=== PATIENT | male | born 1950 | race Caucasian/White ===

== ENCOUNTER → 2020-07-01 12:53 | Outpatient (BNVA) | payer MEDICARE, SELFPAY | PROVIDERS: PCP Internal Medicine; Visit Provider Internal Medicine | DX: I48.19 Other persistent atrial fibrillation (principal); I49.3 Ventricular premature depolarization; I45.10 Unspecified right bundle-branch block; R94.39 Abnormal result of other cardiovascular function study; Z79.01 Long term (current) use of anticoagulants; Z79.899 Other long term (current) drug therapy | CPT/HCPCS: 99212 ==

== ENCOUNTER 2020-07-13 08:00 | Outpatient (REF) | payer MEDICARE, SELFPAY ==
[2020-07-13 15:37] LABS: Creatinine Urine 120.22 mg/dL; Microalbum/Creatinine Ratio Ur 612.2 ug/mg cr
== END 2020-07-13 08:01 | disposition home or self-care (01) ==
LOC: HO.LAB 08:00
PROVIDERS: Family Medicine
DX: E11.9 Type 2 diabetes mellitus without complications (principal); Z23 Encounter for immunization
CPT/HCPCS: 82043

== ENCOUNTER → 2020-07-19 09:27 | Outpatient (BNVA) | payer MEDICARE, SELFPAY | PROVIDERS: PCP Internal Medicine; Referring Provider Internal Medicine; Visit Provider Nurse Practitioner | DX: K21.9 Gastro-esophageal reflux disease without esophagitis (principal); K22.10 Ulcer of esophagus without bleeding; R13.10 Dysphagia, unspecified | CPT/HCPCS: Q3014 ==

== ENCOUNTER 2020-10-12 10:55 | Outpatient (REF) | payer MEDICARE, SELFPAY ==
[2020-10-12 11:22] LABS: Creatinine Urine 189.66 mg/dL
== END 2020-10-12 10:56 | disposition home or self-care (01) ==
LOC: HO.LNP 10:55
PROVIDERS: Visit Provider Family Medicine
DX: I10 Essential (primary) hypertension (principal); E11.9 Type 2 diabetes mellitus without complications
CPT/HCPCS: 82043

== ENCOUNTER → 2020-12-30 09:27 | Outpatient (BNVA) | payer MEDICARE, SELFPAY | PROVIDERS: PCP Family Medicine; Visit Provider Internal Medicine | DX: I48.19 Other persistent atrial fibrillation (principal); I25.10 Atherosclerotic heart disease of native coronary artery without angina pectoris; I10 Essential (primary) hypertension; E11.8 Type 2 diabetes mellitus with unspecified complications | CPT/HCPCS: 93005; 99212 ==

== ENCOUNTER 2021-05-06 10:00 | Outpatient (REF) | payer MEDICARE, SELFPAY ==
[2021-05-06 11:16] LABS: MANUAL DIFF FLAG NO
[2021-05-06 11:35] LABS: Basophils Percent Auto 0.3 % (0-2); Eosinophils Absolute Auto 0.1 X10*3/uL (0.0-0.4); Eosinophils Percent Auto 1.4 % (0-4); Hematocrit 42.7 % (42-52); Hemoglobin 14.2 g/dl (14.0-18.0); Imm Gran Abs Auto 0.06 X10*3/uL (0.00-0.03); Imm Gran Pct Auto 0.8 % (0.0-0.4); Lymphocytes Absolute Auto 1.3 X10*3/uL (1.2-4.9); Lymphocytes Percent Auto 17.2 % (20-40); Mean Corpuscular HGB Conc 33.3 g/dl (31.0-36.0); Mean Corpuscular Hemoglobin 28.5 pg (27.0-33.0); Mean Corpuscular Volume 85.7 fL (80-98); Mean Platelet Volume 10.5 fL (9.4-12.4); Monocytes Absolute Auto 0.7 X10*3/uL (0.1-1.2); Monocytes Percent Auto 9.7 % (2-11); Neutrophils Absolute Auto 5.2 X10*3/uL (2.0-8.3); Neutrophils Percent Auto 70.6 % (45-73); Platelet Count 214 X10*3/uL (160-400); Red Blood Count 4.98 X10*6/uL (4.60-5.80); Red Cell Distribution Width 13.5 % (11.0-16.0); White Blood Count 7.3 X10*3/uL (4.8-10.8)
[2021-05-06 12:11] LABS: TSH reflex Free T4 0.37 uIU/mL (0.32-4.0)
[2021-05-06 12:31] LABS: Alanine Aminotransferase 17 U/L (0-40); Albumin Level 4.2 g/dL (3.5-5.0); Alkaline Phosphatase 47 U/L (39-117); Anion Gap 13 (12-20); Aspartate Amino Transferase 21 U/L (5-37); Bilirubin Total 1.5 mg/dL (0.0-1.0); Blood Urea Nitrogen 15 mg/dL (9-16); Calcium 9.3 mg/dL (8.4-10.2); Carbon Dioxide 25 mmol/L (22-29); Chloride 102 mmol/L (96-108); Cholesterol 121 mg/dL; Estimated Glomerular Filt Rate > 60; Glucose Fasting 103 mg/dL (60-99); HDL Cholesterol 40 mg/dL; LDL Cholesterol Calculated 52 mg/dl; Potassium 4.6 mmol/L (3.3-5.1); Sodium 135 mmol/L (135-145); Total Protein 6.5 g/dL (6.5-8.0); Triglycerides 145 mg/dL
[2021-05-06 12:35] LABS: Phosphorus 3.6 mg/dL (2.7-4.5)
[2021-05-06 13:04] LABS: Prostate Specific Antigen Scr 2.47 ng/mL (<0.05-4.0)
[2021-05-12 10:52] LABS: Calcium (PTHI) 9.3 mg/dL (8.6-10.3); PTHI 32 pg/mL (14-64)
== END 2021-05-06 10:01 | disposition home or self-care (01) ==
LOC: HO.WFDLDS 10:00
PROVIDERS: Visit Provider Family Medicine
DX: Z00.00 Encounter for general adult medical examination without abnormal findings (principal); E21.0 Primary hyperparathyroidism; E55.9 Vitamin D deficiency, unspecified; Z12.5 Encounter for screening for malignant neoplasm of prostate
CPT/HCPCS: 36415; 80053; 80061; 82306; 83970; 84100; 84153; 84443; 85025

== ENCOUNTER → 2021-06-14 09:37 | Outpatient (BNVA) | payer MEDICARE, SELFPAY | PROVIDERS: PCP Family Medicine; Referring Provider Family Medicine; Visit Provider Nurse Practitioner | DX: K21.9 Gastro-esophageal reflux disease without esophagitis (principal) | CPT/HCPCS: 99212 ==

== ENCOUNTER → 2021-06-30 12:18 | Outpatient (BNVA) | payer MEDICARE, SELFPAY | PROVIDERS: PCP Family Medicine; Referring Provider Family Medicine; Visit Provider Internal Medicine | DX: I48.19 Other persistent atrial fibrillation (principal); I25.10 Atherosclerotic heart disease of native coronary artery without angina pectoris; I10 Essential (primary) hypertension; E11.8 Type 2 diabetes mellitus with unspecified complications | CPT/HCPCS: 99212 ==

== ENCOUNTER 2021-08-05 11:48 | Outpatient (REF) | payer MEDICARE, SELFPAY ==
[2021-08-05 14:34] LABS: Estimated Average Glucose 151 mg/dL; Hemoglobin A1c % 6.9 %
== END 2021-08-05 11:49 | disposition home or self-care (01) ==
LOC: HO.WFDLDS 11:48
PROVIDERS: Visit Provider Family Medicine
DX: R73.01 Impaired fasting glucose (principal)
CPT/HCPCS: 36415; 83036

== ENCOUNTER → 2021-12-13 09:35 | Outpatient (BNVA) | payer MEDICARE, SELFPAY | PROVIDERS: PCP Family Medicine; Referring Provider Family Medicine; Visit Provider Nurse Practitioner | DX: K21.9 Gastro-esophageal reflux disease without esophagitis (principal); K22.10 Ulcer of esophagus without bleeding | CPT/HCPCS: 99212 ==

== ENCOUNTER → 2021-12-27 12:01 | Outpatient (BNVA) | payer MEDICARE, SELFPAY | PROVIDERS: PCP Family Medicine; Referring Provider Family Medicine; Visit Provider Internal Medicine | DX: I48.19 Other persistent atrial fibrillation (principal); I25.10 Atherosclerotic heart disease of native coronary artery without angina pectoris; I10 Essential (primary) hypertension; E11.8 Type 2 diabetes mellitus with unspecified complications | CPT/HCPCS: 93005; 99212 ==

== ENCOUNTER 2022-02-04 07:02 | Outpatient (REF) | payer MEDICARE, SELFPAY ==
[2022-02-04 07:11] LABS: MANUAL DIFF FLAG NO
[2022-02-04 07:34] LABS: Basophils Percent Auto 0.3 % (0-2); Eosinophils Absolute Auto 0.2 X10*3/uL (0.0-0.4); Eosinophils Percent Auto 1.7 % (0-4); Hematocrit 46.7 % (42.0-52.0); Hemoglobin 15.1 g/dl (14.0-18.0); Imm Gran Abs Auto 0.05 X10*3/uL (0.00-0.03); Imm Gran Pct Auto 0.6 % (0.0-0.4); Lymphocytes Absolute Auto 1.5 X10*3/uL (1.2-4.9); Lymphocytes Percent Auto 17.1 % (20-40); Mean Corpuscular HGB Conc 32.3 g/dl (31.0-36.0); Mean Corpuscular Volume 80.4 fL (80.0-98.0); Mean Platelet Volume 9.4 fL (9.4-12.4); Monocytes Absolute Auto 0.9 X10*3/uL (0.1-1.2); Monocytes Percent Auto 10.6 % (2-11); Neutrophils Absolute Auto 6.1 x10*3/uL (2.0-8.3); Neutrophils Percent Auto 69.7 % (45-73); Platelet Count 249 X10*3/uL (160-400); Red Blood Count 5.81 X10*6/uL (4.60-5.80); Red Cell Distribution Width 16.5 % (11.0-16.0); White Blood Count 8.7 X10*3/uL (4.8-10.8)
[2022-02-04 07:57] LABS: Alanine Aminotransferase 16 U/L (0-40); Albumin Level 4.4 g/dL (3.5-5.0); Alkaline Phosphatase 64 U/L (39-117); Anion Gap 12 (12-20); Aspartate Amino Transferase 16 U/L (5-37); Bilirubin Total 1.1 mg/dL (0.0-1.0); Blood Urea Nitrogen 20 mg/dL (9-16); Calcium 9.7 mg/dL (8.4-10.2); Carbon Dioxide 29 mmol/L (22-29); Chloride 99 mmol/L (96-108); Cholesterol 122 mg/dL; Estimated Glomerular Filt Rate 55; Glucose Fasting 97 mg/dL (60-99); HDL Cholesterol 36 mg/dL; LDL Cholesterol Calculated 52 mg/dl; Potassium 4.7 mmol/L (3.3-5.1); Sodium 135 mmol/L (135-145); Total Protein 7.2 g/dL (6.5-8.0); Triglycerides 170 mg/dL
[2022-02-04 08:19] LABS: Prostate Specific Antigen Scr 2.41 ng/mL (<0.05-4.0); TSH reflex Free T4 0.95 uIU/mL (0.32-4.0)
[2022-02-04 09:03] LABS: Appearance Urine CLEAR; Color Urine YELLOW; Glucose Urine UA NEG (NEG); Leukocyte Esterase Urine NEG (NEG); Nitrite Urine NEG (NEG); Specific Gravity - Urine 1.025 (1.005-1.025); Urine Blood NEG (NEG); Urine Ketones NEG (NEG); Urine Protein 1+ MG/DL (NEG-TRACE)
[2022-02-04 09:20] LABS: RBC Urine 0-2 /HPF (0); Squamous Epithelial Cell Urine TRACE /LPF
[2022-02-04 09:44] LABS: Creatinine Urine 149.71 mg/dL; Microalbum/Creatinine Ratio Ur 222.4 ug/mg cr
== END 2022-02-04 07:03 | disposition home or self-care (01) ==
LOC: HO.LAB 07:02
PROVIDERS: PCP Family Medicine; Visit Provider Family Medicine
DX: Z00.00 Encounter for general adult medical examination without abnormal findings (principal); Z12.5 Encounter for screening for malignant neoplasm of prostate; I10 Essential (primary) hypertension
CPT/HCPCS: 36415; 80053; 80061; 81001; 81003; 82043; 84153; 84443; 85025

== ENCOUNTER → 2022-06-15 09:47 | Outpatient (BNVA) | payer MEDICARE, SELFPAY | PROVIDERS: PCP Family Medicine; Visit Provider Nurse Practitioner | DX: K21.9 Gastro-esophageal reflux disease without esophagitis (principal); K22.10 Ulcer of esophagus without bleeding | CPT/HCPCS: 99212 ==

== ENCOUNTER → 2022-06-29 11:45 | Outpatient (BNVA) | payer MEDICARE, SELFPAY | PROVIDERS: PCP Family Medicine; Referring Provider Family Medicine; Visit Provider Internal Medicine | DX: I48.19 Other persistent atrial fibrillation (principal); I25.10 Atherosclerotic heart disease of native coronary artery without angina pectoris; I10 Essential (primary) hypertension; E11.8 Type 2 diabetes mellitus with unspecified complications | CPT/HCPCS: 99212 ==

== ENCOUNTER → 2022-12-05 10:02 | Outpatient (BNVA) | payer MEDICARE, SELFPAY | PROVIDERS: PCP Family Medicine; Visit Provider Nurse Practitioner | DX: Z12.11 Encounter for screening for malignant neoplasm of colon (principal); K21.9 Gastro-esophageal reflux disease without esophagitis; K22.10 Ulcer of esophagus without bleeding | CPT/HCPCS: 99212 ==

== ENCOUNTER 2022-12-08 11:05 | Outpatient (REF) | payer MEDICARE, SELFPAY ==
--- NOTE | ~2022-12-08 | US_ITS ---
EXAMINATION: US VENOUS ULTRASOUND WITH DOPPLER LOWER EXTREMITY, LEFT CLINICAL INFORMATION: Left lower extremity edema COMPARISON: None available. TECHNIQUE: Ultrasound of the deep veins is performed from the hip to the calf with compression sonography and color and pulse Doppler assessment. Spectral analysis with color-flow imaging is performed. FINDINGS: There is normal venous compression and respiratory variation and augmented flow. The visualized common femoral vein, superficial femoral vein, profunda femoral vein, popliteal vein, and the trifurcation region shows no evidence of deep venous thrombosis. There is no significant popliteal fossa cyst. If the patient's symptoms persist, followup ultrasound in 5 days 7 days might be of value to exclude proximal propagation from a non-visualized calf vein. US/US venous duplex LE LT IMPRESSION: No DVT demonstrated in the left lower extremity.
== END 2022-12-08 11:06 | disposition home or self-care (01) ==
LOC: HO.US 11:05
PROVIDERS: PCP Family Medicine; Visit Provider Family Medicine
DX: M79.89 Other specified soft tissue disorders (principal)
CPT/HCPCS: 93971

== ENCOUNTER → 2022-12-18 10:16 | Outpatient (REF) | payer MEDICARE, SELFPAY ==
--- NOTE | 2022-12-18 10:19 | HM_ITS ---
Conclusion: 1. Patient was monitored for total period of 2 days and 23 hours 2. Baseline was atrial fibrillation with average heart of 60 beats per minute 3. No significant pauses noted 4. Frequent PVCs with total burden of 13.8% 5. Frequent short salvos of wide complex rhythm consistent with nonsustained VT, longest 5 beats and fastest at 138 beats per minute. Aberrant conduction cannot be entirely ruled out 6. No patient reported symptoms MTDD
== END ==
LOC: HO.CARD 10:16
PROVIDERS: PCP Family Medicine; Visit Provider Internal Medicine
DX: I48.19 Other persistent atrial fibrillation (principal)
CPT/HCPCS: 93242

== ENCOUNTER 2023-02-27 14:37 | Outpatient (AMB) | payer MEDICARE, SELFPAY ==
[2023-02-27 14:56] VITALS: BP 120/66; PULSE 56; BMI 33.0
--- NOTE | 2023-02-27 14:56 | A.OFFVIS_ITS ---
Intake Vital Signs 02/27/23 14:56 Height 5 ft 8 in Weight 217 lb 6.012 oz BMI 33.0 BP 120/66 Blood Pressure Location Lt brachial Position Sitting Pulse 56 Intake Visit Reasons: follow up after holter Intake Note: follow up w/ EKG Outbound Sales Professional Required: No Accompanied by: Self / Same As Patient Allergies No Known Allergies Allergy (Verified 02/27/23 14:58) Medication List - Last Reconciled 02/27/23 by Lutehr Mckay MD blood sugar diagnostic As directed blood sugar diagnostic ([employer] Ultra Test strips) Once a day As directed, 90 days calcium carbonate (Calcium 500) 500 mg PO DAILY cephalexin 500 mg PO Q12H CPAP (CPAP Machine/Device) DX: G47.33, q.h.s. As directed, 999 days/lifetime garlic 1,000 mg PO DAILY glipizide ER 5 mg PO DAILY 90 days lancets ([employer] Delica Lancets) DX: E11.9, test blood sugar once a day, 90 days metformin 850 mg PO TIDWMEAL 90 days dpcghchs-fzz-AM-lycopen-lutein 300-600-300 mcg (Centrum Silver Ultra Men's) 1 tab PO DAILY pantoprazole 20 mg PO BID rivaroxaban (Xarelto) 20 mg PO DAILY rosuvastatin 40 mg PO DAILY sildenafil 100 mg PO DAILY PRN 30 days valsartan-hydrochlorothiazide 320-12.5 mg 1 tab PO DAILY HPI HPI Comments History of Present Illness Details Rahul returns for follow-up regarding several issues including atrial fibrillation, bradycardia, coronary disease, hypertension among others. He states that he is doing fine. No specific symptoms like angina or shortness of breath or in fact anything cardiac related. He does not feel any palpitations. Seems to be getting along fine. 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 [facility] Medical History Abnormal myocardial perfusion study Atherosclerotic cardiovascular disease Diabetes type 2, controlled Essential hypertension Essential hypertension Hematuria HTN (hypertension) Hypercalcemia Hyperlipidemia, unspecified CHACHA on CPAP Persistent atrial fibrillation Type 2 diabetes mellitus Type 2 diabetes mellitus with unspecified complications Surgical History History of esophagogastroduodenoscopy (EGD) History of left knee replacement History of parathyroidectomy History of right knee joint replacement Hx of colonoscopy Family History Father No problems noted. Mother Cancer CVD (cardiovascular disease) CHF (congestive heart failure) Brother Bladder cancer Brother Bladder cancer Brother History of heart valve replacement Daughter No problems noted. Son No problems noted. 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 Current occupational exposures/hazards: No Cognitive needs: No Hearing needs: Yes (hearing aides) Vision needs: Yes (glasses) Review of Systems Const Denies weakness ENT Denies dizziness Card Denies chest pain, Denies chest pain with activity, Denies syncope, Denies rapid heart rate, Denies pedal edema, Denies edema, Denies leg edema, Denies lightheadedness, Denies palpitations, Denies dyspnea, Denies dyspnea on exertion and Denies orthopnea Resp Denies cough, Denies dyspnea and Denies dyspnea on exertion GI Denies hematochezia and Denies change in stool character Musc Denies abnormal gait, Denies muscle cramps, Denies muscle weakness, Denies numbness, Denies radiating pain into limb and Denies tingling Neuro Denies abnormal gait, Denies dizziness, Denies syncope, Denies numbness, Denies tingling and Denies weakness Endo Denies palpitations Physical Exam Vital Signs: Last Vital Signs Pulse 56 02/27/23 14:56 BP 120/66 02/27/23 14:56 BMI result Body Mass Index 33.0 Const General: comfortable and no acute distress Orientation/consciousness: patient oriented x3 HEENT Other: Unremarkable Head: Yes normal to inspection Neck Neck: Yes normal visual inspection Chest Chest palpation & inspection: normal inspection of the chest Resp Auscultation: clear to auscultation bilaterally Cardio Palpation: normal PMI Heart sounds: S1 normal heart sound present, S2 normal heart sound present, no gallops, no murmurs and no rubs GI Palpation (GI): Soft to palpation Back/Spine/Pelvis Other: unremarkable Skin General skin exam: no rashes or lesions noted Neuro General: patient oriented x3 Extrem General: Yes normal to inspection Psych Mental Status: mental status grossly normal Assessment & Plan Assessment & Plan (1) Persistent atrial fibrillation: Code(s): I48.19 - Other persistent atrial fibrillation Plan: Due to bradycardia, he is off beta-blockers. Otherwise, clinically no symptoms from the atrial fibrillation. Continue anticoagulation without changes. Last creatinine 1.29. (2) PVC (premature ventricular contraction): Code(s): I49.3 - Ventricular premature depolarization Plan: PVCs versus aberrant conduction noted on Holter. He does not have any symptoms from this and he also has bradycardia. Hence no room for medications. (3) Atherosclerotic cardiovascular disease: Code(s): I25.10 - Atherosclerotic heart disease of [place] coronary artery without angina pectoris Plan: In a prior stress MIBI from 2016, he had mild ischemia in the inferior/inferolateral mathews. In the last echocardiogram LVEF 60-65% and no wall motion abnormalities noted. He has got absolutely no clinical symptoms. Continue statins. Last LDL 52 mg/dL. (4) Essential hypertension: Code(s): I10 - Essential (primary) hypertension Plan: On valsartan/HCTZ. No changes. (5) Type 2 diabetes mellitus with unspecified complications: Code(s): E11.8 - Type 2 diabetes mellitus with unspecified complications Plan: On glipizide, metformin. Last hemoglobin A1c is 6.7%. Medications: Changed From cephalexin 500 mg PO Q12H 10 days 20 caps 0RF To cephalexin 500 mg PO Q12H Coding Level of Care Code Est Pt Level 4 (05794) Diagnoses Persistent atrial fibrillation I48.19 PVC (premature ventricular contraction) I49.3 Atherosclerotic cardiovascular disease I25.10 Essential hypertension I10 Type 2 diabetes mellitus with unspecified complications E11.8
== END 2023-02-27 15:16 | disposition home or self-care (01) ==
PROVIDERS: Visit Provider Internal Medicine
DX: I48.19 Other persistent atrial fibrillation (principal); I49.3 Ventricular premature depolarization; I25.10 Atherosclerotic heart disease of native coronary artery without angina pectoris; I10 Essential (primary) hypertension; E11.8 Type 2 diabetes mellitus with unspecified complications
CPT/HCPCS: 93010; 99214

== ENCOUNTER → 2023-02-27 14:37 | Outpatient (BNVA) | payer MEDICARE, SELFPAY | PROVIDERS: Visit Provider Internal Medicine | DX: I48.19 Other persistent atrial fibrillation (principal); I49.3 Ventricular premature depolarization; I25.10 Atherosclerotic heart disease of native coronary artery without angina pectoris; I10 Essential (primary) hypertension; E11.8 Type 2 diabetes mellitus with unspecified complications | CPT/HCPCS: 93005; 99212 ==

== ENCOUNTER 2023-03-14 08:18 | Outpatient (AMB) | payer MEDICARE, SELFPAY ==
--- NOTE | 2023-03-14 08:23 | MHC.PC.OV ---
Vital Signs 03/14/23 08:24 Height 5 ft 8 in Weight 216 lb BMI 32.8 BP 118/68 Blood Pressure Location Rt brachial Position Sitting Respiration 15 Pulse 78 Pulse Source Pulse Oximeter Temp 98.9 F Temp Source Temporal Artery Scan Pulse Oximetry (%) 98 Oxygen Delivery Method Room Air Intake Visit Reasons: f/u diabetes and HTN Intake Note: Patient presents today for a follow up with diabetic care and hypertension. Patient mentions he takes his blood pressure every morning. Technical Instructor Required: No Accompanied by: Self / Same As Patient Allergies No Known Allergies Allergy (Verified 03/14/23 08:32) Medication List - Last Reconciled 03/14/23 by Austin Valles MD blood sugar diagnostic As directed blood sugar diagnostic ([employer] Ultra Test strips) Once a day As directed, 90 days calcium carbonate (Calcium 500) 500 mg PO DAILY CPAP (CPAP Machine/Device) DX: G47.33, q.h.s. As directed, 999 days/lifetime garlic 1,000 mg PO DAILY glipizide ER 5 mg PO DAILY 90 days lancets ([employer] Delica Lancets) DX: E11.9, test blood sugar once a day, 90 days metformin 850 mg PO TIDWMEAL 90 days pzhkamhb-fxj-PB-lycopen-lutein 300-600-300 mcg (Centrum Silver Ultra Men's) 1 tab PO DAILY pantoprazole 20 mg PO BID rivaroxaban (Xarelto) 20 mg PO DAILY rosuvastatin 40 mg PO DAILY sildenafil 100 mg PO DAILY PRN 30 days valsartan-hydrochlorothiazide 320-12.5 mg 1 tab PO DAILY Tobacco use date assessed: 03/14/23 Fall risk assessment: No Falls in past year Last assessed Fall Risk: 03/14/23 Dental Screening Dental Screen Date: 03/14/23 Did you have a dental visit in the last 12 months?: No Did you have a dental problem in the last 6 months where you did not have access to dental care?: No Was dental information given to patient?: Patient has dentist HPI f/u diabetes and HTN HPI Details 73 y/o male presents to f/u diabetes and hypertension. Last A1c 12/07/22 was 6.7%. He is on glipizide 5mg, metformin 850mg t.i.d. A1c today 03/14/23 is 6.4%. Blood pressure today is 118/68. He is on valsartan-hydrochlorothiazide 320-12.5mg daily. Pt has complaints of dermatitis. Pt also has complaints of wrist pain. Pt has been using his wrist brace at night. [facility] Medical History Abnormal myocardial perfusion study Atherosclerotic cardiovascular disease Diabetes type 2, controlled Essential hypertension Essential hypertension Hematuria HTN (hypertension) Hypercalcemia Hyperlipidemia, unspecified CHACHA on CPAP Persistent atrial fibrillation Type 2 diabetes mellitus Type 2 diabetes mellitus with unspecified complications Surgical History History of esophagogastroduodenoscopy (EGD) History of left knee replacement History of parathyroidectomy History of right knee joint replacement Hx of colonoscopy Family History Father No problems noted. Mother Cancer CVD (cardiovascular disease) CHF (congestive heart failure) Brother Bladder cancer Brother Bladder cancer Brother History of heart valve replacement Daughter No problems noted. Son No problems noted. 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 Shashi Vera, Paulette Washington, Tato Fuchs and colleagues, with an educational aurelio from [employer] ([employer]). Review of Systems Const Denies chills, Denies fatigue, Denies fever(s), Denies headache(s) and Denies weakness ENT Denies dizziness and Denies headache(s) Card Denies chest pain, Denies lightheadedness, Denies dyspnea and Denies other (Palpitations) Resp Denies cough, Denies dyspnea, Denies wheezing and Denies other ( shortness of breath) Musc Denies numbness and Denies tingling Neuro Denies dizziness, Denies headache(s), Denies numbness, Denies tingling, Denies paresthesias and Denies weakness Psych Denies anxiety and Denies depression Endo Denies fatigue Aller/Immun Denies wheezing Physical exam (Primary Care) Vital Signs: Last Vital Signs Temp 98.9 F 03/14/23 08:24 Pulse 78 03/14/23 08:24 Resp 15 03/14/23 08:24 BP 118/68 03/14/23 08:24 Pulse Ox 98 03/14/23 08:24 Oxygen Delivery Method Room Air 03/14/23 08:24 BMI result Body Mass Index 32.8 Tobacco/Smoking Status: Tobacco use Status Tobacco use date assessed 03/14/23 03/14/23 08:35 Patient Tobacco Use Status Never used Tobacco 03/14/23 08:30 e-Cigarette/Vaping Use Never Used 03/14/23 08:30 Thrive Assessment: Date of Thrive Assessment Date Thrive assessed 08/01/22 03/14/23 08:30 Const General: no acute distress and well developed Nutritional Appearance: well nourished Orientation/consciousness: patient oriented x3 HENMT Head: Yes normocephalic and Yes atraumatic Eyes General: appearance normal, both eyes and all related structures Pupils: Equal, round and reactive pupils present EOM: EOMs intact bilaterally Resp Effort & Inspection: normal respiratory effort Auscultation: clear to auscultation bilaterally Cardio Rate: regular rate Rhythm: abnormal rhythm and abnormal rhythm irregularly irregular Heart sounds: S1 normal heart sound present, S2 normal heart sound present, no gallops, no murmurs and no rubs Skin Other: Small subcentimeter wound on his L pitts Some diabetic skin changes and venous stasis dermatitis on the L pitts. Neuro General: patient oriented x3 and gait normal Cranial nerves: Yes Equal, round and reactive pupils present Psych Affect: normal affect Results AMB Hemoglobin A1c AMB Hemoglobin A1c 6.4 % Last Edit by Andree Pavon on 03/14/23 08:37 Results Reviewed Results Reviewed: Laboratory Last Values Hgb A1c (Clinic) 6.4 % (4.0-6.0) H 03/14/23 08:36 Assessment and Plan Assessment & Plan (1) Essential hypertension: Code(s): I10 - Essential (primary) hypertension Plan: Blood pressure is well controlled. Goal is less than 130/80 Continue current medication (2) Diabetes type 2, controlled: Code(s): E11.9 - Type 2 diabetes mellitus without complications Plan: A1c 6.4%. Good control. Goal is less than 7.0% Blood sugars do not go lower than about 89 Continue current medication regimen Continue diabetic diet and exercise Patient says his last eye exam was in May and was fine. (3) Dermatitis: Code(s): L30.9 - Dermatitis, unspecified Plan: Venous stasis dermatitis at left pitts with small sub cm wound No evidence of infectio. Also recent venous duplex ultrasound was negative for DVT. Elevate legs. Can use antibiotic ointment such as Neosporin on the wound. Watch for infection (4) Wrist pain: Code(s): M25.539 - Pain in unspecified wrist Plan: Bilateral wrist pain and numbness in median nerve distribution. Probable worsening carpal tunnel Continue using wrist braces loosely at bedtime Referred to hand specialist (5) Persistent atrial fibrillation: Code(s): I48.19 - Other persistent atrial fibrillation Plan: Stable Continue Xarelto Follow-up with Cardiology as recommended Orders: Referrals Hand Surgery Referral R20.0 - Anesthesia of skin Coding Level of Care Code Est Pt Level 4 (29082) Diagnoses Essential hypertension I10 Diabetes type 2, controlled E11.9 Dermatitis L30.9 Wrist pain M25.539 Persistent atrial fibrillation I48.19
[2023-03-14 08:24] VITALS: BP 118/68; PULSE 78; RESP 15; TEMP 37.2; O2SAT 98; BMI 32.8
== END 2023-03-14 08:58 | disposition home or self-care (01) ==
PROVIDERS: PCP Family Medicine; Visit Provider Family Medicine
DX: I10 Essential (primary) hypertension (principal); E11.620 Type 2 diabetes mellitus with diabetic dermatitis; I48.19 Other persistent atrial fibrillation; L30.9 Dermatitis, unspecified; M25.531 Pain in right wrist; M25.532 Pain in left wrist
CPT/HCPCS: 99214

== ENCOUNTER 2023-05-04 13:49 | Outpatient (REF) | payer MEDICARE, SELFPAY ==
--- NOTE | 2023-05-04 13:58 | EMG_ITS ---
Chief complaint: Numbness on 1st to 3rd digits bilateral Reason for referral: Evaluate for Carpal Tunnel Syndrome Referred by: Dr. Austin Valles Procedure done: Bilateral upper extremities NCS/EMG Precautions and/or limitations: On Xarelto The limb temperature was monitored continuously and remained between 32-36 degrees C during the performance of the NCS. Nerve Conduction Studies Anti Sensory Summary Table ?Stim Site NR Onset (ms) Norm Onset (ms) Peak (ms) Norm Peak (ms) O-P Amp (?V) Norm O-P Amp Site1 Site2 Delta-0 (ms) Dist (cm) Lauro (m/s) Norm Lauro (m/s) Left Median Anti Sensory (2nd Digit) Wrist NR <3.6 >10 Wrist 2nd Digit 14.0 Right Median Anti Sensory (2nd Digit) Wrist NR <3.6 >10 Wrist 2nd Digit 14.0 Right Radial Anti Sensory (Thumb) Forearm ? 1.8 2.3 <3.1 12.2 Forearm Thumb 1.8 0.0 Left Ulnar Anti Sensory (5th Digit) Wrist ? 2.5 3.6 <3.7 18.4 >15.0 Wrist 5th Digit 2.5 14.0 56 Right Ulnar Anti Sensory (5th Digit) Wrist ? 2.3 3.4 <3.7 7.8 >15.0 Wrist 5th Digit 2.3 14.0 61 Motor Summary Table ?Stim Site NR Onset (ms) Norm Onset (ms) O-P Amp (mV) Norm O-P Amp iAmp (mV) Amp (1st) (%) Site1 Site2 Delta-0 (ms) Dist (cm) Lauro (m/s) Norm Lauro (m/s) Left Median Motor (Abd Poll Brev) Wrist ? 7.0 <3.9 4.2 >4.5 4.8 100.0 Elbow Wrist 4.8 21.0 44 >45 Elbow ? 11.8 4.5 4.9 107.1 Right Median Motor (Abd Poll Brev) Wrist ? 7.9 <3.9 4.8 >4.5 5.9 100.0 Elbow Wrist 4.4 20.5 47 >45 Elbow ? 12.3 4.4 5.6 91.7 Left Ulnar Motor (Abd Dig Minimi) Wrist ? 2.9 <3.0 6.4 >5 8.2 100.0 B Elbow Wrist 3.8 18.0 47 >45 B Elbow ? 6.7 5.4 6.8 84.4 A Elbow B Elbow 1.6 10.0 62 >45 A Elbow ? 8.3 5.3 6.9 82.8 Right Ulnar Motor (Abd Dig Minimi) Wrist ? 2.9 <3.0 7.7 >5 9.7 100.0 B Elbow Wrist 3.6 20.5 57 >45 B Elbow ? 6.5 7.7 9.9 100.0 A Elbow B Elbow 1.5 10.0 67 >45 A Elbow ? 8.0 6.9 9.2 89.6 EMG ?Side Muscle Nerve Root Ins Act Fibs Psw Amp Dur Poly Recrt Int Pat Comment Right 1stDorInt Ulnar C8-T1 Nml Nml Nml Nml Nml 0 Nml Complete Right FlexCarRad Median C6-7 Nml Nml Nml Nml Nml 0 Nml Complete Right Biceps Musculocut C5-6 Nml Nml Nml Nml Nml 0 Nml Complete Right Triceps Radial C6-7-8 Nml Nml Nml Nml Nml 0 Nml Complete Right Deltoid Axillary C5-6 Nml Nml Nml Nml Nml 0 Nml Complete Left 1stDorInt Ulnar C8-T1 Nml Nml Nml Nml Nml 0 Nml Complete Left FlexCarRad Median C6-7 Nml Nml Nml Nml Nml 0 Nml Complete Left Biceps Musculocut C5-6 Nml Nml Nml Nml Nml 0 Nml Complete Left Triceps Radial C6-7-8 Nml Nml Nml Nml Nml 0 Nml Complete Left Deltoid Axillary C5-6 Nml Nml Nml Nml Nml 0 Nml Complete FINDINGS: Right median motor nerve showed prolonged distal latency, normal amplitude and normal conduction velocity. Left median motor nerve showed prolonged distal latency, small amplitude and slow conduction velocity. Bilateral median sensory nerves showed absent response. All other nerves tested were within normal. Concentric needle EMG was performed in selected muscles of the bilateral upper extremities. Study did not reveal signs of electric abnormalities as shown in the table below. IMPRESSION: 1. This is an abnormal study. 2. 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 3. There is no electrodiagnostic evidence for ulnar neuropathy, brachial plexopathy, or cervical radiculopathy. Thank you for your kind referral. Yenifer Morley MD, ANTHONY Board Certified, [place] [employer] and [employer] (ABPMR) Board Certified, [place] [employer] Electrodiagnostic [employer] (ABEM) CODIN 71003 x2 MTDD
== END 2023-05-04 13:50 | disposition home or self-care (01) ==
LOC: HO.NEURO 13:49
PROVIDERS: PCP Family Medicine; Visit Provider Family Medicine
DX: R20.0 Anesthesia of skin (principal); M25.531 Pain in right wrist; M25.532 Pain in left wrist
CPT/HCPCS: 95886; 95911

== ENCOUNTER → 2023-05-04 13:58 | Outpatient (BNV) | payer MEDICARE, SELFPAY | PROVIDERS: PCP Family Medicine; Visit Provider Physical Medicine & Rehabilitation | DX: G56.13 Other lesions of median nerve, bilateral upper limbs (principal); G56.03 Carpal tunnel syndrome, bilateral upper limbs | CPT/HCPCS: 95886; 95911 ==

== ENCOUNTER 2023-06-05 09:34 | Outpatient (AMB) | payer MEDICARE, SELFPAY ==
--- NOTE | 2023-06-05 09:45 | A.OFFVIS_ITS ---
Intake Vital Signs 06/05/23 09:49 Height 5 ft 8 in Weight 214 lb 11.684 oz BMI 32.6 BP 146/60 H Blood Pressure Location Rt brachial Position Sitting Pulse 50 Intake Visit Reasons: Positive cologuard /6 month fu Intake Note: Patient presents to 6 months follow up and positive cologuard. CC: Patient reports doing well and denies having any GI symptoms or concerns today. Dr Valles sent a new referral for positive cologuard. Bankruptcy Assistant Required: No Allergies No Known Allergies Allergy (Verified 03/14/23 08:32) HPI Positive cologuard /6 month fu HPI Details Assessment & Plan (1) GERD (gastroesophageal reflux diseas e): Code(s): K21.9 - Gastro-esophageal reflux disease without esophagitis Plan: He continues to do well on his pantoprazole Last scope with Dr. Amezquita all negative, but he does not know how long ago. Since we have been unable to obtain the records and Dr. Amezquita may not be practicing anymore I suggest that we consider a Cologuard screening. He likes this idea and watch the video. I explained that if this is negative then we do not need to persist with colonoscopy and we can repeat this study every 3 years. Return office visit in 6 weeks. (2) Erosive esophagitis: Code(s): K22.10 - Ulcer of esophagus without bleeding (3) Screening for colon cancer: Code(s): Z12.11 - Encounter for screening for malignant neoplasm of colon Medications: Refilled pantoprazole 20 mg PO BID 180 tabs 2RF K21.9 - Gastro-eso phageal reflux dis ease without esoph agitis CORRESPONDENCE On 01/02/23 @ 11:58 Sherri Valdivia Wrote To Floridalma Mario pt states he has already told our office he doesnt want to have a colonoscopy. fwd for an fyi On 01/02/23 @ 09:30 Rosamaria Hussein Wrote To Floridalma Mario (2) JovitaRosamaria removed from item. On 01/01/23 @ 17:45 Douglas Justice Wrote To JovitaNovember (3) Stephanie--pls tell pt cologuard was pos, recommend colonoscopy within next 4 weeks--any provider On 01/01/23 @ 09:28 Jaspal lFower Wrote To Hussein Please see below and advise. On 12/29/22 @ 05:55 Douglas Justice Wrote To Floridalma Carlson he should at least come in and talk to November or talk to his pcp On 12/28/22 @ 09:59 Floridalma Carlson Wrote To Douglas Justice Patient does not want to have a colonoscopy. He stated that he is 73 and does not want to worry about it. On 12/28/22 @ 09:16 Dannielle Walter Wrote To Floridalma Carlson Patient called bacl transfered to Stephanie. On 12/28/22 @ 08:17 Jaspal Flower Wrote To Floridalma Carlson (2) Called Pt and LVM requesting a call back. On 12/27/22 @ 22:25 Douglas Justice Wrote To Floridalma Carlson (2) should be booked for a colonoscopy directly if he agrees On 12/27/22 @ 08:26 Jaspal Flower Wrote To Douglas Justice Patient Cologuard positive. Ok to wait until November comes back next week? Please advise. On 12/21/22 @ 16:33 Floridalma Carlson Wrote To (2) Cologard called regarding an abnormal results. This patient's results were positive and they faxed results to us! TODAY'S VISIT He is now willing to do a colonoscopy, his objection was I can't drink that drink, I gag! Teena is on his formulary, so will with this he is agreeable. His GERD is well controlled on his 20 mg pantoprazole twice a day, no other GI problems. He has afib and is on xarelto, will need clearance to stop this with Dr. Mckay, he has CHACHA. There are no prior problems with anesthesia or sedation. NO ID problems. His last scope was with Dr. Amezquita and was negative no past polyps but he had a positive cologuard. [facility] Medical History (Updated 06/05/23 @ 17:17 by CRYS Parker) Screening for prostate cancer Adult general medical exam Encounter for general adult medical examination without abnormal findings Sleep apnea Esophageal dysphagia Atherosclerotic cardiovascular disease Essential hypertension Diabetes type 2, controlled Type 2 diabetes mellitus HTN (hypertension) CHACHA on CPAP Hypercalcemia Hematuria Hyperlipidemia, unspecified Essential hypertension Type 2 diabetes mellitus with unspecified complications Abnormal myocardial perfusion study Persistent atrial fibrillation Surgical History Hx of colonoscopy History of parathyroidectomy History of esophagogastroduodenoscopy (EGD) History of left knee replacement History of right knee joint replacement Family History Father No problems noted. Mother Cancer CVD (cardiovascular disease) CHF (congestive heart failure) Brother Bladder cancer Brother Bladder cancer Brother History of heart valve replacement Daughter No problems noted. Son No problems noted. 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 Current occupational exposures/hazards: No Cognitive needs: No Hearing needs: Yes (hearing aides) Vision needs: Yes (glasses) Review of Systems Const Denies fatigue, Denies fever(s), Denies night sweats, Denies poor appetite and Denies weight loss Eyes Details: glasses Reports requires corrective lenses ENT Reports Normal hearing present, Denies dysphagia, Denies odynophagia, Denies throat swelling and Denies tongue swelling Card Reports leg edema Resp Reports no additional complaints GI Denies abdominal pain, Denies melena, Denies bloating, Denies hematochezia, Denies constipation, Denies GI cramping, Denies dysphagia, Denies excessive flatus, Denies early satiety, Reports heartburn, Denies diarrhea, Denies nausea, Denies odynophagia, Denies vomiting and Denies hematemesis Skin/Breast Denies pruritus, Denies lesions, Denies rash and Denies jaundice Neuro Reports Normal hearing present and Denies Abnormal speech present Endo Denies fatigue Aller/Immun Denies throat swelling and Denies tongue swelling Physical Exam Vital Signs: Last Vital Signs Pulse 50 06/05/23 09:49 BP 146/60 H 06/05/23 09:49 BMI result Body Mass Index 32.6 Const General: cooperative, no acute distress, well developed and well groomed Nutritional Appearance: well nourished and obese Orientation/consciousness: oriented to person, oriented to place and oriented to time Limitations: No language barrier HEENT Head: Yes normocephalic and Yes atraumatic Eyes General: appearance normal, both eyes and all related structures Pupils: Equal, round and reactive pupils present Neck Neck: Yes normal visual inspection and Yes no lymphadenopathy Thyroid: Thyroid normal Resp Effort & Inspection: normal respiratory effort and able to speak in complete sentences Auscultation: clear to auscultation bilaterally Cardio Rate: regular rate Rhythm: abnormal rhythm irregularly irregular Heart sounds: Normal, physiologic split S2 sound present Peripheral pulses: radial pulses present and posterior tibial pulses present GI Inspection: No distended, No Abdominal panniculus present and Yes obesity Palpation (GI): Soft to palpation, nontender, no guarding, not rigid and No hepatosplenomegaly present Percussion: Yes normal to percussion Auscultation: normal bowel sounds Rectal Exam - Male: Yes deferred Skin General skin exam: no rashes or lesions noted, turgor normal, skin not dry, no jaundice, No spider nevi and no striae Rashes: no rashes Nails: normal Neuro General: oriented to person, oriented to place and oriented to time Cranial nerves: Yes Equal, round and reactive pupils present and Yes Normal hearing present Speech: No Abnormal speech present Extrem Other: Left lower extremity is red warmer and more swollen than the right. He says he dropped something on injured it. He also says he had a negative ultrasound for DVT. General: Yes normal to inspection, No clubbing, No cyanosis, Yes edema (bilater al but red adn warm left and pitting up to 3/4 calf) and Yes venous stasis dermatitis Psych Appearance: grossly normal and well kempt Mental Status: mental status grossly normal Speech and movement: Normal speech and movement present Affect: normal affect Attitude: cooperative Thought process: Normal thought process present and not confabulating Thought content: Normal thought content present Insight: Limited insight present (Psych) Judgement: Limited judgement present (Psych) Assessment & Plan Assessment & Plan (1) Positive colorectal cancer screening using Cologuard test: Code(s): R19.5 - Other fecal abnormalities Plan: He is now willing to do a colonoscopy, his objection was I can't drink that drink, I gag! Suprep is on his formulary, so will with this he is agreeable. His GERD is well controlled on his 20 mg pantoprazole twice a day, no other GI problems. He has afib and is on xarelto, will need clearance to stop this with Dr. Mckay, he has CHACHA. There are no prior problems with anesthesia or sedation. NO ID problems. His last scope was with Dr. Amezquita and was negative no past polyps but he had a positive cologuard. (2) GERD (gastroesophageal reflux disease): Code(s): K21.9 - Gastro-esophageal reflux disease without esophagitis (3) Chronic anticoagulation: Code(s): Z79.01 - snf (current) use of anticoagulants (4) CHACHA on CPAP: Code(s): G47.33 - Obstructive sleep apnea (adult) (pediatric); Z99.89 - Dependence on other enabling machines and devices (5) Swelling of lower extremity: Code(s): M79.89 - Other specified soft tissue disorders Orders: Orders Colonoscopy - GI Use Only Today K21.9 - Gastro-esophageal reflux disease without esophagitis, R19.5 - Other fecal abnormalities Medications: New sod sulf-pot chloride-mag sulf 1.479-0.188- 0.225 gram (Sutab) PO PER PKG DIR 24 tabs 0RF Refilled pantoprazole 20 mg PO BID 180 tabs 2RF K21.9 - Gastro-esophageal reflux disease without esophagitis Coding Level of Care Code New Pt Level 3 (40210) Diagnoses Positive colorectal cancer screening using Cologuard test R19.5 GERD (gastroesophageal reflux disease) K21.9 Chronic anticoagulation Z79.01 CHACHA on CPAP G47.33; Z99.89 Swelling of lower extremity M79.89
[2023-06-05 09:49] VITALS: BP 146/60; PULSE 50; BMI 32.6
== END 2023-06-05 10:14 | disposition home or self-care (01) ==
PROVIDERS: Visit Provider Nurse Practitioner
DX: R19.5 Other fecal abnormalities (principal); K21.9 Gastro-esophageal reflux disease without esophagitis; Z79.01 Long term (current) use of anticoagulants
CPT/HCPCS: 99213

== ENCOUNTER → 2023-06-05 09:34 | Outpatient (BNVA) | payer MEDICARE, SELFPAY | PROVIDERS: Visit Provider Nurse Practitioner | DX: R19.5 Other fecal abnormalities (principal); K21.9 Gastro-esophageal reflux disease without esophagitis; K22.10 Ulcer of esophagus without bleeding; G47.33 Obstructive sleep apnea (adult) (pediatric); M79.89 Other specified soft tissue disorders; Z99.89 Dependence on other enabling machines and devices; Z79.01 Long term (current) use of anticoagulants | CPT/HCPCS: 99212 ==

== ENCOUNTER 2023-06-12 08:04 | Outpatient (AMB) | payer MEDICARE, SELFPAY ==
--- NOTE | 2023-06-12 08:16 | MHC.PC.OV ---
Vital Signs 06/12/23 08:18 Height 5 ft 8 in Weight 215 lb 6 oz BMI 32.7 BP 124/64 Blood Pressure Location Rt brachial Position Sitting Respiration 14 Pulse 83 Pulse Source Pulse Oximeter Temp 98.7 F Temp Source Oral Pulse Oximetry (%) 98 Oxygen Delivery Method Room Air Intake Visit Reasons: f/u diabetes and HTN Intake Note: Patient is here for a follow up of hypertension and diabetes. Patient reports he had an emg completed and the results came back positive for carpal tunnel. Report has been scanned into patients chart. Professor Of Marketing Required: No Accompanied by: Self / Same As Patient Allergies No Known Allergies Allergy (Verified 06/12/23 08:26) Medication List - Last Reconciled 06/12/23 by Austin Valles MD blood sugar diagnostic As directed blood sugar diagnostic ([employer] Ultra Test strips) Once a day As directed, 90 days calcium carbonate (Calcium 500) 500 mg PO DAILY CPAP (CPAP Machine/Device) DX: G47.33, q.h.s. As directed, 999 days/lifetime garlic 1,000 mg PO DAILY garlic 1,000 mg PO DAILY glipizide ER 5 mg PO DAILY 90 days lancets DX: E11.9, test blood sugar once a day, 90 days metformin 850 mg PO TIDWMEAL 90 days ih-bci-xehes-O9-byveqbl-iqpabc 221-30-636-300 mcg (Centrum Silver Ultra Men's) 1 tab PO DAILY omega 3-vqp-cij-fish oil 1,200 (144-216) mg (Fish Oil) caps PO pantoprazole 20 mg PO BID rivaroxaban 20 mg PO DAILY 90 days rivaroxaban (Xarelto) 20 mg PO DAILY rosuvastatin 40 mg PO DAILY sildenafil 100 mg PO DAILY PRN 30 days sod sulf-pot chloride-mag sulf 1.479-0.188- 0.225 gram (Sutab) PO PER PKG DIR valsartan-hydrochlorothiazide 320-12.5 mg 1 tab PO DAILY Tobacco use date assessed: 03/14/23 Fall risk assessment: No Falls in past year Last assessed Fall Risk: 06/12/23 Dental Screening Dental Screen Date: 06/12/23 Did you have a dental visit in the last 12 months?: Yes Did you have a dental problem in the last 6 months where you did not have access to dental care?: No Was dental information given to patient?: Patient has dentist HPI f/u diabetes and HTN HPI Details 73 y/o male presents to f/u hypertension and diabetes. Last A1c 03/14/23 was 6.4%. He is on glipizide 5mg, metformin 850mg t.i.d. A1c today 06/12/23 is 6.6%. Blood pressure today 124/64. He is on valsartan-HCTZ 320-12.5mg daily. HPI Comments History of Present Illness Details Documentation assistance for Austin Valles MD, was provided by Santy Poe, Head Sampler on 06/12/2023 8:48 AM EST. I, Dr. Valles, have read, observed, and verified documentation. [facility] Medical History Screening for prostate cancer Adult general medical exam Encounter for general adult medical examination without abnormal findings Sleep apnea Esophageal dysphagia Atherosclerotic cardiovascular disease Essential hypertension Diabetes type 2, controlled Type 2 diabetes mellitus HTN (hypertension) CHACHA on CPAP Hypercalcemia Hematuria Hyperlipidemia, unspecified Essential hypertension Type 2 diabetes mellitus with unspecified complications Abnormal myocardial perfusion study Persistent atrial fibrillation Surgical History Hx of colonoscopy History of parathyroidectomy History of esophagogastroduodenoscopy (EGD) History of left knee replacement History of right knee joint replacement Family History Father No problems noted. Mother Cancer CVD (cardiovascular disease) CHF (congestive heart failure) Brother Bladder cancer Brother Bladder cancer Brother History of heart valve replacement Daughter No problems noted. Son No problems noted. 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 Shashi Vera, Paulette Washington, Tato Fuchs and colleagues, with an educational aurelio from [employer]. Review of Systems Const Denies chills, Denies fatigue, Denies fever(s), Denies headache(s) and Denies weakness ENT Denies dizziness and Denies headache(s) Card Denies chest pain, Denies lightheadedness, Denies dyspnea and Denies other (Palpitations) Resp Denies cough, Denies dyspnea, Denies wheezing and Denies other ( shortness of breath) Musc Denies numbness and Denies tingling Neuro Denies dizziness, Denies headache(s), Denies numbness, Denies tingling, Denies paresthesias and Denies weakness Psych Denies anxiety and Denies depression Endo Denies fatigue Aller/Immun Denies wheezing Physical exam (Primary Care) Vital Signs: Last Vital Signs Temp 98.7 F 06/12/23 08:18 Pulse 83 06/12/23 08:18 Resp 14 06/12/23 08:18 BP 124/64 06/12/23 08:18 Pulse Ox 98 06/12/23 08:18 Oxygen Delivery Method Room Air 06/12/23 08:18 BMI result Body Mass Index 32.7 Tobacco/Smoking Status: Tobacco use Status Tobacco use date assessed 03/14/23 06/12/23 08:16 Patient Tobacco Use Status Never used Tobacco 06/12/23 08:16 e-Cigarette/Vaping Use Never Used 06/12/23 08:16 Thrive Assessment: Date of Thrive Assessment Date Thrive assessed 08/01/22 06/12/23 08:16 Const General: no acute distress and well developed Nutritional Appearance: well nourished Orientation/consciousness: patient oriented x3 HENMT Head: Yes normocephalic and Yes atraumatic Eyes General: appearance normal, both eyes and all related structures Pupils: Equal, round and reactive pupils present EOM: EOMs intact bilaterally Resp Effort & Inspection: normal respiratory effort Auscultation: clear to auscultation bilaterally Cardio Rate: regular rate Rhythm: abnormal rhythm Heart sounds: S1 normal heart sound present, S2 normal heart sound present, no gallops, no murmurs and no rubs Neuro General: patient oriented x3 and gait normal Cranial nerves: Yes Equal, round and reactive pupils present Psych Affect: normal affect Results AMB Hemoglobin A1c AMB Hemoglobin A1c 6.6 % Last Edit by Andree Pavon CMA on 06/12/23 08:34 Results Reviewed Results Reviewed: Laboratory Last Values Hgb A1c (Clinic) 6.6 % (4.0-6.0) H 06/12/23 08:33 Assessment and Plan Assessment & Plan (1) Diabetes type 2, controlled: Code(s): E11.9 - Type 2 diabetes mellitus without complications Plan: A1c 6.6%.??Good?control.??Goal?is?less?than?7.0% Continue?current?medication?regimen (2) Essential hypertension: Code(s): I10 - Essential (primary) hypertension Plan: Blood?pressure?is?well?controlled.??Goal?is?less?than?130/80?for?patient?with?coronary?artery?disease Continue?current?medication?regimen (3) Persistent atrial fibrillation: Code(s): I48.19 - Other persistent atrial fibrillation Plan: Anticoagulated?with?rivaroxaban Stable (4) Wrist pain: Code(s): M25.539 - Pain in unspecified wrist Plan: Bilateral?wrist?pain?and?EMG?is?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
[2023-06-12 08:18] VITALS: BP 124/64; PULSE 83; RESP 14; TEMP 37.1; O2SAT 98; BMI 32.7
== END 2023-06-12 08:58 | disposition home or self-care (01) ==
PROVIDERS: PCP Family Medicine; Visit Provider Family Medicine
DX: E11.9 Type 2 diabetes mellitus without complications (principal); I10 Essential (primary) hypertension; I48.19 Other persistent atrial fibrillation; M25.539 Pain in unspecified wrist
CPT/HCPCS: 83036; 99214

== ENCOUNTER 2023-06-12 08:31 | Outpatient (REF) | payer MEDICARE, SELFPAY | END 2023-06-12 08:32 | disposition home or self-care (01) | LOC: HO.LAB 08:31 | PROVIDERS: Visit Provider Family Medicine | DX: Z13.89 Encounter for screening for other disorder (principal) ==

== ENCOUNTER 2023-07-10 12:54 | Outpatient (AMB) | payer MEDICARE, SELFPAY ==
[2023-07-10 13:14] VITALS: BMI 32.7
--- NOTE | 2023-07-10 13:14 | MHC.OFFVIS ---
Intake Vital Signs 07/10/23 13:14 Height 5 ft 8 in Weight 215 lb BMI 32.7 Intake Visit Reasons: OV-B/L upper extremity CTS-discuss surgery? Intake Note: Rahul is a 73 year old right hand dominant male who presents today for an EMG review of bilateral hands. Patient reports that he has had pain, numbness and tingling in both of the hands for abour 3-4 years. The numbness is affecting his pointer, middle and thumb of both hands. One hand is not worse than the other. His symptoms are causing him to drop things. He does have braces to wear at night which help, he has had them for many years and would like new brace. No hx of injections or surgery. Seen with Dr. 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 HPI Details Rahul is a 73 year old man who presents for a NCS review of his bilateral hand numbness. He complains of numbness in the thumb, index, and middle fingers bilaterally. He says his numbness is constant, and he cannot feel objects when he picks them up or holds them. He says this has been present, along with some pain, for ~3-4 years now. He complains of weakness and says he often drops objects. He denies any prior treatment except for bilateral wrist braces he wears at night, with some relief. 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 His most recent HgA1c was 6.6%. He has a hx of Afib and CVD. [facility] Medical History Screening for prostate cancer Adult general medical exam Encounter for general adult medical examination without abnormal findings Sleep apnea Esophageal dysphagia Atherosclerotic cardiovascular disease Essential hypertension Diabetes type 2, controlled Type 2 diabetes mellitus HTN (hypertension) CHACHA on CPAP Hypercalcemia Hematuria Hyperlipidemia, unspecified Essential hypertension Type 2 diabetes mellitus with unspecified complications Abnormal myocardial perfusion study Persistent atrial fibrillation Surgical History Hx of colonoscopy History of parathyroidectomy History of esophagogastroduodenoscopy (EGD) History of left knee replacement History of right knee joint replacement Family History Father No problems noted. Mother Cancer CVD (cardiovascular disease) CHF (congestive heart failure) Brother Bladder cancer Brother Bladder cancer Brother History of heart valve replacement Daughter No problems noted. Son No problems noted. 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 Current occupational exposures/hazards: No Cognitive needs: No Hearing needs: Yes (hearing aides) Vision needs: Yes (glasses) Review of Systems Const All systems reviewed & are unremarkable except as noted in HPI and below Physical Exam Vital Signs: BMI result Body Mass Index 32.7 Const General: cooperative, healthy appearing and no acute distress Orientation/consciousness: patient oriented x3 HEENT Head: Yes normocephalic and Yes atraumatic Eyes EOM: EOMs intact bilaterally Resp Effort & Inspection: normal respiratory effort and able to speak in complete sentences Cardio Jugular venous distension: no JVD Skin General skin exam: turgor normal Rashes: no rashes Neuro General: patient oriented x3 Extrem Other: Evaluation of Bilateral Upper Extremity: The patient is alert, oriented, and in no acute distress Neuro: Median, Ulnar, Radial nerves motor and sensory intact except for dense numbness in the median nerve distribution bilaterally. Normal sensation to the small fingers bilaterally. No thenar or intrinsic wasting Vascular: Cap refill brisk ROM: He can make a fist and extend all his digits . No locking or catching Skin: No lacerations or abrasions. General: No Ecchymosis. No Erythema or evidence of infection. Nerve Conduction Study: IMPRESSION: 1. This is an abnormal study. 2. 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 3. There is no electrodiagnostic evidence for ulnar neuropathy, brachial plexopathy, or cervical radiculopathy. Thank you for your kind referral. Yenifer Molrey MD, ANTHONY 05/04/23 Psych Appearance: grossly normal Affect: normal affect Attitude: cooperative Assessment & Plan Assessment & Plan (1) Carpal tunnel syndrome of right wrist: Code(s): G56.01 - Carpal tunnel syndrome, right upper limb (2) Carpal tunnel syndrome of left wrist: Code(s): G56.02 - Carpal tunnel syndrome, left upper limb (3) Diabetes type 2, controlled: Code(s): E11.9 - Type 2 diabetes mellitus without complications (4) Persistent atrial fibrillation: Code(s): I48.19 - Other persistent atrial fibrillation Plan Assessment & Plan: 1. Right carpal tunnel syndrome, moderate-severe With dense numbness 2. Left carpal tunnel syndrome, moderate-severe With dense numbness I educated him about this condition I discussed operative and non-operative treatment options The patient would like to proceed with surgery, beginning with the right side The risks and benefits of operative treatment were discussed with the patient and the patient wishes to proceed with surgery. These risks include, but are not limited to risk of damage to blood vessels, nerves, tendons, infection, recurrence, incomplete relief of preoperative symptoms, persistent pain, possible need for further surgery and the risks associated with regional blocks and anesthesia. The plan is to take the patient to the operating room sometime in the next few weeks for the following procedures: 1. Right carpal tunnel release, under local All of the preoperative paperwork including the consent was filled out today. All the patient's questions were answered. The patient understands that they will be contacted by our activities specialist soon to schedule this procedure He denies asthma, lung, kidney issues He is a Diabetic, his most recent HgA1c was 6.6% on 06/12/23. He is on Xarelto for Afib & cardiovascular disease Scribed for Lurdes Kaiser MD by Tod Deluna, medical office supervisor, on 07/10/23 at 1:35 PM, EST. Coding Level of Care Code New Pt Level 4 (02912) Diagnoses Carpal tunnel syndrome of right wrist G56.01 Carpal tunnel syndrome of left wrist G56.02 Diabetes type 2, controlled E11.9 Persistent atrial fibrillation I48.19
== END 2023-07-10 13:44 | disposition home or self-care (01) ==
PROVIDERS: PCP Family Medicine; Visit Provider Orthopaedic Surgery
DX: G56.03 Carpal tunnel syndrome, bilateral upper limbs (principal); E11.9 Type 2 diabetes mellitus without complications; I48.19 Other persistent atrial fibrillation
CPT/HCPCS: 99204

== ENCOUNTER → 2023-07-10 12:54 | Outpatient (BNVA) | payer MEDICARE, SELFPAY | PROVIDERS: PCP Family Medicine; Visit Provider Orthopaedic Surgery | DX: G56.03 Carpal tunnel syndrome, bilateral upper limbs (principal); I48.19 Other persistent atrial fibrillation; E11.9 Type 2 diabetes mellitus without complications | CPT/HCPCS: 99202 ==

== ENCOUNTER 2023-08-16 07:21 | Day surgery (SDC) | payer MEDICARE, SELFPAY ==
[2023-08-14 14:12] VITALS: BMI 32.7
[2023-08-16 07:34] VITALS: BMI 32.7
[2023-08-16 07:43] VITALS: BP 140/73; PULSE 56; RESP 20; TEMP 36.1; O2SAT 96
--- NOTE | 2023-08-16 07:50 | PC.NURSE ---
[facility] [phone]
[2023-08-16 07:57] LABS: Glucose, Whole Blood 117 mg/dL (60-115)
[2023-08-16] MEDS: Lactated Ringers 1,000 ML 50 ML IVCONT (07:59)
--- NOTE | 2023-08-16 08:19 | P.CONAN_ITS ---
HPI - Anesthesia Eval Consult details Narrative: colonoscopy [facility] Active Problems Active Problems: All Active Problems (Updated 07/10/23 @ 13:37 by Tod Deluna) Carpal tunnel syndrome of left wrist (Acute) Carpal tunnel syndrome of right wrist (Acute) CHACHA on CPAP (Acute) Chronic anticoagulation (Acute) Positive colorectal cancer screening using Cologuard test (Acute) Wrist pain (Acute) Dermatitis (Acute) PVC (premature ventricular contraction) (Acute) Bilateral hand numbness (Acute) Swelling of lower extremity (Acute) Hyperlipidemia, unspecified (Acute) Microalbuminuria (Acute) Low HDL (under 40) (Acute) Bilateral foot pain (Acute) Right shoulder pain (Acute) Hearing loss (Acute) Screening for colon cancer (Acute) Venous insufficiency (Acute) Uses hearing aid (Acute) Obstructive sleep apnea (Acute) Atherosclerotic cardiovascular disease (Acute) Erosive esophagitis (Acute) GERD (gastroesophageal reflux disease) (Acute) Essential hypertension (Acute) Diabetes type 2, controlled (Acute) Abnormal myocardial perfusion study (Acute) Persistent atrial fibrillation (Acute) Past Medical History Medical History Screening for prostate cancer Adult general medical exam Encounter for general adult medical examination without abnormal findings Sleep apnea Esophageal dysphagia Atherosclerotic cardiovascular disease Essential hypertension Diabetes type 2, controlled Type 2 diabetes mellitus HTN (hypertension) CHACHA on CPAP Hypercalcemia Hematuria Hyperlipidemia, unspecified Essential hypertension Type 2 diabetes mellitus with unspecified complications Abnormal myocardial perfusion study Persistent atrial fibrillation Family History Family History Father No problems noted. Mother Cancer CVD (cardiovascular disease) CHF (congestive heart failure) Brother Bladder cancer Brother Bladder cancer Brother History of heart valve replacement Daughter No problems noted. Son No problems noted. Family history of problems with anesthesia: No Surgical History Surgical History Hx of colonoscopy History of parathyroidectomy History of esophagogastroduodenoscopy (EGD) History of left knee replacement History of right knee joint replacement History of Problems with Anesthesia: No Social History Social History Household Members: Spouse and Children Housing: House Alcohol intake: current Alcohol intake frequency: does not drink Patient Tobacco Use Status: Never used Tobacco e-Cigarette/Vaping Use: Never Used Second Hand Smoke Exposure: No Are you DNR?: No Advance Directives: No Advance Directives Information Provided: Yes Nutrition Risks: No Nutritional Risk service: No Current occupational status: employed 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 Current occupational exposures/hazards: No Cognitive needs: No Hearing needs: Yes (hearing aides) Vision needs: Yes (glasses) Meds Allergies Allergy/AdvReac Type Severity Reaction Status Date / Time No Known Allergies Allergy Verified 06/12/23 08:26 Active Medications: Current Medications Lactated Ringer's (Lr) 1,000 mls @ 50 mls/hr IVCONT .Q20H EMILY Last Admin: 08/16/23 07:59 Dose: 50 mls/hr Home Medications Medication Instructions Recorded Confirmed Last Taken Type blood sugar diagnostic #10 ea 10/12/20 06/12/23 Unknown History garlic 1,000 mg capsule 1,000 mg PO DAILY 05/06/21 06/12/23 08/13/23 History rsotkeyn-cf-fbgzm 300 mcg-K 60 1 tab PO DAILY 05/06/21 06/12/23 08/16/23 History mcg-lycop 600 mcg-lutein 300 mcg tablet (Centrum Silver Ultra Men's) calcium carbonate 500 mg calcium 500 mg PO DAILY 06/14/21 06/12/23 08/16/23 History (1,250 mg) chewable tablet (Calcium 500) blood sugar diagnostic (OneTouch 02/27/23 06/12/23 Unknown History Ultra Test strips) garlic 1,000 mg capsule 1,000 mg PO DAILY 06/05/23 06/12/23 08/13/23 History omega 3-cba-fgt-fish oil 1,200 mg cap PO 06/05/23 06/12/23 08/13/23 History (144 mg-216 mg) capsule (Fish Oil) Exam Height,Weight and Vital Signs: Height 5 ft 8 in Weight 97.704 kg Last Vital Signs Temp 97 F 08/16/23 07:43 Pulse 56 08/16/23 07:43 Resp 20 08/16/23 07:43 BP 140/73 H 08/16/23 07:43 Pulse Ox 96 08/16/23 07:43 O2 Del Method Room Air 08/16/23 07:43 Pertinent Lab Results Pertinent Lab Results: Laboratory Tests 08/16/23 07:49 POC Glucose 117 H Airway Mallampati Class: II TM Dist: >3cm Neck ROM: Limited Heart: rrr Lungs: cta Assessment and Plan Assessment Anesthesia Assessment: Anesthesia Plan Discussed Final Anesthetic Review Family History of Problems with Anesthesia: No History of Problems with Anesthesia: No NPO: Yes ASA Class: III Final Preanesthetic Review: No Changes in Pt Med Stat, Meds/Allgs Chart Reviewed, Consent Obtained/Reviewed and Anes Risks/Benef Reviewed Patient Risk: Intermediate Procedure Risk: Low Anesthetic Plan Anesthetic Plan: MAC: and Agree w/ Assess. and Plan Disposition: Standard PACU
--- NOTE | 2023-08-16 09:27 | P.HPSUR_ITS ---
Pre-Procedural Eval Section A Date of Service: 08/16/23 Section B Chief Complaint: Other fecal abnormalities Details of Present Illness: pos cologuard Relevant Family History (Specify if Yes): No Relevant Social History: None Present Medications: see Short Stay Collaborative assessment Medical History: Significant History (Sleep apnea Esophageal dysphagia Atherosclerotic cardiovascular disease Essential hypertension Diabetes type 2, controlled Type 2 diabetes mellitus HTN (hypertension) CHACHA on CPAP Hypercalcemia Hematuria Hyperlipidemia, unspecified Essential hypertension Type 2 diabetes mellitus with unspecified comp) History of Previous Operations: Relevant previous surgery/procedure and date(s) ( Hx of colonoscopy History of parathyroidectomy History of esophagogastroduodenoscopy (EGD) History of left knee replacement History of right knee joint replacement) Allergies: Allergies Allergy/AdvReac Type Severity Reaction Status Date / Time No Known Allergies Allergy Verified 06/12/23 08:26 Review of Systems Sugical H&P ROS: Negative: Constitution, Cardiovascular, Respiratory, Neurological, Psychiatric, Hem-Onc, Allergic/Immunologic, Gastrointestinal, Genitourinary, Musculoskeletal, Integumentary, Endocrine and Eyes/E ars/Nose/Throat Exam Surgical H&P Exam: Normal: HEENT, Normal: Heart, Normal: Lungs, Normal: Extremities, Normal: Abdomen, Normal: Skin and Normal: Neurological Plan Diagnosis/Plan: Unchanged I have reviewed the history and physical and performed a pertinent physical examination on my patient. No changes have occurred unless specified. Time Spent With Patient Time: Total time managing care of this patient today ____ minutes.
[2023-08-16 09:55] VITALS: BP 124/64; PULSE 94; RESP 16; TEMP 36.5; O2SAT 94
[2023-08-16 10:10] VITALS: BP 145/73; PULSE 70; RESP 18; TEMP 36.6; O2SAT 97
--- NOTE | 2023-08-16 10:13 | W.PM.OPN ---
Operative Note Operative Note Date of Service: 08/16/23 Narrative: Operative Information Procedure Description: Colonoscopy Indication: pos cologuard Anesthesia: MAC COLONOSCOPY Instrument: Olympus variable stiffness pediatric scope 190L Colonoscopy Monitoring: Vital signs and clinical assessment, continuous EKG monitoring, Pulse oximetry, Carbon Dioxide monitoring and blood pressure monitoring were done throughout the procedure. Colon withdrawal time was 12 minutes. Procedure: The patient was placed in the left lateral decubitis position and pre-procedure medications were administered. After a digital rectal examination of the ano-rectum, the video colonoscope was inserted into the rectum and advanced through the colon to the cecum/TI. The colonoscope was slowly withdrawn in a retrograde panoramic fashion and the colon mucosa was carefully examined including a retroflexed view of the rectum. Findings and interventions are described below. Procedure Difficulty: easy Findings: Terminal Ileum-normal Cecum:normal right sided retrofelxion--normal Ascending Colon: mild diverticulosis Transverse Colon -normal Descending Colon: moderate severe diverticulosis Sigmoid Colon: moderate severe diverticulosis Rectum: Retroflexion with small to mdoerate sized internal hemorrhoids, grade I Anorectum - normal Colon preparation: [place] Bowel Preparation Scale Right colon; 2 Transverse colon: 3 Left colon; 3 (0 = Unprepared colon segment with mucosa not seen due to solid stool that cannot be cleared. 1 = Portion of mucosa of the colon segment seen, but other areas of the colon segment not well seen due to staining, residual stool and/or opaque liquid. 2 = Minor amount of residual staining, small fragments of stool and/or opaque liquid, but mucosa of colon segment seen well. 3 = Entire mucosa of colon segment seen well with no residual staining, small fragments of stool or opaque liquid) Impression and Post Procedure Diagnosis: internal hemorrhoids diverticular disease Plan: High fiber diet leaflet Avoid straining at stool, epsom salts and sitz bath, anusol supps or cream Repeat Colonoscopy in 10 years if ehalth allows or earlier if clinically indicated can restart rivaroxiban today Above findings were reviewed with the patient and relevant handouts were provided if indicated.
== END 2023-08-16 11:01 | disposition home or self-care (01) ==
PROVIDERS: PCP Family Medicine; Visit Provider Internal Medicine Gastroenterology
PROC: 0DJD8ZZ Inspection of Lower Intestinal Tract, Via Natural or Artificial Opening Endoscopic (ICD-10-PCS; CPT 45378; principal; 2023-08-16 10:10)
DX: Z12.11 Encounter for screening for malignant neoplasm of colon (principal); K57.30 Diverticulosis of large intestine without perforation or abscess without bleeding; K64.0 First degree hemorrhoids; R19.5 Other fecal abnormalities; E11.9 Type 2 diabetes mellitus without complications; I10 Essential (primary) hypertension; E78.5 Hyperlipidemia, unspecified; I48.19 Other persistent atrial fibrillation; K21.9 Gastro-esophageal reflux disease without esophagitis; K22.10 Ulcer of esophagus without bleeding; I49.3 Ventricular premature depolarization; G47.33 Obstructive sleep apnea (adult) (pediatric); Z99.89 Dependence on other enabling machines and devices; Z79.01 Long term (current) use of anticoagulants
CPT/HCPCS: G0105; 82947; J2704

== ENCOUNTER → 2023-08-16 07:21 | Outpatient (BNV) | payer MEDICARE, SELFPAY | PROVIDERS: PCP Family Medicine; Visit Provider Internal Medicine Gastroenterology | DX: Z12.11 Encounter for screening for malignant neoplasm of colon (principal); K57.90 Diverticulosis of intestine, part unspecified, without perforation or abscess without bleeding; K64.8 Other hemorrhoids; R19.5 Other fecal abnormalities | CPT/HCPCS: G0105 ==

== ENCOUNTER 2023-08-29 08:55 | Outpatient (AMB) | payer MEDICARE, SELFPAY ==
--- NOTE | 2023-08-29 09:40 | MHC.OFFVIS ---
Intake Vital Signs 08/29/23 09:47 Height 5 ft 8 in Weight 216 lb 0.848 oz BMI 32.8 BP 147/73 H Blood Pressure Location Rt brachial Position Sitting Pulse 55 Intake Visit Reasons: s/P [place]; Dr. cervantes Intake Note: Rahul presents in the office today in follow up of colonoscopy. CC: He underwent colonoscopy with Dr. Cervantes on 08/16/23. Patient reports doing well and denies having any GI symptoms or concerns today. Allergies No Known Allergies Allergy (Verified 08/29/23 09:57) HPI s/P [place]; Dr. cervantes HPI Details Assessment & Plan (1) Positive colorectal cancer screening using Cologuard test: Code(s): R19.5 - Other fecal abnormalities Plan: He is now willing to do a colonoscopy, his objection was I can't drink that drink, I gag! Suprcuco is on his formulary, so will with this he is agreeable. His GERD is well controlled on his 20 mg pantoprazole twice a day, no other GI problems. He has afib and is on xarelto, will need clearance to stop this with Dr. Mckay, he has CHACHA. There are no prior problems with anesthesia or sedation. NO ID problems. His last scope was with Dr. Amezquita and was negative no past polyps but he had a positive cologuard. 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 (4) CHACHA on CPAP: Code(s): G47.33 - Obstructive sleep apnea (adult) (pediatric); Z99.89 - Dependence on other enabling machines and devices (5) Swelling of lower extremity: Code(s): M79.89 - Other specified soft tissue disorders Orders: Orders Colonoscopy - GI U se Only Today K21.9 - Gastro-eso phageal reflux dis ease without esoph agitis, R19.5 - Ot her fecal abnormal ities Medications: New sod sulf-pot chlor silvano-mag sulf 1.479 -0.188- 0.225 gram (Sutab) PO PER PKG DIR 24 tabs 0RF Refilled pantoprazole 20 mg PO BID 180 tabs 2RF K21.9 - Gastro-eso phageal reflux dis ease without esoph agitis COLONOSCOPY 08/16/23 Findings: Terminal Ileum-normal Cecum:normal right sided retrofelxion--normal Ascending Colon: mild diverticulosis Transverse Colon -normal Descending Colon: moderate severe diverticulosis Sigmoid Colon: moderate severe diverticulosis Rectum: Retroflexion with small to mdoerate sized internal hemorrhoids, grade I Anorectum - normal Impression and Post Procedure Diagnosis: internal hemorrhoids diverticular disease Plan: High fiber diet leaflet Avoid straining at stool, epsom salts and sitz bath, anusol supps or cream Repeat Colonoscopy in 10 years if ehalth allows or earlier if clinically indicated can restart rivaroxiban today TODAY'S VISIT WIll have a recall in 5 years given the positive Cologuard and we will consider repeat depending on his general health. He just had afib dxed unknown to him but was discovered on a pre-op B kg. He is agreeable. 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 I will see him in 6 months [facility] Medical History Screening for prostate cancer Adult general medical exam Encounter for general adult medical examination without abnormal findings Sleep apnea Esophageal dysphagia Atherosclerotic cardiovascular disease Essential hypertension Diabetes type 2, controlled Type 2 diabetes mellitus HTN (hypertension) CHACHA on CPAP Hypercalcemia Hematuria Hyperlipidemia, unspecified Essential hypertension Type 2 diabetes mellitus with unspecified complications Abnormal myocardial perfusion study Persistent atrial fibrillation Surgical History Hx of colonoscopy History of parathyroidectomy History of esophagogastroduodenoscopy (EGD) History of left knee replacement History of right knee joint replacement Family History Father No problems noted. Mother Cancer CVD (cardiovascular disease) CHF (congestive heart failure) Brother Bladder cancer Brother Bladder cancer Brother History of heart valve replacement Daughter No problems noted. Son No problems noted. Social History Household Members: Spouse and Children Housing: House Alcohol intake: current Alcohol intake frequency: does not drink Patient Tobacco Use Status: Never used Tobacco e-Cigarette/Vaping Use: Never Used Second Hand Smoke Exposure: No service: No Current occupational status: employed Current occupation: [employer] Current occupational exposures/hazards: No Cognitive needs: No Hearing needs: Yes (hearing aides) Vision needs: Yes (glasses) Review of Systems Const Denies fatigue, Denies fever(s), Denies night sweats, Denies poor appetite and Denies weight loss Eyes Details: glasses Reports requires corrective lenses ENT Reports Normal hearing present, Denies dysphagia, Denies odynophagia, Denies throat swelling and Denies tongue swelling Card Reports no additional complaints Resp Reports no additional complaints GI Denies abdominal pain, Denies melena, Denies bloating, Denies hematochezia, Denies constipation, Denies GI cramping, Denies dysphagia, Denies excessive flatus, Denies early satiety, Reports heartburn, Denies diarrhea, Denies nausea, Denies odynophagia, Denies vomiting and Denies hematemesis Skin/Breast Denies pruritus, Denies lesions, Denies rash and Denies jaundice Neuro Reports Normal hearing present and Denies Abnormal speech present Endo Denies fatigue Aller/Immun Denies throat swelling and Denies tongue swelling Physical Exam Vital Signs: Last Vital Signs Pulse 55 08/29/23 09:47 BP 147/73 H 08/29/23 09:47 BMI result Body Mass Index 32.8 Const General: cooperative, no acute distress, well developed and well groomed Nutritional Appearance: well nourished and obese Orientation/consciousness: oriented to person, oriented to place and oriented to time Limitations: No language barrier HEENT Head: Yes normocephalic and Yes atraumatic Eyes General: appearance normal, both eyes and all related structures Pupils: Equal, round and reactive pupils present Neck Neck: Yes normal visual inspection and Yes no lymphadenopathy Thyroid: Thyroid normal Resp Effort & Inspection: normal respiratory effort and able to speak in complete sentences Auscultation: clear to auscultation bilaterally Cardio Rate: regular rate Rhythm: regular rhythm Heart sounds: Normal, physiologic split S2 sound present Peripheral pulses: radial pulses present and posterior tibial pulses present GI Inspection: No distended, No Abdominal panniculus present and Yes obesity Palpation (GI): Soft to palpation, nontender, no guarding, not rigid and No hepatosplenomegaly present Percussion: Yes normal to percussion Auscultation: normal bowel sounds Rectal Exam - Male: Yes deferred Skin General skin exam: no rashes or lesions noted, turgor normal, skin not dry, no jaundice, No spider nevi and no striae Rashes: no rashes Nails: normal Neuro General: oriented to person, oriented to place and oriented to time Cranial nerves: Yes Equal, round and reactive pupils present and Yes Normal hearing present Speech: No Abnormal speech present Extrem General: Yes normal to inspection, No clubbing, No cyanosis and No edema Psych Appearance: grossly normal and well kempt Mental Status: mental status grossly normal Speech and movement: Normal speech and movement present Affect: normal affect Attitude: cooperative Thought process: Normal thought process present and not confabulating Thought content: Normal thought content present Insight: Limited insight present (Psych) Judgement: Limited judgement present (Psych) Results Reviewed Results Reviewed: COLONOSCOPY 08/16/23 Findings: Terminal Ileum-normal Cecum:normal right sided retrofelxion--normal Ascending Colon: mild diverticulosis Transverse Colon -normal Descending Colon: moderate severe diverticulosis Sigmoid Colon: moderate severe diverticulosis Rectum: Retroflexion with small to mdoerate sized internal hemorrhoids, grade I Anorectum - normal Impression and Post Procedure Diagnosis: internal hemorrhoids diverticular disease Plan: High fiber diet leaflet Avoid straining at stool, epsom salts and sitz bath, anusol supps or cream Repeat Colonoscopy in 10 years if ehalth allows or earlier if clinically indicated can restart rivaroxiban today Assessment & Plan Assessment & Plan (1) Positive colorectal cancer screening using Cologuard test: Code(s): R19.5 - Other fecal abnormalities (2) GERD (gastroesophageal reflux disease): Code(s): K21.9 - Gastro-esophageal reflux disease without esophagitis Plan Will have a recall in 5 years given the positive Cologuard and we will consider repeat depending on his general health. He just had afib dxed unknown to him but was discovered on a pre-op B kg. He is agreeable. 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 I will see him in 6 months Medications: Refilled pantoprazole 20 mg PO BID 180 tabs 2RF K21.9 - Gastro-esophageal reflux disease without esophagitis Discontinued sod sulf-pot chloride-mag sulf 1.479-0.188- 0.225 gram (Sutab) Discontinued Reason: No Longer Medically Relevant PO PER PKG DIR 24 tabs 0RF Coding Level of Care Code Est Pt Level 3 (96709) Diagnoses Positive colorectal cancer screening using Cologuard test R19.5 GERD (gastroesophageal reflux disease) K21.9
[2023-08-29 09:47] VITALS: BP 147/73; PULSE 55; BMI 32.8
== END 2023-08-29 10:34 | disposition home or self-care (01) ==
PROVIDERS: PCP Family Medicine; Visit Provider Nurse Practitioner
DX: R19.5 Other fecal abnormalities (principal); K21.9 Gastro-esophageal reflux disease without esophagitis
CPT/HCPCS: 99213

== ENCOUNTER → 2023-08-29 08:55 | Outpatient (BNVA) | payer MEDICARE, SELFPAY | PROVIDERS: PCP Family Medicine; Visit Provider Nurse Practitioner | DX: R19.5 Other fecal abnormalities (principal); K21.9 Gastro-esophageal reflux disease without esophagitis | CPT/HCPCS: 99212 ==

== ENCOUNTER 2023-08-30 09:55 | Outpatient (AMB) | payer MEDICARE, SELFPAY ==
--- NOTE | 2023-08-30 10:22 | MHC.OFFVIS ---
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 As directed, 999 days/lifetime garlic 1,000 mg PO DAILY glipizide ER 5 mg PO DAILY 90 days lancets DX: E11.9, test blood sugar once a day, 90 days metformin 850 mg PO TIDWMEAL 90 days [id number]-mewxnuc-oxalkm [id number] mcg (Centrum Silver Ultra Men's) 1 tab PO DAILY omega 1-gqv-txz-fish oil 1,200 (144-216) mg (Fish Oil) caps PO pantoprazole 20 mg PO BID rivaroxaban (Xarelto) 20 mg PO DAILY rosuvastatin 40 mg PO DAILY sildenafil 100 mg PO DAILY PRN 30 days valsartan-hydrochlorothiazide 320-12.5 mg 1 tab PO DAILY HPI HPI Comments History of Present Illness Details Rahul returns for follow-up regarding several issues including atrial fibrillation, bradycardia, coronary disease, hypertension among others. Overall, he is doing good. No complaints like angina or shortness of breath or in fact anything cardiac sounding. He seems to be getting along fine. [facility] Medical History Screening for prostate cancer Adult general medical exam Encounter for general adult medical examination without abnormal findings Sleep apnea Esophageal dysphagia Atherosclerotic cardiovascular disease Essential hypertension Diabetes type 2, controlled Type 2 diabetes mellitus HTN (hypertension) CHACHA on CPAP Hypercalcemia Hematuria Hyperlipidemia, unspecified Essential hypertension Type 2 diabetes mellitus with unspecified complications Abnormal myocardial perfusion study Persistent atrial fibrillation Surgical History Hx of colonoscopy History of parathyroidectomy History of esophagogastroduodenoscopy (EGD) History of left knee replacement History of right knee joint replacement Family History Father No problems noted. Mother Cancer CVD (cardiovascular disease) CHF (congestive heart failure) Brother Bladder cancer Brother Bladder cancer Brother History of heart valve replacement Daughter No problems noted. Son No problems noted. Social History Household Members: Spouse and Children Housing: House Alcohol intake: current Alcohol intake frequency: does not drink Patient Tobacco Use Status: Never used Tobacco e-Cigarette/Vaping Use: Never Used Second Hand Smoke Exposure: No service: No Current occupational status: employed Current occupation: [employer] Current occupational exposures/hazards: No Cognitive needs: No Hearing needs: Yes (hearing aides) Vision needs: Yes (glasses) Review of Systems Const All systems reviewed & are unremarkable except as noted in HPI and below Reports as per HPI and Reports no additional complaints Eyes Reports as per HPI and Denies no additional complaints ENT Denies no additional complaints and Reports as per HPI Card Reports as per HPI, Reports no additional complaints, Denies acrocyanosis, Denies chest pain, Denies leg edema, Denies lightheadedness, Denies palpitations and Denies dyspnea Resp Reports as per HPI, Denies no additional complaints and Denies dyspnea GI Reports as per HPI and Denies no additional complaints Reports no additional complaints and Reports as per HPI Musc Reports no additional complaints and Reports as per HPI Skin/Breast Reports system reviewed and no additional complaints, except as documented Neuro Reports no additional complaints and Reports as per HPI Psych Reports no additional complaints and Reports as per HPI Endo Reports no additional complaints, Reports as per HPI and Denies palpitations Royer/Lymph Reports no additional complaints and Reports as per HPI Aller/Immun Reports no additional complaints and Reports as per HPI Physical Exam Vital Signs: Last Vital Signs Pulse 60 08/30/23 10:23 BP 120/66 08/30/23 10:23 BMI result Body Mass Index 32.7 Const General: comfortable and no acute distress Orientation/consciousness: patient oriented x3 HEENT Other: Unremarkable Head: Yes normal to inspection Neck Neck: Yes normal visual inspection Chest Chest palpation & inspection: normal inspection of the chest Resp Auscultation: clear to auscultation bilaterally Cardio Palpation: normal PMI Heart sounds: S1 normal heart sound present, S2 normal heart sound present, no gallops, no murmurs and no rubs GI Palpation (GI): Soft to palpation Back/Spine/Pelvis Other: unremarkable Skin General skin exam: no rashes or lesions noted Neuro General: patient oriented x3 Extrem General: Yes normal to inspection Psych Mental Status: mental status grossly normal Assessment & Plan Assessment & Plan (1) Persistent atrial fibrillation: Code(s): I48.19 - Other persistent atrial fibrillation Plan: Due to bradycardia, he is off beta-blockers. Otherwise, clinically no symptoms from the atrial fibrillation. Continue anticoagulation without changes. Will need to see if he has had any recent labs. (2) PVC (premature ventricular contraction): Code(s): I49.3 - Ventricular premature depolarization Plan: PVCs versus aberrant conduction noted on Holter. He does not have any symptoms from this and he also has bradycardia. Hence no room for medications. (3) Atherosclerotic cardiovascular disease: Code(s): I25.10 - Atherosclerotic heart disease of ruby coronary artery without angina pectoris Plan: In a prior stress MIBI from 2016, he had mild ischemia in the inferior/inferolateral mathews. In the last echocardiogram LVEF 60-65% and no wall motion abnormalities noted. Clinically, absolutely no angina or in fact any concerning symptoms at all. Continue statins. Last LDL 52 mg/dL. (4) Essential hypertension: Code(s): I10 - Essential (primary) hypertension Plan: On valsartan/HCTZ. No changes. (5) Type 2 diabetes mellitus with unspecified complications: Code(s): E11.8 - Type 2 diabetes mellitus with unspecified complications Plan: On glipizide, metformin. Last hemoglobin A1c is 6.6%. Coding Level of Care Code Est Pt Level 4 (99752) Diagnoses Persistent atrial fibrillation I48.19 PVC (premature ventricular contraction) I49.3 Atherosclerotic cardiovascular disease I25.10 Essential hypertension I10 Type 2 diabetes mellitus with unspecified complications E11.8
[2023-08-30 10:23] VITALS: BP 120/66; PULSE 60; BMI 32.7
== END 2023-08-30 10:34 | disposition home or self-care (01) ==
PROVIDERS: PCP Family Medicine; Visit Provider Internal Medicine
DX: I48.19 Other persistent atrial fibrillation (principal); I49.3 Ventricular premature depolarization; I25.10 Atherosclerotic heart disease of native coronary artery without angina pectoris; I10 Essential (primary) hypertension; E11.8 Type 2 diabetes mellitus with unspecified complications
CPT/HCPCS: 99214

== ENCOUNTER → 2023-08-30 09:55 | Outpatient (BNVA) | payer MEDICARE, SELFPAY | PROVIDERS: PCP Family Medicine; Visit Provider Internal Medicine | DX: I48.19 Other persistent atrial fibrillation (principal); I49.3 Ventricular premature depolarization; I25.10 Atherosclerotic heart disease of native coronary artery without angina pectoris; I10 Essential (primary) hypertension; E11.8 Type 2 diabetes mellitus with unspecified complications | CPT/HCPCS: 99212 ==

== ENCOUNTER 2023-09-07 10:00 | Outpatient (REF) | payer MEDICARE, SELFPAY ==
[2023-09-07 11:19] LABS: MANUAL DIFF FLAG NO
[2023-09-07 11:58] LABS: Appearance Urine Clear; Color Urine Yellow; Glucose Urine UA Negative (Negative); Leukocyte Esterase Urine Negative (Negative); Nitrite Urine Negative (Negative); PH 5.5 (5.0-9.0); UMIC TRIGGER UA YES; Urine Blood Negative (Negative); Urine Ketones Negative (Negative); Urine Protein 30 (1+) mg/dL (Neg-Trace)
[2023-09-07 12:01] LABS: Bacteria Urine None Seen (None Seen); Hyaline Casts Urine 0-2 /LPF (0-2); RBC Urine 0-2 /HPF (0-2); Squamous Epithelial Cell Urine 0-2 /HPF (0-2); WBC Urine 0-5 /HPF (0-5)
[2023-09-07 12:02] LABS: Basophils Percent Auto 0.5 % (0-2); Eosinophils Absolute Auto 0.1 X10*3/uL (0.0-0.4); Eosinophils Percent Auto 1.1 % (0-4); Hematocrit 44.2 % (42.0-52.0); Hemoglobin 14.2 g/dl (14.0-18.0); Imm Gran Abs Auto 0.02 X10*3/uL (0.00-0.03); Imm Gran Pct Auto 0.3 % (0.0-0.4); Lymphocytes Absolute Auto 1.5 X10*3/uL (1.2-4.9); Lymphocytes Percent Auto 19.8 % (20-40); Mean Corpuscular HGB Conc 32.1 g/dl (31.0-36.0); Mean Corpuscular Hemoglobin 24.3 pg (27.0-33.0); Mean Corpuscular Volume 75.6 fL (80.0-98.0); Mean Platelet Volume 9.8 fL (9.4-12.4); Monocytes Absolute Auto 0.7 X10*3/uL (0.1-1.2); Monocytes Percent Auto 9.4 % (2-11); Neutrophils Absolute Auto 5.1 x10*3/uL (2.0-8.3); Neutrophils Percent Auto 68.9 % (45-73); Platelet Count 258 X10*3/uL (160-400); Red Blood Count 5.85 X10*6/uL (4.60-5.80); Red Cell Distribution Width 17.8 % (11.0-16.0); White Blood Count 7.4 X10*3/uL (4.8-10.8)
[2023-09-07 12:39] LABS: Creatinine Urine 136.28 mg/dL; Microalbum/Creatinine Ratio Ur 207.6 ug/mg cr (<30)
[2023-09-07 13:03] LABS: Alanine Aminotransferase 16 U/L (0-40); Albumin Level 4.2 g/dL (3.5-5.0); Alkaline Phosphatase 52 U/L (39-117); Anion Gap 13 (12-20); Aspartate Amino Transferase 21 U/L (5-37); Bilirubin Total 1.2 mg/dL (0.0-1.0); Blood Urea Nitrogen 13 mg/dL (9-16); Calcium 9.5 mg/dL (8.4-10.2); Carbon Dioxide 26 mmol/L (22-29); Chloride 101 mmol/L (96-108); Cholesterol 120 mg/dL (<200); Estimated Glomerular Filt Rate > 60; Glucose Fasting 84 mg/dL (60-99); HDL Cholesterol 40 mg/dL (>40); LDL Cholesterol Calculated 56 mg/dL (<100); Potassium 4.1 mmol/L (3.3-5.1); Sodium 136 mmol/L (135-145); TSH reflex Free T4 0.41 uIU/mL (0.32-4.0); Total Protein 7.2 g/dL (6.5-8.0); Triglycerides 120 mg/dL (<150)
[2023-09-07 14:19] LABS: Prostate Specific Antigen Scr 2.54 ng/mL (<0.05-4.0)
== END 2023-09-07 10:01 | disposition home or self-care (01) ==
LOC: HO.WFDLDS 10:00
PROVIDERS: Visit Provider Family Medicine
DX: Z00.00 Encounter for general adult medical examination without abnormal findings (principal); Z12.5 Encounter for screening for malignant neoplasm of prostate; I10 Essential (primary) hypertension
CPT/HCPCS: 36415; 80053; 80061; 81001; 82043; 82570; 84153; 84443; 85025

== ENCOUNTER 2023-09-11 11:28 | Outpatient (AMB) | payer MEDICARE, SELFPAY ==
[2023-09-11 12:06] VITALS: BP 124/74; PULSE 65; O2SAT 98; BMI 32.6
--- NOTE | 2023-09-11 12:06 | MHC.PC.OV ---
Vital Signs 09/11/23 12:06 Height 5 ft 8 in Weight 214 lb 4 oz BMI 32.6 BP 124/74 Blood Pressure Location Lt brachial Position Sitting Pulse 65 Pulse Source Pulse Oximeter Pulse Oximetry (%) 98 Oxygen Delivery Method Room Air Intake Visit Reasons: Extended exam with f/u labs and health maint. Intake Note: Patient is here with extended exam and follow up on labs and health maintenance. Allergies No Known Allergies Allergy (Verified 09/11/23 12:09) Tobacco use date assessed: 09/11/23 Fall risk assessment: No Falls in past year Last assessed Fall Risk: 09/11/23 HPI Extended exam with f/u labs and health maint. HPI Details 73 y/o male presents for an extended exam with f/u labs and health maintenance. Blood pressure today 124/74. He is on valsartan-HCTZ 320-12.5mg daily. Labs were drawn 09/07/23. Reviewed labs with pt. Triglycerides 120. TC 120. LDL 56. HDL 40. Hx of parathyroidectomy x2. A1c today 09/11/23 6.4%. He is on metformin 850mg t.i.d. and glipizide 5mg daily. Health maintenance is up to date. [facility] Medical History (Updated 09/11/23 @ 12:41 by Santy Poe) Screening for prostate cancer Adult general medical exam Encounter for general adult medical examination without abnormal findings Sleep apnea Esophageal dysphagia Atherosclerotic cardiovascular disease Essential hypertension Diabetes type 2, controlled Type 2 diabetes mellitus HTN (hypertension) CHACHA on CPAP Hypercalcemia Hematuria Hyperlipidemia, unspecified Essential hypertension Type 2 diabetes mellitus with unspecified complications Abnormal myocardial perfusion study Persistent atrial fibrillation Surgical History (Updated 09/11/23 @ 12:36 by Santy Poe) Hx of colonoscopy History of parathyroidectomy History of esophagogastroduodenoscopy (EGD) History of left knee replacement History of right knee joint replacement Family History Father No problems noted. Mother Cancer CVD (cardiovascular disease) CHF (congestive heart failure) Brother Bladder cancer Brother Bladder cancer Brother History of heart valve replacement Daughter No problems noted. Son No problems noted. Social History Household Members: Spouse and Children Housing: House Alcohol intake: current Alcohol intake frequency: does not drink Patient Tobacco Use Status: Never used Tobacco e-Cigarette/Vaping Use: Never Used Second Hand Smoke Exposure: No service: No Current occupational status: employed Current occupation: [employer] Current occupational exposures/hazards: No Cognitive needs: No Hearing needs: Yes (hearing aides) Vision needs: Yes (glasses) Questionnaire PHQ-9 Over the last 2 weeks, how often have you been bothered by any of the following problems? 1. Little interest or pleasure in doing things: not at all 2. Feeling down, depressed, or hopeless: not at all 3. Trouble falling or staying asleep, or sleeping too much: not at all 4. Feeling tired or having little energy: not at all 5. Poor appetite or overeating: not at all 6. Feeling bad about yourself - or that you are a failure or have let yourself or your family down: not at all 7. Trouble concentrating on things, such as reading the newspaper or watching television: not at all 8. Moving or speaking so slowly that other people could have noticed. Or the opposite - being so fidgety or restless that you have been moving around a lot more than usual: not at all 9. Thoughts that you would be better off or of hurting yourself in some way: not at all Total score: 0 Source: Developed by Drs. Shashi Vera, Paulette Washington, Tato Fuchs and colleagues, with an educational aurelio from [employer]. Thrive Questionnaire Date Thrive assessed: 09/11/23 I am a: Patient What is your living situation today?: I have a steady place to live Within the past 12 months, did the food you bought not last and you didn't have the money to get more?: Never true Within the past 12 months, did you worry whether your food would run out before you got money to buy more?: Never true Do you have trouble paying for medicines?: No Do you have trouble getting transportation to medical appointments?: No Do you have trouble paying your heating and electricity bill?: No Do you have trouble taking care of your child, family member or friend?: No Do you have trouble with day-to-day activities such as bathing, preparing meals, shopping, managing finances, etc.?: No Are you currently unemployed and looking for a job?: No Are you interested in more education?: No THRIVE Score: 0 AUDIT C Alcohol Use Questionnaire (AUDIT-C) 1. How often do you have a drink containing alcohol?: Never 3. How often do you have six or more drinks on one occasion?: Never Total Score: 0 ABHINAV-7 AMB Questionnaire ABHINAV-7 Date ABHINAV - 7 assessed: 09/11/23 Feeling nervous, anxious, or on edge: 0 = Not at all Not being able to stop or control worryin = Not at all Worrying too much about different things: 0 = Not at all Trouble relaxin = Not at all Being so restless that it is hard to sit still: 0 = Not at all Becoming easily annoyed or irritable: 0 = Not at all Feeling afraid as if something awful might happen: 0 = Not at all Total ABHINAV-7 score (0-4 normal; 5-9 mild; 10-14 moderate; 15-21 severe): 0 Source: Developed by Drs. hSashi Vera, Paulette Washington, Tato Fuchs and colleagues, with an educational aurelio from [employer]. Review of Systems Const Denies chills, Denies fatigue, Denies fever(s), Denies headache(s) and Denies weakness Eyes Denies change in vision ENT Denies dizziness, Denies headache(s), Denies hearing loss, Denies nasal congestion, Denies sinus pain, Denies sinus pressure and Denies sore throat Card Denies chest pain, Denies lightheadedness, Denies dyspnea and Denies other (palpitations) Resp Denies cough, Denies dyspnea and Denies wheezing GI Denies abdominal pain, Denies melena, Denies hematochezia, Denies change in bowel habits, Denies dyspepsia and Denies nausea Denies hematuria and Denies dysuria Musc Denies abnormal gait, Denies myalgias, Denies arthralgias, Denies numbness and Denies tingling Skin/Breast Denies rash, Denies unusual bruising and Denies wounds Neuro Denies abnormal gait, Denies dizziness, Denies headache(s), Denies memory loss, Denies numbness, Denies Sensory deficit (Neuro), Denies tingling and Denies weakness Psych Denies anxiety, Denies depression and Denies memory loss Endo Denies cold intolerance, Denies fatigue, Denies heat intolerance, Denies polydipsia and Denies polyuria Royer/Lymph Denies easy bleeding and Denies easy bruising Aller/Immun Denies wheezing Physical exam (Primary Care) Vital Signs: Last Vital Signs Pulse 65 09/11/23 12:06 BP 124/74 09/11/23 12:06 Pulse Ox 98 09/11/23 12:06 Oxygen Delivery Method Room Air 09/11/23 12:06 BMI result Body Mass Index 32.6 Tobacco/Smoking Status: Tobacco use Status Tobacco use date assessed 09/11/23 09/11/23 12:10 Patient Tobacco Use Status Never used Tobacco 09/11/23 12:10 e-Cigarette/Vaping Use Never Used 09/11/23 12:10 PHQ-9: PHQ-9 Score PHQ-9: Total score 0 09/11/23 12:24 Thrive Assessment: Date of Thrive Assessment Date Thrive assessed 09/11/23 09/11/23 12:15 Const General: no acute distress, well developed, alert and awake Nutritional Appearance: well nourished Orientation/consciousness: patient oriented x3 HENMT Head: Yes normocephalic and Yes atraumatic Ears: hearing grossly normal bilaterally and TM's normal bilaterally General nose exam: Normal external nose present and Normal nares present Mouth: Normal oral and palatal mucosa present and moist mucous membranes Teeth and gingiva: dentition normal Throat: Yes posterior oropharynx normal Eyes General: appearance normal, both eyes and all related structures Pupils: Equal, round and reactive pupils present and Pupil accommodation reflex normal EOM: EOMs intact bilaterally Neck Neck: Yes normal visual inspection, Yes no lymphadenopathy and Yes trachea midline Thyroid: Thyroid normal Carotids: no bruits Lymphatic: no lymphadenopathy noted Chest Chest palpation & inspection: normal inspection of the chest Resp Effort & Inspection: normal respiratory effort Auscultation: clear to auscultation bilaterally Cardio Rate: regular rate Heart sounds: S1 normal heart sound present, S2 normal heart sound present, no gallops, no murmurs and no rubs Bruits: no abdominal aortic bruits and no carotid bruits GI Palpation (GI): No Abdominal aortic bruit present, Soft to palpation, nontender, No hepatosplenomegaly present and No Rebound tenderness present Auscultation: normal bowel sounds General: Yes no CVA tenderness Back/Spine/Pelvis Back: no CVA tenderness Cervical Spine: cervical ROM normal and No Cervical spine tenderness Thoracic/Lumbar Spine: thoraco-lumbar ROM normal, No pain with thoraco-lumbar ROM, No thoracic spinal tenderness and No lumbar spinal tenderness Skin Lesions: no lesions Rashes: no rashes Trauma: no lacerations or abrasions Wounds: no wounds Nails: normal Neuro General: patient oriented x3 Cranial nerves: Yes Equal, round and reactive pupils present Cognition (Neuro): normal cognition Gait exam (Neuro): Normal gait present Motor exam (neuro): 5/5 motor strength present throughout Sensory Exam: No Sensory deficit (Neuro) Deep tendon reflexes (DTR's): Right patellar reflex intensity grade: 2+ and Left patellar reflex intensity grade: 2+ Extrem General: Yes normal to inspection and No edema Psych Appearance: grossly normal Affect: normal affect Attitude: cooperative Thought process: Normal thought process present Results AMB Hemoglobin A1c AMB Hemoglobin A1c 6.4 % Last Edit by Татьяна Lau CMA on 09/11/23 12:48 Assessment and Plan Assessment & Plan (1) Diabetes type 2, controlled: Code(s): E11.9 - Type 2 diabetes mellitus without complications Plan: A1c?shows?good?control. Goal?is?less?than?7.0% Continue?current?medication?regimen Continue?diabetic?diet (2) Essential hypertension: Code(s): I10 - Essential (primary) hypertension Plan: Blood?pressure?is?well?controlled. Goal?is?less?than?130/80 Continue?current?medications (3) Persistent atrial fibrillation: Code(s): I48.19 - Other persistent atrial fibrillation Plan: Stable Follow-up?with?Cardiology?as?recommended (4) Hyperlipidemia, unspecified: Code(s): E78.5 - Hyperlipidemia, unspecified Plan: LDL?cholesterol?shows?good?control?on?rosuvastatin Continue?statin?medication?and?diet?low?in?saturated?fats?and?cholesterol (5) Microalbuminuria: Code(s): R80.9 - Proteinuria, unspecified Plan: Ongoing?microalbuminuria Blood?pressure,?blood?sugar?and?cholesterol?are?well?controlled.??He?is?on?an?ARB Hydrate?well Will?recheck?this (6) Microcytosis: Code(s): R71.8 - Other abnormality of red blood cells Plan: Mild?microcytosis No?bleeding Will?recheck?CBC?and?iron?study (7) History of parathyroidectomy: Code(s): Z90.09 - Acquired absence of other part of head and neck Plan: History?of?parathyroidectomy. Had?been?followed?by?endocrinology?at?[facility]so?she?has?but?that?provider?has?left. He?would?like?a?referral?to?endocrinology?at?[facility] [place]-referred (8) Screening for prostate cancer: Code(s): Z12.5 - Encounter for screening for malignant neoplasm of prostate Plan: PSA?is?within?normal?limits?and?steady Continue?annual?screen (9) Screening for colon cancer: Code(s): Z12.11 - Encounter for screening for malignant neoplasm of colon Plan: Recent?colonoscopy?and?follow-up?was?recommended?in?10?years Up-to-date (10) Adult general medical exam: Code(s): Z00.00 - Encounter for general adult medical examination without abnormal findings Plan: 73-year-old?male?presents?for?an?extended?exam Encouraged?healthy?diet?and?exercise Orders: Orders AMB Hemoglobin A1c Today Z13.9 - Encounter for screening, unspecified IRON PROFILE Today R71.8 - Other abnormality of red blood cells Complete Blood Count Auto Diff Today R71.8 - Other abnormality of red blood cells, Z00.00 - Encounter for general adult medical examination without abnormal findings Basic Metabolic Panel Today R71.8 - Other abnormality of red blood cells, Z00.00 - Encounter for general adult medical examination without abnormal findings Microalbumin, Random (w Creat) Today I10 - Essential (primary) hypertension, R80.9 - Proteinuria, unspecified Referrals Endocrinology Referral Z90.09 - Acquired absence of other part of head and neck Coding Level of Care Code Est Pt Level 4 (17714) Diagnoses Diabetes type 2, controlled E11.9 Essential hypertension I10 Persistent atrial fibrillation I48.19 Hyperlipidemia, unspecified E78.5 Microalbuminuria R80.9 Microcytosis R71.8 History of parathyroidectomy Z90.09 Screening for prostate cancer Z12.5 Screening for colon cancer Z12.11 Adult general medical exam Z00.00
== END 2023-09-11 12:42 | disposition home or self-care (01) ==
PROVIDERS: PCP Family Medicine; Visit Provider Family Medicine
DX: E11.9 Type 2 diabetes mellitus without complications (principal); I48.19 Other persistent atrial fibrillation; I10 Essential (primary) hypertension; E78.5 Hyperlipidemia, unspecified; R80.9 Proteinuria, unspecified; R71.8 Other abnormality of red blood cells; Z90.09 Acquired absence of other part of head and neck; Z12.5 Encounter for screening for malignant neoplasm of prostate; Z12.11 Encounter for screening for malignant neoplasm of colon
CPT/HCPCS: 83036; 99214

== ENCOUNTER 2023-10-01 10:01 | Day surgery (SDC) | payer MEDICARE, SELFPAY ==
[2023-10-01 11:36] VITALS: BMI 32.8
[2023-10-01 11:44] VITALS: BP 146/76; PULSE 62; RESP 18; TEMP 36.7; O2SAT 98
--- NOTE | 2023-10-01 12:50 | MHC.SHP ---
Pre-Procedural Eval Section A - 24 Hr Update-Section A only Date of Service: 10/01/23 The patient is an INPATIENT: No Changes since office visit: No Cold of Flu in the past 2 weeks, No New Medical Problems, No Changes in Medication and No Patient answered all questions The patient has been examined within 24 hours of the surgical procedure. The History & Physical has been completed within 30 days and I have reviewed it.: Yes Section B - Complete if H&P > 30 days Chief Complaint: Carpal tunnel syndrome, right upper limb Allergies: Allergies Allergy/AdvReac Type Severity Reaction Status Date / Time No Known Allergies Allergy Verified 10/01/23 11:46 Plan I have reviewed the history and physical and performed a pertinent physical examination on my patient. No changes have occurred unless specified. Time Spent With Patient Time: Total time managing care of this patient today ____ minutes.
--- NOTE | 2023-10-01 12:50 | W.PM.OPN ---
Operative Note Operative Note Date of Service: 10/01/23 Narrative: Preop diagnosis: 1. Right Carpal tunnel syndrome Postop diagnosis: same Procedure: 1. Right Carpal tunnel release Surgeon: Lurdes Kaiser MD Anesthesia: local block using 1% lidocaine with epinephrine Findings: Thickened transverse carpal ligament. EBL: Less than 5 mL Specimens: None Complications: None Disposition: Brought to recovery room in stable condition Plan: Follow-up for 10-14 days for wound check and suture removal Indications: The patient is 73 years old, with right carpal tunnel syndrome that has been unresponsive to nonoperative management. The risks and benefits of operative treatment including but not limited to risk of damage to blood vessels, nerves, tendons, infection, persistent pain, persistent symptoms, or possible need for additional surgery were discussed with the patient and the patient wishes to proceed with surgery. Procedure: Once consent was obtained a local block was performed using a combination of 1% lidocaine with epinephrine. The patient was then brought back to the operating suite and placed on the operative table in supine position. The right upper extremity was prepped and draped in a standard surgical fashion. Once assured that we had a good block, a 2.0 cm longitudinal incision was made centered over the carpal tunnel. The incision was made through the skin to the subcutaneous tissues using a #15 blade. Dissection was made down to the level of the transverse carpal ligament with care being taken to protect the palmar cutaneous nerve. Once the transverse carpal ligament was clearly visualized, a longitudinal incision was made in the transverse carpal ligament 1st using a #15 blade, then using tenotomy scissors under direct visualization. Care was taken to look for and protect the motor branch of the median nerve when seen in this area. Once satisfied with our carpal tunnel release the wound was copiously irrigated with normal saline and hemostasis was obtained with a brief period of local pressure. The skin edges were reapproximated with some 5.0 nylon suture material and a sterile dressing was applied. The patient appears to have tolerated the procedure well and with no complications. All digits were well vascularized at the conclusion of the case.
[2023-10-01 13:54] VITALS: BP 141/63; PULSE 70; RESP 18; TEMP 36.4; O2SAT 97
== END 2023-10-01 13:55 | disposition home or self-care (01) ==
PROVIDERS: PCP Family Medicine; Visit Provider Orthopaedic Surgery
PROC: (CPT 64721; principal; 2023-10-01 12:20)
DX: G56.01 Carpal tunnel syndrome, right upper limb (principal); R20.0 Anesthesia of skin; R20.2 Paresthesia of skin; E11.9 Type 2 diabetes mellitus without complications; I10 Essential (primary) hypertension; I25.10 Atherosclerotic heart disease of native coronary artery without angina pectoris; I48.19 Other persistent atrial fibrillation; G47.33 Obstructive sleep apnea (adult) (pediatric); Z99.89 Dependence on other enabling machines and devices; Z79.84 Long term (current) use of oral hypoglycemic drugs; Z79.01 Long term (current) use of anticoagulants
CPT/HCPCS: 64721; J0171

== ENCOUNTER → 2023-10-01 10:01 | Outpatient (BNV) | payer MEDICARE, SELFPAY | PROVIDERS: PCP Family Medicine; Visit Provider Orthopaedic Surgery | DX: G56.01 Carpal tunnel syndrome, right upper limb (principal) | CPT/HCPCS: 64721 ==

== ENCOUNTER 2023-10-05 08:22 | Outpatient (REF) | payer MEDICARE, SELFPAY ==
[2023-10-05 11:13] LABS: MANUAL DIFF FLAG NO
[2023-10-05 11:21] LABS: Appearance Urine Clear; Color Urine Yellow; Glucose Urine UA Negative (Negative); Leukocyte Esterase Urine Negative (Negative); Nitrite Urine Negative (Negative); PH 6.5 (5.0-9.0); UMIC TRIGGER UA YES; Urine Blood Negative (Negative); Urine Ketones Negative (Negative); Urine Protein 100 (2+) mg/dL (Neg-Trace)
[2023-10-05 11:28] LABS: Bacteria Urine None Seen (None Seen); Hyaline Casts Urine 0-2 /LPF (0-2); RBC Urine 0-2 /HPF (0-2); Squamous Epithelial Cell Urine 0-2 /HPF (0-2); WBC Urine 0-5 /HPF (0-5)
[2023-10-05 12:16] LABS: Anion Gap 16 (12-20); Blood Urea Nitrogen 19 mg/dL (9-16); Calcium 9.3 mg/dL (8.4-10.2); Carbon Dioxide 25 mmol/L (22-29); Chloride 98 mmol/L (96-108); Estimated Glomerular Filt Rate > 60; Glucose Random 77 mg/dL (60-115); Iron 37 mcg/dL (45-160); Percent Iron Saturation 10 % (15-50); Potassium 4.1 mmol/L (3.3-5.1); Sodium 135 mmol/L (135-145); Total Iron Binding Capacity 369 mcg/dL (228-428); Unsaturated Iron Binding 332 ug/dL
[2023-10-05 12:17] LABS: Basophils Percent Auto 0.4 % (0-2); Eosinophils Absolute Auto 0.1 X10*3/uL (0.0-0.4); Eosinophils Percent Auto 2.4 % (0-4); Hematocrit 46.3 % (42.0-52.0); Hemoglobin 14.7 g/dl (14.0-18.0); Imm Gran Abs Auto 0.04 X10*3/uL (0.00-0.03); Imm Gran Pct Auto 0.7 % (0.0-0.4); Lymphocytes Absolute Auto 1.3 X10*3/uL (1.2-4.9); Mean Corpuscular HGB Conc 31.7 g/dl (31.0-36.0); Mean Corpuscular Hemoglobin 24.2 pg (27.0-33.0); Mean Corpuscular Volume 76.3 fL (80.0-98.0); Mean Platelet Volume 10.2 fL (9.4-12.4); Monocytes Absolute Auto 0.6 X10*3/uL (0.1-1.2); Monocytes Percent Auto 11.9 % (2-11); Neutrophils Absolute Auto 3.3 x10*3/uL (2.0-8.3); Neutrophils Percent Auto 60.6 % (45-73); Platelet Count 254 X10*3/uL (160-400); Red Blood Count 6.07 X10*6/uL (4.60-5.80); Red Cell Distribution Width 18.3 % (11.0-16.0); White Blood Count 5.4 X10*3/uL (4.8-10.8)
[2023-10-05 12:23] LABS: Creatinine Urine 118.99 mg/dL; Microalbum/Creatinine Ratio Ur 242.8 ug/mg cr (<30)
== END 2023-10-05 08:23 | disposition home or self-care (01) ==
LOC: HO.WFDLDS 08:22
PROVIDERS: Visit Provider Family Medicine
DX: Z00.00 Encounter for general adult medical examination without abnormal findings (principal); I10 Essential (primary) hypertension; R80.9 Proteinuria, unspecified; R71.8 Other abnormality of red blood cells
CPT/HCPCS: 36415; 80048; 81001; 82043; 82570; 83540; 85025

== ENCOUNTER 2023-10-09 09:29 | Outpatient (AMB) | payer MEDICARE, SELFPAY ==
--- NOTE | 2023-10-09 09:36 | A.OFFPC_ITS ---
Vital Signs 10/09/23 09:37 10/09/23 10:54 Height 5 ft 7.5 in Weight 212 lb 8 oz BMI 32.8 BP 128/74 Blood Pressure Location Lt brachial Position Sitting Pulse 47 L 60 Pulse Source Pulse Oximeter Auscultation Pulse Oximetry (%) 98 Oxygen Delivery Method Room Air Intake Visit Reasons: f/u hypertension and labs Intake Note: Patient is here to follow up on hypertension and labs. Allergies No Known Allergies Allergy (Verified 10/09/23 09:41) Tobacco use date assessed: 10/09/23 Fall risk assessment: No Falls in past year Last assessed Fall Risk: 10/09/23 Dental Screening Dental Screen Date: 10/09/23 Did you have a dental visit in the last 12 months?: No Did you have a dental problem in the last 6 months where you did not have access to dental care?: No Was dental information given to patient?: Patient has dentist HPI f/u hypertension and labs HPI Details 73 y/o male presents to f/u hypertension and labs. Blood pressure today 128/74, 47p. He is on valsartan-HCTZ 320-12.5mg. Pt notes his heart rate feels slower in the morning. He denies any dizziness/weakness today. [facility] Medical History Screening for prostate cancer Adult general medical exam Encounter for general adult medical examination without abnormal findings Sleep apnea Esophageal dysphagia Atherosclerotic cardiovascular disease Essential hypertension Diabetes type 2, controlled Type 2 diabetes mellitus HTN (hypertension) CHACHA on CPAP Hypercalcemia Hematuria Hyperlipidemia, unspecified Essential hypertension Type 2 diabetes mellitus with unspecified complications Abnormal myocardial perfusion study Persistent atrial fibrillation Surgical History Hx of colonoscopy History of parathyroidectomy History of esophagogastroduodenoscopy (EGD) History of left knee replacement History of right knee joint replacement Family History Father No problems noted. Mother Cancer CVD (cardiovascular disease) CHF (congestive heart failure) Brother Bladder cancer Brother Bladder cancer Brother History of heart valve replacement Daughter No problems noted. Son No problems noted. Social History Household Members: Spouse and Children Housing: House Alcohol intake: current Alcohol intake frequency: does not drink Patient Tobacco Use Status: Never used Tobacco e-Cigarette/Vaping Use: Never Used Second Hand Smoke Exposure: No service: No Current occupational status: employed Current occupation: [employer] Current occupational exposures/hazards: No Cognitive needs: No Hearing needs: Yes (hearing aides) Vision needs: Yes (glasses) Questionnaire Thrive Questionnaire Date Thrive assessed: 09/11/23 ABHINAV-7 AMB Questionnaire ABHINAV-7 Date ABHINAV - 7 assessed: 09/11/23 Source: Developed by Drs. Shashi Vera, Paulette Washington, Tato uFchs and colleagues, with an educational aurelio from [employer]. Review of Systems Const Denies chills, Denies fatigue, Denies fever(s), Denies headache(s) and Denies weakness ENT Denies dizziness and Denies headache(s) Card Denies chest pain, Denies lightheadedness, Denies dyspnea and Denies other (Palp itations) Resp Denies cough, Denies dyspnea, Denies wheezing and Denies other ( shortness of breath) Musc Denies numbness and Denies tingling Neuro Denies dizziness, Denies headache(s), Denies numbness, Denies tingling, Denies paresthesias and Denies weakness Psych Denies anxiety and Denies depression Endo Denies fatigue Aller/Immun Denies wheezing Physical exam (Primary Care) Vital Signs: Last Vital Signs Pulse 47 L 10/09/23 09:37 BP 128/74 10/09/23 09:37 Pulse Ox 98 10/09/23 09:37 Oxygen Delivery Method Room Air 10/09/23 09:37 BMI result Body Mass Index 32.8 Tobacco/Smoking Status: Tobacco use Status Tobacco use date assessed 10/09/23 10/09/23 09:42 Patient Tobacco Use Status Never used Tobacco 10/09/23 09:42 e-Cigarette/Vaping Use Never Used 10/09/23 09:42 Thrive Assessment: Date of Thrive Assessment Date Thrive assessed 09/11/23 10/09/23 09:42 Const General: no acute distress and well developed Nutritional Appearance: well nourished Orientation/consciousness: patient oriented x3 HENMT Head: Yes normocephalic and Yes atraumatic Eyes General: appearance normal, both eyes and all related structures Pupils: Equal, round and reactive pupils present EOM: EOMs intact bilaterally Resp Effort & Inspection: normal respiratory effort Auscultation: clear to auscultation bilaterally Cardio Rate: bradycardic Rhythm: regular rhythm Heart sounds: S1 normal heart sound present, S2 normal heart sound present, no gallops, no murmurs and no rubs Neuro General: patient oriented x3 and gait normal Cranial nerves: Yes Equal, round and reactive pupils present Psych Affect: normal affect Assessment and Plan Assessment & Plan (1) Essential hypertension: Code(s): I10 - Essential (primary) hypertension Plan: Blood?pressure?is?controlled.??Goal?is?less?than?140/90 Continue?current?medication (2) Microcytosis: Code(s): R71.8 - Other abnormality of red blood cells Plan: Iron?levels?are?low Will?send?a?script?for?iron?and?we?can?repeat?his?CBC?and?iron?levels?prior? to?next?visit (3) Bradycardia: Code(s): R00.1 - Bradycardia, unspecified Plan: Bradycardia ?with?no?symptoms?and?increases?with?moving?around?and?then?sitting?again. Repeat?heart?rate?was?62?auscultation (4) Iron deficiency: Code(s): E61.1 - Iron deficiency Plan: Mild?iron?deficiency?with?microcytosis As?above,?start?iron (5) Microalbuminuria: Code(s): R80.9 - Proteinuria, unspecified Plan: Albumin/creatinine?ratio?is?still?high He?appears?somewhat?dehydrated?and?only?drinks?about?20?oz?of?water?per?day Advised?he?double?this?and?work?towards?64?oz?per?day. Will?follow Coding Level of Care Code Est Pt Level 4 (19091) Diagnoses Essential hypertension I10 Microcytosis R71.8 Bradycardia R00.1 Iron deficiency E61.1 Microalbuminuria R80.9
[2023-10-09 09:37] VITALS: BP 128/74; PULSE 47; O2SAT 98; BMI 32.8
[2023-10-09 10:54] VITALS: PULSE 60
== END 2023-10-09 10:55 | disposition home or self-care (01) ==
PROVIDERS: PCP Family Medicine; Visit Provider Family Medicine
DX: I10 Essential (primary) hypertension (principal); R71.8 Other abnormality of red blood cells; R00.1 Bradycardia, unspecified; E61.1 Iron deficiency; R80.9 Proteinuria, unspecified
CPT/HCPCS: 99214

== ENCOUNTER 2023-10-16 12:10 | Outpatient (AMB) | payer MEDICARE, SELFPAY ==
[2023-10-16 12:12] VITALS: BMI 32.7
--- NOTE | 2023-10-16 12:12 | MHC.OFFVIS ---
Intake Vital Signs 10/16/23 12:12 Height 5 ft 7.5 in Weight 212 lb BMI 32.7 Intake Visit Reasons: PO Right CTR 10/01/23 AR Intake Note: Rahul 73 yr old male presents today for his P/O visit for his Right CTR 10/01/23 AR. State numbness has improved? Sutures removed and steri strips applied.States he is ready to have his left hand done. Allergies No Known Allergies Allergy (Verified 10/09/23 09:41) HPI PO Right CTR 10/01/23 AR HPI Details Rahul is a 73 year old right hand dominant Diabetic man who presents S/P right carpal tunnel release, DOS: 10/01/23. He says his sensation has improved and he is happy with the results of his surgery. He still has numbness but says his painful tingling has resolved and no longer wakes him up at night. He continues to have dense numbness in the left median nerve distribution as well as painful nighttime tingling.. 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 His most recent HgA1c was 6.4% on 09/11/23 He has a hx of Afib and CVD. [facility] Medical History Screening for prostate cancer Adult general medical exam Encounter for general adult medical examination without abnormal findings Sleep apnea Esophageal dysphagia Atherosclerotic cardiovascular disease Essential hypertension Diabetes type 2, controlled Type 2 diabetes mellitus HTN (hypertension) CHACHA on CPAP Hypercalcemia Hematuria Hyperlipidemia, unspecified Essential hypertension Type 2 diabetes mellitus with unspecified complications Abnormal myocardial perfusion study Persistent atrial fibrillation Surgical History Hx of colonoscopy History of parathyroidectomy History of esophagogastroduodenoscopy (EGD) History of left knee replacement History of right knee joint replacement Family History Father No problems noted. Mother Cancer CVD (cardiovascular disease) CHF (congestive heart failure) Brother Bladder cancer Brother Bladder cancer Brother History of heart valve replacement Daughter No problems noted. Son No problems noted. Social History Household Members: Spouse and Children Housing: House Alcohol intake: current Alcohol intake frequency: does not drink Patient Tobacco Use Status: Never used Tobacco e-Cigarette/Vaping Use: Never Used Second Hand Smoke Exposure: No service: No Current occupational status: employed Current occupation: [employer] Current occupational exposures/hazards: No Cognitive needs: No Hearing needs: Yes (hearing aides) Vision needs: Yes (glasses) Review of Systems Const All systems reviewed & are unremarkable except as noted in HPI and below Physical Exam Vital Signs: BMI result Body Mass Index 32.7 Const General: no acute distress and alert Orientation/consciousness: patient oriented x3 Neuro General: patient oriented x3 Extrem Other: The patient was alert oriented and in no acute distress The incision is healing well with no erythema drainage or evidence of infection. Sutures removed and Steri-Strips applied He can make a fist and extend all his digits No locking or catching Sensation is improving but not yet normal in the right hand. Dense numbness in the median nerve distribution of the left hand Cap refill is brisk Nerve Conduction Study: IMPRESSION: 1. This is an abnormal study. 2. 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 3. There is no electrodiagnostic evidence for ulnar neuropathy, brachial plexopathy, or cervical radiculopathy. Thank you for your kind referral. Yenifer Morley MD, ANTHONY 05/04/23 Psych Appearance: grossly normal Affect: normal affect Attitude: cooperative Assessment & Plan Assessment & Plan (1) Carpal tunnel syndrome of right wrist: Code(s): G56.01 - Carpal tunnel syndrome, right upper limb (2) Carpal tunnel syndrome of left wrist: Code(s): G56.02 - Carpal tunnel syndrome, left upper limb (3) Diabetes type 2, controlled: Code(s): E11.9 - Type 2 diabetes mellitus without complications (4) Persistent atrial fibrillation: Code(s): I48.19 - Other persistent atrial fibrillation Plan Assessment & Plan: 1. Right carpal tunnel syndrome, moderate-severe Pre-operatively with dense numbness Now with dense numbness, improving and with good resolution of his nighttime symptoms The patient appears to be doing well post-operatively I educated him about the post-operative course I discussed activity modifications, he is to lift nothing heavier than a cellphone for the next two weeks He will perform gentle ROM exercises at home He should gently massage about the incision site to reduce the risk of hypersensitivity He was given a note to return to work on 10/29/23 2. Left carpal tunnel syndrome, moderate-severe With dense numbness I educated him about this condition I discussed operative and non-operative treatment options The patient would like to proceed with surgery The risks and benefits of operative treatment were discussed with the patient and the patient wishes to proceed with surgery. These risks include, but are not limited to risk of damage to blood vessels, nerves, tendons, infection, recurrence, incomplete relief of preoperative symptoms, persistent pain, possible need for further surgery and the risks associated with regional blocks and anesthesia. The plan is to take the patient to the operating room sometime in the next few weeks for the following procedures: 1. Left carpal tunnel release, under local All of the preoperative paperwork including the consent was filled out today. All the patient's questions were answered. The patient understands that they will be contacted by our welding instructor soon to schedule this procedure He denies asthma, lung, kidney issues He is a Diabetic, his most recent HgA1c was 6.4% on 09/11/23. He is on Xarelto for Afib & cardiovascular disease Scribed for Lurdes Kaiser MD by Tod Deluna, product manager medical device, on 10/16/23 at 12:40 PM PM, EST. Coding Level of Care Code Est Pt Level 4 (73092) Diagnoses Carpal tunnel syndrome of right wrist G56.01 Carpal tunnel syndrome of left wrist G56.02 Diabetes type 2, controlled E11.9 Persistent atrial fibrillation I48.19
== END 2023-10-16 12:55 | disposition home or self-care (01) ==
PROVIDERS: PCP Family Medicine; Visit Provider Orthopaedic Surgery
DX: G56.03 Carpal tunnel syndrome, bilateral upper limbs (principal); E11.9 Type 2 diabetes mellitus without complications; I48.19 Other persistent atrial fibrillation
CPT/HCPCS: 99214

== ENCOUNTER → 2023-10-16 12:10 | Outpatient (BNVA) | payer MEDICARE, SELFPAY | PROVIDERS: PCP Family Medicine; Visit Provider Orthopaedic Surgery | DX: Z47.89 Encounter for other orthopedic aftercare (principal); G56.02 Carpal tunnel syndrome, left upper limb; E11.9 Type 2 diabetes mellitus without complications; I48.19 Other persistent atrial fibrillation; Z86.69 Personal history of other diseases of the nervous system and sense organs | CPT/HCPCS: 99212 ==

== ENCOUNTER 2023-12-12 09:46 | Outpatient (AMB) | payer MEDICARE, SELFPAY ==
--- NOTE | 2023-12-12 10:42 | MHC.OFFVIS ---
Vital Signs 12/12/23 10:44 Height 5 ft 7.5 in Weight 212 lb BMI 32.7 Intake Visit Reasons: Preop LT CTR 12/20/23 AR Intake Note: Rahul 73 yr old male presents today for his prr op visit for his Left hand CTR schedule for 12/20/[address] Kaiser. Consent signed and all questions answered. Last A1C was a 6.4 done in August. Allergies No Known Allergies Allergy (Verified 12/12/23 10:51) HPI HPI Preop LT CTR 12/20/23 AR: Details: Rahul is a 73 year old right hand dominant Diabetic man who returns to discuss his left carpal tunnel syndrome. He continues to have dense numbness in the left median nerve distribution as well as painful nighttime tingling.. He is S/P right carpal tunnel release, DOS: 10/01/23. He says his sensation has improved and is now almost normal with good resolution of his nighttime symptoms. He is happy with the results of his surgery. 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 His most recent HgA1c was 6.4% on 09/11/23 He has a hx of Afib and CVD. [facility], [facility] Medical History Screening for prostate cancer Adult general medical exam Encounter for general adult medical examination without abnormal findings Sleep apnea Esophageal dysphagia Atherosclerotic cardiovascular disease Essential hypertension Diabetes type 2, controlled Type 2 diabetes mellitus HTN (hypertension) CHACHA on CPAP Hypercalcemia Hematuria Hyperlipidemia, unspecified Essential hypertension Type 2 diabetes mellitus with unspecified complications Abnormal myocardial perfusion study Persistent atrial fibrillation Surgical History Hx of colonoscopy History of parathyroidectomy History of esophagogastroduodenoscopy (EGD) History of left knee replacement History of right knee joint replacement Family History Father No problems noted. Mother Cancer CVD (cardiovascular disease) CHF (congestive heart failure) Brother Bladder cancer Brother Bladder cancer Brother History of heart valve replacement Daughter No problems noted. Son No problems noted. 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 Normal sensation in the ulnar nerve distribution Sensation is improving but not yet normal in the right median nerve distribution Vascular: Cap refill brisk ROM: He can make a fist and extend all his digits Nerve Conduction Study: IMPRESSION: 1. This is an abnormal study. 2. 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 3. There is no electrodiagnostic evidence for ulnar neuropathy, brachial plexopathy, or cervical radiculopathy. Thank you for your kind referral. Yenifer Morley MD, ANTHONY 05/04/23 Psych Appearance: grossly normal Affect: normal affect Attitude: cooperative Assessment & Plan Assessment & Plan (1) Carpal tunnel syndrome of right wrist: Code(s): G56.01 - Carpal tunnel syndrome, right upper limb Category: Medical (2) Carpal tunnel syndrome of left wrist: Code(s): G56.02 - Carpal tunnel syndrome, left upper limb Category: Medical (3) Diabetes type 2, controlled: Code(s): E11.9 - Type 2 diabetes mellitus without complications Category: Medical (4) Persistent atrial fibrillation: Code(s): I48.19 - Other persistent atrial fibrillation Category: Medical Plan Assessment & Plan: 1. Left carpal tunnel syndrome, moderate-severe With dense numbness I educated him about this condition I discussed operative and non-operative treatment options The patient would like to proceed with surgery The risks and benefits of operative treatment were discussed with the patient and the patient wishes to proceed with surgery. These risks include, but are not limited to risk of damage to blood vessels, nerves, tendons, infection, recurrence, incomplete relief of preoperative symptoms, persistent pain, possible need for further surgery and the risks associated with regional blocks and anesthesia. The plan is to take the patient to the operating room sometime on 12/20/23 for the following procedures: 1. Left carpal tunnel release, under local All of the preoperative paperwork including the consent was filled out today. All the patient's questions were answered. He denies asthma, lung, kidney issues He is a Diabetic, his most recent HgA1c was 6.4% on 09/11/23. He is on Xarelto for Afib & cardiovascular disease 2. Right carpal tunnel syndrome, S/P release DOS: 10/01/23 Pre-operatively with dense numbness Still with improving but not yet normal sensation, and good resolution of his nighttime symptoms He is very happy with the results of his surgery Scribed for Lurdes Kaiser MD by Tod Deluna, medical secretary teacher, on 12/12/23 at 10:55 AM, EST. Coding Level of Care Code Est Pt Level 4 (10676) Diagnoses Carpal tunnel syndrome of right wrist G56.01 Carpal tunnel syndrome of left wrist G56.02 Diabetes type 2, controlled E11.9 Persistent atrial fibrillation I48.19
[2023-12-12 10:44] VITALS: BMI 32.7
== END 2023-12-12 10:59 | disposition home or self-care (01) ==
PROVIDERS: PCP Family Medicine; Visit Provider Orthopaedic Surgery
DX: G56.03 Carpal tunnel syndrome, bilateral upper limbs (principal); E11.9 Type 2 diabetes mellitus without complications; I48.19 Other persistent atrial fibrillation
CPT/HCPCS: 99214

== ENCOUNTER → 2023-12-12 09:46 | Outpatient (BNVA) | payer MEDICARE, SELFPAY | PROVIDERS: PCP Family Medicine; Visit Provider Orthopaedic Surgery | DX: Z01.818 Encounter for other preprocedural examination (principal); G56.02 Carpal tunnel syndrome, left upper limb; E11.9 Type 2 diabetes mellitus without complications; I48.19 Other persistent atrial fibrillation; Z79.01 Long term (current) use of anticoagulants | CPT/HCPCS: 99212 ==

== ENCOUNTER 2023-12-20 06:37 | Day surgery (SDC) | payer MEDICARE, SELFPAY ==
[2023-12-20 07:05] VITALS: BMI 32.1
[2023-12-20 07:13] VITALS: BP 150/79; PULSE 55; RESP 18; TEMP 36.4; O2SAT 98
--- NOTE | 2023-12-20 08:00 | MHC.SHP ---
Pre-Procedural Eval Section A - 24 Hr Update-Section A only Date of Service: 12/20/23 The patient is an INPATIENT: No Changes since office visit: No Cold of Flu in the past 2 weeks, No New Medical Problems, No Changes in Medication and No Patient answered all questions The patient has been examined within 24 hours of the surgical procedure. The History & Physical has been completed within 30 days and I have reviewed it.: Yes Section B - Complete if H&P > 30 days Chief Complaint: Carpal tunnel syndrome, left upper limb Allergies: Allergies Allergy/AdvReac Type Severity Reaction Status Date / Time No Known Allergies Allergy Verified 12/12/23 10:51 Exam Exam Comment: Left Carpal tunnel syndrome Plan Diagnosis/Plan: Unchanged I have reviewed the history and physical and performed a pertinent physical examination on my patient. No changes have occurred unless specified. Time Spent With Patient Time: Total time managing care of this patient today ____ minutes.
--- NOTE | 2023-12-20 08:00 | W.PM.OPN ---
Operative Note Operative Note Date of Service: 12/20/23 Narrative: Preop diagnosis: 1. Left Carpal tunnel syndrome Postop diagnosis: same Procedure: 1. Left Carpal tunnel release Surgeon: Lurdes Kaiser MD Anesthesia: local block using 1% lidocaine with epinephrine Findings: Thickened transverse carpal ligament. EBL: Less than 5 mL Specimens: None Complications: None Disposition: Brought to recovery room in stable condition Plan: Follow-up for 10-14 days for wound check and suture removal Indications: The patient is a 73 years old, with left carpal tunnel syndrome that has been unresponsive to nonoperative management. The risks and benefits of operative treatment including but not limited to risk of damage to blood vessels, nerves, tendons, infection, persistent pain, persistent symptoms, or possible need for additional surgery were discussed with the patient and the patient wishes to proceed with surgery. Procedure: Once consent was obtained a local block was performed using a combination of 1% lidocaine with epinephrine. The patient was then brought back to the operating suite and placed on the operative table in supine position. The left upper extremity was prepped and draped in a standard surgical fashion. Once assured that we had a good block, a 2.0 cm longitudinal incision was made centered over the carpal tunnel. The incision was made through the skin to the subcutaneous tissues using a #15 blade. Dissection was made down to the level of the transverse carpal ligament with care being taken to protect the palmar cutaneous nerve. Once the transverse carpal ligament was clearly visualized, a longitudinal incision was made in the transverse carpal ligament 1st using a #15 blade, then using tenotomy scissors under direct visualization. Care was taken to look for and protect the motor branch of the median nerve when seen in this area. Once satisfied with our carpal tunnel release the wound was copiously irrigated with normal saline and hemostasis was obtained with a brief period of local pressure. The skin edges were reapproximated with some 5.0 nylon suture material and a sterile dressing was applied. The patient appears to have tolerated the procedure well and with no complications. All digits were well vascularized at the conclusion of the case.
[2023-12-20 09:15] VITALS: BP 128/70; PULSE 61; RESP 18; O2SAT 97
== END 2023-12-20 09:23 | disposition home or self-care (01) ==
PROVIDERS: PCP Family Medicine; Visit Provider Orthopaedic Surgery
PROC: (CPT 64721; principal; 2023-12-20 08:10)
DX: G56.02 Carpal tunnel syndrome, left upper limb (principal); R20.0 Anesthesia of skin; R20.2 Paresthesia of skin; E11.9 Type 2 diabetes mellitus without complications; I25.10 Atherosclerotic heart disease of native coronary artery without angina pectoris; I10 Essential (primary) hypertension; G47.33 Obstructive sleep apnea (adult) (pediatric); I48.19 Other persistent atrial fibrillation; Z79.01 Long term (current) use of anticoagulants; Z99.89 Dependence on other enabling machines and devices; Z98.890 Other specified postprocedural states
CPT/HCPCS: 64721; J0171

== ENCOUNTER → 2023-12-20 06:37 | Outpatient (BNV) | payer MEDICARE, SELFPAY | PROVIDERS: PCP Family Medicine; Visit Provider Orthopaedic Surgery | DX: G56.02 Carpal tunnel syndrome, left upper limb (principal) | CPT/HCPCS: 64721 ==

== ENCOUNTER 2023-12-28 08:15 | Outpatient (REF) | payer MEDICARE, SELFPAY ==
[2023-12-28 11:40] LABS: MANUAL DIFF FLAG NO
[2023-12-28 11:47] LABS: Appearance Urine Clear; Color Urine Yellow; Glucose Urine UA Negative (Negative); Leukocyte Esterase Urine Negative (Negative); Nitrite Urine Negative (Negative); PH 5.5 (5.0-9.0); Specific Gravity - Urine 1.025 (1.005-1.025); UMIC TRIGGER UA YES; Urine Blood Trace (Negative); Urine Ketones Negative (Negative); Urine Protein 100 (2+) mg/dL (Neg-Trace)
[2023-12-28 11:47] LABS: Basophils Absolute Auto 0.1 X10*3/uL (0.0-0.2); Basophils Percent Auto 0.8 % (0-2); Eosinophils Absolute Auto 0.2 X10*3/uL (0.0-0.4); Eosinophils Percent Auto 2.5 % (0-4); Hematocrit 48.2 % (42.0-52.0); Hemoglobin 15.2 g/dl (14.0-18.0); Imm Gran Abs Auto 0.03 X10*3/uL (0.00-0.03); Imm Gran Pct Auto 0.5 % (0.0-0.4); Lymphocytes Absolute Auto 1.3 X10*3/uL (1.2-4.9); Lymphocytes Percent Auto 21.9 % (20-40); Mean Corpuscular HGB Conc 31.5 g/dl (31.0-36.0); Mean Corpuscular Hemoglobin 26.2 pg (27.0-33.0); Mean Platelet Volume 10.4 fL (9.4-12.4); Monocytes Absolute Auto 0.7 X10*3/uL (0.1-1.2); Monocytes Percent Auto 12.2 % (2-11); Neutrophils Absolute Auto 3.7 x10*3/uL (2.0-8.3); Neutrophils Percent Auto 62.1 % (45-73); Platelet Count 252 X10*3/uL (160-400); Red Blood Count 5.81 X10*6/uL (4.60-5.80); Red Cell Distribution Width 20.4 % (11.0-16.0); White Blood Count 5.9 X10*3/uL (4.8-10.8)
[2023-12-28 11:50] LABS: Bacteria Urine None Seen (None Seen); Hyaline Casts Urine 0-2 /LPF (0-2); RBC Urine 0-2 /HPF (0-2); Squamous Epithelial Cell Urine 0-2 /HPF (0-2); WBC Urine 0-5 /HPF (0-5)
[2023-12-28 12:43] LABS: Creatinine Urine 168.87 mg/dL; Microalbum/Creatinine Ratio Ur 357.6 ug/mg cr (<30)
[2023-12-28 13:09] LABS: Anion Gap 12 (12-20); Blood Urea Nitrogen 13 mg/dL (9-16); Calcium 9.3 mg/dL (8.4-10.2); Carbon Dioxide 28 mmol/L (22-29); Chloride 102 mmol/L (96-108); Estimated Glomerular Filt Rate > 60; Glucose Random 105 mg/dL (60-115); Iron 140 mcg/dL (45-160); Percent Iron Saturation 39 % (15-50); Sodium 138 mmol/L (135-145); Total Iron Binding Capacity 362 mcg/dL (228-428); Unsaturated Iron Binding 222 ug/dL
== END 2023-12-28 08:16 | disposition home or self-care (01) ==
LOC: HO.WFDLDS 08:15
PROVIDERS: Visit Provider Family Medicine
DX: Z00.00 Encounter for general adult medical examination without abnormal findings (principal); E61.1 Iron deficiency; I10 Essential (primary) hypertension; R80.9 Proteinuria, unspecified; R71.8 Other abnormality of red blood cells
CPT/HCPCS: 36415; 80048; 81001; 82043; 82570; 83540; 85025

== ENCOUNTER 2024-01-01 08:55 | Outpatient (AMB) | payer MEDICARE, SELFPAY ==
[2024-01-01 09:14] VITALS: BP 142/78; PULSE 60; O2SAT 98; BMI 32.1
--- NOTE | 2024-01-01 09:14 | A.OFFPC_ITS ---
Vital Signs 01/01/24 09:14 Height 5 ft 8.5 in Weight 214 lb BMI 32.1 BP 142/78 H Blood Pressure Location Lt brachial Pulse 60 Pulse Source Auscultation Pulse Oximetry (%) 98 Oxygen Delivery Method Room Air Intake Visit Reasons: f/u hypertension anemia Intake Note: Patient is here for follow up and anemia. Allergies No Known Allergies Allergy (Verified 01/01/24 09:15) Medication List - Last Reconciled 01/01/24 by Austin Valles MD blood sugar diagnostic As directed blood sugar diagnostic ([employer] Ultra Test strips) Once a day As directed, 90 days calcium carbonate (Calcium 500) 500 mg PO DAILY CPAP (CPAP Machine/Device) DX: G47.33, q.h.s. As directed, 999 days/lifetime ferrous sulfate 325 mg PO DAILY 30 days garlic 1,000 mg PO DAILY glipizide ER 5 mg PO DAILY 90 days lancets DX: E11.9, test blood sugar once a day, 90 days metformin 850 mg PO TIDWMEAL 90 days [id number]-ashkte 203-40-865-300 mcg (Centrum Silver Ultra Men's) 1 tab PO DAILY omega 9-vya-grw-fish oil 1,200 (144-216) mg (Fish Oil) caps PO oxycodone-acetaminophen 5-325 mg 1 tab PO Q6H PRN pantoprazole 20 mg PO BID rivaroxaban (Xarelto) 20 mg PO DAILY rosuvastatin 40 mg PO DAILY sildenafil 100 mg PO DAILY PRN 30 days valsartan-hydrochlorothiazide 320-12.5 mg 1 tab PO DAILY Tobacco use date assessed: 01/01/24 Fall risk assessment: No Falls in past year Last assessed Fall Risk: 01/01/24 Dental Screening Dental Screen Date: 01/01/24 Did you have a dental visit in the last 12 months?: Yes Did you have a dental problem in the last 6 months where you did not have access to dental care?: No Was dental information given to patient?: Patient has dentist HPI f/u hypertension anemia HPI Details 73 y/o male presents to f/u hypertension , diabetes, anemia. A1c today 01/01/24 6.7%. He is on metformin 850mg, glipizide 5mg daily. Blood pressure today 142/78, 48p. He is on valsartan-hydrochlorothiazide 320-12.5mg daily. Pt notes he does eat a lot of salt in his diet. Anemia, low iron levels has resolved. He has finished his iron supplements about 2 weeks ago. He denies any bleeding/blood in his stools. He notes he still has to make an appt. for a diabetic eye exam. HPI Comments History of Present Illness Details Documentation assistance for Austin Valles MD, was provided by Santy Poe, Engineering And Development Director on 01/01/2024 9:45 AM EST. I, Dr. Valles, have read, observed, and verified documentation. [facility] Medical History Screening for prostate cancer Adult general medical exam Encounter for general adult medical examination without abnormal findings Atherosclerotic cardiovascular disease Sleep apnea Esophageal dysphagia Essential hypertension Diabetes type 2, controlled Type 2 diabetes mellitus HTN (hypertension) CHACHA on CPAP Hypercalcemia Hematuria Hyperlipidemia, unspecified Essential hypertension Type 2 diabetes mellitus with unspecified complications Abnormal myocardial perfusion study Persistent atrial fibrillation Surgical History Hx of carpal tunnel repair Hx of colonoscopy History of parathyroidectomy History of esophagogastroduodenoscopy (EGD) History of left knee replacement History of right knee joint replacement Family History Father No problems noted. Mother Cancer CVD (cardiovascular disease) CHF (congestive heart failure) Brother Bladder cancer Brother Bladder cancer Brother History of heart valve replacement Daughter No problems noted. Son No problems noted. 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 1. Little interest or pleasure in doing things: not at all 2. Feeling down, depressed, or hopeless: not at all 3. Trouble falling or staying asleep, or sleeping too much: not at all 4. Feeling tired or having little energy: not at all 5. Poor appetite or overeating: not at all 6. Feeling bad about yourself - or that you are a failure or have let yourself or your family down: not at all 7. Trouble concentrating on things, such as reading the newspaper or watching television: not at all 8. Moving or speaking so slowly that other people could have noticed. Or the opposite - being so fidgety or restless that you have been moving around a lot more than usual: not at all 9. Thoughts that you would be better off or of hurting yourself in some way: not at all Total score: 0 Depression Screening Interpretation: Negative Depression Screening Done: Yes Source: Developed by Drs. Shashi Vera, Paulette Washington, Tato Fuchs and colleagues, with an educational aurelio from [employer]. Thrive Questionnaire Date Thrive assessed: 01/01/24 I am a: Patient What is your living situation today?: I have a steady place to live Within the past 12 months, did the food you bought not last and you didn't have the money to get more?: Never true Within the past 12 months, did you worry whether your food would run out before you got money to buy more?: Never true Do you have trouble paying for medicines?: No Do you have trouble getting transportation to medical appointments?: No Do you have trouble paying your heating and electricity bill?: No Do you have trouble taking care of your child, family member or friend?: No Do you have trouble with day-to-day activities such as bathing, preparing meals, shopping, managing finances, etc.?: No Are you currently unemployed and looking for a job?: No Are you interested in more education?: No THRIVE Score: 0 AUDIT C Alcohol Use Questionnaire (AUDIT-C) 1. How often do you have a drink containing alcohol?: Never 3. How often do you have six or more drinks on one occasion?: Never Total Score: 0 ABHINAV-7 AMB Questionnaire ABHINAV-7 Date ABHINAV - 7 assessed: 01/01/24 Feeling nervous, anxious, or on edge: 0 = Not at all Not being able to stop or control worryin = Not at all Worrying too much about different things: 0 = Not at all Trouble relaxin = Not at all Being so restless that it is hard to sit still: 0 = Not at all Becoming easily annoyed or irritable: 0 = Not at all Feeling afraid as if something awful might happen: 0 = Not at all Total ABHINAV-7 score (0-4 normal; 5-9 mild; 10-14 moderate; 15-21 severe): 0 Source: Developed by Drs. Shashi Vera, Paulette Washington, Tato Fuchs and colleagues, with an educational aurelio from [employer]. Review of Systems Const Denies chills, Denies fatigue, Denies fever(s), Denies headache(s) and Denies weakness ENT Denies dizziness and Denies headache(s) Card Denies dyspnea Resp Denies cough, Denies dyspnea, Denies wheezing and Denies other (shortness of breath) Musc Denies numbness and Denies tingling Neuro Denies dizziness, Denies headache(s), Denies numbness, Denies tingling and Denies weakness Psych Denies anxiety and Denies depression Endo Denies fatigue Aller/Immun Denies wheezing Physical exam (Primary Care) Vital Signs: Last Vital Signs Pulse 48 L 01/01/24 09:14 BP 142/78 H 01/01/24 09:14 Pulse Ox 98 01/01/24 09:14 Oxygen Delivery Method Room Air 01/01/24 09:14 BMI result Body Mass Index 32.1 Tobacco/Smoking Status: Tobacco use Status Tobacco use date assessed 01/01/24 01/01/24 09:19 Patient Tobacco Use Status Never used Tobacco 01/01/24 09:19 e-Cigarette/Vaping Use Never Used 01/01/24 09:19 PHQ-9: PHQ-9 Score PHQ-9: Total score 0 01/01/24 09:23 Depression Screening Interpretation: Negative Thrive Assessment: Date of Thrive Assessment Date Thrive assessed 01/01/24 01/01/24 09:23 Const General: well developed; No acute distress Nutritional Appearance: well nourished Orientation/consciousness: patient oriented x3 HENMT Head: Yes normocephalic and Yes atraumatic Eyes General: appearance normal, both eyes and all related structures Pupils: Equal, round and reactive pupils present EOM: EOMs intact bilaterally Resp Effort & Inspection: normal respiratory effort Auscultation: clear to auscultation bilaterally Cardio Rate: regular rate Rhythm: regular rhythm Heart sounds: S1 normal heart sound present, S2 normal heart sound present, no gallops, no murmurs and no rubs Neuro General: patient oriented x3 and gait normal Cranial nerves: Yes Equal, round and reactive pupils present Psych Affect: normal affect Results AMB Hemoglobin A1c AMB Hemoglobin A1c 6.7 % Last Edit by Татьяна Lau CMA on 01/01/24 09:37 Results Reviewed Results Reviewed: Laboratory Last Values Hgb A1c (Clinic) 6.7 % (4.0-6.0) H 01/01/24 09:35 Assessment and Plan Assessment & Plan (1) Essential hypertension: Code(s): I10 - Essential (primary) hypertension Plan: Blood?pressure?fluctuates?and?patient?notes?that?he?does?not?restrict?salt?well. Goal?is?less?than?140/90 No?medication?changes?today.??Encouraged?decreased?salt/sodium?in?diet Will?continue?to?follow (2) Diabetes type 2, controlled: Code(s): E11.9 - Type 2 diabetes mellitus without complications Plan: A1c?today?was?6.7%. ?Good?control.??Goal?is?less?than?7.0% Continue?current?medication?regimen He?is?planning?to?get?an?eye?exam?scheduled (3) Microcytosis: Code(s): R71.8 - Other abnormality of red blood cells Plan: Resolved. Low?iron?level?also?has?resolved.??Will?recheck?this?prior?to?his?next?visit (4) Persistent atrial fibrillation: Code(s): I48.19 - Other persistent atrial fibrillation Plan: Stable Continue?Xarelto Follow-up?with?Cardiology?as?recommended Orders: Orders IRON PROFILE Today E61.1 - Iron deficiency Complete Blood Count Auto Diff Today E61.1 - Iron deficiency, Z00.00 - Encounter for general adult medical examination without abnormal findings AMB Hemoglobin A1c Today Z13.9 - Encounter for screening, unspecified Microalbumin, Random (w Creat) Today I10 - Essential (primary) hypertension Comprehensive [place]. Panel Fast Today I10 - Essential (primary) hypertension, Z00.00 - Encounter for general adult medical examination without abnormal findings Coding Level of Care Code Est Pt Level 4 (75126) Diagnoses Essential hypertension I10 Diabetes type 2, controlled E11.9 Microcytosis R71.8 Persistent atrial fibrillation I48.19
== END 2024-01-01 10:08 | disposition home or self-care (01) ==
PROVIDERS: PCP Family Medicine; Visit Provider Family Medicine
DX: I10 Essential (primary) hypertension (principal); E11.9 Type 2 diabetes mellitus without complications; R71.8 Other abnormality of red blood cells; I48.19 Other persistent atrial fibrillation
CPT/HCPCS: 83036; 99214

== ENCOUNTER 2024-01-02 12:32 | Outpatient (AMB) | payer MEDICARE, SELFPAY ==
[2024-01-02 12:45] VITALS: BMI 32.1
--- NOTE | 2024-01-02 12:45 | MHC.OFFVIS ---
Vital Signs 01/02/24 12:45 Height 5 ft 8.5 in Weight 214 lb BMI 32.1 Intake Visit Reasons: PO LT CTR 12/20/23 AR Intake Note: Rahul 73 yr old male presents today for his P/O visit for his left hand CTR from 12/20/23. States symptoms have improved and is doing well. Sutures removed and steri strips applied. Allergies No Known Allergies Allergy (Verified 01/02/24 13:02) HPI HPI PO LT CTR 12/20/23 AR: Details: Rahul Maciel is a 73 year old male who returns 13 days status post left carpal tunnel release. He reports overall he is doing well. He states his sensation is improving, but not normal yet. 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 [facility] Medical History Screening for prostate cancer Adult general medical exam Encounter for general adult medical examination without abnormal findings Atherosclerotic cardiovascular disease Sleep apnea Esophageal dysphagia Essential hypertension Diabetes type 2, controlled Type 2 diabetes mellitus HTN (hypertension) CHACHA on CPAP Hypercalcemia Hematuria Hyperlipidemia, unspecified Essential hypertension Type 2 diabetes mellitus with unspecified complications Abnormal myocardial perfusion study Persistent atrial fibrillation Surgical History Hx of carpal tunnel repair Hx of colonoscopy History of parathyroidectomy History of esophagogastroduodenoscopy (EGD) History of left knee replacement History of right knee joint replacement Family History Father No problems noted. Mother Cancer CVD (cardiovascular disease) CHF (congestive heart failure) Brother Bladder cancer Brother Bladder cancer Brother History of heart valve replacement Daughter No problems noted. Son No problems noted. 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 Current occupational exposures/hazards: No Cognitive needs: No Hearing needs: Yes (hearing aides) Vision needs: Yes (glasses) Review of Systems Const All systems reviewed & are unremarkable except as noted in HPI and below Physical Exam Vital Signs: BMI result Body Mass Index 32.1 Const General: cooperative, healthy appearing and no acute distress Orientation/consciousness: patient oriented x3 HEENT Head: Yes normocephalic and Yes atraumatic Eyes EOM: EOMs intact bilaterally Resp Effort & Inspection: normal respiratory effort and able to speak in complete sentences Cardio Jugular venous distension: no JVD Skin General skin exam: turgor normal Rashes: no rashes Neuro General: patient oriented x3 Extrem Other: Evaluation of Left Upper Extremity: Patient was alert oriented and in no acute distress Incision site has no erythema, drainage, or evidence of infection. Wound is well healed. Can make a full fist and extend all digits. Neuro: Sensation is improved but not yet normal. Vascular: Cap refill brisk. Assessment & Plan Assessment & Plan (1) Carpal tunnel syndrome of right wrist: Code(s): G56.01 - Carpal tunnel syndrome, right upper limb Category: Medical (2) Carpal tunnel syndrome of left wrist: Code(s): G56.02 - Carpal tunnel syndrome, left upper limb Category: Medical Plan 1. Left carpal tunnel syndrome, moderate-severe Preoperatively With dense numbness Today with improved but not yet normal sensation He appears to be doing well postoperatively. He is happy with the improvement in his sensation and nighttime symptoms. 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 We have given him a note to this affect. Follow-up p.r.n. 2. Right carpal tunnel syndrome, S/P release DOS: 10/01/23 Pre-operatively with dense numbness Still with improving but not yet normal sensation, and good resolution of his nighttime symptoms He is very happy with the results of his surgery Patient Instructions: Scribed by Kecia Lucia medical educator, for Dr. Lurdes Kaiser on 01/02/2024 at 1:00 pm, EST. Coding Level of Care Code Global (57019) Diagnoses Carpal tunnel syndrome of right wrist G56.01 Carpal tunnel syndrome of left wrist G56.02
== END 2024-01-02 13:10 | disposition home or self-care (01) ==
PROVIDERS: PCP Family Medicine; Visit Provider Orthopaedic Surgery
DX: G56.03 Carpal tunnel syndrome, bilateral upper limbs (principal)
CPT/HCPCS: 99024

== ENCOUNTER → 2024-01-02 12:32 | Outpatient (BNVA) | payer MEDICARE, SELFPAY | PROVIDERS: PCP Family Medicine; Visit Provider Orthopaedic Surgery | DX: Z47.89 Encounter for other orthopedic aftercare (principal); Z86.69 Personal history of other diseases of the nervous system and sense organs | CPT/HCPCS: 99212 ==

== ENCOUNTER 2024-03-05 09:19 | Outpatient (AMB) | payer MEDICARE, SELFPAY ==
--- NOTE | 2024-03-05 09:28 | MHC.OFFVIS ---
Vital Signs 03/05/24 09:29 Height 5 ft 8.5 in Weight 207 lb 3.752 oz BMI 31.0 BP 142/67 H Blood Pressure Location Lt brachial Position Sitting Pulse 51 Intake Visit Reasons: 6 months follow up Intake Note: Rahul presents in the office as a 6 month follow up. CC: No concerns that he is having today! Physical Therapist Technician Required: No Allergies No Known Allergies Allergy (Verified 03/05/24 09:28) HPI HPI 6 months follow up: Details: Assessment & Plan (1) Positive colorectal cancer screening using Cologuard test: Code(s): R19.5 - Other fecal abnormalities (2) GERD (gastroesophageal reflux disease): Code(s): K21.9 - Gastro-esophageal reflux disease without esophagitis Plan Will have a recall in 5 years given the positive Cologuard and we will consider repeat depending on his general health. He just had afib dxed unknown to him but was discovered on a pre-op B kg. He is agreeable. 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 I will see him in 6 months Medications: Refilled pantoprazole 20 mg PO BID 180 tabs 2RF K21.9 - Gastro-esophageal reflux disease without esophagitis Discontinued sod sulf-pot chloride-mag sulf 1.479-0.188- 0.225 gram (Sutab) Discontinued Reason: No Longer Medically Relevant PO PER PKG DIR 24 tabs 0RF CORRESPONDENCE On 01/02/23 @ 11:58 Sherri Valdivia Wrote To Floridalma Mario pt states he has already told our office he doesnt want to have a colonoscopy. fwd for an fyi On 01/02/23 @ 09:30 Rosamaria Hussein Wrote To Floridalma Mario (2) Rosamaria Hussein removed from item. On 01/01/23 @ 17:45 Douglas Justice Wrote To JovitaNovember (3) Stephanie--pls tell pt cologuard was pos, recommend colonoscopy within next 4 weeks--any provider On 01/01/23 @ 09:28 Jaspal Flower Wrote To Hussein Please see below and advise. On 12/29/22 @ 05:55 Douglas Justice Wrote To Floridalma Carlson he should at least come in and talk to Rosamaria or talk to his pcp On 12/28/22 @ 09:59 Floridalma Carlson Wrote To Douglas Justice Patient does not want to have a colonoscopy. He stated that he is 73 and does not want to worry about it. On 12/28/22 @ 09:16 Dannielle Walter Wrote To Floridalma Carlson Patient called bacl transfered to Stephanie. On 12/28/22 @ 08:17 Jaspal Flower Wrote To Floridalma Carlson (2) Called Pt and LVM requesting a call back. On 12/27/22 @ 22:25 Douglas Justice Wrote To Floridalma Carlson (2) should be booked for a colonoscopy directly if he agrees On 12/27/22 @ 08:26 Jaspal Flower Wrote To Douglas Justice Patient Cologuard positive. Ok to wait until November comes back next week? Please advise. On 12/21/22 @ 16:33 Floridalma Carlson Wrote To Hussein (2) Cologard called regarding an abnormal results. This patient's results were positive and they faxed results to us! TODAY'S VISIT He had a scope in 2022 and we will repeat it in 5 years r/t his positive Cologuard. He continues to do well him pantoprazole He is doing very well after having bilateral CTR and now can feel his hands an hold things better! 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 Medical History Screening for prostate cancer Adult general medical exam Encounter for general adult medical examination without abnormal findings Atherosclerotic cardiovascular disease Sleep apnea Esophageal dysphagia Essential hypertension Diabetes type 2, controlled Type 2 diabetes mellitus HTN (hypertension) CHACHA on CPAP Hypercalcemia Hematuria Hyperlipidemia, unspecified Essential hypertension Type 2 diabetes mellitus with unspecified complications Abnormal myocardial perfusion study Persistent atrial fibrillation Surgical History Hx of carpal tunnel repair Hx of colonoscopy History of parathyroidectomy History of esophagogastroduodenoscopy (EGD) History of left knee replacement History of right knee joint replacement Family History Father No problems noted. Mother Cancer CVD (cardiovascular disease) CHF (congestive heart failure) Brother Bladder cancer Brother Bladder cancer Brother History of heart valve replacement Daughter No problems noted. Son No problems noted. Social History Household Members: Spouse and Children Housing: House Alcohol intake: current Alcohol intake frequency: does not drink Patient Tobacco Use Status: Never used Tobacco e-Cigarette/Vaping Use: Never Used Second Hand Smoke Exposure: No service: No Current occupational status: employed Current occupation: [employer] Current occupational exposures/hazards: No Cognitive needs: No Hearing needs: Yes (hearing aides) Vision needs: Yes (glasses) Review of Systems Const Denies fatigue, Denies fever(s), Denies night sweats, Denies poor appetite and Denies weight loss Eyes Details: glasses Reports requires corrective lenses ENT Reports Normal hearing present, Denies dental pain, Denies dysphagia, Denies hearing loss, Denies mouth pain, Denies odynophagia, Denies throat swelling, Denies tongue swelling and Reports other (Dentition adequate) Card Reports no additional complaints Resp Reports no additional complaints GI Details: Denies abdominal pain, Denies melena, Denies bloating, Denies hematochezia, Denies constipation, Denies GI cramping, Denies dysphagia, Denies excessive flatus, Denies early satiety, Reports heartburn, Denies diarrhea, Denies nausea, Denies odynophagia, Denies vomiting and Denies hematemesis Skin/Breast Denies pruritus, Denies lesions, Denies rash and Denies jaundice Neuro Reports Normal hearing present and Denies Abnormal speech present Endo Denies fatigue Aller/Immun Denies throat swelling and Denies tongue swelling Physical Exam Vital Signs: Last Vital Signs Pulse 51 03/05/24 09:29 BP 142/67 H 03/05/24 09:29 BMI result Body Mass Index 31.0 Const General: cooperative, no acute distress, well developed and well groomed Nutritional Appearance: well nourished and obese Orientation/consciousness: oriented to person, oriented to place and oriented to time Limitations: No language barrier HEENT Head: Yes normocephalic and Yes atraumatic Eyes General: appearance normal, both eyes and all related structures Pupils: Equal, round and reactive pupils present Neck Neck: Yes normal visual inspection and Yes no lymphadenopathy Thyroid: Thyroid normal Resp Effort & Inspection: normal respiratory effort and able to speak in complete sentences Auscultation: clear to auscultation bilaterally Cardio Rate: regular rate Rhythm: regular rhythm Heart sounds: Normal, physiologic split S2 sound present Peripheral pulses: radial pulses present and posterior tibial pulses present GI Inspection: No distended, No Abdominal panniculus present and Yes obesity Palpation (GI): Soft to palpation, nontender, no guarding, not rigid and No hepatosplenomegaly present Percussion: Yes normal to percussion Auscultation: normal bowel sounds Rectal Exam - Male: Yes deferred Skin General skin exam: no rashes or lesions noted, turgor normal, skin not dry, no jaundice, No spider nevi and no striae Rashes: no rashes Nails: normal Neuro General: oriented to person, oriented to place and oriented to time Cranial nerves: Yes Equal, round and reactive pupils present and Yes Normal hearing present Speech: No Abnormal speech present Extrem General: Yes normal to inspection, No clubbing, No cyanosis and No edema Psych Appearance: grossly normal and well kempt Mental Status: mental status grossly normal Speech and movement: Normal speech and movement present Affect: normal affect Attitude: cooperative Thought process: Normal thought process present and not confabulating Thought content: Normal thought content present Insight: Good insight present (Psych) Judgement: Good judgement present (Psych) Assessment & Plan Assessment & Plan (1) Erosive esophagitis: Code(s): K22.10 - Ulcer of esophagus without bleeding Category: Medical (2) GERD (gastroesophageal reflux disease): Code(s): K21.9 - Gastro-esophageal reflux disease without esophagitis Category: Medical Plan He had a scope in 2022 and we will repeat it in 5 years r/t his positive Cologuard. He continues to do well him pantoprazole He is doing very well after having bilateral CTR and now can feel his hands an hold things better! 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 Medications: Refilled pantoprazole 20 mg PO BID 180 tabs 2RF K21.9 - Gastro-esophageal reflux disease without esophagitis Coding Level of Care Code Est Pt Level 3 (63489) Diagnoses Erosive esophagitis K22.10 GERD (gastroesophageal reflux disease) K21.9
[2024-03-05 09:29] VITALS: BP 142/67; PULSE 51; BMI 31.0
== END 2024-03-05 10:19 | disposition home or self-care (01) ==
PROVIDERS: PCP Family Medicine; Visit Provider Nurse Practitioner
DX: K22.10 Ulcer of esophagus without bleeding (principal); K21.9 Gastro-esophageal reflux disease without esophagitis
CPT/HCPCS: 99213

== ENCOUNTER → 2024-03-05 09:19 | Outpatient (BNVA) | payer MEDICARE, SELFPAY | PROVIDERS: PCP Family Medicine; Visit Provider Nurse Practitioner | DX: K21.9 Gastro-esophageal reflux disease without esophagitis (principal); K22.10 Ulcer of esophagus without bleeding; R19.5 Other fecal abnormalities | CPT/HCPCS: 99212 ==

== ENCOUNTER 2024-03-25 08:56 | Outpatient (REF) | payer MEDICARE, SELFPAY ==
[2024-03-25 11:14] LABS: MANUAL DIFF FLAG NO
[2024-03-25 11:26] LABS: Basophils Percent Auto 0.4 % (0-2); Eosinophils Absolute Auto 0.1 X10*3/uL (0.0-0.4); Eosinophils Percent Auto 1.3 % (0-4); Hematocrit 47.6 % (42.0-52.0); Hemoglobin 15.9 g/dl (14.0-18.0); Imm Gran Abs Auto 0.03 X10*3/uL (0.00-0.03); Imm Gran Pct Auto 0.4 % (0.0-0.4); Lymphocytes Absolute Auto 1.3 X10*3/uL (1.2-4.9); Lymphocytes Percent Auto 17.2 % (20-40); Mean Corpuscular HGB Conc 33.4 g/dl (31.0-36.0); Mean Corpuscular Hemoglobin 27.6 pg (27.0-33.0); Mean Corpuscular Volume 82.5 fL (80.0-98.0); Mean Platelet Volume 9.9 fL (9.4-12.4); Monocytes Absolute Auto 0.8 X10*3/uL (0.1-1.2); Monocytes Percent Auto 10.9 % (2-11); Neutrophils Absolute Auto 5.3 x10*3/uL (2.0-8.3); Neutrophils Percent Auto 69.8 % (45-73); Platelet Count 239 X10*3/uL (160-400); Red Blood Count 5.77 X10*6/uL (4.60-5.80); Red Cell Distribution Width 15.9 % (11.0-16.0); White Blood Count 7.6 X10*3/uL (4.8-10.8)
[2024-03-25 11:45] LABS: Alanine Aminotransferase 17 U/L (0-40); Albumin Level 4.3 g/dL (3.5-5.0); Alkaline Phosphatase 56 U/L (39-117); Anion Gap 15 (12-20); Aspartate Amino Transferase 23 U/L (5-37); Bilirubin Total 1.2 mg/dL (0.0-1.0); Blood Urea Nitrogen 16 mg/dL (9-16); Calcium 9.6 mg/dL (8.4-10.2); Carbon Dioxide 26 mmol/L (22-29); Chloride 98 mmol/L (96-108); Estimated Glomerular Filt Rate 57; Glucose Fasting 100 mg/dL (60-99); Iron 78 mcg/dL (45-160); Percent Iron Saturation 23 % (15-50); Potassium 4.4 mmol/L (3.3-5.1); Sodium 135 mmol/L (135-145); Total Iron Binding Capacity 338 mcg/dL (228-428); Total Protein 7.2 g/dL (6.5-8.0); Unsaturated Iron Binding 260 ug/dL
[2024-03-25 14:12] LABS: Appearance Urine Clear; Color Urine Yellow; Glucose Urine UA Negative (Negative); Leukocyte Esterase Urine Negative (Negative); Nitrite Urine Negative (Negative); PH 6.5 (5.0-9.0); Specific Gravity - Urine 1.015 (1.005-1.025); UMIC TRIGGER UA YES; Urine Blood Negative (Negative); Urine Ketones Negative (Negative); Urine Protein 30 (1+) mg/dL (Neg-Trace)
[2024-03-25 14:19] LABS: Bacteria Urine None Seen (None Seen); Hyaline Casts Urine 0-2 /LPF (0-2); RBC Urine 0-2 /HPF (0-2); Squamous Epithelial Cell Urine 0-2 /HPF (0-2); WBC Urine 0-5 /HPF (0-5)
[2024-03-25 14:35] LABS: Creatinine Urine 115.16 mg/dL; Microalbum/Creatinine Ratio Ur 165.8 ug/mg cr (<30)
== END 2024-03-25 08:57 | disposition home or self-care (01) ==
LOC: HO.WFDLDS 08:56
PROVIDERS: Visit Provider Family Medicine
DX: Z00.00 Encounter for general adult medical examination without abnormal findings (principal); E61.1 Iron deficiency; I10 Essential (primary) hypertension
CPT/HCPCS: 36415; 80053; 81001; 82043; 82570; 83540; 85025

== ENCOUNTER 2024-03-31 10:21 | Outpatient (AMB) | payer MEDICARE, SELFPAY ==
--- NOTE | 2024-03-31 10:57 | A.OFFPC_ITS ---
Vital Signs 03/31/24 11:04 Height 5 ft 8 in Weight 208 lb BMI 31.6 BP 100/58 L Blood Pressure Location Rt brachial Position Sitting Respiration 12 Pulse 72 Pulse Source Pulse Oximeter Temp 97.9 F Temp Source Tympanic Pulse Oximetry (%) 96 Oxygen Delivery Method Room Air Intake Visit Reasons: f/u hypertension, diabetes, iron levels Intake Note: follow up on diabetes and iron levels Allergies No Known Allergies Allergy (Verified 03/31/24 10:58) Tobacco use date assessed: 01/01/24 Dental Screening Dental Screen Date: 01/01/24 HPI f/u hypertension, diabetes, iron levels HPI Details 74 y/o male presents to f/u hypertension , diabetes, iron levels. Blood pressure today 100/58. He is on valsartan-hydrochlorothiazide 320-12.5mg daily. A1c today 03/31/24 6.4%. He is on metformin. Recent diabetic eye exam which was fine. Labs drawn 03/25/24. Reviewed labs with pt. No anemia. Iron levels are fine at 78 mcg/dL. He notes he is no longer taking iron supplements. [facility] Medical History Screening for prostate cancer Adult general medical exam Encounter for general adult medical examination without abnormal findings Atherosclerotic cardiovascular disease Sleep apnea Esophageal dysphagia Essential hypertension Diabetes type 2, controlled Type 2 diabetes mellitus HTN (hypertension) CHACHA on CPAP Hypercalcemia Hematuria Hyperlipidemia, unspecified Essential hypertension Type 2 diabetes mellitus with unspecified complications Abnormal myocardial perfusion study Persistent atrial fibrillation Surgical History Hx of carpal tunnel repair Hx of colonoscopy History of parathyroidectomy History of esophagogastroduodenoscopy (EGD) History of left knee replacement History of right knee joint replacement Family History Father No problems noted. Mother Cancer CVD (cardiovascular disease) CHF (congestive heart failure) Brother Bladder cancer Brother Bladder cancer Brother History of heart valve replacement Daughter No problems noted. Son No problems noted. Social History Household Members: Spouse and Children Housing: House Alcohol intake: current Alcohol intake frequency: does not drink Patient Tobacco Use Status: Never used Tobacco e-Cigarette/Vaping Use: Never Used Second Hand Smoke Exposure: No service: No Current occupational status: employed Current occupation: [employer] Current occupational exposures/hazards: No Cognitive needs: No Hearing needs: Yes (hearing aides) Vision needs: Yes (glasses) Questionnaire Thrive Questionnaire Date Thrive assessed: 01/01/24 ABHINAV-7 AMB Questionnaire ABHINAV-7 Date ABHINAV - 7 assessed: 01/01/24 Source: Developed by Drs. Shashi Vera, Paulette Washington, Tato Fuchs and colleagues, with an educational aurelio from [employer]. Review of Systems Const Denies chills, Denies fatigue, Denies fever(s), Denies headache(s) and Denies weakness ENT Denies dizziness and Denies headache(s) Card Denies dyspnea Resp Denies cough, Denies dyspnea, Denies wheezing and Denies other (shortness of breath) Musc Denies numbness and Denies tingling Neuro Denies dizziness, Denies headache(s), Denies numbness, Denies tingling and Denies weakness Psych Denies anxiety and Denies depression Endo Denies fatigue Aller/Immun Denies wheezing Physical exam (Primary Care) Vital Signs: Last Vital Signs Temp 97.9 F 03/31/24 11:04 Pulse 72 03/31/24 11:04 Resp 12 03/31/24 11:04 BP 100/58 L 03/31/24 11:04 Pulse Ox 96 03/31/24 11:04 Oxygen Delivery Method Room Air 03/31/24 11:04 BMI result Body Mass Index 31.6 Tobacco/Smoking Status: Tobacco use Status Tobacco use date assessed 01/01/24 03/31/24 11:08 Patient Tobacco Use Status Never used Tobacco 03/31/24 11:08 e-Cigarette/Vaping Use Never Used 03/31/24 11:08 Thrive Assessment: Date of Thrive Assessment Date Thrive assessed 01/01/24 03/31/24 11:08 Const General: well developed; No acute distress Nutritional Appearance: well nourished Orientation/consciousness: patient oriented x3 HENMT Head: Yes normocephalic and Yes atraumatic Eyes General: appearance normal, both eyes and all related structures Pupils: Equal, round and reactive pupils present EOM: EOMs intact bilaterally Resp Effort & Inspection: normal respiratory effort Auscultation: clear to auscultation bilaterally Cardio Rate: regular rate Rhythm: regular rhythm Heart sounds: S1 normal heart sound present, S2 normal heart sound present, no gallops, no murmurs and no rubs Neuro General: patient oriented x3 and gait normal Cranial nerves: Yes Equal, round and reactive pupils present Psych Affect: normal affect Assessment and Plan Assessment & Plan (1) Essential hypertension: Code(s): I10 - Essential (primary) hypertension Plan: Blood?pressure?is?controlled.??Goal?is?less?than?130/80 Continue?current?medications (2) Diabetes type 2, controlled: Code(s): E11.9 - Type 2 diabetes mellitus without complications Plan: A1c?6.4%?is?good?control.??Goal?is?less?than?7.0% Continue?current?medication?regimen (3) Iron deficiency: Code(s): E61.1 - Iron deficiency Plan: No?anemia?or?microcytosis. Iron?levels?remain?within?normal?limits. No?longer?needs?iron?supplementation?which?he?has?already?stopped. Coding Level of Care Code Est Pt Level 3 (90693) Diagnoses Essential hypertension I10 Diabetes type 2, controlled E11.9 Iron deficiency E61.1
[2024-03-31 11:04] VITALS: BP 100/58; PULSE 72; RESP 12; TEMP 36.6; O2SAT 96; BMI 31.6
== END 2024-03-31 11:34 | disposition home or self-care (01) ==
PROVIDERS: PCP Family Medicine; Visit Provider Family Medicine
DX: I10 Essential (primary) hypertension (principal); E11.9 Type 2 diabetes mellitus without complications; E61.1 Iron deficiency
CPT/HCPCS: 99213

== ENCOUNTER 2024-07-04 08:03 | Outpatient (AMB) | payer MEDICARE, SELFPAY ==
--- NOTE | 2024-07-04 08:35 | A.OFFPC_ITS ---
Vital Signs 07/04/24 08:38 Weight 199 lb 6 oz BP 120/60 Blood Pressure Location Rt brachial Position Sitting Respiration 14 Pulse 68 Pulse Source Pulse Oximeter Temp 97.6 F Temp Source Oral Pulse Oximetry (%) 97 Oxygen Delivery Method Room Air Intake Visit Reasons: f/u diabetes, hypertension Intake Note: DM F/U & HTN Allergies No Known Allergies Allergy (Verified 07/04/24 08:36) Tobacco use date assessed: 01/01/24 Dental Screening Dental Screen Date: 01/01/24 HPI f/u diabetes, hypertension HPI Details Patient?presents?to?follow-up?diabetes?and?hypertension Blood?pressure?120/60?on?valsartan-hydrochlorothiazide A1c?today: He?is?taking?metformin?and?glipizide?as?prescribed [facility] Medical History Screening for prostate cancer Adult general medical exam Encounter for general adult medical examination without abnormal findings Atherosclerotic cardiovascular disease Sleep apnea Esophageal dysphagia Essential hypertension Diabetes type 2, controlled Type 2 diabetes mellitus HTN (hypertension) CHACHA on CPAP Hypercalcemia Hematuria Hyperlipidemia, unspecified Essential hypertension Type 2 diabetes mellitus with unspecified complications Abnormal myocardial perfusion study Persistent atrial fibrillation Surgical History Hx of carpal tunnel repair Hx of colonoscopy History of parathyroidectomy History of esophagogastroduodenoscopy (EGD) History of left knee replacement History of right knee joint replacement Family History Father No problems noted. Mother Cancer CVD (cardiovascular disease) CHF (congestive heart failure) Brother Bladder cancer Brother Bladder cancer Brother History of heart valve replacement Daughter No problems noted. Son No problems noted. 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 1. Little interest or pleasure in doing things: not at all 2. Feeling down, depressed, or hopeless: not at all 3. Trouble falling or staying asleep, or sleeping too much: not at all 4. Feeling tired or having little energy: several days 6. Feeling bad about yourself - or that you are a failure or have let yourself or your family down: not at all 7. Trouble concentrating on things, such as reading the newspaper or watching television: not at all 8. Moving or speaking so slowly that other people could have noticed. Or the opposite - being so fidgety or restless that you have been moving around a lot more than usual: not at all 9. Thoughts that you would be better off or of hurting yourself in some way: not at all Source: Developed by Drs. Shashi Vera, Paulette Washington, Tato Fuchs and colleagues, with an educational aurelio from [employer]. Thrive Questionnaire Date Thrive assessed: 07/01/24 I am a: Patient What is your living situation today?: I have a steady place to live Within the past 12 months, did the food you bought not last and you didn't have the money to get more?: Never true Within the past 12 months, did you worry whether your food would run out before you got money to buy more?: Never true Do you have trouble paying for medicines?: No Do you have trouble getting transportation to medical appointments?: No Do you have trouble paying your heating and electricity bill?: No Do you have trouble taking care of your child, family member or friend?: No Do you have trouble with day-to-day activities such as bathing, preparing meals, shopping, managing finances, etc.?: No Are you currently unemployed and looking for a job?: No Are you interested in more education?: No Please select the resources that you would like help with: None Currently or been in a relationship where the following occur: I choose not to answer THRIVE Score: 0 AUDIT C Alcohol Use Questionnaire (AUDIT-C) 1. How often do you have a drink containing alcohol?: Never 2. How many drinks containing alcohol do you have on a typical day when you are drinking?: 1 or 2 3. How often do you have six or more drinks on one occasion?: Never Total Score: 0 ABHINAV-7 AMB Questionnaire ABHINAV-7 Date ABHINAV - 7 assessed: 01/01/24 Feeling nervous, anxious, or on edge: 0 = Not at all Not being able to stop or control worryin = Not at all Worrying too much about different things: 0 = Not at all Trouble relaxin = Several days Being so restless that it is hard to sit still: 0 = Not at all Becoming easily annoyed or irritable: 0 = Not at all Feeling afraid as if something awful might happen: 1 = Several days Total ABHINAV-7 score (0-4 normal; 5-9 mild; 10-14 moderate; 15-21 severe): 2 Source: Developed by Drs. Shashi Vera, Paulette Washington, Tato Fuchs and colleagues, with an educational aurelio from [employer]. Review of Systems Const Denies chills, Denies fatigue, Denies fever(s), Denies headache(s) and Denies weakness ENT Denies dizziness and Denies headache(s) Card Denies dyspnea Resp Denies cough, Denies dyspnea, Denies wheezing and Denies other ( shortness of breath) Musc Denies numbness and Denies tingling Neuro Denies dizziness, Denies headache(s), Denies numbness, Denies tingling, Denies paresthesias and Denies weakness Psych Denies anxiety and Denies depression Endo Denies fatigue Aller/Immun Denies wheezing Physical exam (Primary Care) Vital Signs: Last Vital Signs Temp 97.6 F 07/04/24 08:38 Pulse 68 07/04/24 08:38 Resp 14 07/04/24 08:38 BP 120/60 07/04/24 08:38 Pulse Ox 97 07/04/24 08:38 Oxygen Delivery Method Room Air 07/04/24 08:38 Tobacco/Smoking Status: Tobacco use Status Tobacco use date assessed 01/01/24 07/04/24 08:38 Patient Tobacco Use Status Never used Tobacco 07/04/24 08:38 e-Cigarette/Vaping Use Never Used 07/04/24 08:38 Thrive Assessment: Date of Thrive Assessment Date Thrive assessed 07/01/24 07/04/24 08:38 Currently or been in a relationship where the following occur: I choose not to answer Const General: no acute distress and well developed Nutritional Appearance: well nourished Orientation/consciousness: patient oriented x3 HENMT Head: Yes normocephalic and Yes atraumatic Eyes General: appearance normal, both eyes and all related structures Pupils: Equal, round and reactive pupils present EOM: EOMs intact bilaterally Resp Effort & Inspection: normal respiratory effort Auscultation: clear to auscultation bilaterally Cardio Rate: regular rate Rhythm: regular rhythm Heart sounds: S1 normal heart sound present, S2 normal heart sound present, no gallops, no murmurs and no rubs Neuro General: patient oriented x3 and gait normal Cranial nerves: Yes Equal, round and reactive pupils present Psych Affect: normal affect Coding Level of Care Code Est Pt Level 3 (53494) Diagnoses Essential hypertension I10 Diabetes type 2, controlled E11.9 Assessment & Plan Assessment & Plan (1) Essential hypertension: Code(s): I10 - Essential (primary) hypertension Category: Medical Plan: Blood?pressure?appears?controlled?on valsartan-hydrochlorothiazide.??Goal?is?less?than?130/80 Continue?current?medication?regimen Watch?salt/sodium?in?diet (2) Diabetes type 2, controlled: Code(s): E11.9 - Type 2 diabetes mellitus without complications Category: Medical Plan: A1c?is?6.2%?today. Controlled.??Goal?is?less?than?7% Continue?metformin?and?glipizide Microalbumin?elevated?at?prior?lab?checks?but?improving.??Could?consider?small?a mount?SGLT2?medication?if?this?does?not?continue?to?improve or if egfr worsens Recent?eye?exam.??I?do?not?have?report?and?have?asked?the?office?to?request?this Orders: Orders Microalbumin, Random (w Creat) Today I10 - Essential (primary) hypertension UA and rflx microscopic Today E11.9 - Type 2 diabetes mellitus without complications, Z00.00 - Encounter for general adult medical examination without abnormal findings Comprehensive Met. Panel Today I10 - Essential (primary) hypertension
[2024-07-04 08:38] VITALS: BP 120/60; PULSE 68; RESP 14; TEMP 36.4; O2SAT 97
== END 2024-07-04 09:00 | disposition home or self-care (01) ==
PROVIDERS: PCP Family Medicine; Visit Provider Family Medicine
DX: I10 Essential (primary) hypertension (principal); E11.9 Type 2 diabetes mellitus without complications

== ENCOUNTER → 2024-07-04 08:03 | Outpatient (BNVA) | payer MEDICARE, SELFPAY | PROVIDERS: PCP Family Medicine; Visit Provider Family Medicine | DX: E11.9 Type 2 diabetes mellitus without complications (principal); I10 Essential (primary) hypertension | CPT/HCPCS: 36415; 80053; 81001; 82043; 82570; 83036; 99212 ==

== ENCOUNTER 2024-07-04 09:07 | Outpatient (REF) | payer MEDICARE, SELFPAY ==
[2024-07-04 11:35] LABS: Alanine Aminotransferase 20 U/L (0-40); Albumin Level 4.4 g/dL (3.5-5.0); Alkaline Phosphatase 60 U/L (39-117); Anion Gap 14 (12-20); Aspartate Amino Transferase 31 U/L (5-37); Bilirubin Total 1.3 mg/dL (0.0-1.0); Blood Urea Nitrogen 18 mg/dL (9-16); Calcium 10.3 mg/dL (8.4-10.2); Carbon Dioxide 27 mmol/L (22-29); Chloride 96 mmol/L (96-108); Estimated Glomerular Filt Rate > 60; Glucose Fasting 91 mg/dL (60-99); Glucose Random 91 mg/dL (60-115); Potassium 4.4 mmol/L (3.3-5.1); Sodium 133 mmol/L (135-145); Total Protein 7.5 g/dL (6.5-8.0)
[2024-07-04 11:59] LABS: Estimated Average Glucose 131 mg/dL; Hemoglobin A1c % 6.2 % (<6.0)
[2024-07-04 17:55] LABS: Appearance Urine Cloudy; Color Urine Dark Yellow; Glucose Urine UA Negative (Negative); Leukocyte Esterase Urine Negative (Negative); Nitrite Urine Negative (Negative); PH 5.5 (5.0-9.0); UMIC TRIGGER UA YES; Urine Blood Negative (Negative); Urine Ketones Negative (Negative); Urine Protein 100 (2+) mg/dL (Neg-Trace)
[2024-07-04 18:01] LABS: Bacteria Urine None Seen (None Seen); Hyaline Casts Urine 0-2 /LPF (0-2); RBC Urine 0-2 /HPF (0-2); Squamous Epithelial Cell Urine 0-2 /HPF (0-2); WBC Urine 0-5 /HPF (0-5)
[2024-07-04 18:21] LABS: Creatinine Urine 131.97 mg/dL; Microalbum/Creatinine Ratio Ur 280.3 ug/mg cr (<30)
== END 2024-07-04 09:08 | disposition home or self-care (01) ==
LOC: HO.WFDLDS 09:07
PROVIDERS: Visit Provider Family Medicine
DX: Z13.89 Encounter for screening for other disorder (principal)
CPT/HCPCS: 36415; 80053; 81001; 82043; 82570; 83036

== ENCOUNTER 2024-08-26 09:31 | Outpatient (AMB) | payer MEDICARE, SELFPAY ==
--- NOTE | 2024-08-26 09:34 | MHC.OFFVIS ---
Vital Signs 08/26/24 09:37 Height 5 ft 8 in Weight 206 lb 5.643 oz BMI 31.4 BP 148/75 H Blood Pressure Location Lt brachial Position Sitting Pulse 70 Intake Visit Reasons: 6 month follow up Intake Note: Rahul presents in the office as a 6 month follow up. CC: Patient stated that he is doing fine. Safety Manager Required: No Accompanied by: Self / Same As Patient Allergies No Known Allergies Allergy (Verified 08/26/24 09:40) HPI HPI 6 month follow up: Details: Assessment & Plan (1) Erosive esophagitis: Code(s): K22.10 - Ulcer of esophagus without bleeding Category: Medical (2) GERD (gastroesophageal reflux disease): Code(s): K21.9 - Gastro-esophageal reflux disease without esophagitis Category: Medical Plan He had a scope in 2022 and we will repeat it in 5 years r/t his positive Cologuard. He continues to do well him pantoprazole He is doing very well after having bilateral CTR and now can feel his hands an hold things better! 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 He continues to do well on his pantoprazole 20 mg twice a day. He has had no heartburn and no further episodes of dysphagia. Return office visit in 6 months [facility] Medical History (Updated 08/26/24 @ 10:22 by CRYS Parker) Carpal tunnel syndrome of right wrist Carpal tunnel syndrome of left wrist Abnormal myocardial perfusion study Bilateral hand numbness Wrist pain Obstructive sleep apnea Adult general medical exam Screening for prostate cancer Screening for colon cancer Encounter for general adult medical examination without abnormal findings Atherosclerotic cardiovascular disease Sleep apnea Esophageal dysphagia Essential hypertension Diabetes type 2, controlled Type 2 diabetes mellitus HTN (hypertension) CHACHA on CPAP Hypercalcemia Hematuria Hyperlipidemia, unspecified Essential hypertension Type 2 diabetes mellitus with unspecified complications Persistent atrial fibrillation Surgical History (Updated 08/26/24 @ 09:36 by CRYS Parker) History of parathyroidectomy Hx of carpal tunnel repair Hx of colonoscopy History of esophagogastroduodenoscopy (EGD) History of left knee replacement History of right knee joint replacement Family History Father No problems noted. Mother Cancer CVD (cardiovascular disease) CHF (congestive heart failure) Brother Bladder cancer Brother Bladder cancer Brother History of heart valve replacement Daughter No problems noted. Son No problems noted. 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 Current occupational exposures/hazards: No Cognitive needs: No Hearing needs: Yes (hearing aides) Vision needs: Yes (glasses) Review of Systems Const Denies fatigue, Denies fever(s), Denies night sweats, Denies poor appetite and Denies weight loss Eyes Details: glasses Reports requires corrective lenses ENT Reports Normal hearing present, Denies dental pain, Denies dysphagia, Denies hearing loss, Denies mouth pain, Denies odynophagia, Denies throat swelling, Denies tongue swelling and Reports other (Dentition adequate) Card Reports no additional complaints Resp Reports no additional complaints GI Details: Denies abdominal pain, Denies melena, Denies bloating, Denies hematochezia, Denies constipation, Denies GI cramping, Denies dysphagia, Denies excessive flatus, Denies early satiety, Reports heartburn, Denies diarrhea, Denies nausea, Denies odynophagia, Denies vomiting and Denies hematemesis Skin/Breast Denies pruritus, Denies lesions, Denies rash and Denies jaundice Neuro Reports Normal hearing present and Denies Abnormal speech present Endo Denies fatigue Aller/Immun Denies throat swelling and Denies tongue swelling Physical Exam Vital Signs: Last Vital Signs Pulse 70 08/26/24 09:37 BP 148/75 H 08/26/24 09:37 BMI result Body Mass Index 31.4 Const General: cooperative, no acute distress, well developed and well groomed Nutritional Appearance: well nourished and obese Orientation/consciousness: oriented to person, oriented to place and oriented to time Limitations: No language barrier HEENT Head: Yes normocephalic and Yes atraumatic Eyes General: appearance normal, both eyes and all related structures Pupils: Equal, round and reactive pupils present Neck Neck: Yes normal visual inspection and Yes no lymphadenopathy Thyroid: Thyroid normal Resp Effort & Inspection: normal respiratory effort and able to speak in complete sentences Auscultation: clear to auscultation bilaterally Cardio Rate: regular rate Rhythm: regular rhythm Heart sounds: Normal, physiologic split S2 sound present Peripheral pulses: radial pulses present and posterior tibial pulses present GI Inspection: No distended, No Abdominal panniculus present and Yes obesity Palpation (GI): Soft to palpation, nontender, no guarding, not rigid and No hepatosplenomegaly present Percussion: Yes normal to percussion Auscultation: normal bowel sounds Rectal Exam - Male: Yes deferred Skin General skin exam: no rashes or lesions noted, turgor normal, skin not dry, no jaundice, No spider nevi and no striae Rashes: no rashes Nails: normal Neuro General: oriented to person, oriented to place and oriented to time Cranial nerves: Yes Equal, round and reactive pupils present and Yes Normal hearing present Speech: No Abnormal speech present Extrem General: Yes normal to inspection, No clubbing, No cyanosis and No edema Psych Appearance: grossly normal and well kempt Mental Status: mental status grossly normal Speech and movement: Normal speech and movement present Affect: normal affect Attitude: cooperative Thought process: Normal thought process present and not confabulating Thought content: Normal thought content present Insight: Good insight present (Psych) Judgement: Good judgement present (Psych) Assessment & Plan Assessment & Plan (1) Erosive esophagitis: Code(s): K22.10 - Ulcer of esophagus without bleeding Category: Medical (2) GERD (gastroesophageal reflux disease): Code(s): K21.9 - Gastro-esophageal reflux disease without esophagitis Category: Medical (3) CHACHA on CPAP: Code(s): G47.33 - Obstructive sleep apnea (adult) (pediatric); Z99.89 - Dependence on other enabling machines and devices Category: Medical Plan 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 He continues to do well on his pantoprazole 20 mg twice a day. He has had no heartburn and no further episodes of dysphagia. Return office visit in 6 months Medications: New pantoprazole 20 mg PO BID 180 tabs 1RF K21.9 - Gastro-esophageal reflux disease without esophagitis Coding Level of Care Code Est Pt Level 3 (61110) Diagnoses Erosive esophagitis K22.10 GERD (gastroesophageal reflux disease) K21.9 CHACHA on CPAP G47.33; Z99.89
[2024-08-26 09:37] VITALS: BP 148/75; PULSE 70; BMI 31.4
--- OUTSIDE RECORDS SUMMARY | 2024-08-26 09:43 | XMS_ITS ---
Author Organization [facility] Address [address] [place] [address] Care Team Providers Care Intramural Director Name Role Phone Austin Valles MD Primary Care Provider Raffi Jolly [facility] [phone] REASON FOR VISIT diabetic shoes rx Medications Medication SIG (Take, Route, Frequency, Duration) Notes Start Date End Date Status Extra Depth Diabetic Shoes with 3 Pair Custom heat-molded multi-density innersoles for 1 year Dx: 03/27/2023 Active Encounters Encounter Location Date Provider Diagnosis [facility] [address] [place] [address] 08/31/2023 Raffi Benz Type 2 diabetes mellitus with diabetic polyneuropathy E11.42 Assessments Encounter Date Diagnosis (ICD Code) Assessment Notes Treatment Notes Treatment Clinical Notes Section Notes 08/31/2023 Type 2 diabetes mellitus with diabetic polyneuropathy (ICD-10 - E11.42) Plan Of Treatment Medication Medication Name Sig Start Date Stop Date Notes Extra Depth Diabetic Shoes w ith 3 Pair Custom heat-molded multi-density innersoles for 1 year Dx: 03/27/2023 Next Appt Details Provider Name:Suzan armando, 03/27/2025 08:30:00 AM, [address] , [address], [place], [address], Progress Notes * Shola NUNEZ:[birth year] (73 yo M)Acc No.[id number]:08/31/2023 Patient:?Rahul Nunez :1950???Age:73 Y???Sex:Male Address:[address] [place] [id number] * Refills? Refill Extra Depth Diabetic Shoes with 3 Pair Custom heat-molded multi-density innersoles, 1 pair shoes/3 sets inserts, for 1 year, Dx:, Refills=0 * true * Date:? Generated for Johanna gabriel/Wood/eTransmitting on:?08/26/2024 09:43 AM EST
--- OUTSIDE RECORDS SUMMARY | 2024-08-26 09:44 | XMS_ITS ---
[facility] Organization [facility] Address [address] [place] [address] Care Team Providers Care Measurement Superintendent Name Role Phone Austin Valles MD Primary Care Provider Raffi Jolly Unavailable [phone] Allergies No Known Allergies REASON FOR VISIT PCP 02/2023 Medications Medication SIG (Take, Route, Frequency, Duration) Notes Start Date End Date Status Night Splint AFO - L1930 as directed 02/24/2022 Active Rosuvastatin Calcium 40 MG 1 tablet Oral ly Once a day for 30 day(s) Active Valsartan-hydroCHLOROthiazi de 320-12.5 MG 1 tablet Orally Once a day for 30 day(s) Active Extra Depth Diabetic Shoes with 3 Pair Custom heat-molded multi-density innersoles for 1 year Dx: 03/27/2023 Active metFORMIN HCl 850 MG 1 tablet with a angelina l Orally Once a day for 30 day(s) Active Pantoprazole Sodium 20 MG 1 tablet Orall y Once a day for 30 day(s) Active Calcium Citrate + D3 Active Garlic Active Metoprolol Succinate ER 25 MG 1 tablet Orally Once a day for 30 day(s) Active Xarelto 20 MG 1 tablet with food O rally Once a day for 30 day(s) Active Indianola 3 Active Centrum Silver Activ e Multivitamin Adults 50+ Active Fish Oil Active glipiZIDE 5 MG 1 tablet 30 minutes before breakfast Orally Once a day for 30 day(s) Active Social History Tobacco Use: Social History Observation Description Date Details (start date - stop date) Never Smoker NA - NA Tobacco Use/Smoking Question Answer Notes Are you a: nonsmoker Alcohol Screen Question Answer Notes Did you have a drink containing alcohol in the p ast year? No Points 0 Interpretation Negative Tobacco use other than smoking: Question Answer Notes Are you an other tobacco user? No Vital Signs Height 5ft 8in in 03/27/2023 Weight 216 lbs 03/27/2023 BMI 32.84 kg/m2 03/27/2023 Procedures Procedure Date Ordered Date Performed Result Body Sit e 26392-MUTKYBB NAIL, 1-5 03/27/2023 N/A 73167-JGVT SKIN LESIONS, 2 TO 4 03/27/2023 N/A X9130-OVYDGYXU DYSTROPHIC NAILS ANY # 03/27/2023 N/A Encounters Encounter Location Date Provider Diagnosis [facility] [address] [address] 03/27/2023 Raffi Benz Plantar fascial 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 ; Type 2 diabetes mellitus with diabetic polyneuropathy E11.42 ; Pain in right toe(s) M79.674 ; Tinea unguium B35.1 ; Pain in left toe(s) M79.675 ; Other hammer toe(s) (acquired), right foot M20.41 ; Other hammer toe(s) (acquired), left foot M20.42 and Subungual hematoma of toenail of left foot, initial encounter S90.594A Assessments Encounter Date Diagnosis (ICD Code) Assessment Notes Treatment Notes Treatment Clinical Notes Section Notes 03/27/2023 Plantar fascial fibromatosis (ICD-10 - M72.2) 03/27/2023 Type 2 diabetes mellitus with diabetic polyneuropathy (ICD-10 - E11.42) Patient Educated with: DIABETIC FOOT CARE INSTRUCTIONS. pdf (DIABETIC FOOT CARE INSTRUCTIONS. pdf) 03/27/2023 Pain in right toe(s) (ICD-10 - M79.674) 03/27/2023 Tinea unguium (ICD-10 - B35.1) 03/27/2023 Pain in left toe(s) (ICD-10 - M79.675) 03/27/2023 Other hammer toe(s) (acquired), right foot (ICD-10 - M20.41) 03/27/2023 Other hammer toe(s) (acquired), left foot (ICD-10 - M20.42) 03/27/2023 Subungual hematoma of toenail of left foot, initial encounter (ICD-10 - S90.222A) Plan Of Treatment Medication Medication Name Sig Start Date Stop Date Notes Extra Depth Diabetic Shoes w ith 3 Pair Custom heat-molded multi-density innersoles for 1 year Dx: 03/27/2023 Treatment Notes Assessment Notes Type 2 diabetes mellitus wit h diabetic polyneuropathy Patient Educated with: DIABETIC FOOT CARE INSTRUCTIONS.pdf (DIABETIC FOOT CARE INSTRUCTIONS.pdf) Pending Test Test Name Order Date 45994-LWQGJYI NAIL, 1-5 03/27/2023 76952-AYZR SKIN LESIONS, 2 TO 4 03/27/20 23 R6874-[id number] DYSTROPHIC NAILS ANY # Next Appt Details Follow Up: 1 Year, Reason: Provider Name:Suzan armando, 03/27/2025 08:30:00 AM, [address] [facility], [address], [place], [address], Procedure Notes * Category Sub-Category Detail Notes Keratoma Treatment Parring or Cutting o f Benign Hyperkeratotic Lesion(s) 06530 ( 2-4 Lesions ) - The Benign hyperkeratotic lesions, as described above were pared, and/or cut utilizing a sterile 15 blade, tissue nippers, and/or dremel Debride Nails 1-5 Procedure: Nail debrideme nt performed extensively to reduce/remove overall nail length and girth, subungual debris, and necrotic tissue, by manual and electrical means by use of a nail nipper and/or dremel, to more viable healthy nail plate or bed tissue 1-5. Silver nitrate used for any petechial bleeding as necessary. Patient chooses, no pharmaceutical tx (97952) Nail Reduction Nail Reduction Trimming of dyst rophic nails performed to reduce/remove overall nail length and girth, by manual and electrical means with use of a nail nipper and/or dremel, to more viable healthy nail plate or bed tissue 6-10 (G0127) Progress Notes * Rahul NUNEZDOB:[birth year] (73 yo M)Acc No.[id number]:03/27/2023 Progress Note Patient:?Rahul Nunez Provider:?Raffi Benz DPM :1950???Age:73 Y???Sex:Male Vincent e:03/27/2023 Address:[address] [place], [place] [id number] Pcp:Austin Valles MD Subjective: * Chief Complaints: * ???PCP 02/2023 * HPI: ???Heel pain:?Nature:?aching, stiffness--leather like feeling.?Location:?plantar, Arch, B/Land ball of foot.?Duration:?several months .?Onset/Cause:?unknown.?Course:?improved.?Aggrevated:?standing, walking.?Treatments:?rest, innersoles/orthotics--ssot.?Severity/Quality:?considered 2 out of 10.?At Risk footcare:?Pt States Last PCP Visit:?Date?02/26/2023 * ROS:?General/Constitutional:?Nausea?denies, denies.?Vomiting?denies, denies.?Hunger Thirst?denies, denies.?Loss appetite?denies, denies.?Chills?denies, denies.?Fatigue?denies, denies.?Fever?denies, denies.?Night Sweats denies, denies.?Unexplained weight loss?denies, denies.?Unexplained weight gain?denies.?Ophthalmologic:?Blurred vision?denies.?Red eye?denies.?HEENTM:?Dentures?denies, denies.?Dizziness?denies, denies.?Glasses/contacts?admits, denies.?Retinopathy?denies, denies.?Blurred/double vision?denies, denies.?TMJ?denies, denies.?Discharge/drainage?admits, denies.?Implants?denies, denies.?Sore throat?denies.?Dental implants?denies.?Hard of hearing ?admits, denies.?Difficulty chewing/swallowing/speaking?denies, denies.?Nose bleeds?denies, denies.?Sore mouth?denies, denies.?Swollen glands?denies.?Respiratory:?On Oxygen?denies, denies.?Pneumonia/pleurisy?denies, denies.?Bronchitis?admits, denies.?Emphysema?denies, denies.?Coughing?denies, denies.?Cough blood?denies, denies.?Shortness of breath?denies, denies.?Wheezing?denies, denies.?Cardiovascular:?Pacemaker?denies, denies.?MVP?denies, denies.?WPW?denies, denies.?CHF?denies, denies.?Heart attack?denies, denies.?Septal defect?denies, denies.?Rapid beat?denies, denies.?Chest pain ?denies, denies.?Atrial Fib.?denies, denies.?Murmur/Palpitations?denies, denies.?Gastrointestinal:?Hemorrhoids?denies, denies.?Stomach/Abdominal pain?denies, denies.?Dark blood stool?denies, denies.?Irritable bowel ?denies, denies.?Constipation?denies, denies.?Diarrhea?denies, denies.?Vomiting?denies.?Hematology:?Swelling?denies, denies.?Clots?denies.?Varicose Veins?denies.?Bruising?denies, denies.?Bleeding problem?denies, denies.?Genitourinary:?Blood urine?denies, denies.?Frequent/Painfu/urination/bladder control?denies, denies.?Kidney stones?denies, denies.?Infection (UTI)?denies, denies.?Nephropathy?denies, denies.?sex trans dis (STD)?denies.?Prostate?denies.?Musculoskeletal:?Hammertoes?denies, denies.?Bunions?denies, denies.?Scoliosis/kyphosis?denies.?Back Pain?denies.?Muscle Cramps/ Resting?denies.?Muscle cramps / walking?denies, denies.?Generalized aches and pains?denies, denies.?Weakness?denies, denies.?Integ.:?Valenzuela?denies, denies.?Scars?denies, denies.?Corns/calluses?denies, denies.?Ingrown nails?denies, denies.?Painful nails?denies, denies.?Open Sores?denies.?Rashes?denies, denies.?Neurologic:?Difficulty sleeping?denies, denies.?Bipolar?denies.?Brain disorder?denies, denies.?Numbness?admits.?Balance trouble?denies, denies.?Confusion?denies, denies.?Fainting/blackouts?denies, denies.?Headache?denies.?Tingling?denies.?Tremors?denies, denies.? * Medical History:? * Surgical History:?hernia, gr oin 1968, 1970, 2017eye and lip repair 1988nose and throat 1990hydroseal 1999umbilical cord hernia 1999total R knee replacement 08/31/11arathyroid gland removed 06/13/17knee gel shot x3 2018L endovenous laser treatment 03/28/18L ambulatory phlebectomy 04/02/18R endovenous laser treatment 05/07/18R ambulatory phlebectomy 05/16/18bladder renal ultrasound 04/10/18ocho dx: ess htn 04/15/18Barium swallow 02/07/19upper endoscopy 11/09/18total L knee replacement 10/10/19 * Hospitalization/Major Diagno stic Procedure:?No Hospitalization History. * Family History:?Mother: dece ased.?Father: .?Siblings: diagnosed with Unspecified heart disease, Other malignant neoplasm of unspecified site.? * Social History:?Tobacco Use:?Tobacco Use/Smoking?Are you a:?nonsmoker ?Tobacco use other than smoking?Are you an other tobacco user??No ???Drugs/Alcohol:?Drugs?Have you used drugs other than those for medical reasons in the past 12 months??No ?Alcohol Screen?Did you have a drink containing alcohol in the past year??No ?Points?0 ?Interpretation?Negative ???Miscellaneous:?Caffeine: yes, more than 4 cups per day. ?Exercise: yes, fishing, exercise. ?Marital status: . ?Occupation: Retired. * Medications:?TakingglipiZIDE 5 MG Tablet 1 tablet 30 minutes before breakfast Orally Once a dayMultivitamin Adults 50+ Centrum Silver [place] 3 Fish Oil Garlic Calcium Citrate + D3 Pantoprazole Sodium 20 MG Tablet Delayed Release 1 tablet Orally Once a dayXarelto 20 MG Tablet 1 tablet with food Orally Once a dayMetoprolol Succinate ER 25 MG Tablet Extended Release 24 Hour 1 tablet Orally Once a daymetFORMIN HCl 850 MG Tablet 1 tablet with a meal Orally Once a dayValsartan-hydroCHLOROthiazide 320- 12.5 MG Tablet 1 tablet Orally Once a dayRosuvastatin Calcium 40 MG Tablet 1 tablet Orally Once a dayNight Splint AFO - L1930 as directed Medication List reviewed and reconciled with the patientTaking glipiZIDE 5 MG Tablet 1 tablet 30 minutes before breakfast Orally Once a dayTaking Multivitamin Adults 50+ Taking Centrum Silver Taking Indianola 3 Taking Fish Oil Taking Garlic Taking Calcium Citrate + D3 Taking Pantoprazole Sodium 20 MG Tablet Delayed Release 1 tablet Orally Once a dayTaking Xarelto 20 MG Tablet 1 tablet with food Orally Once a dayTaking Metoprolol Succinate ER 25 MG Tablet Extended Release 24 Hour 1 tablet Orally Once a dayTaking metFORMIN HCl 850 MG Tablet 1 tablet with a meal Orally Once a dayTaking Valsartan-hydroCHLOROthiazide 320-12.5 MG Tablet 1 tablet Orally Once a dayTaking Rosuvastatin Calcium 40 MG Tablet 1 tablet Orally Once a dayTaking Night Splint AFO - L1930 as directed Medication List reviewed and reconciled with the patient * Allergies:?N.K.D.A.yes[Aller gies Verified] Objective: * Vitals:?Ht: 5ft 8in, Wt:216, BMI:32.84, Shoe size: 10, BS: 101, Ht-cm: 172.72 cm, Wt-k.98 kg. * ???Past Orders: ???Lab:HEMOGLOBIN A1C (GLYCO HEMOGLOBIN) (Order Date - 03/27/2023) (Collection Date - 03/27/2023) ? Value Reference Range ?HEMOGLOBIN A1C % (HH) 6.4 * Examination: ???General Examination: ?GENERAL APPEARANCE:?pleasant, alert, well nourished, well developed, well hydrated, with good attention to hygene/body habitus, and in no acute distress.?ORIENTED:?person,place, and time.?FOOT EXAM:?Neurological: ?SENSORY:? Neurological exam demonstrates, reduced vibration sensation, 5.07 monofilament test performed at plantar aspects of 5 varied sites per foot shows sensation, reduced , at Forefoot, at Midfoot, B/L.?TINEL'S COMPRESSION:?Negative tarsal tunnel, hemalatha pedis, and medial calcaneal nerves, B/L.?BABINSKI REFLEX:?Absent, B/L.?Vascular: ?DP PULSES:? 1/4, B/L.?PT PULSES:? 1/4, B/L.?CAPILLARY FILL TIME:?3 secs. per digit, B/L.?SKIN TEMPERTURE GRADIENT OF THE LOWER EXTERMITIES:? decreased, cool to cold, proximal to distal, B/L.?HAIR GROWTH/TEXTURE/ELASTICITY/TURGOR:?normal, B/L.?EDEMA:? 2/4, Left, 1/4, Right, Feet, Ankle(s), Leg(s).?VARICOSITIES:? present, moderate, nonpainful, B/L.?Dermatologic: ?SKIN FINDINGS:? Skin exam reveals Keratotic lesion(s) located at, Plantar, Heel(s), B/L.?Heel Pain: ?INSPECTION REVEALS:? Pain on Palpation to Plantar Fascia med. and central bands, intrinsic musc., infracalcaneal bursa, and med calc tubercle , B/L--midsection of PF marianne.?Orthopedic: ?MUSCLE STRENGTH:?5/5 all groups in a symmetrical fashion B/L.?GAIT ABNORMALITY:?pronated, abducted, B/L.?DIGITAL DEFORMITIES:? Digital contracture, PIPJ, 2-5 B/L, reducable with WB, or to push-up test, no over, nor underlapping.?Nails: ?NAILS are:? Elongated, overgrown, dystrophic, lytic, greater than 3mm thick, discolored and friable with crumbly malodorous subungual debris, with dull to no pain on palpation due to neuropathy, T1, T6, T9, remaining nails are elongated, overgrown, dystrophic, There is evidence of pain on palpation, and an area of subungual hemorrhagic fluid with a pre-operative size measuring approximately ( 6) mm square, TA.? Assessment: * Assessment: 1.?Plantar fascial fibromato sis - M72.2?2.?Type 2 diabetes mellitus with diabetic polyneuropathy - E11.42?3.?Pain in right toe(s) - M79.674?4.?Pain in left toe(s) - M79.675?5.?Tinea unguium - B35.1 (Primary)?6.?Other hammer toe(s) (acquired), right foot - M20.41?7.?Other hammer toe(s) (acquired), left foot - M20.42?8.?Subungual hematoma of toenail of left foot, initial encounter - S90.222A? Plan: * Treatment: 2.?Type 2 diabetes mellitus with diabetic polyneuropathy? Start Extra Depth Diabetic Shoes with 3 Pair Custom heat-molded multi-density innersoles, for 1 year, Dx:, 1 pair shoes/3 sets inserts, Refills 0.?Procedure: 14245-AMOO SKIN LESIONS, 2 TO 4 ?Procedure: U0725-YIQPSRXG DYSTROPHIC NAILS ANY # Notes: Patient Educated with: DIABETIC FOOT CARE INSTRUCTIONS.pdf (DIABETIC FOOT CARE INSTRUCTIONS.pdf).?? * Procedures:?Debride Nails 1-5:?Procedure:?Nail debridement performed extensively to reduce/remove overall nail length and girth, subungual debris, and necrotic tissue, by manual and electrical means by use of a nail nipper and/or dremel, to more viable healthy nail plate or bed tissue 1-5. Silver nitrate used for any petechial bleeding as necessary. Patient chooses, no pharmaceutical tx (62585).?Keratoma Treatment:?Parring or Cutting of Benign Hyperkeratotic Lesion(s)?20118 ( 2-4 Lesions ) - The Benign hyperkeratotic lesions, as described above were pared, and/or cut utilizing a sterile 15 blade, tissue nippers, and/or dremel.?Nail Reduction:?Nail Reduction?Trimming of dystrophic nails performed to reduce/remove overall nail length and girth, by manual and electrical means with use of a nail nipper and/or dremel, to more viable healthy nail plate or bed tissue 6-10 (G0127).? * Procedure Codes:?18796 TRIM SKIN LESIONS, 2 TO 4, Modifiers: XS G0127 TRIMMING DYSTROPHIC NAILS ANY #, Modifiers: XS 45827 DEBRIDE NAIL, 1-5, Modifiers: XS * Preventive Medicine:? ??Counseling:?Discussion:?-14: Office or other outpatient visit for the evaluation and management of an established patient, which required a medically appropriate history and/or examination and MODERATE level of DECISION MAKING for: 1 OR MORE CHRONIC PROBLEM(S) THATS WORSENING, 2 STABLE CHRONIC PROBLEMS, A NEWLY DIAGNOSED PROBLEM WITH UNCERTAIN PROGNOSIS, AN ACUTE COMPLICATED INJURY WITH MULTIPLE TREATMENT OPTIONS, OR AN ACUTE PROBLEM WITH ACCOMPANYING SYSTEMIC SYMPTOMS, THAT POSE(S) A MODERATE RISK OF MORBIDITY. THIS CONDITION MAY ALSO INCLUDE RX DRUG MANAGEMENT, OR A DECISON FOR MINOR SURGERY. The visit on the day of the encounter encompassed interpreting the data and educating the patient as to the nature of their condition, treatment options available according to their individual PMH, meds, allergies, and overall health/living conditions, as well as any potential risks or complications that may occur from a failure to adhere to, and participate in, the recommended course of therapy. The discussion included a complete verbal, and/or written explanation of the examination results, any x-rays taken, the proposed diagnosis, and outline of the treatment plan. A schedule for future care needs was also explained. The patient verbalized an understanding of the instructions at this time and agreed to be an active participant in their treatment. If the patient should think of any questions or concerns after the visit, I have encouraged the patient to call the office.?Diabetic Footcare:?The patient was advised against future self nail/callus care due to inherent risks for infection, loss of limb/life given diabetes, neuropathy.? * Follow Up:?1 Year * Images: * Sign off status: Completed true * Provider:?Raffi Benz DPM Date:? 023 Generated for Johanna gabriel/Wood/Mark on:?08/26/2024 09:43 AM EST History and Physical Notes * HPI (History of Present Illness) Category Sub-Category Detail Notes Category Not es Heel pain Duration: several months Nature: aching, stiffness--l eather like feeling Severity/Quality: considered 2 out of 10 Location: plantar, Arch, B/L and ball of foot Onset/Cause: unknown Aggravated: standing, walking Course: improved Treatments: rest, innersoles/ort hotics--ssot At Risk footcare Pt States Last PCP Visit: Date: 3 Examination Category Sub-Category Detail Notes Category Not es Heel Pain INSPECTION REVEALS: Pain on Palp ation to Plantar Fascia med. and central bands, intrinsic musc., infracalcaneal bursa, and med calc tubercle , B/L--midsection of PF marianne Neurological SENSORY: Neurological exa m demonstrates, reduced vibration sensation, 5.07 monofilament test performed at plantar aspects of 5 varied sites per foot shows sensation, reduced , at Forefoot, at Midfoot, B/L BABINSKI REFLEX: Absent, B/L TINEL'S COMPRESSION: Negative tarsal bryn kinza, hemalatha pedis, and medial calcaneal nerves, B/L Dermatologic SKIN FINDINGS: Skin exam reveal s Keratotic lesion(s) located at, Plantar, Heel(s), B/L Orthopedic GAIT ABNORMALITY: pronated, abducted, B/L DIGITAL DEFORMITIES: Digital contracture , PIPJ, 2-5 B/L, reducable with WB, or to push-up test, no over, nor underlapping MUSCLE STRENGTH: 5/5 all groups in a symmetrical fashion B/L General Examination GENERAL APPEARANCE: pleasant , alert, well nourished, well developed, well hydrated, with good attention to hygene/body habitus, and in no acute distress FOOT EXAM: Lower Extremity Neurological Exa m performed:: Yes Visual exam of foot performed:: Yes Date: 03/27/2023 Sensory testing performed:: sensations d iminished Pedal pulse taking performed:: 2+ ORIENTED: person,place, and ti me Vascular DP PULSES (B): 1/4, B/L PT PULSES (B): 1/4, B/L CAPILLARY FILL TIME: 3 secs. per digit, B/L TEMPERTURE GRADIENT (C): decreased, cool to cold, proximal to distal, B/L TROPHIC CONDITION-TEXTURE/ELASTICITY/TURGOR/HAIR GROWTH (B): normal, B/L EDEMA (C): 2/4, Left, 1/4, Righ t, Feet, Ankle(s), Leg(s) VARICOSITIES: present, moderate, n onpainful, B/L Nails NAILS are: Elongated, overg rown, dystrophic, lytic, greater than 3mm thick, discolored and friable with crumbly malodorous subungual debris, with dull to no pain on palpation due to neuropathy, T1, T6, T9, remaining nails are elongated, overgrown, dystrophic, There is evidence of pain on palpation, and an area of subungual hemorrhagic fluid with a pre-operative size measuring approximately ( 6) mm square, TA
--- OUTSIDE RECORDS SUMMARY | 2024-08-26 09:44 | XMS_ITS | Patient Health Record ---
Author Organization [facility] Address [address] [place] [address] Care Team Providers Care Spot Sprayer Name Role Phone Austin Valles MD Primary Care Provider Raffi Jolly Unavailable [phone] Allergies No Known Allergies Results Component Value Reference Range Notes HEMOGLOBIN A1C (GLYCOHEMOGLO BIN) Reviewed date:03/25/2024 08:05:34 AM Interpretation: Performing Lab: Notes/Report: HEMOGLOBIN A1C % (HH) 6.2 Reason For Referral No Information Medications Medication SIG (Take, Route, Frequency, Duration) Notes Start Date End Date Status Garlic Active Calcium Citrate + D3 Active [place] 3 Active Fish Oil Active Multivitamin Adults 50+ Active Rosuvastatin Calcium 40 MG 1 tablet Oral ly Once a day for 30 day(s) Active Centrum Silver Activ e Night Splint AFO - L1930 as directed 02/24/2022 Active metFORMIN HCl 850 MG 1 tablet with a angelina l Orally Once a day for 30 day(s) Active glipiZIDE 5 MG 1 tablet 30 minutes before breakfast Orally Once a day for 30 day(s) Active Valsartan-hydroCHLOROthiazi de 320-12.5 MG 1 tablet Orally Once a day for 30 day(s) Active Xarelto 20 MG 1 tablet with food O rally Once a day for 30 day(s) Active Extra Depth Diabetic Shoes with 3 Pair Custom heat-molded multi-density innersoles for 1 year Dx: Active Metoprolol Succinate ER 25 MG 1 tablet Orally Once a day for 30 day(s) Active Pantoprazole Sodium 20 MG 1 tablet Orall y Once a day for 30 day(s) Active Social History Tobacco Use: Social History Observation Description Date Details (start date - stop date) Never Smoker NA - NA Tobacco Use/Smoking Question Answer Notes Are you a: nonsmoker Additional Findings: Tobacco Non-User Current no n-smoker Alcohol Screen Question Answer Notes Did you have a drink containing alcohol in the p ast year? No Points 0 Interpretation Negative Tobacco use other than smoking: Question Answer Notes Are you an other tobacco user? No Problems Problem Type SNOMED Code ICD Code Onset Dates Problem Status W/U Status Risk Notes Problem Acquired hammer toe of right foot (4164691252956731 ) Other hammer toe(s) (acquired), right foot (M20.41) Active confirmed Problem Acquired hammer toe of left foot (6095986657579374 ) Other hammer toe(s) (acquired), left foot (M20.42) Active confirmed Problem Polyneuropathy due to type 2 diabetes mellitus (650002429) Type 2 diabetes mellitus with diabetic polyneuropathy (E11.42) Active confirmed Problem Polyneuropathy due to diabetes mellitus type I (787492703) Type 1 diabetes mellitus with diabetic polyneuropathy (E10.42) Active confirmed Vital Signs Height 5ft 8 in in 03/25/2024 Weight 210 lbs 03/25/2024 BMI 31.93 kg/m2 03/25/2024 Encounters Encounter Location Date Provider Diagnosis [facility] [address] [address] 03/25/2024 Raffi Benz Plantar fascial 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 ; Type 2 diabetes mellitus with diabetic polyneuropathy E11.42 ; Pain in right toe(s) M79.674 ; Pain in left toe(s) M79.675 ; Tinea unguium B35.1 ; Other hammer toe(s) (acquired), right foot M20.41 and Other hammer toe(s) (acquired), left foot M20.42 [facility] [address] [place] [address] 08/31/2023 Raffi Benz Type 2 diabetes mellitus with diabetic polyneuropathy E11.42 Assessments Encounter Date Diagnosis (ICD Code) Assessment Notes Treatment Notes Treatment Clinical Notes Section Notes 08/31/2023 Type 2 diabetes mellitus with diabetic polyneuropathy (ICD-10 - E11.42) 03/25/2024 Plantar fascial fibromatosis (ICD-10 - M72.2) 03/25/2024 Type 2 diabetes mellitus with diabetic polyneuropathy (ICD-10 - E11.42) Patient Educated with: DIABETIC FOOT CARE INSTRUCTIONS. pdf (DIABETIC FOOT CARE INSTRUCTIONS. pdf) 03/25/2024 Pain in right toe(s) (ICD-10 - M79.674) 03/25/2024 Tinea unguium (ICD-10 - B35.1) 03/25/2024 Pain in left toe(s) (ICD-10 - M79.675) 03/25/2024 Other hammer toe(s) (acquired), right foot (ICD-10 - M20.41) 03/25/2024 Other hammer toe(s) (acquired), left foot (ICD-10 - M20.42) Plan Of Treatment Pending Test Test Name Order Date X ray : Foot, left 3V 02/24/2022 X ray : Foot, right 3V 02/24/2022 [id number] NAIL, 1-5 03/27/2023 [id number] SKIN LESIONS, 2 TO 4 03/27/20 23 [id number] DYSTROPHIC NAILS ANY # [id number] DYSTROPHIC NAILS ANY # Next Appt Details Provider Name:Suzan armando, 03/27/2025 08:30:00 AM, [address], [address], [place], [address], Insurance Providers Payer Name Payer Address Payer Phone Subscriber Number Group Number Insured Name Patient Relationship to Insured Coverage Start Date Coverage End Date [employer] Medicare Open [address] [place] [address] [phone] [id number] Rahul Lucas Self - patient is the insured Medical (General) History Medical History History ICD Code Back,Hip,and Knee pain Hiatal hernia High blood pressure Reflux ( GERD) Measles Mumps Chicken pox Joint implants/screws Diabetic A fib Surgical History Surgery Date(Month/Year) hernia, groin 1968, 1970, 2017 eye and lip repair 1987 nose and throat 1989 hydroseal 1998 umbilical cord hernia 1998 total R knee replacement 08/31/11 parathyroid gland removed 06/13/17 knee gel shot x3 2018 L endovenous laser treatment 03/28/18 L ambulatory phlebectomy 04/02/18 R endovenous laser treatment 05/07/18 R ambulatory phlebectomy 05/16/18 bladder renal ultrasound 04/10/18 brittny dx: ess htn 04/15/18 Barium swallow 02/07/19 upper endoscopy 11/09/18 total L knee replacement 10/10/19
== END 2024-08-26 10:04 | disposition home or self-care (01) ==
PROVIDERS: PCP Family Medicine; Visit Provider Nurse Practitioner
DX: K22.10 Ulcer of esophagus without bleeding (principal); K21.9 Gastro-esophageal reflux disease without esophagitis; G47.33 Obstructive sleep apnea (adult) (pediatric); Z99.89 Dependence on other enabling machines and devices
CPT/HCPCS: 99213

== ENCOUNTER → 2024-08-26 09:31 | Outpatient (BNVA) | payer MEDICARE, SELFPAY | PROVIDERS: PCP Family Medicine; Visit Provider Nurse Practitioner | DX: K22.10 Ulcer of esophagus without bleeding (principal); K21.9 Gastro-esophageal reflux disease without esophagitis; G47.33 Obstructive sleep apnea (adult) (pediatric); Z99.89 Dependence on other enabling machines and devices | CPT/HCPCS: 99212 ==

== ENCOUNTER 2024-09-02 09:31 | Outpatient (AMB) | payer MEDICARE, SELFPAY ==
--- NOTE | 2024-09-02 10:05 | MHC.OFFVIS ---
Vital Signs 09/02/24 10:06 Height 5 ft 8 in Weight 202 lb 6.15 oz BMI 30.8 BP 140/70 H Blood Pressure Location Lt brachial Position Sitting Pulse 45 L Pulse Source Monitor Intake Visit Reasons: 1 year follow-up with ekg Service Advocate Contact Required: No Accompanied by: Self / Same As Patient Allergies No Known Allergies Allergy (Verified 08/26/24 09:40) Medication List - Last Reconciled 09/02/24 by Luther Mckay MD blood sugar diagnostic As directed blood sugar diagnostic (Dog DigitalTouch Ultra Test strips) Once a day As directed, 90 days calcium carbonate (Calcium 500) 500 mg PO DAILY CPAP (CPAP Machine/Device) DX: G47.33, q.h.s. As directed, 999 days/lifetime ferrous sulfate 325 mg PO DAILY 30 days garlic 1,000 mg PO DAILY glipizide ER 5 mg PO DAILY lancets One Touch Delica Plus 30g lancets; DX: E11.9, test blood sugar once a day, 90 days metformin 850 mg PO TIDWMEAL 90 days hj-xnj-ciovz-R4-[id number]-jrltvp 516-70-548-300 mcg (Centrum Silver Ultra Men's) 1 tab PO DAILY omega 2-sip-bse-fish oil 1,200 (144-216) mg (Fish Oil) caps PO pantoprazole 20 mg PO BID rivaroxaban (Xarelto) 20 mg PO DAILY rosuvastatin 40 mg PO DAILY valsartan-hydrochlorothiazide 320-12.5 mg 1 tab PO DAILY HPI Comments Details: Rahul returns for follow-up regarding several issues including atrial fibrillation, bradycardia, coronary disease, hypertension among others. Since last seen, he states he feels good. No complaints whatsoever. Denies any dizziness or presyncope or angina or in fact any cardiac symptoms. [facility] Medical History (Updated 08/26/24 @ 10:22 by CRYS Parker) Carpal tunnel syndrome of right wrist Carpal tunnel syndrome of left wrist Abnormal myocardial perfusion study Bilateral hand numbness Wrist pain Obstructive sleep apnea Adult general medical exam Screening for prostate cancer Screening for colon cancer Encounter for general adult medical examination without abnormal findings Atherosclerotic cardiovascular disease Sleep apnea Esophageal dysphagia Essential hypertension Diabetes type 2, controlled Type 2 diabetes mellitus HTN (hypertension) CHACHA on CPAP Hypercalcemia Hematuria Hyperlipidemia, unspecified Essential hypertension Type 2 diabetes mellitus with unspecified complications Persistent atrial fibrillation Surgical History History of parathyroidectomy Hx of carpal tunnel repair Hx of colonoscopy History of esophagogastroduodenoscopy (EGD) History of left knee replacement History of right knee joint replacement Family History Father No problems noted. Mother Cancer CVD (cardiovascular disease) CHF (congestive heart failure) Brother Bladder cancer Brother Bladder cancer Brother History of heart valve replacement Daughter No problems noted. Son No problems noted. Social History Household Members: Spouse and Children Housing: House Alcohol intake: current Alcohol intake frequency: does not drink Patient Tobacco Use Status: Never used Tobacco e-Cigarette/Vaping Use: Never Used Second Hand Smoke Exposure: No service: No Current occupational status: employed Current occupation: [employer] Current occupational exposures/hazards: No Cognitive needs: No Hearing needs: Yes (hearing aides) Vision needs: Yes (glasses) Review of Systems Const Denies chills, Denies fatigue, Denies fever(s), Denies weight gain and Denies weight loss ENT Denies dizziness Card Denies chest pain, Denies leg edema, Denies lightheadedness, Denies palpitations, Denies dyspnea on exertion, Denies orthopnea and Denies other Resp Denies cough and Denies dyspnea on exertion GI Denies hematochezia and Denies change in stool character Musc Denies abnormal gait, Denies muscle weakness, Denies numbness, Denies radiating pain into limb and Denies tingling Neuro Denies abnormal gait, Denies dizziness, Denies numbness and Denies tingling Endo Denies fatigue and Denies palpitations Physical Exam Vital Signs: Last Vital Signs Pulse 45 L 09/02/24 10:06 BP 140/70 H 09/02/24 10:06 BMI result Body Mass Index 30.8 Const General: comfortable and no acute distress Orientation/consciousness: patient oriented x3 HEENT Other: Unremarkable Head: Yes normal to inspection Neck Neck: Yes normal visual inspection Chest Chest palpation & inspection: normal inspection of the chest Resp Auscultation: clear to auscultation bilaterally Cardio Palpation: normal PMI Heart sounds: S1 normal heart sound present, S2 normal heart sound present, no gallops, no murmurs and no rubs GI Palpation (GI): Soft to palpation Back/Spine/Pelvis Other: unremarkable Skin General skin exam: no rashes or lesions noted Neuro General: patient oriented x3 Extrem General: Yes normal to inspection Psych Mental Status: mental status grossly normal Office Procedures EKG Details: EKG with atrial fibrillation at a rate of 45/Min; right bundle-branch block. [id number], Complete Assessment & Plan Assessment & Plan (1) Persistent atrial fibrillation: Code(s): I48.19 - Other persistent atrial fibrillation Category: Medical Plan: In the past, has taken beta-blockers but not anymore. Due to bradycardia, we will repeat his Holter monitor. Check echocardiogram. If any profound pauses, we will need to decide if he needs a pacer at this time but clinically he has got no symptoms. (2) PVC (premature ventricular contraction): Code(s): I49.3 - Ventricular premature depolarization Category: Medical Plan: PVCs versus aberrant conduction noted on previous Holter. He does not have any symptoms from this and he also has bradycardia. Hence no room for medications. (3) Atherosclerotic cardiovascular disease: Code(s): I25.10 - Atherosclerotic heart disease of [place] coronary artery without angina pectoris Category: Medical Plan: In a prior stress MIBI from 2016, he had mild ischemia in the inferior/inferolateral mathwes. Clinically, absolutely no angina or in fact any concerning symptoms at all. Continue statins. Last LDL 56 mg/dL. (4) Essential hypertension: Code(s): I10 - Essential (primary) hypertension Category: Medical Plan: On valsartan/HCTZ. No changes. (5) Type 2 diabetes mellitus with unspecified complications: Code(s): E11.8 - Type 2 diabetes mellitus with unspecified complications Category: Medical Plan: On glipizide, metformin. Last hemoglobin A1c is 6.2%. Orders: Orders ECG 3 day holter monitor Today I48.19 - Other persistent atrial fibrillation CA echo transthoracic complete Today I48.19 - Other persistent atrial fibrillation Coding Level of Care Code Est Pt Level 4 (06247) Diagnoses Persistent atrial fibrillation I48.19 PVC (premature ventricular contraction) I49.3 Atherosclerotic cardiovascular disease I25.10 Essential hypertension I10 Type 2 diabetes mellitus with unspecified complications E11.8 CPT Codes EKG - CPT: 12983-[id number], Complete ([id number])
[2024-09-02 10:06] VITALS: BP 140/70; PULSE 45; BMI 30.8
== END 2024-09-02 10:35 | disposition home or self-care (01) ==
PROVIDERS: PCP Family Medicine; Visit Provider Internal Medicine
DX: I48.19 Other persistent atrial fibrillation (principal); I49.3 Ventricular premature depolarization; I25.10 Atherosclerotic heart disease of native coronary artery without angina pectoris; I10 Essential (primary) hypertension; E11.8 Type 2 diabetes mellitus with unspecified complications
CPT/HCPCS: 93010; 99214

== ENCOUNTER → 2024-09-02 09:31 | Outpatient (BNVA) | payer MEDICARE, SELFPAY | PROVIDERS: PCP Family Medicine; Visit Provider Internal Medicine | DX: I10 Essential (primary) hypertension (principal); I48.19 Other persistent atrial fibrillation; I49.3 Ventricular premature depolarization; I25.10 Atherosclerotic heart disease of native coronary artery without angina pectoris; E11.8 Type 2 diabetes mellitus with unspecified complications | CPT/HCPCS: 93005; 99212 ==

== ENCOUNTER → 2024-09-09 07:41 | Outpatient (REF) | payer MEDICARE, SELFPAY ==
--- NOTE | 2024-09-09 07:50 | CA_ITS ---
Transthoracic Echocardiogram Patient (Last, First, Middle): Rahul Maciel P Gender: Male Date of : 1950 Age: 74 Procedure Date: 09/09/2024 Procedure Type: Transthoracic Echocardiogram Location: OP Height: 172.72 cm Weight: 91.63 kg BSA: 2.05 m2 Heart Rate: 66 bpm BP: 150 / 70 mmHg Folder Machine Operator: SB Referring MD: Luther Mckay MD Loan Services Professional: Mayco Sylvester MD Symptoms: I48.19 - Other persistent atrial fibrillation Study Quality: Fair ECG Rhythm: Atrial Fibrillation w PVC Conclusions: - 1. Normal LV ejection fraction of 60 65% with mild LVH 2. Mild biatrial enlargement 3. Moderate calcific aortic stenosis 4. Normal RV systolic pressure 5. No gross pericardial effusion Findings Procedure Information The quality of the study was technically difficult. The study quality is limited by patients body habitus and lung artifact. Left Ventricle Normal left ventricular size and systolic function. There is mildly increased left ventricular wall thickness. The visually estimated ejection fraction is between 60-65%. Diastolic function is indeterminate on the basis of available data. Right Ventricle Moderately increased right ventricular cavity size. There is normal right ventricular systolic function. Atria The left atrium is mildly dilated. There is no evidence of interatrial shunt. The right atrium is likely dilated. Aortic Valve There is moderate calcification of the aortic valve. There is moderate thickening of the aortic valve. There is moderate aortic valve stenosis. The peak aortic gradient is 32 mmHg.The mean gradient is 16 mmHg. The aortic valve area is 1.31 cm2. There is no aortic valve regurgitation. Mitral Valve There is mild anterior and moderate posterior mitral leaflet thickening. There is moderate posterior mitral annular calcification. There is moderate mitral annular calcification. There is mild mitral valve regurgitation. There is no mitral valve stenosis. Pulmonic Valve The pulmonic valve was not well visualized. Tricuspid Valve Likely normal tricuspid valve structure and function. There is mild tricuspid valve regurgitation. The right ventricular systolic pressure is normal. The right ventricular systolic pressure is 25 mmHg. Normal right atrial pressure. There is no evidence of pulmonary hypertension. Great Vessels All visible segments of the aorta are normal in size. The pulmonary artery was not well visualized. There is no dilatation of the ascending aorta measuring 3.30 cm. Small plaque is seen in the sino tubular ridge. Venous The inferior vena cava is normal in size and collapses greater than 50% with inspiration. Pericardium/Pleural There is no evidence of pericardial effusion. Prior Study Comparison Changes noted compared to prior study dated: 01/13/2020. moderate aortic stenosis is noted Measurements 2D Linear Measurements IVSd: 1.31 0.6-0.9/0.6-1.0 cm LVIDd: 4.62 3.9-5.3/4.2-5.9 cm LVIDd Index: 2.25 2.4-3.2/2.2-3.1 cm/m2 LVIDs: 2.65 2.0-3.6 cm LVPWd: 1.09 0.7-1.1 cm LA Diam: 4.50 2.7-3.8/3.0-4.0 cm LAIDs Index: 2.20 1.5-2.3 cm/m2 LV Mass: 257.23 67-162/88-224 g LV Mass Index: 125.48 43-95/49-115 g/m2 LVOT Diam: 2.20 3.0+(-)1.3 cm 2D Systolic Function EF 4C: 63.00 >55% EF 2C: 58.90 >55% EF BiP: 60.80 >55% Mitral Valve MV Pk E: 1.32 Aortic Valve AoV Pk Lauro: 2.84 AoV Mn Lauro: 1.82 AoV VTI: 0.58 AoV Pk Grad: 32.00 Aov Mn Grad: 16.00 JOSE C Cont.VTI: 1.31 LVOT LVOT Pk Lauro: 0.80 LVOT Mn Lauro: 0.59 LVOT VTI: 0.20 LVOT Pk Grad: 3.00 LVOT Mn Grad: 2.00 LVOT Diam: 2.20 LVOT Area: 3.80 Diastolic Function MV Pk E: 1.32 Right Ventricle TAPSE (mm): 19.90 TVS' Lauro: 13.10 Tricuspid Valve TR Pk Lauro: 2.35 TR Pk Grad: 22.00 RA Press: 3.00 RVSP: 25.00 Great Vessels Aorta Sinus of Valsalva: 3.90 2.0-3.5 cm Ao Asc: 3.30 2.1-3.4 cm Pulmonary Valve PV Pk Lauor: 1.34 Peak PV Grad: 7.00 Updated in Other Vendor System with Status of Final Mayco Sylvester MD electronically signed on 09/10/2024 1:10:45 PM with status of Final
== END ==
LOC: HO.CARD 07:41
PROVIDERS: PCP Family Medicine; Visit Provider Internal Medicine
DX: I48.19 Other persistent atrial fibrillation (principal)
CPT/HCPCS: 93242; 93306

== ENCOUNTER → 2024-09-09 07:50 | Outpatient (BNV) | payer MEDICARE, SELFPAY | PROVIDERS: PCP Family Medicine; Visit Provider Internal Medicine Cardiovascular Disease | DX: I51.7 Cardiomegaly (principal); I35.0 Nonrheumatic aortic (valve) stenosis; I35.8 Other nonrheumatic aortic valve disorders; I34.81 Nonrheumatic mitral (valve) annulus calcification | CPT/HCPCS: 93306 ==

== ENCOUNTER 2024-10-06 08:16 | Outpatient (REF) | payer MEDICARE, SELFPAY ==
--- OUTSIDE RECORDS SUMMARY | 2024-10-06 08:26 | XMS_ITS | Clinical Summary ---
Author Organization [facility] it Address [address] [place] [address] Care Team Providers Care Team Foreman Name Role Phone Austin Valles MD Primary Care Provider Allergies No known active allergies Medications CALCIUM CITRATE-VITAMIN D2 ORAL Take 400 mg by mouth 1 (one) time each day. Active ferrous sulfate 325 mg (65 mg elemental iron) tablet Take 1 tablet (325 mg total) by mouth 1 (one) time each day. Active garlic 1,000 mg capsule Take 1 capsule by mouth 1 (one) time each day. Active glipiZIDE (GLUCOTROL) 5 mg tablet Take 1 tablet (5 mg total) by mouth 2 (two) times a day before meals. Active MAGNESIUM ORAL Take by mouth. Active metFORMIN (GLUCOPHAGE) 850 mg tablet Take 1 tablet (850 mg total) by mouth 2 (two) times a day with meals. Active multivit-min/fo lic acid/lutein (CENTRUM SILVER ORAL) Take by mouth. Active OMEGA-3 FATTY ACIDS ORAL Take 1,200 mg by mouth 1 (one) time each day. Active pantoprazole (PROTONIX) 20 mg EC tablet Take 1 tablet (20 mg total) by mouth 1 (one) time each day. Active rivaroxaban (XARELTO) 20 mg tablet Take by mouth. Active rosuvastatin (CRESTOR) 40 mg tablet Take 1 tablet (40 mg total) by mouth 1 (one) time each day. Active valsartan-hydro CHLOROthiazide (DIOVAN-HCT) 320-12.5 mg per tablet Take 1 tablet by mouth 1 (one) time each day. Active Active Problems Problem Noted Date Diagnosed Date Atrial fibrillation 11/02/2023 CAD (coronary artery disease) 11/02/2023 Diabetes 11/02/2023 HTN (hypertension) 11/02/2023 Hyperparathyroidism 11/02/2023 Mixed hyperlipidemia 11/02/2023 Sleep apnea 11/02/2023 Thyroid nodule 11/02/2023 Vitamin D deficiency 11/02/2023 Surgical History Surgery Date Site/Laterality Comments OTHER SURGICAL HISTORY PROCEDURE: HISTORICAL PARATHYROID SURGERY; COMMENT: 2016, dr. abdi, right and left superior TOTAL KNEE ARTHROPLASTY PROCEDURE: HISTORICAL TOTAL KNEE REPLACE; COMMENT: 2011 left, and right BACK SURGERY PROCEDURE: HISTORICAL BACK SURGERY; COMMENT: 3 hernia surgery HAND SURGERY PROCEDURE: HISTORICAL HAND SURGERY; COMMENT: CTS, aug 2023 OTHER SURGICAL HISTORY PROCEDURE: UT EXCISION HYDROCELE UNILATERAL HERNIA REPAIR PROCEDURE: HISTORICAL HERNIA REPAIR/UMB; COMMENT: X3 Medical History Medical History Date Comments Diabetes (CMS/HCC) DX:Diabetes ( HCC) Vitamin D deficiency DX:Vitamin D deficiency Sleep apnea DX:Sleep apnea CAD (coronary artery disease) DX :CAD (coronary artery disease) HTN (hypertension) DX:HTN (hyper tension) Mixed hyperlipidemia DX:Mixed hy perlipidemia Atrial fibrillation (CMS/HCC) DX :Atrial fibrillation (HCC) Family History Medical History Relation Name Comments Other: kidney cancer Brother 1 Throat cancer Brother 1 Bladder Cancer Brother 2 Coronary artery disease Brother 3 Lung cancer Father Heart failure Mother Relation Name Status Comments Brother 1 Alive Brother 2 Alive Brother 3 Alive Daughter Alive Father Mother Son Alive Social History Tobacco Use Types Packs/Day Years Used Date Smoking Tobacco: Never Smokeless Tobacco: Never Sex and Gender Information Value Date Recorded Sex Assigned at Not on file Legal Sex Male 2:53 AM EST Gender Identity Not on file Sexual Orientation Not on file Obstetrics History Last Filed Vital Signs Vital Sign Reading Time Taken Comments Blood Pressure 139/81 11/02/2023 7:59 AM EDT Aut o Cuff Pulse 67 11/02/2023 7:59 AM EDT Temperature - - Respiratory Rate - - Oxygen Saturation - - Inhaled Oxygen Concentration - - Weight 96.4 kg (212 lb 9.6 oz) 11/02/2023 7:59 A M EDT Height 171.5 cm (5' 7.5 ) 11/02/2023 7:59 AM EDT Body Mass Index 32.81 11/02/2023 7:59 AM EDT Plan of Treatment Upcoming Encounters Date Type Department Care Team (Late st Contact Info) Description 11/04/2024 8:30 AM EDT Office Visit Endocrinology - [facility] [address] [place] [address] Dorota Gross PA [address] [place] [address] Health Maintenance Due Date Last Done Comments Diabetes: Annual Foot Exam 1959 Diabetes: Annual Retina Eye Exam 1959 DTaP,Tdap,and Td Vaccines (1 - Tdap) 1968 Pneumococcal Vaccine: 50+ Ye ars (1 of 2 - PCV) 1968 Zoster Vaccines (1 of 2) 1999 Cholesterol Screening (Lipid Panel) 09/19/2023 Colorectal Cancer Screening: Colonoscopy 09/19/2023 Depression Screening 09/19/2023 Falls Risk Assessment 09/19/2023 Hepatitis C Screening 09/19/2023 Social Influencers of Health Screening 09/19/2023 RSV Immunization Patients 60 + Years Old (1 - 1-dose 75+ series) 2024 Diabetes: Annual Urine Albumin-Creatinine Ratio (uACR) 03/14/2024 Diabetes: Blood Sugar Contro l Test (HGBA1C) 03/14/2024 COVID-19 Vaccine ( - 2023-2 5 season) 2024 Influenza Vaccine (#1) 2024 Diabetes: Annual GFR (Glomer ular Filtration Rate) 11/01/2024 11/02/2023 Hypertension/CHF/CAD Annual BMP Blood Test 11/01/2024 11/02/2023 HIB Vaccines Aged Out No longer eligi ble based on patient's age to complete this topic HPV Vaccines Aged Out No longer eligi ble based on patient's age to complete this topic Hepatitis A Vaccines Aged Out No long er eligible based on patient's age to complete this topic Hepatitis B Vaccines Aged Out No long er eligible based on patient's age to complete this topic IPV Vaccines Aged Out No longer eligi ble based on patient's age to complete this topic MMR Vaccines Aged Out No longer eligi ble based on patient's age to complete this topic Meningococcal ACWY Vaccine Aged Out N o longer eligible based on patient's age to complete this topic Meningococcal B Vacine Aged Out No lo nger eligible based on patient's age to complete this topic RSV Immunization Patients Un becki 20 months Aged Out No longer eligible b ased on patient's age to complete this topic Varicella Vaccines Aged Out No longer eligible based on patient's age to complete this topic Procedures Procedure Name Priority Date/Time Associated Diagnosis Comments ANNUAL BMP BLOOD TEST Routine 11/02/2023 from Last 3 Months or Most Recently Relevant to Health Maintenance Results * Annual BMP Blood Test (11/02/2023) Annual BMP Blood Test abstracted Historical Provider HEALTH MAINTENANCE Final Result from Last 3 Months or Most Recently Relevant to Health Maintenance Care Teams Team Foreman Relationship Specialty Start Date End Date Austin Valles MD [address] [place] [address] Dr Aletha [place] PCP - General 11/07/22
--- OUTSIDE RECORDS SUMMARY | 2024-10-06 08:26 | XMS_ITS ---
[facility] Address [address] [place] [address] Care Team Providers Care Dog Day Care Attendant Name Role Phone Austin Valles MD Primary Care Provider Raffi Jolly Unavailable [phone] Allergies No Known Allergies REASON FOR VISIT PCP 09/2023 Medications Medication SIG (Take, Route, Frequency, Duration) Notes Start Date End Date Status Extra Depth Diabetic Shoes with 3 Pair Custom heat-molded multi-density innersoles for 1 year Dx: Active Rosuvastatin Calcium 40 MG 1 tablet Oral ly Once a day for 30 day(s) Active Night Splint AFO - L1930 as directed 02/24/2022 Active metFORMIN HCl 850 MG 1 tablet with a angelina l Orally Once a day for 30 day(s) Active Valsartan-hydroCHLOROthiazi de 320-12.5 MG 1 tablet Orally Once a day for 30 day(s) Active Xarelto 20 MG 1 tablet with food O rally Once a day for 30 day(s) Active Metoprolol Succinate ER 25 MG 1 tablet Orally Once a day for 30 day(s) Active Pantoprazole Sodium 20 MG 1 tablet Orall y Once a day for 30 day(s) Active Garlic Active Calcium Citrate + D3 Active [place] 3 Active Fish Oil Active Multivitamin Adults 50+ Active Centrum Silver Activ e glipiZIDE 5 MG 1 tablet 30 minutes [...] tobacco user? No Vital Signs Height 5ft 8 in in 03/25/2024 Weight 210 lbs 03/25/2024 BMI 31.93 kg/m2 03/25/2024 Encounters Encounter Location Date Provider Diagnosis [facility] R[facility]ine [address] [facility] [address] [place] [address] 03/25/2024 Raffi Benz Plantar fascial 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 ; Type 2 diabetes mellitus with diabetic polyneuropathy E11.42 ; Pain in right toe(s) M79.674 ; Pain in left toe(s) M79.675 ; Tinea unguium B35.1 ; Other hammer toe(s) (acquired), right foot M20.41 and Other hammer toe(s) (acquired), left foot M20.42 Assessments Encounter Date Diagnosis (ICD Code) Assessment Notes Treatment Notes Treatment Clinical Notes Section Notes 03/25/2024 Plantar fascial fibromatosis (ICD-10 - M72.2) 03/25/2024 Type 2 diabetes mellitus with diabetic polyneuropathy (ICD-10 - E11.42) Patient Educated with: DIABETIC FOOT CARE INSTRUCTIONS. pdf (DIABETIC FOOT CARE INSTRUCTIONS. pdf) 03/25/2024 Pain in right toe(s) (ICD-10 - M79.674) 03/25/2024 Pain in left toe(s) (ICD-10 - M79.675) 03/25/2024 Tinea unguium (ICD-10 - B35.1) 03/25/2024 Other hammer toe(s) (acquired), right foot (ICD-10 - M20.41) 03/25/2024 Other hammer toe(s) (acquired), left foot (ICD-10 - M20.42) Plan Of Treatment Medication Medication Name Sig Start Date Stop Date Notes Extra Depth Diabetic Shoes w ith 3 Pair Custom heat-molded multi-density innersoles for 1 year Dx: Treatment Notes Assessment Notes Type 2 diabetes mellitus wit h diabetic polyneuropathy Patient Educated with: DIABETIC FOOT CARE INSTRUCTIONS.pdf (DIABETIC FOOT CARE INSTRUCTIONS.pdf) Next Appt Details Follow Up: 1 Year, Reason: Provider Name:Suzan Payne prabha, 03/27/2025 08:30:00 AM, [address] [facility], [address], [place], [address], Procedure Notes * Category Sub-Category Detail Notes Keratoma Treatment Parring or Cutting o f Benign Hyperkeratotic Lesion(s) 50542 ( 2-4 Lesions ) - The Benign [...] as necessary. Patient chooses, no pharmaceutical tx (93393) Nail Reduction Nail Reduction Trimming of dyst rophic nails performed to reduce/remove overall nail length and girth, by manual and electrical means with use of a nail nipper and/or dremel, to more viable healthy nail plate or bed tissue 6-10 (G0127) Progress Notes * Rahul NUNEZDOB:[birth year] (74 yo M)Acc No.[id number]:03/25/2024 Progress Note Patient:?Rahul Nunez Provider:?Raffi Benz DPM :1950???Age:74 Y???Sex:Male Vincent e:03/25/2024 Address:[address] [place], [place] [address] Pcp:Austin Valles MD Subjective: * Chief Complaints: * ???PCP 09/2023 * HPI: ???At Risk footcare:?Pt States Last PCP Visit:?Date?09/25/2023 ???Heel pain:?Nature:?aching, stiffness--leather like feeling.?Location:?plantar, Arch, B/Land ball of foot.?Duration:?several months .?Onset/Cause:?unknown.?Course:?unchanged.?Aggravated:?standing, walking.?Treatments:?rest, innersoles/orthotics--ssot.? * ROS:?General/Constitutional:?Nausea?denies.?Vomiting?denies.?Hunger Thirst?denies.?Loss appetite?denies.?Chills?denies.?Fatigue?denies.?Fever?denies.?Night Sweats?denies.?Unexplained weight loss?denies.?Unexplained weight gain?denies.?HEENTM:?Dentures?denies.?Dizziness?denies.?Glasses/contacts?admits.?Retinopathy?de nies.?Blurred/double vision?denies.?TMJ?denies.?Discharge/drainage?denies.?Implants?denies.?Sore throat?denies.?Dental implants?denies.?Hard of hearing ?admits.?Difficulty chewing/swallowing/speaking?denies.?Nose bleeds?denies.?Sore mouth?denies.?Respiratory:?On Oxygen?denies.?Pneumonia/pleurisy?denies.?Bronchitis?denies.?Emphysema?denies.?C oughing?denies.?Cough blood?denies.?Shortness of breath?denies.?Wheezing?denies.?Cardiovascular:?Pacemaker?denies.?MVP?denies.?WPW?denies.?CHF?denies.?Heart attack?denies.?Septal defect?denies.?Rapid beat?denies.?Chest pain ?denies.?Atrial Fib.?denies.?Murmur/Palpitations?denies.?Gastrointestinal:?Hemorrhoids?denies.?Stomach/Abdominal pain?denies.?Dark blood stool?denies.?Irritable bowel ?denies.?Constipation?denies.?Diarrhea?denies.?Hematology:?Swelling?admits.?Clots?denies.?Varicose Veins?denies.?Bruising?denies.?Bleeding problem?denies.?Genitourinary:?Blood urine?denies.?Frequent/Painfu/urination/bladder control?denies.?Kidney stones?denies.?Infection (UTI)?denies.?Nephropathy?denies.?sex trans dis (STD)?denies.?Prostate?denies.?Musculoskeletal:?Hammertoes?denies.?Bunions?denies.?Back Pain?denies.?Muscle Cramps/ Resting?denies.?Muscle cramps / walking?denies.?Generalized aches and pains?denies.?Weakness?denies.?Integ.:?Valenzuela?denies.?Scars?denies.?Corns/calluses?denies.?Ingrown nails?denies.?Painful nails?denies.?Open Sores?denies.?Rashes?denies.?Neurologic:?Difficulty sleeping?denies.?Brain disorder?denies.?Numbness?denies.?Balance trouble?denies.?Confusion?denies.?Fainting/blackouts?denies.?Tingling?denies.?Tr emors?denies.? * Medical History:? * Surgical History:?hernia, gr [...] Hospitalization History. * Family History:?Mother: dece ased.?Father: .?Spouse: alive.?Siblings: diagnosed with Unspecified heart disease, Other malignant neoplasm of unspecified site.? * Social History:?Tobacco Use:?Tobacco Use/Smoking?Are you a:?nonsmoker ?Additional Findings: Tobacco Non-User?Current non-smoker ?Tobacco use other than smoking?Are you an [...] Once a dayMultivitamin Adults 50+ Centrum Silver [place] 3 Fish Oil Garlic Calcium Citrate + [...] dayNight Splint AFO - L1930 as directed Extra Depth Diabetic Shoes with 3 Pair Custom heat-molded multi-density innersoles for 1 year Dx:Medication List reviewed and reconciled with the patientTaking glipiZIDE 5 MG Tablet 1 tablet 30 minutes before breakfast Orally Once a dayTaking Multivitamin Adults 50+ Taking Centrum Silver Taking [place] 3 Taking Fish Oil Taking Garlic Taking [...] Night Splint AFO - L1930 as directed Taking Extra Depth Diabetic Shoes with 3 Pair Custom heat- molded multi-density innersoles for 1 year Dx:Medication List reviewed and reconciled with the patient * Allergies:?N.K.D.A.yes[Aller gies Verified] Objective: * Vitals:?Ht:5ft 8 in, Wt:210, BMI:31.93, Shoe size:10, BS:98, Ht-cm: 172.72 cm, Wt-k.25 kg. * ???Past Orders: ???Lab:HEMOGLOBIN A1C (GLYCO HEMOGLOBIN) (Order Date - 12/24/2023) (Collection Date - 12/24/2023) ? Value Reference Range ?HEMOGLOBIN A1C % (HH) 6.2 * Examination: ???General Examination: ?GENERAL APPEARANCE:?pleasant, alert, [...] calcaneal nerves, B/L.?BABINSKI REFLEX:?Absent, B/L.?Vascular: ?DP PULSES:? 08/23, B/L.?PT PULSES:? 08/23, B/L.?CAPILLARY FILL TIME:?3 secs. per digit, B/L.?SKIN TEMPERTURE GRADIENT OF THE LOWER EXTERMITIES:? decreased, cool to cold, proximal to distal, B/L.?HAIR GROWTH/TEXTURE/ELASTICITY/TURGOR:?normal, B/L.?EDEMA:? 09/23, Left, 08/23, Right, Feet, Ankle(s), Leg(s).?VARICOSITIES:? present, moderate, nonpainful, [...] T6, T9, remaining nails are elongated, overgrown, dystrophic.?Ophthalmology Referral: ?DIABETES EYE EXAM? Assessment: * Assessment: 1.?Plantar fascial fibromato sis - M72.2?2.?Type 2 diabetes mellitus with diabetic polyneuropathy - E11.42?3.?Pain in right toe(s) - M79.674?4.?Pain in left toe(s) - M79.675?5.?Tinea unguium - B35.1 (Primary)?6.?Other hammer toe(s) (acquired), right foot - M20.41?7.?Other hammer toe(s) (acquired), left foot - M20.42? Plan: * Treatment: * Procedures:?Debride Nails 1-5:?Procedure:?Nail debridement performed extensively to reduce/remove overall nail length and girth, subungual debris, and necrotic tissue, by manual and electrical means by use of a nail nipper and/or dremel, to more viable healthy nail plate or bed tissue 1-5. Silver nitrate used for any petechial bleeding as necessary. Patient chooses, no pharmaceutical tx (22768).?Keratoma Treatment:?Parring or Cutting of Benign Hyperkeratotic Lesion(s)?79423 ( 2-4 Lesions ) - The Benign [...] or bed tissue 6-10 (G0127).? * Procedure Codes:?81124 TRIM SKIN LESIONS, 2 TO 4, Modifiers: XS G0127 TRIMMING DYSTROPHIC NAILS ANY #, Modifiers: XS 10833 DEBRIDE NAIL, 1-5, Modifiers: XS * Preventive [...] have encouraged the patient to call the office.?Shoe Gear Counseling:?The patient and I reviewed the types of shoes they should be wearing. My recommendation included obtaining a well-fitted shoe with a good supportive, non-foldable nor twistable sole, plenty of toe/room for the forefoot, and proper arch support. Based on todays examination, I recommended the patient look for new shoes, by having their feet professionally measured. We discussed that generally the best time of the day for a shoe fitting is the afternoon. Different shoes types and brands to best match the patients occupation and vocation were discussed. Specific brand selection will be up to the patient, their individual foot condition/deformities, and fit. The patient and I reviewed the standard new shoe break in period by wearing them for a few hours a day while checking for redness or sores as wear time is increased. The patient verbally confirmed to understanding the information discussed, Rx: Extra Depth Orthopedic Shoes with 3 pair of custom heat-molded inserts.? * Follow Up:?1 Year * Images: * Sign off status: Completed true * Provider:?Raffi Benz DPM Date:? 024 Generated for Johanna gabriel/Wood/Mark on:?10/06/2024 08:26 AM EST History and Physical Notes * HPI (History of Present Illness) Category Sub-Category Detail Notes Category Not es Heel pain Duration: several months Nature: aching, stiffness--l eather like feeling Location: plantar, Arch, B/L and ball of foot Onset/Cause: unknown Aggravated: standing, walking Course: unchanged Treatments: rest, innersoles/ort hotics--ssot At Risk footcare Pt States Last PCP Visit: Date: 4 Examination Category Sub-Category Detail Notes Category Not [...] taking performed:: 2+ ORIENTED: person,place, and ti mt Ophthalmology Referral DIABETES EYE EXAM Diabeti c Retinopathy Screening:: Yes 03/21/24 Vascular DP PULSES (B): 08/23, B/L PT PULSES (B): 08/23, B/L CAPILLARY FILL TIME: 3 secs. per [...] T6, T9, remaining nails are elongated, overgrown, dystrophic
--- OUTSIDE RECORDS SUMMARY | 2024-10-06 08:27 | XMS_ITS | Clinical Summary ---
Author Organization [facility] Address [address] [place] [address] Care Team Providers Care Pick Pulling Machine Operator Name Role Phone Unavailable Primary Care Provider Unavailabl e Social History Tobacco Use Types Packs/Day Years Used Date Smoking Tobacco: Never Assessed Sex and Gender Information Value Date Recorded Sex Assigned at Not on file Gender Identity Not on file Sexual Orientation Not on file Plan of Treatment Health Maintenance Due Date Last Done Comments Hepatitis C Screening 1950 COVID-19 Vaccine (#1) 1949 Depression Screening 1961 Preventative Health Evaluation 1967 DTap / Tdap / Td (1 - Tdap) 1968 Colon Cancer Screening (Colonoscopy) 1994 Shingrix-Zoster Vaccine (1 of 2) 1999 Fall Risk Assessment 2014 Pneumococcal Vaccine (1 of 1 - PCV) 2014 RSV Adult > 60+ Yrs or Pregn ant (1 - 1-dose 75+ series) 2024 Influenza Vaccine (#1) 2024 Hepatitis B Vaccines Aged Out No long er eligible based on patient's age to complete this topic RSV Ped < 20 months Aged Out No longe r eligible based on patient's age to complete this topic
--- OUTSIDE RECORDS SUMMARY | 2024-10-06 08:27 | XMS_ITS ---
Author Organization [facility] Address [address] [place] [address] Care Team Providers Care Fun House Attendant Name Role Phone Austin Valles MD Primary Care Provider Raffi Jolly [facility] [phone] REASON FOR VISIT diabetic shoes rx Medications Medication SIG (Take, Route, Frequency, Duration) Notes Start Date End Date Status Extra Depth Diabetic Shoes with 3 Pair Custom heat-molded multi-density innersoles for 1 year Dx: 03/27/2023 Active Encounters Encounter Location Date Provider Diagnosis [facility] [address] [place] [address] 08/31/2023 Raffi Benz Type 2 diabetes mellitus [...] 08:30:00 AM, [address] , [address], [place], [address], Progress Notes * Shola NUNEZ:[birth year] (73 yo M)Acc No.[id number]:08/31/2023 Patient:?Rahul uNnez :1950???Age:73 Y???Sex:Male Address:[address] [place] [address] * Refills? Refill Extra Depth Diabetic Shoes with 3 Pair Custom heat-molded multi-density innersoles, 1 pair shoes/3 sets inserts, for 1 year, Dx:, Refills=0 * true * Date:? Generated for Johanna gabriel/Wood/eTransmitting on:?10/06/2024 08:27 AM EST
--- OUTSIDE RECORDS SUMMARY | 2024-10-06 08:27 | XMS_ITS | Patient Health Record ---
Author [facility] Address [address] [place] [address] Care Team Providers Care Smt Machine Operator Name Role Phone Austin Valles MD Primary Care Provider Raffi Jolly Unavailable [phone] Allergies No Known Allergies Results Component Value Reference Range Notes HEMOGLOBIN A1C (GLYCOHEMOGLO BIN) Reviewed date:03/25/2024 08:05:34 AM Interpretation: Performing Lab: Notes/Report: HEMOGLOBIN A1C % (HH) 6.2 Reason For Referral No Information Medications Medication SIG (Take, Route, Frequency, Duration) Notes Start Date End Date Status Garlic Active Calcium Citrate + D3 Active [place] 3 Active Fish Oil Active Multivitamin Adults [...] Problem Acquired hammer toe of right foot (8674094205222945 ) Other hammer toe(s) (acquired), right foot (M20.41) Active confirmed Problem Acquired hammer toe of left foot (6708288286300583 ) Other hammer toe(s) (acquired), left foot (M20.42) Active confirmed Problem Polyneuropathy due to type 2 diabetes mellitus (473229853) Type 2 diabetes mellitus with diabetic polyneuropathy (E11.42) Active confirmed Problem Polyneuropathy due to diabetes mellitus type I (252703021) Type 1 diabetes mellitus with diabetic polyneuropathy (E10.42) Active confirmed Vital Signs Height 5ft 8 in in 03/25/2024 Weight 210 lbs 03/25/2024 BMI 31.93 kg/m2 03/25/2024 Encounters Encounter Location Date Provider Diagnosis [facility] [address] [address] 03/25/2024 Raffi Benz Plantar fascial 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 [...] X ray : Foot, right 3V 02/24/2022 80856-HHCYWWI NAIL, 1-5 03/27/2023 88360-DEWF SKIN LESIONS, 2 TO 4 03/27/20 23 I8932-IYTNFHZQ DYSTROPHIC NAILS ANY # U0284-NJCYTBKE DYSTROPHIC NAILS ANY # Next Appt Details Provider Name:Suzan Payne prabha, 03/27/2025 08:30:00 AM, [address] [facility], [facility] [address], [place], [address], Insurance Providers Payer Name Payer Address Payer Phone Subscriber Number Group Number Insured Name Patient Relationship to Insured Coverage Start Date Coverage End Date A[employer] Medicare Open [address] [place] [address] [id number] Rahul Lucas Self - patient is the insured Medical (General) History Medical History History ICD Code Back,Hip,and Knee pain Hiatal hernia High blood pressure Reflux ( GERD) Measles Mumps Chicken pox Joint implants/screws Diabetic A fib Surgical History Surgery Date(Month/Year) hernia, groin 1968, 1970, 2017 eye and lip repair 1988 nose and throat 1990 hydroseal 1999 umbilical cord hernia 1998 total R knee replacement 08/31/11 parathyroid gland removed 06/13/17 knee gel shot x3 2017 L endovenous laser treatment 03/28/18 L ambulatory phlebectomy 04/02/18 R endovenous laser treatment 05/07/18 R ambulatory phlebectomy 05/16/18 bladder renal ultrasound 04/10/18 ocho dx: ess htn 04/15/18 Barium swallow 02/07/19 upper endoscopy 11/09/18 total L knee replacement 10/10/19
[2024-10-06 11:09] LABS: Appearance Urine Clear; Color Urine Yellow; Glucose Urine UA Negative (Negative); Leukocyte Esterase Urine Negative (Negative); Nitrite Urine Negative (Negative); PH 6.5 (5.0-9.0); UMIC TRIGGER UA YES; Urine Blood Negative (Negative); Urine Ketones Trace mg/dL (Negative); Urine Protein 100 (2+) mg/dL (Neg-Trace)
[2024-10-06 11:11] LABS: Bacteria Urine None Seen (None Seen); Hyaline Casts Urine 0-2 /LPF (0-2); RBC Urine 0-2 /HPF (0-2); Squamous Epithelial Cell Urine 0-2 /HPF (0-2); WBC Urine 0-5 /HPF (0-5)
[2024-10-06 11:32] LABS: Creatinine Urine 141.06 mg/dL
[2024-10-06 11:44] LABS: Microalbum/Creatinine Ratio Ur 382.8 ug/mg cr (<30)
== END 2024-10-06 08:17 | disposition home or self-care (01) ==
LOC: HO.WFDLDS 08:16
PROVIDERS: Visit Provider Family Medicine
DX: Z13.89 Encounter for screening for other disorder (principal)
CPT/HCPCS: 81001; 81003; 82043; 82570

== ENCOUNTER 2024-10-06 08:21 | Outpatient (REF) | payer MEDICARE, SELFPAY ==
[2024-10-06 10:54] LABS: MANUAL DIFF FLAG NO
[2024-10-06 10:57] LABS: Basophils Percent Auto 0.4 % (0-2); Eosinophils Absolute Auto 0.2 X10*3/uL (0.0-0.4); Eosinophils Percent Auto 2.7 % (0-4); Hematocrit 46.4 % (42.0-52.0); Hemoglobin 15.1 g/dl (14.0-18.0); Imm Gran Abs Auto 0.05 X10*3/uL (0.00-0.03); Imm Gran Pct Auto 0.6 % (0.0-0.4); Lymphocytes Absolute Auto 1.4 X10*3/uL (1.2-4.9); Lymphocytes Percent Auto 16.8 % (20-40); Mean Corpuscular HGB Conc 32.5 g/dl (31.0-36.0); Mean Corpuscular Hemoglobin 27.2 pg (27.0-33.0); Mean Corpuscular Volume 83.5 fL (80.0-98.0); Mean Platelet Volume 10.4 fL (9.4-12.4); Monocytes Percent Auto 11.6 % (2-11); Neutrophils Absolute Auto 5.6 x10*3/uL (2.0-8.3); Neutrophils Percent Auto 67.9 % (45-73); Platelet Count 228 X10*3/uL (160-400); Red Blood Count 5.56 X10*6/uL (4.60-5.80); Red Cell Distribution Width 15.5 % (11.0-16.0); White Blood Count 8.2 X10*3/uL (4.8-10.8)
[2024-10-06 11:15] LABS: Alanine Aminotransferase 15 U/L (0-40); Albumin Level 4.1 g/dL (3.5-5.0); Alkaline Phosphatase 55 U/L (39-117); Anion Gap 12 (12-20); Aspartate Amino Transferase 30 U/L (5-37); Bilirubin Total 1.5 mg/dL (0.0-1.0); Blood Urea Nitrogen 16 mg/dL (9-16); Calcium 9.1 mg/dL (8.4-10.2); Carbon Dioxide 28 mmol/L (22-29); Chloride 102 mmol/L (96-108); Estimated Glomerular Filt Rate > 60; Glucose Random 95 mg/dL (60-115); Iron 90 mcg/dL (45-160); Percent Iron Saturation 26 % (15-50); Potassium 4.5 mmol/L (3.3-5.1); Sodium 137 mmol/L (135-145); Total Iron Binding Capacity 350 mcg/dL (228-428); Total Protein 7.3 g/dL (6.5-8.0); Unsaturated Iron Binding 260 ug/dL
== END 2024-10-06 08:22 | disposition home or self-care (01) ==
LOC: HO.WFDLDS 08:21
PROVIDERS: Visit Provider Family Medicine
DX: Z00.00 Encounter for general adult medical examination without abnormal findings (principal); I10 Essential (primary) hypertension; E61.1 Iron deficiency
CPT/HCPCS: 36415; 80053; 81001; 82043; 82570; 83540; 85025

== ENCOUNTER 2024-10-09 08:01 | Outpatient (AMB) | payer MEDICARE, SELFPAY ==
--- OUTSIDE RECORDS SUMMARY | 2024-10-09 08:04 | XMS_ITS ---
[facility] Address [address] [place] [address] Care Team Providers Care Client Relations Associate Name Role Phone Austin Valles MD Primary Care Provider Raffi Jolly Unavailable [phone] Allergies No Known Allergies REASON FOR VISIT [...] Garlic Active Calcium Citrate + D3 Active [place] 3 Active Fish Oil Active Multivitamin Adults [...] 03/25/2024 Encounters Encounter Location Date Provider Diagnosis [facility] [place] [address] [facility] [address] [place] [address] 03/25/2024 Raffi Benz Plantar fascial 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 [...] Name:Suzan Payne prabha, 03/27/2025 08:30:00 AM, [address] [facility], [address], [place], [address], Procedure Notes * Category Sub-Category Detail Notes Keratoma Treatment Parring or Cutting o f Benign Hyperkeratotic Lesion(s) 22169 ( 2-4 Lesions ) - The Benign [...] as necessary. Patient chooses, no pharmaceutical tx (76998) Nail Reduction Nail Reduction Trimming of dyst rophic nails performed to reduce/remove overall nail length and girth, by manual and electrical means with use of a nail nipper and/or dremel, to more viable healthy nail plate or bed tissue 6-10 (G0127) Progress Notes * Rahul NUNEZDOB:[birth year] (74 yo M)Acc No.[id number]:03/25/2024 Progress Note Patient:?Rahul Nunez Provider:?Raffi Benz DPM :1950???Age:74 Y???Sex:Male Vincent e:03/25/2024 Address:[address] [place], [place] [address] Pcp:Austin Valles MD Subjective: * Chief Complaints: [...] Once a dayMultivitamin Adults 50+ Centrum Silver [place] 3 Fish Oil Garlic Calcium Citrate + [...] Multivitamin Adults 50+ Taking Centrum Silver Taking [place] 3 Taking Fish Oil Taking Garlic Taking [...] as necessary. Patient chooses, no pharmaceutical tx (12545).?Keratoma Treatment:?Parring or Cutting of Benign Hyperkeratotic Lesion(s)?71471 ( 2-4 Lesions ) - The Benign [...] or bed tissue 6-10 (G0127).? * Procedure Codes:?06611 TRIM SKIN LESIONS, 2 TO 4, Modifiers: XS G0127 TRIMMING DYSTROPHIC NAILS ANY #, Modifiers: XS 68668 DEBRIDE NAIL, 1-5, Modifiers: XS * Preventive [...] DPM Date:? 024 Generated for Johanna gabriel/Wood/Mark on:?10/09/2024 08:04 AM EST History and Physical Notes * [...] taking performed:: 2+ ORIENTED: person,place, and ti ca Ophthalmology Referral DIABETES EYE EXAM Diabeti c [...]
--- OUTSIDE RECORDS SUMMARY | 2024-10-09 08:04 | XMS_ITS | Clinical Summary ---
Author Organization [facility] it Address [address] [place] [address] Care Team Providers Care Poem Writer Name Role Phone Austin Valles MD Primary [...] CTS, aug 2023 OTHER SURGICAL HISTORY PROCEDURE: MN EXCISION HYDROCELE UNILATERAL HERNIA REPAIR PROCEDURE: HISTORICAL [...] 8:30 AM EDT Office Visit Endocrinology - [place] [address] [place] [address] Dorota Gross PA [address] [place] [address] Health Maintenance Due Date Last Done Comments [...] Recently Relevant to Health Maintenance Care Teams Poem Writer Relationship Specialty Start Date End Date Austin Valles MD [address] [place] [address] Dr Aletha [place] PCP - General 11/07/22
--- OUTSIDE RECORDS SUMMARY | 2024-10-09 08:05 | XMS_ITS | Clinical Summary ---
Author Organization [facility] Address [address] [place] [address] Care Team Providers Care Therapist Name Role Phone Unavailable Primary Care Provider [...]
--- OUTSIDE RECORDS SUMMARY | 2024-10-09 08:05 | XMS_ITS | Patient Health Record ---
Author Organization [facility] Address [address] [place] [address] Care Team Providers Care Medical Lead Name Role Phone Austin Valles MD Primary Care Provider Raffi Jolly Unavailable [phone] Allergies No Known Allergies Results Component Value Reference Range Notes HEMOGLOBIN A1C (GLYCOHEMOGLO BIN) Reviewed date:03/25/2024 08:05:34 AM Interpretation: Performing Lab: Notes/Report: HEMOGLOBIN A1C % (HH) 6.2 Reason For Referral No Information Medications Medication SIG (Take, Route, Frequency, Duration) Notes Start Date End Date Status Garlic Active Calcium Citrate + D3 Active [place] 3 Active Fish Oil Active Multivitamin Adults [...] Problem Acquired hammer toe of right foot (8974054016000636 ) Other hammer toe(s) (acquired), right foot (M20.41) Active confirmed Problem Acquired hammer toe of left foot (6660087863343214 ) Other hammer toe(s) (acquired), left foot (M20.42) Active confirmed Problem Polyneuropathy due to type 2 diabetes mellitus (130155313) Type 2 diabetes mellitus with diabetic polyneuropathy (E11.42) Active confirmed Problem Polyneuropathy due to diabetes mellitus type I (788379952) Type 1 diabetes mellitus with diabetic polyneuropathy (E10.42) Active confirmed Vital Signs Height 5ft 8 in in 03/25/2024 Weight 210 lbs 03/25/2024 BMI 31.93 kg/m2 03/25/2024 Encounters Encounter Location Date Provider Diagnosis [facility] [address] [address] 03/25/2024 Raffi Benz Plantar fascial 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 [...] X ray : Foot, right 3V 02/24/2022 73582-JMNNFZA NAIL, 1-5 03/27/2023 22290-ELWF SKIN LESIONS, 2 TO 4 03/27/20 23 E9110-DTGBEJJX DYSTROPHIC NAILS ANY # Q1622-OEJLDHGC DYSTROPHIC NAILS ANY # Next Appt Details Provider Name:Suzan Payne prabha, 03/27/2025 08:30:00 AM, [address] [facility], [facility] [address], [place], [address], Insurance Providers Payer Name Payer Address Payer Phone Subscriber Number Group Number Insured Name Patient Relationship to Insured Coverage Start Date Coverage End Date A[employer] Medicare Open [address] [place] [address] [id number] Rahul Lucas Self - patient is the [...]
--- OUTSIDE RECORDS SUMMARY | 2024-10-09 08:05 | XMS_ITS ---
Author Organization [facility] Address [address] [place] [address] Care Team Providers Care Fastener Sewing Machine Operator Name Role Phone Austin Valles MD Primary Care Provider Raffi Jolly [facility] [phone] REASON FOR VISIT diabetic shoes rx Medications Medication SIG (Take, Route, Frequency, Duration) Notes Start Date End Date Status Extra Depth Diabetic Shoes with 3 Pair Custom heat-molded multi-density innersoles for 1 year Dx: 03/27/2023 Active Encounters Encounter Location Date Provider Diagnosis [facility] [address] [place] [address] 08/31/2023 Raffi Benz Type 2 diabetes mellitus [...] 08:30:00 AM, [address] , [address], [place], [address], Progress Notes * Shola NUNEZ:[birth year] (73 yo M)Acc No.[id number]:08/31/2023 Patient:?Rahul Nunez :1950???Age:73 Y???Sex:Male Address:[address] [place] [address] * Refills? Refill Extra Depth Diabetic Shoes with 3 Pair Custom heat-molded multi-density innersoles, 1 pair shoes/3 sets inserts, for 1 year, Dx:, Refills=0 * true * Date:? Generated for Johanna gabriel/Wood/eTransmitting on:?10/09/2024 08:05 AM EST
--- NOTE | 2024-10-09 08:33 | MHC.PC.OV ---
Vital Signs 10/09/24 08:44 Height 5 ft 8 in Weight 207 lb 4 oz BMI 31.5 BP 124/60 Blood Pressure Location Lt brachial Position Sitting Respiration 14 Pulse 51 Pulse Source Pulse Oximeter Temp 98.1 F Temp Source Oral Pulse Oximetry (%) 97 Oxygen Delivery Method Room Air Intake Visit Reasons: f/u diabetes, hypertension Intake Note: f/u dm and htn Allergies No Known Allergies Allergy (Verified 10/09/24 08:42) Medication List - Last Reconciled 10/09/24 by Austin Valles MD blood sugar diagnostic As directed blood sugar diagnostic (ContinuentTouch Ultra Test strips) Once a day As directed, 90 days calcium carbonate (Calcium 500) 500 mg PO DAILY CPAP (CPAP Machine/Device) DX: G47.33, q.h.s. As directed, 999 days/lifetime ferrous sulfate 325 mg PO DAILY 30 days garlic 1,000 mg PO DAILY glipizide ER 5 mg PO DAILY lancets One Touch Delica Plus 30g lancets; DX: E11.9, test blood sugar once a day, 90 days metformin 850 mg PO TIDWMEAL 90 days wp-sll-mngyw-I1-exmfras-xmeyro 146-47-381-300 mcg (Centrum Silver Ultra Men's) 1 tab PO DAILY omega 8-lry-enr-fish oil 1,200 (144-216) mg (Fish Oil) caps PO pantoprazole 20 mg PO BID rivaroxaban (Xarelto) 20 mg PO DAILY rosuvastatin 40 mg PO DAILY valsartan-hydrochlorothiazide 320-12.5 mg 1 tab PO DAILY Tobacco use date assessed: 01/01/24 Dental Screening Dental Screen Date: 01/01/24 HPI f/u diabetes, hypertension HPI Details 74 y/o male presents to f/u diabetes, hypertension. A1c today 6.5%. He is on glipizide 5mg, metformin 850mg t.i.d. Blood pressure today 124/60, 51p. He is on valsartan-HCTZ 320-12.5mg daily. Labs drawn 10/06/24. Reviewed labs with pt. Ongoing microalbuminuria. Creatinine levels are fine at 1.17 mg/dL. HPI Comments History of Present Illness Details Documentation assistance for Austin Valles MD, was provided by Santy Poe, Refrigerator [employer]over on 10/09/2024 at 9:07 AM EST. Paz, Dr. Valles, have read, observed, and verified documentation. ?? [facility] Medical History (Updated 08/26/24 @ 10:22 by CRYS Parker) Carpal tunnel syndrome of right wrist Carpal tunnel syndrome of left wrist Abnormal myocardial perfusion study Bilateral hand numbness Wrist pain Obstructive sleep apnea Adult general medical exam Screening for prostate cancer Screening for colon cancer Encounter for general adult medical examination without abnormal findings Atherosclerotic cardiovascular disease Sleep apnea Esophageal dysphagia Essential hypertension Diabetes type 2, controlled Type 2 diabetes mellitus HTN (hypertension) CHACHA on CPAP Hypercalcemia Hematuria Hyperlipidemia, unspecified Essential hypertension Type 2 diabetes mellitus with unspecified complications Persistent atrial fibrillation Surgical History History of parathyroidectomy Hx of carpal tunnel repair Hx of colonoscopy History of esophagogastroduodenoscopy (EGD) History of left knee replacement History of right knee joint replacement Family History Father No problems noted. Mother Cancer CVD (cardiovascular disease) CHF (congestive heart failure) Brother Bladder cancer Brother Bladder cancer Brother History of heart valve replacement Daughter No problems noted. Son No problems noted. Social History Household Members: Spouse and Children Housing: House Alcohol intake: current Alcohol intake frequency: does not drink Patient Tobacco Use Status: Never used Tobacco e-Cigarette/Vaping Use: Never Used Second Hand Smoke Exposure: No service: No Current occupational status: employed Current occupation: [employer] Current occupational exposures/hazards: No Cognitive needs: No Hearing needs: Yes (hearing aides) Vision needs: Yes (glasses) Questionnaire PHQ-9 Over the last 2 weeks, how often have you been bothered by any of the following problems? 1. Little interest or pleasure in doing things: not at all 2. Feeling down, depressed, or hopeless: not at all 3. Trouble falling or staying asleep, or sleeping too much: not at all 4. Feeling tired or having little energy: not at all 5. Poor appetite or overeating: not at all 6. Feeling bad about yourself - or that you are a failure or have let yourself or your family down: not at all 7. Trouble concentrating on things, such as reading the newspaper or watching television: not at all 8. Moving or speaking so slowly that other people could have noticed. Or the opposite - being so fidgety or restless that you have been moving around a lot more than usual: not at all 9. Thoughts that you would be better off or of hurting yourself in some way: not at all Total score: 0 Source: Developed by Drs. Shashi Vera, Paulette Washington, Tato Fuchs and colleagues, with an educational aurelio from [employer]. Thrive Questionnaire Date Thrive assessed: 07/01/24 I am a: Patient What is your living situation today?: I have a steady place to live Within the past 12 months, did the food you bought not last and you didn't have the money to get more?: Often true Within the past 12 months, did you worry whether your food would run out before you got money to buy more?: Never true Do you have trouble paying for medicines?: No Do you have trouble getting transportation to medical appointments?: No Do you have trouble paying your heating and electricity bill?: No Do you have trouble taking care of your child, family member or friend?: No Do you have trouble with day-to-day activities such as bathing, preparing meals, shopping, managing finances, etc.?: No Are you currently unemployed and looking for a job?: No Are you interested in more education?: No Please select the resources that you would like help with: None Currently or been in a relationship where the following occur: No concerns reported THRIVE Score: 1 AUDIT C Alcohol Use Questionnaire (AUDIT-C) 1. How often do you have a drink containing alcohol?: Never 3. How often do you have six or more drinks on one occasion?: Never Total Score: 0 ABHINAV-7 AMB Questionnaire ABHINAV-7 Date ABHINAV - 7 assessed: 01/01/24 Feeling nervous, anxious, or on edge: 0 = Not at all Not being able to stop or control worryin = Not at all Worrying too much about different things: 0 = Not at all Trouble relaxin = Not at all Being so restless that it is hard to sit still: 0 = Not at all Becoming easily annoyed or irritable: 0 = Not at all Feeling afraid as if something awful might happen: 0 = Not at all Total ABHINAV-7 score (0-4 normal; 5-9 mild; 10-14 moderate; 15-21 severe): 0 Source: Developed by Drs. Shashi Vera, Paulette Washington, Tato Fuchs and colleagues, with an educational aurelio from [employer]. Review of Systems Const Denies chills, Denies fatigue, Denies fever(s), Denies headache(s) and Denies weakness ENT Denies dizziness and Denies headache(s) Card Denies dyspnea Resp Denies cough, Denies dyspnea, Denies wheezing and Denies other (shortness of breath) Musc Denies numbness and Denies tingling Neuro Denies dizziness, Denies headache(s), Denies numbness, Denies tingling and Denies weakness Psych Denies anxiety and Denies depression Endo Denies fatigue Aller/Immun Denies wheezing Physical exam (Primary Care) Vital Signs: Last Vital Signs Temp 98.1 F 10/09/24 08:44 Pulse 51 10/09/24 08:44 Resp 14 10/09/24 08:44 BP 124/60 10/09/24 08:44 Pulse Ox 97 10/09/24 08:44 Oxygen Delivery Method Room Air 10/09/24 08:44 BMI result Body Mass Index 31.5 Tobacco/Smoking Status: Tobacco use Status Tobacco use date assessed 01/01/24 10/09/24 08:34 Patient Tobacco Use Status Never used Tobacco 10/09/24 08:34 e-Cigarette/Vaping Use Never Used 10/09/24 08:34 PHQ-9: PHQ-9 Score PHQ-9: Total score 0 10/09/24 09:04 Thrive Assessment: Date of Thrive Assessment Date Thrive assessed 07/01/24 10/09/24 08:34 Currently or been in a relationship where the following occur: No concerns reported Const General: well developed; No acute distress Nutritional Appearance: well nourished Orientation/consciousness: patient oriented x3 HENMT Head: Yes normocephalic and Yes atraumatic Eyes General: appearance normal, both eyes and all related structures Pupils: Equal, round and reactive pupils present EOM: EOMs intact bilaterally Resp Effort & Inspection: normal respiratory effort Neuro General: patient oriented x3 and gait normal Cranial nerves: Yes Equal, round and reactive pupils present Psych Affect: normal affect Coding Level of Care Code Est Pt Level 4 (17686) Diagnoses Essential hypertension I10 Diabetes type 2, controlled E11.9 Microalbuminuria R80.9 Assessment & Plan Assessment & Plan (1) Essential hypertension: Code(s): I10 - Essential (primary) hypertension Category: Medical Plan: Blood?pressure?is?controlled.??Goal?is?less?than?130/80 Continue?current?medication (2) Diabetes type 2, controlled: Code(s): E11.9 - Type 2 diabetes mellitus without complications Category: Medical Plan: A1c?today?is?6.5%.??Good?control.??Goal?is?less?than?7.0% However,?microalbumin?in?urine?continues?to?rise He?will?continue?metformin?for?now. Will?add?Farxiga?and?he?can?hold?glipizide Check?blood?sugars?and?let?me?know?if?you?are?having?any?higher?low?blood?sugars. (3) Microalbuminuria: Code(s): R80.9 - Proteinuria, unspecified Category: Medical Plan: As?above,?adding?Farxiga Medications: New dapagliflozin propanediol (Farxiga) 5 mg PO QAM 90 tabs 3RF 90 days Discontinued glipizide ER Discontinued Reason: Doctor's Order 5 mg PO DAILY 90 tabs 0RF
[2024-10-09 08:44] VITALS: BP 124/60; PULSE 51; RESP 14; TEMP 36.7; O2SAT 97; BMI 31.5
== END 2024-10-09 09:12 | disposition home or self-care (01) ==
PROVIDERS: PCP Family Medicine; Visit Provider Family Medicine
DX: I10 Essential (primary) hypertension (principal); E11.9 Type 2 diabetes mellitus without complications; R80.9 Proteinuria, unspecified

== ENCOUNTER → 2024-10-09 08:01 | Outpatient (BNVA) | payer MEDICARE, SELFPAY | PROVIDERS: PCP Family Medicine; Visit Provider Family Medicine | DX: E11.9 Type 2 diabetes mellitus without complications (principal); I10 Essential (primary) hypertension; R80.9 Proteinuria, unspecified | CPT/HCPCS: 83036; 99212 ==

== ENCOUNTER 2024-12-02 09:54 | Outpatient (AMB) | payer MEDICARE, SELFPAY ==
--- NOTE | 2024-12-02 09:58 | MHC.OFFVIS ---
Vital Signs 12/02/24 10:03 Height 5 ft 8 in Weight 189 lb 9.561 oz BMI 28.8 BP 120/74 Blood Pressure Location Lt brachial Position Sitting Pulse 61 Intake Visit Reasons: 3 month f/up Intake Note: 3 month follow-up feeling good Director Process Required: No Allergies No Known Allergies Allergy (Verified 10/09/24 08:42) Medication List - Last Reconciled 12/02/24 by Luther Mckay MD blood sugar diagnostic As directed blood sugar diagnostic (Realeyes 3DTouch Ultra Test strips) Once a day As directed, 90 days calcium carbonate (Calcium 500) 500 mg PO DAILY CPAP (CPAP Machine/Device) DX: G47.33, q.h.s. As directed, 999 days/lifetime dapagliflozin propanediol (Farxiga) 5 mg PO QAM 90 days ferrous sulfate 325 mg PO DAILY 30 days garlic 1,000 mg PO DAILY lancets One Touch Delica Plus 30g lancets; DX: E11.9, test blood sugar once a day, 90 days metformin 850 mg PO TIDWMEAL 90 days jq-rln-sfmdw-K5-lhzwrto-ixzejj 852-52-854-300 mcg (Centrum Silver Ultra Men's) 1 tab PO DAILY omega 8-djj-uby-fish oil 1,200 (144-216) mg (Fish Oil) caps PO pantoprazole 20 mg PO BID rivaroxaban (Xarelto) 20 mg PO DAILY rosuvastatin 40 mg PO DAILY valsartan-hydrochlorothiazide 320-12.5 mg 1 tab PO DAILY HPI Comments Details: Rahul returns for follow-up regarding several issues including atrial fibrillation, bradycardia, coronary disease, hypertension among others. Since last seen, he states he feels good. No cardiac complaints. No concerns with anticoagulation. [facility] Medical History (Updated 08/26/24 @ 10:22 by CRYS Parker) Carpal tunnel syndrome of right wrist Carpal tunnel syndrome of left wrist Abnormal myocardial perfusion study Bilateral hand numbness Wrist pain Obstructive sleep apnea Adult general medical exam Screening for prostate cancer Screening for colon cancer Encounter for general adult medical examination without abnormal findings Atherosclerotic cardiovascular disease Sleep apnea Esophageal dysphagia Essential hypertension Diabetes type 2, controlled Type 2 diabetes mellitus HTN (hypertension) CHACHA on CPAP Hypercalcemia Hematuria Hyperlipidemia, unspecified Essential hypertension Type 2 diabetes mellitus with unspecified complications Persistent atrial fibrillation Surgical History History of parathyroidectomy Hx of carpal tunnel repair Hx of colonoscopy History of esophagogastroduodenoscopy (EGD) History of left knee replacement History of right knee joint replacement Family History Father No problems noted. Mother Cancer CVD (cardiovascular disease) CHF (congestive heart failure) Brother Bladder cancer Brother Bladder cancer Brother History of heart valve replacement Daughter No problems noted. Son No problems noted. Social History Household Members: Spouse and Children Housing: House Alcohol intake: current Alcohol intake frequency: does not drink Patient Tobacco Use Status: Never used Tobacco e-Cigarette/Vaping Use: Never Used Second Hand Smoke Exposure: No service: No Current occupational status: employed Current occupation: [employer] Current occupational exposures/hazards: No Cognitive needs: No Hearing needs: Yes (hearing aides) Vision needs: Yes (glasses) Review of Systems Const Denies chills, Denies fatigue, Denies fever(s), Denies frequent falls, Denies weakness, Denies weight gain and Denies weight loss ENT Denies dizziness Card Denies chest pain, Denies leg edema, Denies lightheadedness, Denies palpitations, Denies dyspnea, Denies dyspnea on exertion, Denies orthopnea and Denies other (loss of consciousness) Resp Denies cough, Denies dyspnea and Denies dyspnea on exertion GI Denies hematochezia and Denies change in stool character Musc Denies abnormal gait, Denies muscle weakness, Denies numbness, Denies radiating pain into limb and Denies tingling Neuro Denies abnormal gait, Denies dizziness, Denies frequent falls, Denies numbness, Denies tingling and Denies weakness Endo Denies fatigue and Denies palpitations Physical Exam Vital Signs: Last Vital Signs Pulse 61 12/02/24 10:03 BP 120/74 12/02/24 10:03 BMI result Body Mass Index 28.8 Const General: comfortable and no acute distress Orientation/consciousness: patient oriented x3 HEENT Other: Unremarkable Head: Yes normal to inspection Neck Neck: Yes normal visual inspection Chest Chest palpation & inspection: normal inspection of the chest Resp Auscultation: clear to auscultation bilaterally Cardio Palpation: normal PMI Heart sounds: S1 normal heart sound present, S2 normal heart sound present, no gallops, no murmurs and no rubs GI Palpation (GI): Soft to palpation Back/Spine/Pelvis Other: unremarkable Skin General skin exam: no rashes or lesions noted Neuro General: patient oriented x3 Extrem General: Yes normal to inspection Psych Mental Status: mental status grossly normal Assessment & Plan Assessment & Plan (1) Persistent atrial fibrillation: Code(s): I48.19 - Other persistent atrial fibrillation Category: Medical Plan: In the past, has taken beta-blockers but not anymore. Holter was apparently performed but due to some technical issue could not be process. Re-attempt. Continue anticoagulation. (2) PVC (premature ventricular contraction): Code(s): I49.3 - Ventricular premature depolarization Category: Medical Plan: PVCs versus aberrant conduction noted on previous Holter. He does not have any symptoms from this and he also has bradycardia. Hence no room for medications. (3) Atherosclerotic cardiovascular disease: Code(s): I25.10 - Atherosclerotic heart disease of [place] coronary artery without angina pectoris Category: Medical Plan: In a prior stress MIBI from 2016, he had mild ischemia in the inferior/inferolateral mathews. Clinically, absolutely no angina or in fact any concerning symptoms at all. Continue statins. Last LDL 56 mg/dL. (4) Essential hypertension: Code(s): I10 - Essential (primary) hypertension Category: Medical Plan: On valsartan/HCTZ. No changes. (5) Type 2 diabetes mellitus with unspecified complications: Code(s): E11.8 - Type 2 diabetes mellitus with unspecified complications Category: Medical Plan: On glipizide, metformin. Last hemoglobin A1c is 6.5%. Patient Instructions: - Continue using CPAP as advised for sleep quality. - Maintain your current medication regimen. - Monitor for any unexpected symptoms and notify healthcare provider as needed. - Follow up as planned in six months unless symptoms arise. Coding Level of Care Code Est Pt Level 4 (74295) Complex EM visit Add On G2211 Diagnoses Persistent atrial fibrillation I48.19 PVC (premature ventricular contraction) I49.3 Atherosclerotic cardiovascular disease I25.10 Essential hypertension I10 Type 2 diabetes mellitus with unspecified complications E11.8
[2024-12-02 10:03] VITALS: BP 120/74; PULSE 61; BMI 28.8
--- OUTSIDE RECORDS SUMMARY | 2024-12-02 11:23 | XMS_ITS ---
Author Organization [facility] Address [address] [place] [address] Care Team Providers Care Stock Parts Inspector Name Role Phone Austin Valles MD Primary Care Provider Raffi J[facility] [phone] REASON FOR VISIT diabetic shoes rx Medications Medication SIG (Take, Route, Frequency, Duration) Notes Start Date End Date Status Extra Depth Diabetic Shoes with 3 Pair Custom heat-molded multi-density innersoles for 1 year Dx: 03/27/2023 Active Encounters Encounter Location Date Provider Diagnosis [facility] [address] [place] [address] 08/31/2023 Raffi Benz Type 2 diabetes mellitus [...] 08:30:00 AM, [address], [place], [address], Progress Notes * Shola NUNEZ:[birth year] (73 yo M)Acc No.[id number]:08/31/2023 Patient:?Rahul Nunez :1950???Age:73 Y???Sex:Male Address:[address] [place] [address] * Refills? Refill Extra Depth Diabetic Shoes with 3 Pair Custom heat-molded multi-density innersoles, 1 pair shoes/3 sets inserts, for 1 year, Dx:, Refills=0 * true * Date:? Generated for Johanna gabriel/Wood/eTransmitting on:?12/02/2024 11:23 AM EDT
--- OUTSIDE RECORDS SUMMARY | 2024-12-02 11:23 | XMS_ITS | Clinical Summary ---
Author Organization [facility] Address [address] [place] [address] Care Team Providers Care Clinical Medical Assistant Name Role Phone Unavailable Primary Care Provider [...]
--- OUTSIDE RECORDS SUMMARY | 2024-12-02 11:23 | XMS_ITS ---
Author Organization [facility] Address [address] [place] [address] Care Team Providers Care Labor Relations Worker Name Role Phone Austin Valles MD Primary Care Provider Raffi Jolly Unavailable [phone] Allergies No Known Allergies REASON FOR VISIT [...] Garlic Active Calcium Citrate + D3 Active Marion 3 Active Fish Oil Active Multivitamin Adults [...] 03/25/2024 Encounters Encounter Location Date Provider Diagnosis [facility] [address] [facility] [address] [place] [address] 03/25/2024 Raffi Benz Plantar fascial 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 [...] prabha, 03/27/2025 08:30:00 AM, [address] [facility], [address], [place], [address], Procedure Notes * Category Sub-Category Detail Notes Keratoma Treatment Parring or Cutting o f Benign Hyperkeratotic Lesion(s) 50436 ( 2-4 Lesions ) - The Benign [...] as necessary. Patient chooses, no pharmaceutical tx (22991) Nail Reduction Nail Reduction Trimming of dyst rophic nails performed to reduce/remove overall nail length and girth, by manual and electrical means with use of a nail nipper and/or dremel, to more viable healthy nail plate or bed tissue 6-10 (G0127) Progress Notes * Rahul NUNEZDOB:[birth year] (74 yo M)Acc No.[id number]:03/25/2024 Progress Note Patient:?Rahul Nunez Provider:?Raffi Benz DPM :1950???Age:74 Y???Sex:Male Vincent e:03/25/2024 Address:[address] [place], [place] [id number] Pcp:Austin Valles MD Subjective: * Chief Complaints: [...] Once a dayMultivitamin Adults 50+ Centrum Silver Marion 3 Fish Oil Garlic Calcium Citrate + [...] Multivitamin Adults 50+ Taking Centrum Silver Taking Marion 3 Taking Fish Oil Taking Garlic Taking [...] and in no acute distress.?ORIENTED:?person,place, and time.?FOOT EXAM:?Lower Extremity Neurological Exam performed:?Yes ?Visual exam of foot performed:?Yes ?Date?03/27/2023 ?Sensory testing performed:?sensations diminished ?Pedal pulse taking performed:?2+?Neurological: ?SENSORY:? Neurological exam demonstrates, reduced vibration sensation, [...] are elongated, overgrown, dystrophic.?Ophthalmology Referral: ?DIABETES EYE EXAM?Diabetic Retinopathy Screening:?Yes 03/21/24??? Assessment: * Assessment: 1.?Plantar fascial fibromato sis [...] as necessary. Patient chooses, no pharmaceutical tx (11753).?Keratoma Treatment:?Parring or Cutting of Benign Hyperkeratotic Lesion(s)?76696 ( 2-4 Lesions ) - The Benign [...] or bed tissue 6-10 (G0127).? * Procedure Codes:?46181 TRIM SKIN LESIONS, 2 TO 4, Modifiers: XS G0127 TRIMMING DYSTROPHIC NAILS ANY #, Modifiers: XS 62308 DEBRIDE NAIL, 1-5, Modifiers: XS * Preventive [...] DPM Date:? 024 Generated for Johanna gabriel/Wood/Mark on:?12/02/2024 11:23 AM EDT History and Physical Notes * HPI (History [...] performed:: 2+ ORIENTED: person,place, and ti me Ophthalmology Referral DIABETES EYE EXAM Diabeti c [...]
--- OUTSIDE RECORDS SUMMARY | 2024-12-02 11:23 | XMS_ITS | Clinical Summary ---
Author Organization [facility] [address] [place] [place] [address] [place] [phone] Phone Care Team Providers Care Assistance Representative Name Role Phone Austin Valles MD Primary Care Provider [phone] Allergies No known active allergies Medications CALCIUM [...] mouth 1 (one) time each day. Active Farxiga 5 mg tablet Take 1 tablet (5 mg total) by mouth 1 (one) time each day. 10/09/2024 Active Active Problems Problem Noted Date Diagnosed Date Atrial fibrillation ([facility] V24, [facility] V28) 0 11/02/2023 CAD (coronary artery disease) 11/02/2023 Diabetes ([facility] V24, [facility] V28) 11/02/2023 HTN (hypertension) 11/02/2023 Hyperparathyroidism ([facility] V24) 11/02/2023 Mixed hyperlipidemia 11/02/2023 Sleep apnea 11/02/2023 Thyroid nodule 11/02/2023 Vitamin D deficiency 11/02/2023 Encounters Date Type Department Care Team Description 11/04/2024 8:30 AM EDT Office Visit Endocrinology [address] [address] Dorota Gross PA Hyperparathyroidism ([facility] V24) (Primary Dx); Vitamin D deficiency; Thyroid nodule from Last 3 Months Surgical History Surgery Date Site/Laterality Comments OTHER SURGICAL HISTORY PROCEDURE: HISTORICAL PARATHYROID SURGERY; COMMENT: 2016, dr. abdi, right and left superior TOTAL KNEE ARTHROPLASTY PROCEDURE: HISTORICAL TOTAL KNEE REPLACE; COMMENT: 2011 left, and right BACK SURGERY PROCEDURE: HISTORICAL BACK SURGERY; COMMENT: 3 hernia surgery HAND SURGERY PROCEDURE: HISTORICAL HAND SURGERY; COMMENT: CTS, aug 2023 OTHER SURGICAL HISTORY PROCEDURE: [place] EXCISION HYDROCELE UNILATERAL HERNIA REPAIR PROCEDURE: HISTORICAL HERNIA REPAIR/UMB; COMMENT: X3 Medical History Medical History Date Comments Diabetes ([facility] V24, [facility] V28) DX:Diabetes (HCC) Vitamin D deficiency DX:Vitamin D deficiency Sleep apnea DX:Sleep apnea CAD (coronary artery disease) DX :CAD (coronary artery disease) HTN (hypertension) DX:HTN (hyper tension) Mixed hyperlipidemia DX:Mixed hy perlipidemia Atrial fibrillation ([facility] V24, [facility] V28) DX:Atrial fibrillation (HCC) Family History Medical History Relation [...] Date Smoking Tobacco: Never Smokeless Tobacco: Never Tobacco Cessation:Counseling Given: Not Answered Sex and Gender Information Value Date Recorded Sex Assigned at Not on file Legal Sex Male 2:53 AM EST Gender Identity Not on file Sexual Orientation Not on file Obstetrics History Last Filed Vital Signs Vital Sign Reading Time Taken Comments Blood Pressure 90/60 11/04/2024 8:18 AM EDT Pulse 49 11/04/2024 8:18 AM EDT Temperature 36 ??C (96.8 ??F) 11/04/2024 8:18 AM EDT Respiratory Rate 15 11/04/2024 8:18 AM EDT Oxygen Saturation 97% 11/04/2024 8:18 AM EDT Inhaled Oxygen Concentration - - Weight 90.4 kg (199 lb 3.2 oz) 11/04/2024 8:18 A M EDT Height 172.7 cm (5' 8 ) 11/04/2024 8:18 AM EDT Body Mass Index 30.29 11/04/2024 8:18 AM EDT Plan of Treatment Upcoming Encounters Date Type Department Care Team (Late st Contact Info) Description 11/04/2025 8:30 AM EDT Office Visit Endocrinology - [place] [address] [place] [address] Dorota Gross PA [address] [place] [address] Health Maintenance Due Date Last Done Comments Diabetes: Annual Foot Exam 1959 Diabetes: Annual Retina Eye Exam 1960 Cholesterol Screening (Lipid Panel) 09/19/2023 Colorectal Cancer Screening: Colonoscopy 09/19/2023 Depression Screening 09/19/2023 Falls Risk Assessment 09/19/2023 Hepatitis C Screening 09/19/2023 Medicare Annual Wellness Visit 09/19/2023 Social Influencers of Health Screening 09/19/2023 Diabetes: Annual Urine Albumin-Creatinine Ratio (uACR) 03/14/2024 Diabetes: Blood Sugar Control Test (HGBA1C) 03/14/2024 COVID-19 Vaccine ( season) 2024 05/09/2024, 05/19/2023, 05/16/2022, Additional history exists Diabetes: Annual GFR (Glomerular Filtration Rate) 11/04/2025 11/04/2024, 11/02/2023 Hypertension/CHF/CAD Annual BMP Blood Test 11/04/2025 11/04/2024, 11/02/2023 DTaP,Tdap,and Td Vaccines (2 - Td or Tdap) 04/05/2034 04/05/2024 Zoster Vaccines Completed 09/13/2019, 07/14/2019 Pneumococcal Vaccine: 50+ Years Completed 02/07/2023, 09/14/2016 RSV Immunization Adult Patients Completed 05/19/2023 Influenza Vaccine Completed 04/05/2024, , 05/22/2021, Additional history exists HIB Vaccines Aged Out No longer eligi [...] age to complete this topic Meningococcal B Vaccine Aged Out No l onger eligible based on patient's age to complete this topic RSV Immunization Patients Under 20 months Aged Out No longer eligible based on patient's age to complete this topic Varicella Vaccines Aged Out No longer eligible based on patient's age to complete this topic Procedures Procedure Name Priority Date/Time Associated Diagnosis Comments PARATHYROID HORMONE INTACT Routine 11/04/2024 8:55 AM EDT Vitamin D deficiency Hyperparathyroidism ([facility] V[facility]) BASIC METABOLIC PANEL Routine 11/04/2024 8:55 AM EDT Vitamin D deficiency Hyperparathyroidism ([facility] V24) THYROID STIMULATING HORMONE WITH REFLEX TO FREE T4 AND FREE T3 Routine 11/04/2024 8:55 AM EDT Thyroid nodule VITAMIN D 25 HYDROXY Routine 11/04/2024 8:55 AM EDT Vitamin D deficiency Hyperparathyroidism ([facility] V24) from Last 3 Months Results * Thyroid stimulating hormone with reflex to free t4 and free t3 (11/04/2024 8:55 AM EDT) TSH 0.60 0.40 - 4.00 mcIU/mL LAB CHEMISTRY METHOD 11/04/2024 1:38 PM EDT [facility] Blood Venous blood specimen / Unknown Venipuncture / Unknown 11/04/2024 8:55 AM EDT 11/04/2024 8:55 AM EDT Dorota NAIK LAB BLOOD ORDERABLES Final Result [facility] [address] [place] [address], [place] [phone] * Vitamin D 25 hydroxy (11/04/2024 8:55 AM EDT) Vit D, 25-Hydroxy 37.7 30.0 - 80.0 ng/mL LAB CHEMISTRY METHOD 11/04/2024 1:37 PM EDT [facility] Blood Venous blood specimen / Unknown Venipuncture / Unknown 11/04/2024 8:55 AM EDT 11/04/2024 8:55 AM EDT us Dorota NAIK LAB BLOOD ORDERABLES Final Result [facility] [address] [place] [address], [place] [phone] * (ABNORMAL) Parathyroid hormone intact (11/04/2024 8:55 AM EDT) PTH 94.0(H) 18.5 - 88.0 pcg/mL LAB CHEMISTRY METHOD 11/04/2024 1:38 PM EDT [facility] Blood Venous blood specimen / Unknown Venipuncture / Unknown 11/04/2024 8:55 AM EDT 11/04/2024 8:55 AM EDT us Dorota NAIK LAB BLOOD ORDERABLES Final Result [facility] [address] [place] [address], [place] [phone] * (ABNORMAL) Basic metabolic panel (11/04/2024 8:55 AM EDT) Sodium 134 133 - 145 mmol/L LAB CHEMISTRY METHOD 11/04/2024 1:26 PM [facility] Potassium 3.8 3.5 - 5.5 mmol/L LAB CHEMISTRY METHOD 11/04/2024 1:26 PM [facility] Chloride 100 96 - 110 mmol/L LAB CHEMISTRY METHOD 11/04/2024 1:26 PM [facility] CO2 28 21 - 32 mmol/L LAB CHEMISTRY METHOD 11/04/2024 1:26 PM [facility] Anion Gap 6 3 - 11 LAB CHEMISTRY METHOD 11/04/2024 1:26 PM [facility] Glucose 102(H) 70 - 100 mg/dL LAB CHEMISTRY METHOD 11/04/2024 1:26 PM [facility] BUN 17 5 - 25 mg/dL LAB CHEMISTRY METHOD 11/04/2024 1:26 PM [facility] Creatinine 1.44(H) 0.70 - 1.30 mg/dL LAB CHEMISTRY METHOD 11/04/2024 1:26 PM [facility] eGFR 51(L) >=60 mL/min/1. 73m2 LAB CHEMISTRY METHOD 11/04/2024 1:26 PM [facility] Comment:Calculation based on the??Chronic Kidney Disease Epidemiology Collaboration (CKD-EPI) equation refit??without adjustment for race. BUN/Creatinine Ratio 11.8 LAB CHEMISTRY METHOD 11/04/2024 1:26 PM EDT [facility] Calcium 9.3 8.5 - 10.5 mg/dL LAB CHEMISTRY METHOD 11/04/2024 1:26 PM EDT [facility] Blood Venous blood specimen / Unknown Venipuncture / Unknown 11/04/2024 8:55 AM EDT 11/04/2024 8:55 AM EDT us Dorota NAIK LAB BLOOD ORDERABLES Final Result [facility] [address] [place] [address], [place] [phone] from Last 3 Months Insurance [employer] MEDICARE [employer]VANTAGE Care Teams Assistance Representative Relationship Specialty Start Date End Date Austin Valles MD [address] [place] [address] Dr Aletha [place] PCP - General 11/07/22
--- OUTSIDE RECORDS SUMMARY | 2024-12-02 11:23 | XMS_ITS | Patient Health Record ---
[facility] Address [address] [place] [address] Care Team Providers Care Ocean Freight Forwarder Name Role Phone Austin Valles MD Primary Care Provider Raffi Jolly Unavailable [phone] Allergies No Known Allergies Results Component Value Reference Range Notes HEMOGLOBIN A1C (GLYCOHEMOGLO BIN) Reviewed date:03/25/2024 08:05:34 AM Interpretation: Performing Lab: Notes/Report: HEMOGLOBIN A1C % (HH) 6.2 Reason For Referral No Information Medications Medication SIG (Take, Route, Frequency, Duration) Notes Start Date End Date Status Garlic Active Calcium Citrate + D3 Active [place] 3 Active Fish Oil Active Multivitamin Adults [...] Problem Acquired hammer toe of right foot (9748832278217758 ) Other hammer toe(s) (acquired), right foot (M20.41) Active confirmed Problem Acquired hammer toe of left foot (3338964487824354 ) Other hammer toe(s) (acquired), left foot (M20.42) Active confirmed Problem Polyneuropathy due to type 2 diabetes mellitus (138481677) Type 2 diabetes mellitus with diabetic polyneuropathy (E11.42) Active confirmed Problem Polyneuropathy due to diabetes mellitus type I (494887051) Type 1 diabetes mellitus with diabetic polyneuropathy (E10.42) Active confirmed Vital Signs Height 5ft 8 in in 03/25/2024 Weight 210 lbs 03/25/2024 BMI 31.93 kg/m2 03/25/2024 Encounters Encounter Location Date Provider Diagnosis [facility] [address] [address] 03/25/2024 Raffi Benz Plantar fascial 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 [...] X ray : Foot, right 3V 02/24/2022 [id number] NAIL, 1-5 03/27/2023 97627-DIFT SKIN LESIONS, 2 TO 4 03/27/20 23 [id number]-ULSHEOSM DYSTROPHIC NAILS ANY # B7624-CCCOBRIT DYSTROPHIC NAILS ANY # Next Appt Details Provider Name:Suzan Payne prabha, 03/27/2025 08:30:00 AM, [address] [facility], [facility] [address], [place], [address], Insurance Providers Payer Name Payer Address Payer Phone Subscriber Number Group Number Insured Name Patient Relationship to Insured Coverage Start Date Coverage End Date A[employer] Medicare Open [address] [place] [address] [phone] [id number] Rahul Lucas Self - patient is the [...]
== END 2024-12-02 10:23 | disposition home or self-care (01) ==
LOC: HO.HCS 09:54
PROVIDERS: PCP Family Medicine; Visit Provider Internal Medicine
DX: I48.19 Other persistent atrial fibrillation (principal); I49.3 Ventricular premature depolarization; I25.10 Atherosclerotic heart disease of native coronary artery without angina pectoris; I10 Essential (primary) hypertension; E11.8 Type 2 diabetes mellitus with unspecified complications
CPT/HCPCS: 99214; G2211

== ENCOUNTER → 2024-12-02 09:54 | Outpatient (BNVA) | payer MEDICARE, SELFPAY | PROVIDERS: PCP Family Medicine; Visit Provider Internal Medicine | DX: I25.10 Atherosclerotic heart disease of native coronary artery without angina pectoris (principal); I10 Essential (primary) hypertension; I48.91 Unspecified atrial fibrillation; I48.19 Other persistent atrial fibrillation; I49.3 Ventricular premature depolarization; E11.8 Type 2 diabetes mellitus with unspecified complications | CPT/HCPCS: 99212 ==

== ENCOUNTER → 2024-12-12 08:17 | Outpatient (REF) | payer MEDICARE, SELFPAY ==
--- NOTE | 2024-12-12 08:22 | HM_ITS ---
Conclusion: 1. Patient was monitored for total period of 3 days 2. Baseline was atrial fibrillation with average heart of 60 beats per minute with over corrected rate control at this point time 3. Multiple pauses greater than 2.5 seconds noted with longest pause of 3.3 seconds at 01:17 4. Frequent wide complex is noted, could be aberrant conduction or PVCs with total burden of 9.9% with no sustained arrhythmias 5. No patient reported events MTDD
--- OUTSIDE RECORDS SUMMARY | 2024-12-12 08:22 | XMS_ITS | Clinical Summary ---
Author Organization [facility] [address] [place] [address] [place] [phone] Phone Care Team Providers Care Pipe Setter Name Role Phone Austin Valles MD Primary [...] Problem Noted Date Diagnosed Date Atrial fibrillation ([facility] V24, [facility] V28) 0 11/02/2023 CAD (coronary artery disease) 11/02/2023 Diabetes ([facility] V24, [facility] V28) 11/02/2023 HTN (hypertension) 11/02/2023 Hyperparathyroidism ([facility]24) 11/02/2023 Mixed hyperlipidemia 11/02/2023 Sleep apnea 11/02/2023 Thyroid nodule 11/02/2023 Vitamin D deficiency 11/02/2023 Encounters Date Type Department Care Team Description 11/04/2024 8:30 AM EDT Office Visit Endocrinology [address] [address] Dorota Gross PA Hyperparathyroidism ([facility] V24) (Primary Dx); Vitamin D deficiency; Thyroid [...] CTS, aug 2023 OTHER SURGICAL HISTORY PROCEDURE: [place] EXCISION HYDROCELE UNILATERAL HERNIA REPAIR PROCEDURE: HISTORICAL HERNIA REPAIR/UMB; COMMENT: X3 Medical History Medical History Date Comments Diabetes ([facility] V24, [facility] V28) DX:Diabetes (HCC) Vitamin D deficiency DX:Vitamin D deficiency Sleep apnea DX:Sleep apnea CAD (coronary artery disease) DX :CAD (coronary artery disease) HTN (hypertension) DX:HTN (hyper tension) Mixed hyperlipidemia DX:Mixed hy perlipidemia Atrial fibrillation ([facility] V24, [facility] V28) DX:Atrial fibrillation (HCC) Family History Medical [...] 8:30 AM EDT Office Visit Endocrinology - [place] [address] [place] [address] Dorota Gross PA [address] [place] [address] Health Maintenance Due Date Last Done Comments [...] 8:55 AM EDT Vitamin D deficiency Hyperparathyroidism ([facility] V[facility]) BASIC METABOLIC PANEL Routine 11/04/2024 8:55 AM EDT Vitamin D deficiency Hyperparathyroidism ([facility] V[facility]) THYROID STIMULATING HORMONE WITH REFLEX TO FREE T4 AND FREE T3 Routine 11/04/2024 8:55 AM EDT Thyroid nodule VITAMIN D 25 HYDROXY Routine 11/04/2024 8:55 AM EDT Vitamin D deficiency Hyperparathyroidism ([facility] V24) from Last 3 Months Results * Thyroid stimulating hormone with reflex to free t4 and free t3 (11/04/2024 8:55 AM EDT) TSH 0.60 0.40 - 4.00 mcIU/mL LAB CHEMISTRY METHOD 11/04/2024 1:38 PM EDT [facility] Blood Venous blood specimen / Unknown Venipuncture / Unknown 11/04/2024 8:55 AM EDT 11/04/2024 8:55 AM EDT Dorota NAIK LAB BLOOD ORDERABLES Final Result [facility] [address] [place] [address], [place] [phone] * Vitamin D 25 hydroxy (11/04/2024 8:55 AM EDT) Vit D, 25-Hydroxy 37.7 30.0 - 80.0 ng/mL LAB CHEMISTRY METHOD 11/04/2024 1:37 PM EDT [facility] Blood Venous blood specimen / Unknown Venipuncture / Unknown 11/04/2024 8:55 AM EDT 11/04/2024 8:55 AM EDT us Dorota NAIK LAB BLOOD ORDERABLES Final Result [facility] [address] [place] [address], [place] [phone] * (ABNORMAL) Parathyroid hormone intact (11/04/2024 8:55 AM EDT) PTH 94.0(H) 18.5 - 88.0 pcg/mL LAB CHEMISTRY METHOD 11/04/2024 1:38 PM EDT [facility] Blood Venous blood specimen / Unknown Venipuncture / Unknown 11/04/2024 8:55 AM EDT 11/04/2024 8:55 AM EDT us Dorota NAIK LAB BLOOD ORDERABLES Final Result [facility] [address] [place] [address], [place] [phone] * (ABNORMAL) Basic metabolic panel (11/04/2024 8:55 AM EDT) Sodium 134 133 - 145 mmol/L LAB CHEMISTRY METHOD 11/04/2024 1:26 PM [facility] Potassium 3.8 3.5 - 5.5 mmol/L LAB CHEMISTRY METHOD 11/04/2024 1:26 PM [facility] Chloride 100 96 - 110 mmol/L LAB CHEMISTRY METHOD 11/04/2024 1:26 PM [facility] CO2 28 21 - 32 mmol/L LAB CHEMISTRY METHOD 11/04/2024 1:26 PM [facility] Anion Gap 6 3 - 11 LAB CHEMISTRY METHOD 11/04/2024 1:26 PM [facility] Glucose 102(H) 70 - 100 mg/dL LAB CHEMISTRY METHOD 11/04/2024 1:26 PM [facility] BUN 17 5 - 25 mg/dL LAB CHEMISTRY METHOD 11/04/2024 1:26 PM [facility] Creatinine 1.44(H) 0.70 - 1.30 mg/dL LAB CHEMISTRY METHOD 11/04/2024 1:26 PM [facility] eGFR 51(L) >=60 mL/min/1. 73m2 LAB CHEMISTRY METHOD 11/04/2024 1:26 PM [facility] Comment:Calculation based on the??Chronic Kidney Disease Epidemiology Collaboration (CKD-EPI) equation refit??without adjustment for race. BUN/Creatinine Ratio 11.8 LAB CHEMISTRY METHOD 11/04/2024 1:26 PM EDT [facility] Calcium 9.3 8.5 - 10.5 mg/dL LAB CHEMISTRY METHOD 11/04/2024 1:26 PM EDT [facility] Blood Venous blood specimen / Unknown Venipuncture / Unknown 11/04/2024 8:55 AM EDT 11/04/2024 8:55 AM EDT us Dorota NAIK LAB BLOOD ORDERABLES Final Result [facility] [address] [place] [address], [place] [phone] from Last 3 Months Insurance [employer] MEDICARE ADVANTAGE Care Teams Pipe Setter Relationship Specialty Start Date End Date Austin Valles MD [address] [place] [address] Dr Aletha [place] PCP - General 11/07/22
--- OUTSIDE RECORDS SUMMARY | 2024-12-12 08:22 | XMS_ITS ---
Author Organization [facility] Address [address] [place] [address] Care Team Providers Care Chemistry Account Manager Name Role Phone Austin Valles MD Primary Care Provider Raffi Jolly Unavailable [phone] Allergies No Known Allergies REASON FOR VISIT [...] Garlic Active Calcium Citrate + D3 Active [place] 3 Active Fish Oil Active Multivitamin Adults [...] 03/25/2024 Encounters Encounter Location Date Provider Diagnosis [facility] [place] [address] [facility] [address] [place] [address] 03/25/2024 Raffi Benz Plantar fascial 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 [...] Name:Suzan Payne prabha, 03/27/2025 08:30:00 AM, [address] [facility], [address], [place], [address], Procedure Notes * Category Sub-Category Detail Notes Keratoma Treatment Parring or Cutting o f Benign Hyperkeratotic Lesion(s) 41381 ( 2-4 Lesions ) - The Benign [...] as necessary. Patient chooses, no pharmaceutical tx (60607) Nail Reduction Nail Reduction Trimming of dyst rophic nails performed to reduce/remove overall nail length and girth, by manual and electrical means with use of a nail nipper and/or dremel, to more viable healthy nail plate or bed tissue 6-10 (G0127) Progress Notes * Rahul NUNEZDOB:[birth year] (74 yo M)Acc No.[id number]:03/25/2024 Progress Note Patient:?Rahul Nunez Provider:?Raffi Benz DPM :1950???Age:74 Y???Sex:Male Vincent e:03/25/2024 Address:[address] [place], [place] [address] Pcp:Austin Valles MD Subjective: * Chief Complaints: [...] Once a dayMultivitamin Adults 50+ Centrum Silver [place] 3 Fish Oil Garlic Calcium Citrate + [...] Multivitamin Adults 50+ Taking Centrum Silver Taking [place] 3 Taking Fish Oil Taking Garlic Taking [...] as necessary. Patient chooses, no pharmaceutical tx (99018).?Keratoma Treatment:?Parring or Cutting of Benign Hyperkeratotic Lesion(s)?21076 ( 2-4 Lesions ) - The Benign [...] or bed tissue 6-10 (G0127).? * Procedure Codes:?09838 TRIM SKIN LESIONS, 2 TO 4, Modifiers: XS G0127 TRIMMING DYSTROPHIC NAILS ANY #, Modifiers: XS 23478 DEBRIDE NAIL, 1-5, Modifiers: XS * Preventive [...] DPM Date:? 024 Generated for Johanna gabriel/Wood/Mark on:?12/12/2024 08:22 AM EDT History and Physical Notes * [...]
--- OUTSIDE RECORDS SUMMARY | 2024-12-12 08:22 | XMS_ITS ---
Author Organization [facility] Address [address] [place] [address] Care Team Providers Care Oncology Nurse Navigator Name Role Phone Austin Valles MD Primary Care Provider Raffi Jolly [facility] [phone] REASON FOR VISIT diabetic shoes rx Medications Medication SIG (Take, Route, Frequency, Duration) Notes Start Date End Date Status Extra Depth Diabetic Shoes with 3 Pair Custom heat-molded multi-density innersoles for 1 year Dx: 03/27/2023 Active Encounters Encounter Location Date Provider Diagnosis [facility] [address] [place] [address] 08/31/2023 Raffi Benz Type 2 diabetes mellitus [...] 08:30:00 AM, [address], [place], [address], Progress Notes * Shola NUNEZ:[birth year] (73 yo M)Acc No.[id number]:08/31/2023 Patient:?Rahul Nunez :1950???Age:73 Y???Sex:Male Address:[address] [place] [address] * Refills? Refill Extra Depth Diabetic Shoes with 3 Pair Custom heat-molded multi-density innersoles, 1 pair shoes/3 sets inserts, for 1 year, Dx:, Refills=0 * true * Date:? Generated for Johanna gabriel/Wood/eTransmitting on:?12/12/2024 08:22 AM EDT
--- OUTSIDE RECORDS SUMMARY | 2024-12-12 08:22 | XMS_ITS | Patient Health Record ---
Author Organization [facility] Address [address] [place] [address] Care Team Providers Care Imaging Aide Name Role Phone Austin Valles MD Primary Care Provider Raffi Jolly Unavailable [phone] Allergies No Known Allergies Results Component Value Reference Range Notes HEMOGLOBIN A1C (GLYCOHEMOGLO BIN) Reviewed date:03/25/2024 08:05:34 AM Interpretation: Performing Lab: Notes/Report: HEMOGLOBIN A1C % (HH) 6.2 Reason For Referral No Information Medications Medication SIG (Take, Route, Frequency, Duration) Notes Start Date End Date Status Garlic Active Calcium Citrate + D3 Active [address] 3 Active Fish Oil Active Multivitamin Adults [...] Problem Acquired hammer toe of right foot (8191978009418917 ) Other hammer toe(s) (acquired), right foot (M20.41) Active confirmed Problem Acquired hammer toe of left foot (6995449760398598 ) Other hammer toe(s) (acquired), left foot (M20.42) Active confirmed Problem Polyneuropathy due to type 2 diabetes mellitus (909163078) Type 2 diabetes mellitus with diabetic polyneuropathy (E11.42) Active confirmed Problem Polyneuropathy due to diabetes mellitus type I (590544581) Type 1 diabetes mellitus with diabetic polyneuropathy (E10.42) Active confirmed Vital Signs Height 5ft 8 in in 03/25/2024 Weight 210 lbs 03/25/2024 BMI 31.93 kg/m2 03/25/2024 Encounters Encounter Location Date Provider Diagnosis [facility] [address] [address] 03/25/2024 Raffi Benz Plantar fascial 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 [...] X ray : Foot, right 3V 02/24/2022 38322-GPCZYCX NAIL, 1-5 03/27/2023 24856-HLYB SKIN LESIONS, 2 TO 4 03/27/20 23 N7190-[id number] DYSTROPHIC NAILS ANY # M1818-CLDLWZSG DYSTROPHIC NAILS ANY # Next Appt Details Provider Name:Suzan Payne prabha, 03/27/2025 08:30:00 AM, [address] [facility], [facility] [address], [place], [address], Insurance Providers Payer Name Payer Address Payer Phone Subscriber Number Group Number Insured Name Patient Relationship to Insured Coverage Start Date Coverage End Date A[employer] Medicare Open [address] [place] [address] [id number] Rahul Lucas Self - patient is the [...]
--- OUTSIDE RECORDS SUMMARY | 2024-12-12 08:22 | XMS_ITS | Clinical Summary ---
Author Organization [facility] Address [address] [place] [address] Care Team Providers Care Asp Developer Name Role Phone Unavailable Primary Care Provider [...]
== END ==
LOC: HO.CARD 08:17
PROVIDERS: PCP Family Medicine; Visit Provider Internal Medicine
DX: R00.1 Bradycardia, unspecified (principal); I49.3 Ventricular premature depolarization; I48.19 Other persistent atrial fibrillation
CPT/HCPCS: 93242

== ENCOUNTER → 2024-12-12 08:22 | Outpatient (BNV) | payer MEDICARE, SELFPAY | PROVIDERS: PCP Family Medicine; Visit Provider Internal Medicine Cardiovascular Disease | DX: I48.91 Unspecified atrial fibrillation (principal) | CPT/HCPCS: 93244 ==

== ENCOUNTER 2025-01-07 09:45 | Outpatient (REF) | payer MEDICARE, SELFPAY ==
--- OUTSIDE RECORDS SUMMARY | 2025-01-07 11:04 | XMS_ITS | Patient Health Record ---
Author Organization [facility] Address [address] [place] [address] Care Team Providers Care Lumber Planer Name Role Phone Austin Valles MD Primary Care Provider Raffi Jolly Unavailable [phone] Allergies No Known Allergies Reason For Referral No Information Medications Medication SIG (Take, Route, Frequency, Duration) Notes Start Date End Date Status Garlic Active Calcium Citrate + D3 Active [place] 3 Active Fish Oil Active Multivitamin Adults [...] Problem Acquired hammer toe of right foot (9873569138027128 ) Other hammer toe(s) (acquired), right foot (M20.41) Active confirmed Problem Acquired hammer toe of left foot (7757450113627638 ) Other hammer toe(s) (acquired), left foot (M20.42) Active confirmed Problem Type 2 diabetes mellitus with diabetic polyneuropathy (E11.42) Active confirmed Problem Polyneuropathy due to diabetes mellitus type I (770971559) Type 1 diabetes mellitus with diabetic polyneuropathy (E10.42) Active confirmed Vital Signs Height 5ft 8 in in 03/25/2024 Weight 210 lbs 03/25/2024 BMI 31.93 kg/m2 03/25/2024 Encounters Encounter Location Date Provider Diagnosis [facility] [place] [address] [address] 03/25/2024 Raffi Benz Plantar fascial 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 [...] X ray : Foot, right 3V 02/24/2022 [id number] NAIL, 1-5 03/27/2023 [id number]-ROVS SKIN LESIONS, 2 TO 4 03/27/20 23 [id number] DYSTROPHIC NAILS ANY # [id number] DYSTROPHIC NAILS ANY # Next Appt Details Provider Name:Suzan armando, 03/27/2025 08:30:00 AM, [address] [facility], [facility] [address], [place], [address], Insurance Providers Payer Name Payer Address Payer Phone Subscriber Number Group Number Insured Name Patient Relationship to Insured Coverage Start Date Coverage End Date [employer] Medicare Open [address] [place] [address] [id number] Rahul Lucas Self - patient is the insured Medical (General) History Medical History History ICD Code Back,Hip,and Knee pain Hiatal hernia High blood pressure Reflux ( GERD) Measles Mumps Chicken pox Joint implants/screws Diabetic A fib Surgical History Surgery Date(Month/Year) hernia, groin 1968, 1970, 2017 eye and lip repair 1988 nose and throat 1990 hydroseal 1998 umbilical cord hernia 1998 total [...]
--- OUTSIDE RECORDS SUMMARY | 2025-01-07 11:04 | XMS_ITS ---
Author Organization [facility] Address [address] [place] [address] Care Team Providers Care Sports Development Officer Name Role Phone Austin Valles MD Primary Care Provider Raffi Jolly [facility] [phone] REASON FOR VISIT diabetic shoes rx Medications Medication SIG (Take, Route, Frequency, Duration) Notes Start Date End Date Status Extra Depth Diabetic Shoes with 3 Pair Custom heat-molded multi-density innersoles for 1 year Dx: 03/27/2023 Active Encounters Encounter Location Date Provider Diagnosis [facility] [address] [place] [address] 08/31/2023 Raffi Benz Type 2 diabetes mellitus [...] 08:30:00 AM, [address], [place], [address], Progress Notes * Shola NUNEZ:[birth year] (73 yo M)Acc No.[id number]:08/31/2023 Patient:?Rahul Nunez :1950???Age:73 Y???Sex:Male Address:[address] [place] [address] * Refills? Refill Extra Depth Diabetic Shoes with 3 Pair Custom heat-molded multi-density innersoles, 1 pair shoes/3 sets inserts, for 1 year, Dx:, Refills=0 * true * Date:? Generated for Johanna gabriel/Wood/eTransmitting on:?01/07/2025 11:04 AM EDT
--- OUTSIDE RECORDS SUMMARY | 2025-01-07 11:04 | XMS_ITS ---
[facility] Organization [facility] [place] Address [address] [place] [address] Care Team Providers Care Car Refinisher Name Role Phone Austin Valles MD Primary Care Provider Raffi Jolly Unavailable [phone] Allergies No Known Allergies REASON FOR VISIT [...] Garlic Active Calcium Citrate + D3 Active [place] 3 Active Fish Oil Active Multivitamin Adults [...] 03/25/2024 Encounters Encounter Location Date Provider Diagnosis [facility] [place] [address] [facility] [address] [place] [address] 03/25/2024 Raffi Benz Plantar fascial 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 [...] Name:Suzan Payne prabha, 03/27/2025 08:30:00 AM, [address] [facility], [address], [place], [address], Procedure Notes * Category Sub-Category Detail Notes Keratoma Treatment Parring or Cutting o f Benign Hyperkeratotic Lesion(s) 98694 ( 2-4 Lesions ) - The Benign [...] as necessary. Patient chooses, no pharmaceutical tx (96045) Nail Reduction Nail Reduction Trimming of dyst rophic nails performed to reduce/remove overall nail length and girth, by manual and electrical means with use of a nail nipper and/or dremel, to more viable healthy nail plate or bed tissue 6-10 (G0127) Progress Notes * Rahul NUNEZDOB:[birth year] (74 yo M)Acc No.[id number]:03/25/2024 Progress Note Patient:?Rahul Nunez Provider:?Raffi Benz DPM :1950???Age:74 Y???Sex:Male Vincent e:03/25/2024 Address:[address] [place], [place] [phone] Pcp:Austin Valles MD Subjective: * Chief Complaints: [...] Once a dayMultivitamin Adults 50+ Centrum Silver [place] 3 Fish Oil Garlic Calcium Citrate + [...] Multivitamin Adults 50+ Taking Centrum Silver Taking [place] 3 Taking Fish Oil Taking Garlic Taking [...] as necessary. Patient chooses, no pharmaceutical tx (54446).?Keratoma Treatment:?Parring or Cutting of Benign Hyperkeratotic Lesion(s)?41244 ( 2-4 Lesions ) - The Benign [...] or bed tissue 6-10 (G0127).? * Procedure Codes:?66396 TRIM SKIN LESIONS, 2 TO 4, Modifiers: XS G0127 TRIMMING DYSTROPHIC NAILS ANY #, Modifiers: XS 77494 DEBRIDE NAIL, 1-5, Modifiers: XS * Preventive [...] DPM Date:? 024 Generated for Johanna gabriel/Wood/Mark on:?01/07/2025 11:04 AM EDT History and Physical Notes * [...]
--- OUTSIDE RECORDS SUMMARY | 2025-01-07 11:04 | XMS_ITS | Clinical Summary ---
Author Organization [facility] [address] [place] [address] [place] [phone] Phone Care Team Providers Care Freight Team Associate Name Role Phone Austin Valles MD [...] Problem Noted Date Diagnosed Date Atrial fibrillation ([facility] V24, [facility] V28) 0 11/02/2023 CAD (coronary artery disease) 11/02/2023 Diabetes ([facility] V24, [facility] V28) 11/02/2023 HTN (hypertension) 11/02/2023 Hyperparathyroidism ([facility] V24) 11/02/2023 Mixed hyperlipidemia 11/02/2023 Sleep apnea 11/02/2023 Thyroid nodule 11/02/2023 Vitamin D deficiency 11/02/2023 Encounters Date Type Department Care Team Description 11/04/2024 8:30 AM EDT Office Visit Endocrinology [address] [address] Dorota Gross PA Hyperparathyroidism ([facility] V24) (Primary Dx); Vitamin D deficiency; Thyroid [...] CTS, aug 2023 OTHER SURGICAL HISTORY PROCEDURE: [place] EXCISION HYDROCELE UNILATERAL HERNIA REPAIR PROCEDURE: HISTORICAL HERNIA REPAIR/UMB; COMMENT: X3 Medical History Medical History Date Comments Diabetes ([facility] V24, [facility] V28) DX:Diabetes (HCC) Vitamin D deficiency DX:Vitamin D deficiency Sleep apnea DX:Sleep apnea CAD (coronary artery disease) DX :CAD (coronary artery disease) HTN (hypertension) DX:HTN (hyper tension) Mixed hyperlipidemia DX:Mixed hy perlipidemia Atrial fibrillation ([facility] V24, [facility] V28) DX:Atrial fibrillation (HCC) Family History [...] 8:30 AM EDT Office Visit Endocrinology - [place] [address] [place] [address] Dorota Gross PA [address] [place] [address] Health Maintenance Due Date Last Done Comments [...] 8:55 AM EDT Vitamin D deficiency Hyperparathyroidism ([facility] V24) BASIC METABOLIC PANEL Routine 11/04/2024 8:55 AM EDT Vitamin D deficiency Hyperparathyroidism ([facility] V24) THYROID STIMULATING HORMONE WITH REFLEX TO FREE T4 AND FREE T3 Routine 11/04/2024 8:55 AM EDT Thyroid nodule VITAMIN D 25 HYDROXY Routine 11/04/2024 8:55 AM EDT Vitamin D deficiency Hyperparathyroidism ([facility] V24) from Last 3 Months Results * Thyroid stimulating hormone with reflex to free t4 and free t3 (11/04/2024 8:55 AM EDT) TSH 0.60 0.40 - 4.00 mcIU/mL LAB CHEMISTRY METHOD 11/04/2024 1:38 PM EDT [facility] Blood Venous blood specimen / Unknown Venipuncture / Unknown 11/04/2024 8:55 AM EDT 11/04/2024 8:55 AM EDT Dorota NAIK LAB BLOOD ORDERABLES Final Result [facility] [address] [place] [address], [place] [phone] * Vitamin D 25 hydroxy (11/04/2024 8:55 AM EDT) Vit D, 25-Hydroxy 37.7 30.0 - 80.0 ng/mL LAB CHEMISTRY METHOD 11/04/2024 1:37 PM EDT [facility] Blood Venous blood specimen / Unknown Venipuncture / Unknown 11/04/2024 8:55 AM EDT 11/04/2024 8:55 AM EDT us Dorota NAIK LAB BLOOD ORDERABLES Final Result [facility] [address] [place] [address], [place] [phone] * (ABNORMAL) Parathyroid hormone intact (11/04/2024 8:55 AM EDT) PTH 94.0(H) 18.5 - 88.0 pcg/mL LAB CHEMISTRY METHOD 11/04/2024 1:38 PM EDT [facility] Blood Venous blood specimen / Unknown Venipuncture / Unknown 11/04/2024 8:55 AM EDT 11/04/2024 8:55 AM EDT us Dorota NAIK LAB BLOOD ORDERABLES Final Result [facility] [address] [place] [address], [place] [phone] * (ABNORMAL) Basic metabolic panel (11/04/2024 8:55 AM EDT) Sodium 134 133 - 145 mmol/L LAB CHEMISTRY METHOD 11/04/2024 1:[address] [facility] Potassium 3.8 3.5 - 5.5 mmol/L LAB CHEMISTRY METHOD 11/04/2024 1:[address] [facility] Chloride 100 96 - 110 mmol/L LAB CHEMISTRY METHOD 11/04/2024 1:[address] [facility] CO2 28 21 - 32 mmol/L LAB CHEMISTRY METHOD 11/04/2024 1:[address] [facility] Anion Gap 6 3 - 11 LAB CHEMISTRY METHOD 11/04/2024 1:[address] [facility] Glucose 102(H) 70 - 100 mg/dL LAB CHEMISTRY METHOD 11/04/2024 1:[address] [facility] BUN 17 5 - 25 mg/dL LAB CHEMISTRY METHOD 11/04/2024 1:[address] [facility] Creatinine 1.44(H) 0.70 - 1.30 mg/dL LAB CHEMISTRY METHOD 11/04/2024 1:[address] [facility] eGFR 51(L) >=60 mL/min/1. 73m2 LAB CHEMISTRY METHOD 11/04/2024 1:[address] [facility] Comment:Calculation based on the??Chronic Kidney Disease Epidemiology Collaboration (CKD-EPI) equation refit??without adjustment for race. BUN/Creatinine Ratio 11.8 LAB CHEMISTRY METHOD 11/04/2024 1:26 PM EDT [facility] Calcium 9.3 8.5 - 10.5 mg/dL LAB CHEMISTRY METHOD 11/04/2024 1:26 PM EDT [facility] Blood Venous blood specimen / Unknown Venipuncture / Unknown 11/04/2024 8:55 AM EDT 11/04/2024 8:55 AM EDT us Dorota NAIK LAB BLOOD ORDERABLES Final Result [facility] [address] [place] [address], [place] [phone] from Last 3 Months Insurance [employer] MED[employer]ARE [employer]VANTAGE Care Teams Freight Team Associate Relationship Specialty Start Date End Date Austin Valles MD [address] [place] [address] Dr Aletha [place] PCP - General 11/07/22
--- OUTSIDE RECORDS SUMMARY | 2025-01-07 11:04 | XMS_ITS | Clinical Summary ---
Author Organization [facility] Address [address] [place] [address] Care Team Providers Care Order Processing Clerk Name Role Phone Unavailable Primary Care Provider [...]
[2025-01-07 12:26] LABS: Alanine Aminotransferase 16 U/L (0-40); Albumin Level 4.1 g/dL (3.5-5.0); Alkaline Phosphatase 53 U/L (39-117); Anion Gap 14 (12-20); Aspartate Amino Transferase 24 U/L (5-37); Bilirubin Total 1.3 mg/dL (0.0-1.0); Blood Urea Nitrogen 23 mg/dL (9-16); Calcium 9.1 mg/dL (8.4-10.2); Carbon Dioxide 25 mmol/L (22-29); Chloride 102 mmol/L (96-108); Estimated Glomerular Filt Rate 57; Glucose Random 102 mg/dL (60-115); Potassium 4.5 mmol/L (3.3-5.1); Sodium 136 mmol/L (135-145)
[2025-01-07 14:15] LABS: Appearance Urine Clear; Color Urine Yellow; Glucose Urine UA >=1000 mg/dL (Negative); Leukocyte Esterase Urine Negative (Negative); Nitrite Urine Negative (Negative); PH 5.5 (5.0-9.0); UMIC TRIGGER UA YES; UMIC TRIGGER UACC YES; Urine Blood Trace (Negative); Urine Ketones Negative (Negative); Urine Protein 100 (2+) mg/dL (Neg-Trace)
[2025-01-07 14:21] LABS: Bacteria Urine None Seen (None Seen); Hyaline Casts Urine 0-2 /LPF (0-2); RBC Urine 0-2 /HPF (0-2); Squamous Epithelial Cell Urine 0-2 /HPF (0-2); WBC Urine 0-5 /HPF (0-5)
[2025-01-07 14:43] LABS: Creatinine Urine 98.17 mg/dL; Microalbum/Creatinine Ratio Ur 317.8 ug/mg cr (<30)
== END 2025-01-07 09:46 | disposition home or self-care (01) ==
LOC: HO.WFDLDS 09:45
PROVIDERS: Visit Provider Family Medicine
DX: Z00.00 Encounter for general adult medical examination without abnormal findings (principal); E11.9 Type 2 diabetes mellitus without complications; I10 Essential (primary) hypertension
CPT/HCPCS: 36415; 80053; 81001; 82043; 82570

== ENCOUNTER 2025-01-14 07:57 | Outpatient (AMB) | payer MEDICARE, SELFPAY ==
--- OUTSIDE RECORDS SUMMARY | 2025-01-14 08:01 | XMS_ITS ---
[facility] [place] Address [address] [place] [address] Care Team Providers Care Service Secretary Name Role Phone Austin Valles MD Primary Care Provider Raffi Jolly Unavailable [phone] Allergies No Known Allergies REASON FOR VISIT [...] Garlic Active Calcium Citrate + D3 Active [place] 3 Active Fish Oil Active Multivitamin Adults [...] 03/25/2024 Encounters Encounter Location Date Provider Diagnosis [facility] [place] [address] [facility] [address] [place] [address] 03/25/2024 Raffi Benz Plantar fascial 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 [...] Name:Suzan Payne prabha, 03/27/2025 08:30:00 AM, [address] [facility], [address], [place], [address], Procedure Notes * Category Sub-Category Detail Notes Keratoma Treatment Parring or Cutting o f Benign Hyperkeratotic Lesion(s) 69632 ( 2-4 Lesions ) - The Benign [...] as necessary. Patient chooses, no pharmaceutical tx (98716) Nail Reduction Nail Reduction Trimming of dyst rophic nails performed to reduce/remove overall nail length and girth, by manual and electrical means with use of a nail nipper and/or dremel, to more viable healthy nail plate or bed tissue 6-10 (G0127) Progress Notes * Rahul NUNEZDOB:[birth year] (74 yo M)Acc No.[id number]:03/25/2024 Progress Note Patient:?Rahul Nunez Provider:?Raffi Benz DPM :1950???Age:74 Y???Sex:Male Vincent e:03/25/2024 Address:[address] [place], [place] [address] Pcp:Austin Valles MD Subjective: * Chief Complaints: [...] Once a dayMultivitamin Adults 50+ Centrum Silver [place] 3 Fish Oil Garlic Calcium Citrate + [...] Multivitamin Adults 50+ Taking Centrum Silver Taking [place] 3 Taking Fish Oil Taking Garlic Taking [...] as necessary. Patient chooses, no pharmaceutical tx (96862).?Keratoma Treatment:?Parring or Cutting of Benign Hyperkeratotic Lesion(s)?07152 ( 2-4 Lesions ) - The Benign [...] or bed tissue 6-10 (G0127).? * Procedure Codes:?26250 TRIM SKIN LESIONS, 2 TO 4, Modifiers: XS G0127 TRIMMING DYSTROPHIC NAILS ANY #, Modifiers: XS 78859 DEBRIDE NAIL, 1-5, Modifiers: XS * Preventive [...] DPM Date:? 024 Generated for Johanna gabriel/Wood/Mark on:?01/14/2025 08:00 AM EDT History and Physical Notes * [...]
--- NOTE | 2025-01-14 08:08 | MHC.PC.OV ---
Vital Signs 01/14/25 08:12 Height 5 ft 8 in Weight 190 lb BMI 28.9 BP 98/58 L Blood Pressure Location Rt brachial Position Sitting Respiration 14 Pulse 50 Pulse Source Pulse Oximeter Pulse Oximetry (%) 97 Oxygen Delivery Method Room Air Intake Visit Reasons: f/u diabetes, HTN Intake Note: Follow up diabetes and htn Computer Artist Required: No Allergies No Known Allergies Allergy (Verified 01/14/25 08:09) Medication List - Last Reconciled 01/14/25 by Austin Valles MD blood sugar diagnostic As directed blood sugar diagnostic (ASC Information TechnologyTouch Ultra Test strips) Once a day As directed, 90 days calcium carbonate (Calcium 500) 500 mg PO DAILY CPAP (CPAP Machine/Device) DX: G47.33, q.h.s. As directed, 999 days/lifetime dapagliflozin propanediol (Farxiga) 5 mg PO QAM 90 days ferrous sulfate 325 mg PO DAILY 30 days garlic 1,000 mg PO DAILY lancets One Touch Delica Plus 30g lancets; DX: E11.9, test blood sugar once a day, 90 days metformin 850 mg PO TIDWMEAL 90 days th-xqz-hdvny-Q6-vvqaawf-qfpwyq 088-34-548-300 mcg (Centrum Silver Ultra Men's) 1 tab PO DAILY omega 2-hcd-pjr-fish oil 1,200 (144-216) mg (Fish Oil) caps PO pantoprazole 20 mg PO BID rivaroxaban (Xarelto) 20 mg PO DAILY rosuvastatin 40 mg PO DAILY valsartan-hydrochlorothiazide 320-12.5 mg 1 tab PO DAILY Tobacco use date assessed: 01/14/25 Fall risk assessment: No Falls in past year Last assessed Fall Risk: 01/14/25 Dental Screening Dental Screen Date: 01/14/25 Did you have a dental visit in the last 12 months?: Yes Did you have a dental problem in the last 6 months where you did not have access to dental care?: No Was dental information given to patient?: Patient has dentist HPI f/u diabetes, HTN HPI Details 74 y/o male presents to f/u diabetes, HTN. A1c today 7.1%. He is on metformin 850mg t.i.d, Farxiga. He notes last diabetic eye exam was last March. Blood pressure today 98/58. He is on valsartan-HCTZ 320-12.5mg daily. Continues to f.u with Cardiology. He is on xarelto 20mg daily. HPI Comments History of Present Illness Details Documentation assistance for Austin Valles MD, was provided by Santy Poe,? Water Softener Installer on 01/14/2025 at 8:37 AM EST. I, Dr. Valles, have read, observed, and verified documentation. ? [facility] Medical History (Updated 08/26/24 @ 10:22 by CRYS Parker) Carpal tunnel syndrome of right wrist Carpal tunnel syndrome of left wrist Abnormal myocardial perfusion study Bilateral hand numbness Wrist pain Obstructive sleep apnea Adult general medical exam Screening for prostate cancer Screening for colon cancer Encounter for general adult medical examination without abnormal findings Atherosclerotic cardiovascular disease Sleep apnea Esophageal dysphagia Essential hypertension Diabetes type 2, controlled Type 2 diabetes mellitus HTN (hypertension) CHACHA on CPAP Hypercalcemia Hematuria Hyperlipidemia, unspecified Essential hypertension Type 2 diabetes mellitus with unspecified complications Persistent atrial fibrillation Surgical History History of parathyroidectomy Hx of carpal tunnel repair Hx of colonoscopy History of esophagogastroduodenoscopy (EGD) History of left knee replacement History of right knee joint replacement Family History Father No problems noted. Mother Cancer CVD (cardiovascular disease) CHF (congestive heart failure) Brother Bladder cancer Brother Bladder cancer Brother History of heart valve replacement Daughter No problems noted. Son No problems noted. 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 1. Little interest or pleasure in doing things: not at all 2. Feeling down, depressed, or hopeless: not at all 3. Trouble falling or staying asleep, or sleeping too much: not at all 4. Feeling tired or having little energy: not at all 5. Poor appetite or overeating: not at all 6. Feeling bad about yourself - or that you are a failure or have let yourself or your family down: not at all 7. Trouble concentrating on things, such as reading the newspaper or watching television: not at all 8. Moving or speaking so slowly that other people could have noticed. Or the opposite - being so fidgety or restless that you have been moving around a lot more than usual: not at all 9. Thoughts that you would be better off or of hurting yourself in some way: not at all Total score: 0 Depression Screening Interpretation: Negative Depression Screening Done: Yes 17389 - PHQ-9 Billing: Yes Source: Developed by Drs. Shashi Vera, Paulette Washington, Tato Fuchs and colleagues, with an educational aurelio from [employer]. Thrive Questionnaire Date Thrive assessed: 01/14/25 I am a: Patient What is your living situation today?: I have a steady place to live Within the past 12 months, did the food you bought not last and you didn't have the money to get more?: Often true Within the past 12 months, did you worry whether your food would run out before you got money to buy more?: Never true Do you have trouble paying for medicines?: No Do you have trouble getting transportation to medical appointments?: No Do you have trouble paying your heating and electricity bill?: No Do you have trouble taking care of your child, family member or friend?: No Do you have trouble with day-to-day activities such as bathing, preparing meals, shopping, managing finances, etc.?: No Are you currently unemployed and looking for a job?: No Are you interested in more education?: No Please select the resources that you would like help with: None Currently or been in a relationship where the following occur: No concerns reported THRIVE Score: 1 AUDIT C Alcohol Use Questionnaire (AUDIT-C) 1. How often do you have a drink containing alcohol?: Never 3. How often do you have six or more drinks on one occasion?: Never Total Score: 0 ABHINAV-7 AMB Questionnaire ABHINAV-7 Date ABHINAV - 7 assessed: 01/14/25 Feeling nervous, anxious, or on edge: 0 = Not at all Not being able to stop or control worryin = Not at all Worrying too much about different things: 0 = Not at all Trouble relaxin = Not at all Being so restless that it is hard to sit still: 0 = Not at all Becoming easily annoyed or irritable: 0 = Not at all Feeling afraid as if something awful might happen: 0 = Not at all Total ABHINAV-7 score (0-4 normal; 5-9 mild; 10-14 moderate; 15-21 severe): 0 Source: Developed by Drs. Shashi Vera, Paulette Washington, Tato Fuchs and colleagues, with an educational aurelio from [employer]. ABHINAV-7 Assessment Billing ABHINAV-7 Assessment Tool: ABHINAV-7 Assessment 73653 Review of Systems Const Denies chills, Denies fatigue, Denies fever(s), Denies headache(s) and Denies weakness ENT Denies dizziness and Denies headache(s) Card Denies dyspnea Resp Denies cough, Denies dyspnea, Denies wheezing and Denies other (shortness of breath) Musc Denies numbness and Denies tingling Neuro Denies dizziness, Denies headache(s), Denies numbness, Denies tingling and Denies weakness Psych Denies anxiety and Denies depression Endo Denies fatigue Aller/Immun Denies wheezing Physical exam (Primary Care) Vital Signs: Last Vital Signs Pulse 50 01/14/25 08:12 Resp 14 01/14/25 08:12 BP 98/58 L 01/14/25 08:12 Pulse Ox 97 01/14/25 08:12 Oxygen Delivery Method Room Air 01/14/25 08:12 BMI result Body Mass Index 28.9 Tobacco/Smoking Status: Tobacco use Status Tobacco use date assessed 01/14/25 01/14/25 08:10 Patient Tobacco Use Status Never used Tobacco 01/14/25 08:10 e-Cigarette/Vaping Use Never Used 01/14/25 08:10 PHQ-9: PHQ-9 Score PHQ-9: Total score 0 01/14/25 08:35 Depression Screening Interpretation: Negative Thrive Assessment: Date of Thrive Assessment Date Thrive assessed 01/14/25 01/14/25 08:16 Currently or been in a relationship where the following occur: No concerns reported Const General: well developed; No acute distress Nutritional Appearance: well nourished Orientation/consciousness: patient oriented x3 HENMT Head: Yes normocephalic and Yes atraumatic Eyes General: appearance normal, both eyes and all related structures Pupils: Equal, round and reactive pupils present EOM: EOMs intact bilaterally Resp Effort & Inspection: normal respiratory effort Auscultation: clear to auscultation bilaterally Cardio Rate: regular rate Rhythm: abnormal rhythm irregularly irregular Heart sounds: S1 normal heart sound present, S2 normal heart sound present, no gallops, no murmurs and no rubs Neuro General: patient oriented x3 and gait normal Cranial nerves: Yes Equal, round and reactive pupils present Psych Affect: normal affect Results AMB Hemoglobin A1c AMB Hemoglobin A1c 7.1 % Last Edit by Leigh Shrestha CMA on 01/14/25 08:24 Results Reviewed Results Reviewed: Laboratory Last Values Hgb A1c (Clinic) 7.1 % (4.0-6.0) H 01/14/25 08:21 Coding Level of Care Code Est Pt Level 3 (30474) Diagnoses Diabetes type 2, controlled E11.9 Essential hypertension I10 Persistent atrial fibrillation I48.19 Additional Codes ABHINAV-7 Assessment Billing - ABHINAV-7 Assessment Tool: ABHINAV-7 Assessment 22597 ([id number]) PHQ-9 - 84964 - PHQ-9 Billing: Yes ([id number]) Assessment & Plan Assessment & Plan (1) Diabetes type 2, controlled: Code(s): E11.9 - Type 2 diabetes mellitus without complications Category: Medical Plan: A1c?7.1%. ?Fair?control.??Goal?is?around?7% Continue?current?medications Encouraged?diabetic?diet Patient?had?last?diabetic?eye?exam?in?March?2023.??He?will?arrange?another?appointment?for?this?year. (2) Essential hypertension: Code(s): I10 - Essential (primary) hypertension Category: Medical Plan: Blood?pressure?appears?a?little?low?today. Goal?is?less?than?130/80 Encouraged?him?to?drink?more?water,?particularly?1st?thing?in?the?morning He?denies?any?dizziness?or?weakness.??He?will?let?me?know?if?this?changes No?changes?to?his?medication?regimen?today. (3) Persistent atrial fibrillation: Code(s): I48.19 - Other persistent atrial fibrillation Category: Medical Plan: He?is?on?Xarelto Stable Follow-up?with?Cardiology?as?recommended Orders: Orders AMB Hemoglobin A1c Today E11.9 - Type 2 diabetes mellitus without complications
[2025-01-14 08:12] VITALS: BP 98/58; PULSE 50; RESP 14; O2SAT 97; BMI 28.9
== END 2025-01-14 08:41 | disposition home or self-care (01) ==
LOC: HO.HMCFM 07:58
PROVIDERS: PCP Family Medicine; Visit Provider Family Medicine
DX: E11.9 Type 2 diabetes mellitus without complications (principal); I10 Essential (primary) hypertension; I48.19 Other persistent atrial fibrillation

== ENCOUNTER → 2025-01-14 07:57 | Outpatient (BNVA) | payer MEDICARE, SELFPAY | PROVIDERS: PCP Family Medicine; Visit Provider Family Medicine | DX: E11.9 Type 2 diabetes mellitus without complications (principal); I10 Essential (primary) hypertension; I48.19 Other persistent atrial fibrillation; Z79.01 Long term (current) use of anticoagulants; Z79.84 Long term (current) use of oral hypoglycemic drugs; Z79.899 Other long term (current) drug therapy | CPT/HCPCS: 83036; 96127; 99212 ==

== ENCOUNTER 2025-03-25 11:46 | Outpatient (AMB) | payer MEDICARE, SELFPAY ==
[2025-03-25 11:52] VITALS: BP 120/69; PULSE 65; BMI 28.0
--- NOTE | 2025-03-25 11:52 | MHC.OFFVIS ---
Vital Signs 03/25/25 11:52 Height 5 ft 8 in Weight 184 lb 4.903 oz BMI 28.0 BP 120/69 Blood Pressure Location Lt brachial Position Sitting Pulse 65 Intake Visit Reasons: 6 mo follow up GERD R/S from 02/24/25 Intake Note: Rahul presents in the office as a 6 month follow up of GERD. CC: Patient reports doing well and denies any new GI concerns. 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 He has children all under age 8, the oldest is grandson who he adopted. He continues to do well on his pantoprazole 20 mg twice a day. He has had no heartburn and no further episodes of dysphagia. Return office visit in 6 months Medications: New pantoprazole 20 mg PO BID 180 tabs 1RF K21.9 - Gastro-esophageal reflux disease without esophagitis TODAYS VISIT He continues to do well on his pantoprazole 20 mg twice a day. He has had no heartburn and no further episodes of dysphagia Return office visit in 6 months [facility] Medical History (Updated 03/25/25 @ 12:35 by CRYS Parker) Positive colorectal cancer screening using Cologuard test Carpal tunnel syndrome of right wrist Carpal tunnel syndrome of left wrist Abnormal myocardial perfusion study Bilateral hand numbness Wrist pain Obstructive sleep apnea Adult general medical exam Screening for prostate cancer Screening for colon cancer Encounter for general adult medical examination without abnormal findings Atherosclerotic cardiovascular disease Sleep apnea Esophageal dysphagia Essential hypertension Diabetes type 2, controlled Type 2 diabetes mellitus HTN (hypertension) CHACHA on CPAP Hypercalcemia Hematuria Hyperlipidemia, unspecified Essential hypertension Type 2 diabetes mellitus with unspecified complications Persistent atrial fibrillation Surgical History (Updated 03/25/25 @ 12:35 by CRYS Parker) History of parathyroidectomy Hx of carpal tunnel repair Hx of colonoscopy History of esophagogastroduodenoscopy (EGD) History of left knee replacement History of right knee joint replacement Family History Father No problems noted. Mother Cancer CVD (cardiovascular disease) CHF (congestive heart failure) Brother Bladder cancer Brother Bladder cancer Brother History of heart valve replacement Daughter No problems noted. Son No problems noted. 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 Current occupational exposures/hazards: No Cognitive needs: No Hearing needs: Yes (hearing aides) Vision needs: Yes (glasses) Review of Systems Const Denies fatigue, Denies fever(s), Denies night sweats, Denies poor appetite and Denies weight loss Eyes Details: glasses Reports requires corrective lenses ENT Reports Normal hearing present, Denies dental pain, Denies dysphagia, Denies hearing loss, Denies mouth pain, Denies odynophagia, Denies throat swelling, Denies tongue swelling and Reports other (Dentition adequate) Card Reports no additional complaints Resp Reports no additional complaints GI Details: Denies abdominal pain, Denies melena, Denies bloating, Denies hematochezia, Denies constipation, Denies GI cramping, Denies dysphagia, Denies excessive flatus, Denies early satiety, Reports heartburn, Denies diarrhea, Denies nausea, Denies odynophagia, Denies vomiting and Denies hematemesis Skin/Breast Denies pruritus, Denies lesions, Denies rash and Denies jaundice Neuro Reports Normal hearing present and Denies Abnormal speech present Endo Denies fatigue Aller/Immun Denies throat swelling and Denies tongue swelling Physical Exam Vital Signs: Last Vital Signs Pulse 65 03/25/25 11:52 BP 120/69 03/25/25 11:52 BMI result Body Mass Index 28.0 Const General: cooperative, no acute distress, well developed and well groomed Nutritional Appearance: well nourished and overweight Orientation/consciousness: oriented to person, oriented to place and oriented to time Limitations: No language barrier HEENT Head: Yes normocephalic and Yes atraumatic Eyes General: appearance normal, both eyes and all related structures Pupils: Equal, round and reactive pupils present Neck Neck: Yes normal visual inspection and Yes no lymphadenopathy Thyroid: Thyroid normal Resp Effort & Inspection: normal respiratory effort and able to speak in complete sentences Auscultation: clear to auscultation bilaterally Cardio Rate: regular rate Rhythm: regular rhythm Heart sounds: Normal, physiologic split S2 sound present Peripheral pulses: radial pulses present and posterior tibial pulses present GI Inspection: No distended, No Abdominal panniculus present and Yes obesity Palpation (GI): Soft to palpation, nontender, no guarding, not rigid and No hepatosplenomegaly present Percussion: Yes normal to percussion Auscultation: normal bowel sounds Rectal Exam - Male: Yes deferred Skin General skin exam: no rashes or lesions noted, turgor normal, skin not dry, no jaundice, No spider nevi and no striae Rashes: no rashes Nails: normal Neuro General: oriented to person, oriented to place and oriented to time Cranial nerves: Yes Equal, round and reactive pupils present and Yes Normal hearing present Speech: No Abnormal speech present Extrem General: Yes normal to inspection, No clubbing, No cyanosis and No edema Psych Appearance: grossly normal and well kempt Mental Status: mental status grossly normal Speech and movement: Normal speech and movement present Affect: normal affect Attitude: cooperative Thought process: Normal thought process present and not confabulating Thought content: Normal thought content present Insight: Good insight present (Psych) Judgement: Good judgement present (Psych) Assessment & Plan Assessment & Plan (1) GERD (gastroesophageal reflux disease): Code(s): K21.9 - Gastro-esophageal reflux disease without esophagitis Category: Medical (2) Erosive esophagitis: Code(s): K22.10 - Ulcer of esophagus without bleeding Category: Medical Plan He continues to do well on his pantoprazole 20 mg twice a day. He has had no heartburn and no further episodes of dysphagia Return office visit in 1 year Medications: Refilled pantoprazole 20 mg PO BID 180 tabs 1RF K21.9 - Gastro-esophageal reflux disease without esophagitis Coding Level of Care Code Est Pt Level 3 (77566) Diagnoses GERD (gastroesophageal reflux disease) K21.9 Erosive esophagitis K22.10
--- OUTSIDE RECORDS SUMMARY | 2025-03-25 12:31 | XMS_ITS | Clinical Summary ---
Author Organization [facility] [address] [place] [address] [place] [id number] Phone Care Team Providers Care Coal Mill Operator Name Role Phone Austin Valles MD [...] Problem Noted Date Diagnosed Date Atrial fibrillation ([facility] V24, [facility] V28) 0 11/02/2023 CAD (coronary artery disease) 11/02/2023 Diabetes ([facility] V24, [facility] V28) 11/02/2023 HTN (hypertension) 11/02/2023 Hyperparathyroidism ([facility] V24) 11/02/2023 Mixed hyperlipidemia 11/02/2023 Sleep apnea [...] CTS, aug 2023 OTHER SURGICAL HISTORY PROCEDURE: AL EXCISION HYDROCELE UNILATERAL HERNIA REPAIR PROCEDURE: HISTORICAL HERNIA REPAIR/UMB; COMMENT: X3 Medical History Medical History Date Comments Diabetes ([facility] V24, [facility] V28) DX:Diabetes (HCC) Vitamin D deficiency DX:Vitamin D deficiency Sleep apnea DX:Sleep apnea CAD (coronary artery disease) DX :CAD (coronary artery disease) HTN (hypertension) DX:HTN (hyper tension) Mixed hyperlipidemia DX:Mixed hy perlipidemia Atrial fibrillation ([facility] V24, [facility] V28) DX:Atrial fibrillation (HCC) Family History Medical [...] 49 11/04/2024 8:18 AM EDT Temperature 36 C (96.8 F) 11/04/2024 8:18 AM EDT Respiratory Rate 15 [...] 8:30 AM EDT Office Visit Endocrinology - [place] [address] [place] [address] Dorota Gross PA [address] [place] [address] Health Maintenance Due Date Last Done Comments Diabetes: Annual Foot Exam 1960 Diabetes: Annual Retina Eye Exam 1960 Cholesterol Screening (Lipid Panel) 09/19/2023 Falls Risk Assessment 09/19/2023 Hepatitis C Screening 09/19/2023 Medicare Annual Wellness Visit 09/19/2023 Social Influencers of Health Screening 09/19/2023 Diabetes: Annual Urine Albumin-Creatinine Ratio (uACR) 03/14/2024 Diabetes: Blood Sugar Control Test (HGBA1C) 03/14/2024 Depression Screening 08/20/2024 COVID-19 Vaccine ( season) 2024 05/09/2024, 05/19/2023, 05/16/2022, Additional history exists Influenza Vaccine (#1) 2025 , 05/19/2023, 05/22/2021, Additional history exists Diabetes: Annual GFR (Glomerular Filtration Rate) 11/04/2025 11/04/2024, 11/02/2023 Hypertension/CHF/CAD Annual BMP Blood Test 11/04/2025 11/04/2024, 11/02/2023 DTaP,Tdap,and Td Vaccines (2 - Td or Tdap) 04/05/2034 04/05/2024 Zoster Vaccines Completed 09/13/2019, 07/14/2019 Pneumococcal Vaccine: 50+ Years Completed 02/07/2023, 09/14/2016 RSV Immunization Adult Patients Completed 05/19/2023 HIB Vaccines Aged Out No longer eligi [...] Procedure Name Priority Date/Time Associated Diagnosis Comments BASIC METABOLIC PANEL Routine 11/04/2024 8:55 AM EDT Vitamin D deficiency Hyperparathyroidism ([facility] V24) from Last 3 Months or Most Recently Relevant to Health Maintenance Results * (ABNORMAL) Basic metabolic panel (11/04/2024 8:55 AM EDT) Sodium 134 133 - 145 mmol/L LAB CHEMISTRY METHOD 11/04/2024 1:[address] [facility] Potassium 3.8 3.5 - 5.5 mmol/L LAB CHEMISTRY METHOD 11/04/2024 1:26 PM [facility] Chloride 100 96 - 110 mmol/L LAB CHEMISTRY METHOD 11/04/2024 1:26 PM [facility] CO2 28 21 - 32 mmol/L LAB CHEMISTRY METHOD 11/04/2024 1:26 PM [facility] Anion Gap 6 3 - 11 LAB CHEMISTRY METHOD 11/04/2024 1:[address] [facility] Glucose 102(H) 70 - 100 mg/dL LAB CHEMISTRY METHOD 11/04/2024 1:[address] [facility] BUN 17 5 - 25 mg/dL LAB CHEMISTRY METHOD 11/04/2024 1:[address] [facility] Creatinine 1.44(H) 0.70 - 1.30 mg/dL LAB CHEMISTRY METHOD 11/04/2024 1:[address] [facility] eGFR 51(L) >=60 mL/min/1. 73m2 LAB CHEMISTRY METHOD 11/04/2024 1:[address] [facility] Comment:Calculation based on the Chronic Kidney Disease Epidemiology Collaboration (CKD-EPI) equation refit without adjustment for race. BUN/Creatinine Ratio 11.8 LAB CHEMISTRY METHOD 11/04/2024 1:[address] [facility] Calcium 9.3 8.5 - 10.5 mg/dL LAB CHEMISTRY METHOD 11/04/2024 1:[address] [facility] Blood Venous blood specimen / Unknown Venipuncture / Unknown 11/04/2024 8:55 AM EDT 11/04/2024 8:55 AM EDT us Dorota NAIK LAB BLOOD ORDERABLES Final Result [facility] [address] [place] [address], from Last 3 Months or Most Recently Relevant to Health Maintenance Insurance [employer] MEDICARE [employer]VANTAGE Care Teams Coal Mill Operator Relationship Specialty Start Date End Date Austin Valles MD [address] [place] [address] Dr Aletha MA PCP - General 11/07/22
--- OUTSIDE RECORDS SUMMARY | 2025-03-25 12:31 | XMS_ITS ---
Author Name [facility] Organization Unknown Care Team Organization Name Specialty Phone Email Start Date End Da te [facility] Fabricio Garcia Primary Care 01/26/2023 04/07/20 24
--- OUTSIDE RECORDS SUMMARY | 2025-03-25 12:32 | XMS_ITS | Patient Health Record ---
[facility] Address [address] [place] [address] Care Team Providers Care Tapper Operator Name Role Phone Austin Valles MD Primary Care Provider Suzan Medellin Unavailable [phone] Raffi Benz Unavailable [phone] Allergies No Known Allergies Reason For Referral No Information Medications Medication SIG (Take, Route, Frequency, Duration) Notes Start Date End Date Status Garlic Active Calcium Citrate + D3 Active [place] 3 Active Fish Oil Active Multivitamin Adults 50+ Active Rosuvastatin Calcium 40 MG 1 tablet Oral ly Once a day; Duration: 30 day(s) Active Centrum Silver Activ e Night Splint AFO - L1930 as directed 02/24/2022 Active metFORMIN HCl 850 MG 1 tablet with a angelina l Orally Once a day; Duration: 30 day(s) Active glipiZIDE 5 MG 1 tablet 30 minutes before breakfast Orally Once a day; Duration: 30 day(s) Active Valsartan-hydroCHLOROthiazi de 320-12.5 MG 1 tablet Orally Once a day; Duration: 30 day(s) Active Xarelto 20 MG 1 tablet with food O rally Once a day; Duration: 30 day(s) Active Extra Depth Diabetic Shoes with 3 Pair Custom heat-molded multi-density innersoles for 1 year Dx: Active Metoprolol Succinate ER 25 MG 1 tablet Orally Once a day; Duration: 30 day(s) Active Pantoprazole Sodium 20 MG 1 tablet Orall y Once a day; Duration: 30 day(s) Active Social History Tobacco Use: [...] Problem Acquired hammer toe of right foot (0979757051323770 ) Other hammer toe(s) (acquired), right foot (M20.41) Active confirmed Problem Acquired hammer toe of left foot (8628621247900936 ) Other hammer toe(s) (acquired), left foot (M20.42) Active confirmed Problem Polyneuropathy due to type 2 diabetes mellitus (901145962) Type 2 diabetes mellitus with diabetic polyneuropathy (E11.42) Active confirmed Problem Polyneuropathy due to diabetes mellitus type I (308597181) Type 1 diabetes mellitus with diabetic polyneuropathy (E10.42) Active confirmed Vital Signs Height 5ft 8 in in 03/25/2024 Weight 210 lbs 03/25/2024 BMI 31.93 kg/m2 03/25/2024 Encounters Encounter Location Date Provider Diagnosis [facility] [address] [address] 03/25/2024 Raffi Benz Plantar fascial 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 [...] X ray : Foot, right 3V 02/24/2022 [id number] NAIL, 1-5 03/27/2023 [id number] SKIN LESIONS, 2 TO 4 03/27/20 23 [id number] DYSTROPHIC NAILS ANY # [id number] DYSTROPHIC NAILS ANY # Next Appt Details Provider Name:Suzan Payne prabha, 03/27/2025 08:30:00 AM, [address] [facility], [facility] [address], [place], [address], Insurance Providers Payer Name Payer Address Payer Phone Subscriber Number Group Number Insured Name Patient Relationship to Insured Coverage Start Date Coverage End Date Aetna Medicare Open [address] [place] [address] [phone] [id number] Rahul Lucas Self - patient is the [...]
--- OUTSIDE RECORDS SUMMARY | 2025-03-25 12:32 | XMS_ITS | Clinical Summary ---
Author Organization [facility] Address [address] [place] [address] Care Team Providers Care Psychiatric Clinician Name Role Phone Unavailable Primary Care Provider [...] Tdap / Td (1 - Tdap) 1968 Shingrix-Zoster Vaccine (1 of 2) 1999 Fall Risk Assessment 2014 Pneumococcal Vaccine (1 of 1 - PCV) 2014 RSV Adult > 60+ Yrs or Pregn ant (1 - 1-dose 75+ series) 2024 Influenza Vaccine (#1) 2025 Hepatitis B Vaccines Aged Out No long er eligible based on patient's age to complete this topic RSV Ped < 20 months Aged Out No longe r eligible based on patient's age to complete this topic
== END 2025-03-25 12:57 | disposition home or self-care (01) ==
LOC: HO.HGI 11:46
PROVIDERS: PCP Family Medicine; Visit Provider Nurse Practitioner
DX: K21.9 Gastro-esophageal reflux disease without esophagitis (principal); K22.10 Ulcer of esophagus without bleeding
CPT/HCPCS: 99213

== ENCOUNTER → 2025-03-25 11:46 | Outpatient (BNVA) | payer MEDICARE, SELFPAY | PROVIDERS: PCP Family Medicine; Visit Provider Nurse Practitioner | DX: K21.9 Gastro-esophageal reflux disease without esophagitis (principal); K22.10 Ulcer of esophagus without bleeding | CPT/HCPCS: 99212 ==

== ENCOUNTER 2025-04-21 09:45 | Outpatient (REF) | payer MEDICARE, SELFPAY ==
--- OUTSIDE RECORDS SUMMARY | 2025-04-21 10:52 | XMS_ITS | Clinical Summary ---
Author Organization [facility] Address [address] [place] [address] Care Team Providers Care Audio/Visual Operator Name Role Phone Unavailable Primary Care [...]
--- OUTSIDE RECORDS SUMMARY | 2025-04-21 10:52 | XMS_ITS | Patient Health Record ---
[facility] Address [address] [place] [address] Care Team Providers Care Call Center Rn Name Role Phone Austin Valles MD Primary Care Provider Suzan Medellin Unavailable [phone] Allergies No Known Allergies Results Component Value Reference Range Notes HEMOGLOBIN A1C (GLYCOHEMOGLO BIN) Reviewed date:03/27/2025 08:30:08 AM Interpretation: Performing Lab: Notes/Report: HEMOGLOBIN A1C % (HH) 6.5 Reason For Referral No Information Medications Medication SIG (Take, Route, Frequency, Duration) Notes Start Date End Date Status Centrum Silver Not-T aking Magnesium Active glipiZIDE 5 MG 1 tablet 30 minutes before breakfast Orally Once a day; Duration: 30 day(s) Not-Taking Rosuvastatin Calcium 40 MG 1 tablet Orally Once a day; Duration: 30 day(s) Active Extra Depth Orthopedic Shoes (1 Pair) with Customized Heat Molded Multidensity Innersoles (3 Pair) Dx: NIDDM/Polyneuropathy (E11.42), Hammertoe Foot Deformity (M20.41,M20.42), Preulcerative Skin Lesion(s) (L85.1); Duration: 365 days 03/27/2025 Active Valsartan-hydroCHLOROthi azide 320-12.5 MG 1 tablet Orally Once a day; Duration: 30 day(s) Active Metoprolol Succinate ER 25 MG 1 tablet Orally Once a day; Duration: 30 day(s) Not-Ryley ing Extra Depth Diabetic Shoes with 3 Pair Custom heat-molded multi-density innersoles for 1 year Dx: N ot-Taking Night Splint AFO - L1930 as directed 02/24/2022 Not-Taking Garlic Active Fish Oil Active [place] 3 Active Multivitamin Adults 50+ Active metFORMIN HCl 850 MG 1 tablet with a angelina l Orally Once a day; Duration: 30 day(s) Active Xarelto 20 MG 1 tablet with food Orally Once a day; Duration: 30 day(s) Active Pantoprazole Sodium 20 MG 1 tablet Orally Once a day; Duration: 30 day(s) Active Calcium Citrate + D3 Active Social History Tobacco Use: Social History Observation Description Date Details (start date - stop date) Never Smoker NA - NA Tobacco use other than smoking: Question Answer Notes Are you an other tobacco user? No Tobacco Control (Standard) Question Answer Notes Tobacco use: Nonsmoker Additional Findings: Tobacco non-user Current no nsmoker AUDIT-C (Standard) Question Answer Notes Did you have a drink containing alcohol in the p ast year? No Points 0 Interpretation Negative Problems Problem Type SNOMED Code ICD Code Onset Dates Problem Status W/U Status Risk Notes Problem Polyneuropathy due to type 2 diabetes mellitus (454350343) Type 2 diabetes mellitus with diabetic polyneuropathy (E11.42) Active confirmed Vital Signs Heart Rate 49 /min 03/27/2025 Blood pressure diastolic 67 R mm Hg 03/27/2025 Height 5ft 8 in in 03/27/2025 Blood pressure systolic 119 mm Hg 03/27/2025 Weight 184 lbs 03/27/2025 BMI 27.97 kg/m2 03/27/2025 Procedures Procedure Date Ordered Date Performed Result Body Sit e 37090-[id number] NAIL, 6 OR MORE 03/27/2025 N/A Encounters Encounter Location Date Provider Diagnosis [facility] [place] [address] [place] [id number] 03/27/2025 Suzan Pollard Other hammer toe(s) (acquired), right foot M20.41 ; Other hammer toe(s) (acquired), left foot M20.42 ; Type 2 diabetes mellitus with diabetic polyneuropathy E11.42 and Tinea unguium B35.1 Assessments Encounter Date Diagnosis (ICD Code) Assessment Notes Treatment Notes Treatment Clinical Notes Section Notes 03/27/2025 Other hammer toe(s) (acquired), right foot (ICD-10 - M20.41) Patient Educated with: DIABETIC FOOT CARE INSTRUCTIONS. pdf (DIABETIC FOOT CARE INSTRUCTIONS. pdf) 03/27/2025 Other hammer toe(s) (acquired), left foot (ICD-10 - M20.42) 03/27/2025 Type 2 diabetes mellitus with diabetic polyneuropathy (ICD-10 - E11.42) 03/27/2025 Tinea unguium (ICD-10 - B35.1) Plan Of Treatment Pending Test Test Name Order Date X ray : Foot, left 3V 02/24/2022 X ray : Foot, right 3V 02/24/2022 [id number] NAIL, 6 OR MORE 03/27/2025 [id number] NAIL, 1-5 03/27/2023 [id number] SKIN LESIONS, 2 TO 4 03/27/20 23 [id number] DYSTROPHIC NAILS ANY # [id number] DYSTROPHIC NAILS ANY # Next Appt Details Provider Name:Suzan Payne prabha, 03/26/2026 08:30:00 AM, [address] [facility], [facility] [address], [place], [address], Insurance Providers Payer Name Payer Address Payer Phone Subscriber Number Group Number Insured Name Patient Relationship to Insured Coverage Start Date Coverage End Date Aetna Medicare Open [address] [place] [address] [phone] [id number] Rahul Lucas Self - patient is the [...]
--- OUTSIDE RECORDS SUMMARY | 2025-04-21 10:52 | XMS_ITS | Clinical Summary ---
Author Organization [facility] [address] [place] [address] [place] [phone] Phone Care Team Providers Care Staff Climate Scientist Name Role Phone Austin Valles MD Primary Care Provider [phone] Allergies No known active allergies Medications CALCIUM [...] Problem Noted Date Diagnosed Date Atrial fibrillation ([facility] V24, [facility] V28) 0 11/02/2023 CAD (coronary artery disease) 11/02/2023 Diabetes ([facility] V24, [facility] V28) 11/02/2023 HTN (hypertension) 11/02/2023 Hyperparathyroidism ([facility] V24) 11/02/2023 Mixed hyperlipidemia 11/02/2023 Sleep [...] CTS, aug 2023 OTHER SURGICAL HISTORY PROCEDURE: [place] EXCISION HYDROCELE UNILATERAL HERNIA REPAIR PROCEDURE: HISTORICAL HERNIA REPAIR/UMB; COMMENT: X3 Medical History Medical History Date Comments Diabetes ([facility] V24, [facility] V28) DX:Diabetes (HCC) Vitamin D deficiency DX:Vitamin D deficiency Sleep apnea DX:Sleep apnea CAD (coronary artery disease) DX :CAD (coronary artery disease) HTN (hypertension) DX:HTN (hyper tension) Mixed hyperlipidemia DX:Mixed hy perlipidemia Atrial fibrillation ([facility] V24, [facility] V28) DX:Atrial fibrillation (HCC) Family History Medical [...] 8:30 AM EDT Office Visit Endocrinology - [place] [address] [place] [address] Dorota Gross PA [address] [place] [address] Health Maintenance Due Date Last Done Comments Diabetes: Annual Foot Exam 1959 Diabetes: Annual Retina Eye Exam 1960 Cholesterol Screening (Lipid Panel) 09/19/2023 Falls Risk Assessment 09/19/2023 Hepatitis C Screening 09/19/2023 Medicare Annual Wellness Visit 09/19/2023 Social Influencers of Health Screening 09/19/2023 Diabetes: Annual Urine Albumin-Creatinine Ratio (uACR) 03/14/2024 Diabetes: Blood Sugar Control Test (HGBA1C) 03/14/2024 Depression Screening 08/20/2024 COVID-19 Vaccine ( season) 2025 05/09/2024, 05/19/2023, 05/16/2022, Additional history exists Influenza [...] 8:55 AM EDT Vitamin D deficiency Hyperparathyroidism ([facility] V24) from Last 3 Months or Most Recently Relevant to Health Maintenance Results * (ABNORMAL) Basic metabolic panel (11/04/2024 8:55 AM EDT) Sodium 134 133 - 145 mmol/L LAB CHEMISTRY METHOD 11/04/2024 1:26 PM EDT [facility] Potassium 3.8 3.5 - 5.5 mmol/L LAB CHEMISTRY METHOD 11/04/2024 1:26 PM [facility] Chloride 100 96 - 110 mmol/L LAB CHEMISTRY METHOD 11/04/2024 1:26 PM [facility] CO2 28 21 - 32 mmol/L LAB CHEMISTRY METHOD 11/04/2024 1:26 PM [facility] Anion Gap 6 3 - 11 LAB CHEMISTRY METHOD 11/04/2024 1:26 PM EDT [facility] Glucose 102(H) 70 - 100 mg/dL LAB CHEMISTRY METHOD 11/04/2024 1:26 PM EDT [facility] BUN 17 5 - 25 mg/dL LAB CHEMISTRY METHOD 11/04/2024 1:26 PM EDT [facility] Creatinine 1.44(H) 0.70 - 1.30 mg/dL LAB CHEMISTRY METHOD 11/04/2024 1:26 PM EDT [facility] eGFR 51(L) >=60 mL/min/1. 73m2 LAB CHEMISTRY METHOD 11/04/2024 1:26 PM EDT [facility] Comment:Calculation based on the Chronic Kidney Disease Epidemiology Collaboration (CKD-EPI) equation refit without adjustment for race. BUN/Creatinine Ratio 11.8 LAB CHEMISTRY METHOD 11/04/2024 1:26 PM EDT [facility] Calcium 9.3 8.5 - 10.5 mg/dL LAB CHEMISTRY METHOD 11/04/2024 1:26 PM T [facility] Blood Venous blood specimen / Unknown Venipuncture / Unknown 11/04/2024 8:55 AM EDT 11/04/2024 8:55 AM EDT us Dorota NAIK LAB BLOOD ORDERABLES Final Result [facility] [address] [place] [address], from Last 3 Months or Most Recently Relevant to Health Maintenance Insurance [employer] MEDICARE ADVANTAGE Care Teams Staff Climate Scientist Relationship Specialty Start Date End Date Austin Valles MD [address] [place] [address] Dr Aletha MA PCP - General 11/07/22
[2025-04-21 11:21] LABS: Appearance Urine Clear; Glucose Urine UA >=1000 mg/dL (Negative); PH 5.0 (5.0-9.0); Specific Gravity - Urine >= 1.030 (1.005-1.025); UMIC TRIGGER UA YES; UMIC TRIGGER UACC YES
== END 2025-04-21 09:46 | disposition home or self-care (01) ==
LOC: HO.WFDLDS 09:45
PROVIDERS: Visit Provider Family Medicine
DX: Z00.00 Encounter for general adult medical examination without abnormal findings (principal); E11.9 Type 2 diabetes mellitus without complications
CPT/HCPCS: 81001

== ENCOUNTER 2025-04-24 08:06 | Outpatient (AMB) | payer MEDICARE, SELFPAY ==
--- NOTE | 2025-04-24 08:11 | MHC.PC.OV ---
Vital Signs 04/24/25 08:16 04/24/25 09:10 Height 5 ft 8 in Weight 179 lb 2 oz BMI 27.2 BP 102/58 L Blood Pressure Location Rt brachial Position Sitting Respiration 12 Pulse 44 L 56 Pulse Source Pulse Oximeter Auscultation Temp 97.2 F Temp Source Temporal Artery Scan Pulse Oximetry (%) 97 Oxygen Delivery Method Room Air Intake Visit Reasons: f/u diabetes, HTN Intake Note: Rahul presents in the office today for a diabetes and hypertension follow up. Allergies No Known Allergies Allergy (Verified 04/24/25 08:14) Medication List - Last Reconciled 04/24/25 by Austin Valles MD blood sugar diagnostic As directed blood sugar diagnostic ([place] Ultra Test strips) Once a day As directed, 90 days calcium carbonate (Calcium 500) 500 mg PO DAILY CPAP (CPAP Machine/Device) DX: G47.33, q.h.s. As directed, 999 days/lifetime dapagliflozin propanediol (Farxiga) 5 mg PO QAM 90 days ferrous sulfate 325 mg PO DAILY 30 days garlic 1,000 mg PO DAILY lancets One Touch Delica Plus 30g lancets; DX: E11.9, test blood sugar once a day, 90 days metformin 850 mg PO TIDWMEAL 90 days nj-niu-xhmhf-N5-jnxirfk-bzuhwd 027-28-274-300 mcg (Centrum Silver Ultra Men's) 1 tab PO DAILY omega 3-zig-ztv-fish oil 1,200 (144-216) mg (Fish Oil) caps PO pantoprazole 20 mg PO BID rivaroxaban (Xarelto) 20 mg PO DAILY rosuvastatin 40 mg PO DAILY valsartan-hydrochlorothiazide 320-12.5 mg 1 tab PO DAILY Tobacco use date assessed: 04/24/25 Fall risk assessment: No Falls in past year Last assessed Fall Risk: 04/24/25 Dental Screening Dental Screen Date: 04/24/25 Did you have a dental visit in the last 12 months?: No Did you have a dental problem in the last 6 months where you did not have access to dental care?: No Was dental information given to patient?: Patient declined HPI f/u diabetes, HTN HPI Details 75 y/o male presents to f/u diabetes, HTN. Blood pressure today 102/58, 44p. He is on valsartan-hydrochlorothiazide 320-12.5mg daily. Denies any dizziness/fatigue. A1c today 6.5%, which improved from 7.1%. He is on metformin 850mg t.i.d., Farxiga 5mg. [facility] Medical History (Updated 03/25/25 @ 12:35 by CRYS Parker) Positive colorectal cancer screening using Cologuard test Carpal tunnel syndrome of right wrist Carpal tunnel syndrome of left wrist Abnormal myocardial perfusion study Bilateral hand numbness Wrist pain Obstructive sleep apnea Adult general medical exam Screening for prostate cancer Screening for colon cancer Encounter for general adult medical examination without abnormal findings Atherosclerotic cardiovascular disease Sleep apnea Esophageal dysphagia Essential hypertension Diabetes type 2, controlled Type 2 diabetes mellitus HTN (hypertension) CHACHA on CPAP Hypercalcemia Hematuria Hyperlipidemia, unspecified Essential hypertension Type 2 diabetes mellitus with unspecified complications Persistent atrial fibrillation Surgical History (Updated 03/25/25 @ 12:35 by CRYS Parker) History of parathyroidectomy Hx of carpal tunnel repair Hx of colonoscopy History of esophagogastroduodenoscopy (EGD) History of left knee replacement History of right knee joint replacement Family History Father No problems noted. Mother Cancer CVD (cardiovascular disease) CHF (congestive heart failure) Brother Bladder cancer Brother Bladder cancer Brother History of heart valve replacement Daughter No problems noted. Son No problems noted. 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 Current occupational exposures/hazards: No Cognitive needs: No Hearing needs: Yes (hearing aides) Vision needs: Yes (glasses) Questionnaire Thrive Questionnaire Date Thrive assessed: 10/02/24 I am a: Patient What is your living situation today?: I have a steady place to live Within the past 12 months, did the food you bought not last and you didn't have the money to get more?: Often true Within the past 12 months, did you worry whether your food would run out before you got money to buy more?: Never true Do you have trouble paying for medicines?: No Do you have trouble getting transportation to medical appointments?: No Do you have trouble paying your heating and electricity bill?: No Do you have trouble taking care of your child, family member or friend?: No Do you have trouble with day-to-day activities such as bathing, preparing meals, shopping, managing finances, etc.?: No Are you currently unemployed and looking for a job?: No Are you interested in more education?: No Please select the resources that you would like help with: None Currently or been in a relationship where the following occur: No concerns reported THRIVE Score: 1 ABHINAV-7 AMB Questionnaire ABHINAV-7 Date ABHINAV - 7 assessed: 01/14/25 Source: Developed by Drs. Shashi Vera, Paulette Washington, Tato Fuchs and colleagues, with an educational aurelio from [email or web address] Review of Systems Const Denies chills, Denies fatigue, Denies fever(s), Denies headache(s) and Denies weakness ENT Denies dizziness and Denies headache(s) Card Denies dyspnea Resp Denies cough, Denies dyspnea, Denies wheezing and Denies other (shortness of breath) Musc Denies numbness and Denies tingling Neuro Denies dizziness, Denies headache(s), Denies numbness, Denies tingling and Denies weakness Psych Denies anxiety and Denies depression Endo Denies fatigue Aller/Immun Denies wheezing Physical exam (Primary Care) Vital Signs: Last Vital Signs Temp 97.2 F 04/24/25 08:16 Pulse 44 L 04/24/25 08:16 Resp 12 04/24/25 08:16 BP 102/58 L 04/24/25 08:16 Pulse Ox 97 04/24/25 08:16 Oxygen Delivery Method Room Air 04/24/25 08:16 BMI result Body Mass Index 27.2 Tobacco/Smoking Status: Tobacco use Status Tobacco use date assessed 04/24/25 04/24/25 08:21 Patient Tobacco Use Status Never used Tobacco 04/24/25 08:16 e-Cigarette/Vaping Use Never Used 04/24/25 08:16 Thrive Assessment: Date of Thrive Assessment Date Thrive assessed 10/02/24 04/24/25 08:13 Currently or been in a relationship where the following occur: No concerns reported Const General: well developed; No acute distress Nutritional Appearance: well nourished Orientation/consciousness: patient oriented x3 HENMT Head: Yes normocephalic and Yes atraumatic Eyes General: appearance normal, both eyes and all related structures Pupils: Equal, round and reactive pupils present EOM: EOMs intact bilaterally Resp Effort & Inspection: normal respiratory effort Auscultation: clear to auscultation bilaterally Cardio Rate: bradycardic Rhythm: regular rhythm Heart sounds: S1 normal heart sound present, S2 normal heart sound present, no gallops, no murmurs and no rubs Neuro General: patient oriented x3 and gait normal Cranial nerves: Yes Equal, round and reactive pupils present Psych Affect: normal affect Results AMB Hemoglobin A1c AMB Hemoglobin A1c 6.5 % Last Edit by Ne Stanton MA on 04/24/25 08:34 Results Reviewed Results Reviewed: Laboratory Last Values Hgb A1c (Clinic) 6.5 % (4.0-6.0) H 04/24/25 08:25 Coding Level of Care Code Est Pt Level 4 (51945) Diagnoses Diabetes type 2, controlled E11.9 Essential hypertension I10 Atherosclerotic cardiovascular disease I25.10 Bradycardia R00.1 Assessment & Plan Assessment & Plan (1) Diabetes type 2, controlled: Code(s): E11.9 - Type 2 diabetes mellitus without complications Category: Medical Plan: A1c 6.5%. Good control. Goal is less than 7.0% Continue her medication regimen (2) Essential hypertension: Code(s): I10 - Essential (primary) hypertension Category: Medical Plan: Blood pressure is controlled. Goal is less than 130/80 Continue current medications Encouraged good hydration (3) Atherosclerotic cardiovascular disease: Code(s): I25.10 - Atherosclerotic heart disease of [place] coronary artery without angina pectoris Category: Medical Plan: Stable. He is on rosuvastatin Blood pressure and blood sugar are controlled. Also on Farxiga Follow-up with Cardiology as recommended (4) Bradycardia: Code(s): R00.1 - Bradycardia, unspecified Category: Medical Plan: Atrial fibrillation with bradycardia. He is on rivaroxaban No dizziness or weakness Follow-up with Cardiology as recommended Orders: Orders Comprehensive [place]. Panel Fast Today Z00.00 - Encounter for general adult medical examination without abnormal findings Complete Blood Count Auto Diff Today Z00.00 - Encounter for general adult medical examination without abnormal findings Lipid Panel Today Z00.00 - Encounter for general adult medical examination without abnormal findings Microalbumin, Random (w Creat) Today I10 - Essential (primary) hypertension Prostate Specific Antigen Scr Today Z12.5 - Encounter for screening for malignant neoplasm of prostate TSH reflex Free T4 Today Z00.00 - Encounter for general adult medical examination without abnormal findings AMB Hemoglobin A1c Today E11.9 - Type 2 diabetes mellitus without complications UA CC w/rflx Micro + Cult Today Z00.00 - Encounter for general adult medical examination without abnormal findings
[2025-04-24 08:16] VITALS: BP 102/58; PULSE 44; RESP 12; TEMP 36.2; O2SAT 97; BMI 27.2
--- OUTSIDE RECORDS SUMMARY | 2025-04-24 08:17 | XMS_ITS | Clinical Summary ---
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 V24, [facility] V28) 0 11/02/2023 CAD (coronary artery disease) 11/02/2023 Diabetes ([facility] V24, [facility] V28) 11/02/2023 HTN (hypertension) 11/02/2023 Hyperparathyroidism ([facility] V24) 11/02/2023 Mixed hyperlipidemia 11/02/2023 Sleep apnea [...] Medical History Medical History Date Comments Diabetes ([facility] V24, [facility] V28) DX:Diabetes (HCC) Vitamin D deficiency DX:Vitamin D deficiency Sleep apnea DX:Sleep apnea CAD (coronary artery disease) DX :CAD (coronary artery disease) HTN (hypertension) DX:HTN (hyper tension) Mixed hyperlipidemia DX:Mixed hy perlipidemia Atrial fibrillation ([facility] V24, [facility] V28) DX:Atrial fibrillation (HCC) Family History Medical [...] 8:30 AM EDT Office Visit Endocrinology - [place] [address] [place] [address] Dorota Gross PA [address] [place] [address] Health Maintenance Due Date Last Done Comments [...] 8:55 AM EDT Vitamin D deficiency Hyperparathyroidism ([facility] V24) from Last 3 Months or Most Recently Relevant to Health Maintenance Results * (ABNORMAL) Basic metabolic panel (11/04/2024 8:55 AM EDT) Sodium 134 133 - 145 mmol/L LAB CHEMISTRY METHOD 11/04/2024 1:26 PM EDT [facility] Potassium 3.8 3.5 - 5.5 mmol/L LAB CHEMISTRY METHOD 11/04/2024 1:26 PM [facility] Chloride 100 96 - 110 mmol/L LAB CHEMISTRY METHOD 11/04/2024 1:26 PM [facility] CO2 28 21 - 32 mmol/L LAB CHEMISTRY METHOD 11/04/2024 1:26 PM [facility] Anion Gap 6 3 - 11 LAB CHEMISTRY METHOD 11/04/2024 1:26 PM EDT [facility] Glucose 102(H) 70 - 100 mg/dL LAB CHEMISTRY METHOD 11/04/2024 1:26 PM EDT [facility] BUN 17 5 - 25 mg/dL LAB CHEMISTRY METHOD 11/04/2024 1:26 PM EDT [facility] Creatinine 1.44(H) 0.70 - 1.30 mg/dL LAB CHEMISTRY METHOD 11/04/2024 1:26 PM EDT [facility] eGFR 51(L) >=60 mL/min/1. 73m2 LAB CHEMISTRY METHOD 11/04/2024 1:26 PM EDT [facility] Comment:Calculation based on the Chronic Kidney Disease Epidemiology Collaboration (CKD-EPI) equation refit without adjustment for race. BUN/Creatinine Ratio 11.8 LAB CHEMISTRY METHOD 11/04/2024 1:26 PM EDT [facility] Calcium 9.3 8.5 - 10.5 mg/dL LAB CHEMISTRY METHOD 11/04/2024 1:26 PM T [facility] Blood Venous blood specimen / Unknown Venipuncture / Unknown 11/04/2024 8:55 AM EDT 11/04/2024 8:55 AM EDT us Dorota NAIK LAB BLOOD ORDERABLES Final Result [facility] [address] [place] [address], from Last 3 Months or Most Recently Relevant to Health Maintenance Insurance [employer] MEDICARE ADVANTAGE Care Teams Wind Energy Systems Installer Relationship Specialty Start Date End Date Austin Valles MD [address] [place] [address] Dr Aletha [place] PCP - General 11/07/22
--- OUTSIDE RECORDS SUMMARY | 2025-04-24 08:18 | XMS_ITS | Patient Health Record ---
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 Name Role Phone Austin Valles MD Primary Care Provider Suzan Medellin Unavailable [phone] Allergies No Known Allergies Results Component Value [...] 02/24/2022 Not-Taking Garlic Active Fish Oil Active Perry 3 Active Multivitamin Adults 50+ Active metFORMIN [...] Polyneuropathy due to type 2 diabetes mellitus (510146959) Type 2 diabetes mellitus with diabetic polyneuropathy (E11.42) Active confirmed Vital Signs Heart Rate 49 /min 03/27/2025 Blood pressure diastolic 67 R mm Hg 03/27/2025 Height 5ft 8 in in 03/27/2025 Blood pressure systolic 119 mm Hg 03/27/2025 Weight 184 lbs 03/27/2025 BMI 27.97 kg/m2 03/27/2025 Procedures Procedure Date Ordered Date Performed Result Body Sit e 57014-[id number] NAIL, 6 OR MORE 03/27/2025 N/A Encounters Encounter Location Date Provider Diagnosis [facility] [place] [address] [place] [phone] 03/27/2025 Suzan Pollard Other hammer toe(s) (acquired), [...] X ray : Foot, right 3V 02/24/2022 [id number] NAIL, 6 OR MORE 03/27/2025 [id number] NAIL, 1-5 03/27/2023 [id number] SKIN LESIONS, 2 TO 4 03/27/20 23 [id number] DYSTROPHIC NAILS ANY # [id number] DYSTROPHIC NAILS ANY # Next Appt Details Provider Name:Suzan Payne prabha, 03/26/2026 08:30:00 AM, [address] [facility], [facility] [address], [place], [address], Insurance Providers Payer Name Payer Address Payer Phone Subscriber Number Group Number Insured Name Patient Relationship to Insured Coverage Start Date Coverage End Date [employer] Medicare Open [address] [place] [address] [id number] Rahul Lucas Self - patient is the [...]
--- OUTSIDE RECORDS SUMMARY | 2025-04-24 08:18 | XMS_ITS | Clinical Summary ---
Author Organization [facility] Address [address] [place] [address] Care Team Providers Care Brim Pouncing Machine Operator Name Role Phone Unavailable Primary [...]
[2025-04-24 09:10] VITALS: PULSE 56
== END 2025-04-24 09:10 | disposition home or self-care (01) ==
LOC: HO.HMCFM 08:08
PROVIDERS: PCP Family Medicine; Visit Provider Family Medicine
DX: E11.9 Type 2 diabetes mellitus without complications (principal); I10 Essential (primary) hypertension; I25.10 Atherosclerotic heart disease of native coronary artery without angina pectoris; R00.1 Bradycardia, unspecified

== ENCOUNTER → 2025-04-24 08:06 | Outpatient (BNVA) | payer MEDICARE, SELFPAY | PROVIDERS: PCP Family Medicine; Visit Provider Family Medicine | DX: E11.9 Type 2 diabetes mellitus without complications (principal); I10 Essential (primary) hypertension; I25.10 Atherosclerotic heart disease of native coronary artery without angina pectoris; R00.1 Bradycardia, unspecified | CPT/HCPCS: 83036; 99212 ==

== ENCOUNTER 2025-06-10 09:40 | Outpatient (AMB) | payer MEDICARE, SELFPAY ==
--- NOTE | 2025-06-10 10:07 | A.OFFVIS_ITS ---
Vital Signs 06/10/25 10:08 Height 5 ft 8 in Weight 179 lb 14.355 oz BMI 27.4 BP 112/58 L Blood Pressure Location Lt brachial Position Sitting Pulse 50 Pulse Source Pulse Oximeter Intake Visit Reasons: 6 mth f/up Metrologist Required: No Accompanied by: Self / Same As Patient Allergies No Known Allergies Allergy (Verified 06/10/25 10:10) Medication List - Last Reconciled 06/10/25 by Luther Mckay MD blood sugar diagnostic As directed blood sugar diagnostic (American-Albanian Hemp CompanyTouch Ultra Test strips) Once a day As directed, 90 days calcium carbonate (Calcium 500) 500 mg PO DAILY CPAP (CPAP Machine/Device) DX: G47.33, q.h.s. As directed, 999 days/lifetime dapagliflozin propanediol (Farxiga) 5 mg PO QAM 90 days ferrous sulfate 325 mg PO DAILY 30 days garlic 1,000 mg PO DAILY lancets One Touch Delica Plus 30g lancets; DX: E11.9, test blood sugar once a day, 90 days metformin 850 mg PO TIDWMEAL 90 days jm-amy-tceuc-X3-exqlchh-kmudgo 118-25-645-300 mcg (Centrum Silver Ultra Men's) 1 tab PO DAILY omega 0-kdp-wed-fish oil 1,200 (144-216) mg (Fish Oil) caps PO pantoprazole 20 mg PO BID rivaroxaban (Xarelto) 20 mg PO DAILY rosuvastatin 40 mg PO DAILY valsartan-hydrochlorothiazide 320-12.5 mg 1 tab PO DAILY HPI Comments Details: Rahul returns for follow-up regarding several issues including atrial fibrill ation, bradycardia, coronary disease, hypertension among others. Overall, he states he is feeling good. No cardiac complaints. Getting along fine. [facility] Medical History (Updated 03/25/25 @ 12:35 by CRYS Parker) Positive colorectal cancer screening using Cologuard test Carpal tunnel syndrome of right wrist Carpal tunnel syndrome of left wrist Abnormal myocardial perfusion study Bilateral hand numbness Wrist pain Obstructive sleep apnea Adult general medical exam Screening for prostate cancer Screening for colon cancer Encounter for general adult medical examination without abnormal findings Atherosclerotic cardiovascular disease Sleep apnea Esophageal dysphagia Essential hypertension Diabetes type 2, controlled Type 2 diabetes mellitus HTN (hypertension) CHACHA on CPAP Hypercalcemia Hematuria Hyperlipidemia, unspecified Essential hypertension Type 2 diabetes mellitus with unspecified complications Persistent atrial fibrillation Surgical History History of parathyroidectomy Hx of carpal tunnel repair Hx of colonoscopy History of esophagogastroduodenoscopy (EGD) History of left knee replacement History of right knee joint replacement Family History Father No problems noted. Mother Cancer CVD (cardiovascular disease) CHF (congestive heart failure) Brother Bladder cancer Brother Bladder cancer Brother History of heart valve replacement Daughter No problems noted. Son No problems noted. 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 Current occupational exposures/hazards: No Cognitive needs: No Hearing needs: Yes (hearing aides) Vision needs: Yes (glasses) Review of Systems Const Denies daytime sleepiness, Denies difficulty sleeping, Denies snoring, Denies stops breathing during sleep and Denies weakness Card Denies chest pain, Denies rapid heart rate, Denies irregular heart rhythm, Denies claudication, Denies leg edema, Denies lightheadedness, Denies palpitations, Denies dyspnea, Denies dyspnea on exertion, Denies orthopnea, Denies paroxysmal nocturnal dyspnea and Denies slow heart rate Resp Denies cough, Denies dyspnea, Denies dyspnea on exertion and Denies snoring GI Reports no additional complaints, Denies hematochezia, Denies change in stool character and Denies dyspepsia Musc Denies abnormal gait, Denies muscle weakness and Denies numbness Neuro Denies abnormal gait, Denies numbness and Denies weakness Endo Denies palpitations Physical Exam Vital Signs: Last Vital Signs Pulse 50 06/10/25 10:08 BP 112/58 L 06/10/25 10:08 BMI result Body Mass Index 27.4 Const General: comfortable and no acute distress Orientation/consciousness: patient oriented x3 HEENT Other: Unremarkable Head: Yes normal to inspection Neck Neck: Yes normal visual inspection Chest Chest palpation & inspection: normal inspection of the chest Resp Auscultation: clear to auscultation bilaterally Cardio Palpation: normal PMI Heart sounds: S1 normal heart sound present, S2 normal heart sound present, no gallops, no murmurs and no rubs GI Palpation (GI): Soft to palpation Back/Spine/Pelvis Other: unremarkable Skin General skin exam: no rashes or lesions noted Neuro General: patient oriented x3 Extrem General: Yes normal to inspection Psych Mental Status: mental status grossly normal Office Procedures EKG Details: EKG with atrial fibrillation at a rate of 49/Min with PVC versus aberrant conduction; right bundle-branch block pattern with leftward axis. [id number], Complete Assessment & Plan Assessment & Plan (1) Persistent atrial fibrillation: Code(s): I48.19 - Other persistent atrial fibrillation Category: Medical Plan: Spontaneously rate controlled due to conduction system disease. In the last Holter from November, atrial fibrillation with an average rate of 60/Min. Pauses noted but do not reach significance. (2) PVC (premature ventricular contraction): Code(s): I49.3 - Ventricular premature depolarization Category: Medical Plan: PVCs versus aberrant conduction. He does not have any symptoms from this and he also has bradycardia. Hence no room for medications. (3) Atherosclerotic cardiovascular disease: Code(s): I25.10 - Atherosclerotic heart disease of [place] coronary artery without angina pectoris Category: Medical Plan: In a prior stress MIBI from 2016, he had mild ischemia in the inferior/inferolateral mathews. Clinically, absolutely no angina or in fact any concerning symptoms at all. Continue statins. Last LDL 56 mg/dL. (4) Essential hypertension: Code(s): I10 - Essential (primary) hypertension Category: Medical Plan: On valsartan/HCTZ. No changes. (5) Type 2 diabetes mellitus with unspecified complications: Code(s): E11.8 - Type 2 diabetes mellitus with unspecified complications Category: Medical Plan: On Farxiga, metformin. Last hemoglobin A1c is 6.5%. Coding Level of Care Code Est Pt Level 4 (84248) Complex EM visit Add On G2211 Diagnoses Persistent atrial fibrillation I48.19 PVC (premature ventricular contraction) I49.3 Atherosclerotic cardiovascular disease I25.10 Essential hypertension I10 Type 2 diabetes mellitus with unspecified complications E11.8 CPT Codes EKG - CPT: 37961-Devrqzrppmifrmtfx, Complete ([id number])
[2025-06-10 10:08] VITALS: BP 112/58; PULSE 50; BMI 27.4
--- OUTSIDE RECORDS SUMMARY | 2025-06-10 11:19 | XMS_ITS | Clinical Summary ---
Author Organization [facility] [address] [place] [address] [place] [phone] Phone Care Team Providers Care Naval Gunfire Liaison Officer Name Role Phone Austin Valles MD Primary Care Provider [phone] Allergies No known active allergies Medications CALCIUM [...] Noted Date Diagnosed Date Atrial fibrillation ([facility] [place]24, [facility] V28) 0 11/02/2023 CAD (coronary artery disease) 11/02/2023 Diabetes ([facility] V24, [facility] V28) 11/02/2023 HTN (hypertension) 11/02/2023 Hyperparathyroidism ([facility] V24) 11/02/2023 Mixed hyperlipidemia [...] CTS, aug 2023 OTHER SURGICAL HISTORY PROCEDURE: IN EXCISION HYDROCELE UNILATERAL HERNIA REPAIR PROCEDURE: HISTORICAL HERNIA REPAIR/UMB; COMMENT: X3 Medical History Medical History Date Comments Diabetes ([facility] V24, [facility] V28) DX:Diabetes (HCC) Vitamin D deficiency DX:Vitamin D deficiency Sleep apnea DX:Sleep apnea CAD (coronary artery disease) DX :CAD (coronary artery disease) HTN (hypertension) DX:HTN (hyper tension) Mixed hyperlipidemia DX:Mixed hy perlipidemia Atrial fibrillation ([facility] [place]24, [facility] V28) DX:Atrial fibrillation (HCC) Family History [...] 8:30 AM EDT Office Visit Endocrinology - [place] [address] [place] [address] Dorota Gross PA [address] [place] [address] Health Maintenance Due Date Last Done Comments [...] 8:55 AM EDT Vitamin D deficiency Hyperparathyroidism ([facility] V24) from Last 3 Months or Most Recently Relevant to Health Maintenance Results * (ABNORMAL) Basic metabolic panel (11/04/2024 8:55 AM EDT) Sodium 134 133 - 145 mmol/L LAB CHEMISTRY METHOD 11/04/2024 1:26 PM EDT [facility] Potassium 3.8 3.5 - 5.5 mmol/L LAB CHEMISTRY METHOD 11/04/2024 1:26 PM [facility] Chloride 100 96 - 110 mmol/L LAB CHEMISTRY METHOD 11/04/2024 1:26 PM [facility] CO2 28 21 - 32 mmol/L LAB CHEMISTRY METHOD 11/04/2024 1:26 PM [facility] Anion Gap 6 3 - 11 LAB CHEMISTRY METHOD 11/04/2024 1:26 PM EDT [facility] Glucose 102(H) 70 - 100 mg/dL LAB CHEMISTRY METHOD 11/04/2024 1:26 PM EDT [facility] BUN 17 5 - 25 mg/dL LAB CHEMISTRY METHOD 11/04/2024 1:26 PM EDT [facility] Creatinine 1.44(H) 0.70 - 1.30 mg/dL LAB CHEMISTRY METHOD 11/04/2024 1:26 PM EDT [facility] eGFR 51(L) >=60 mL/min/1. 73m2 LAB CHEMISTRY METHOD 11/04/2024 1:26 PM EDT [facility] Comment:Calculation based on the Chronic Kidney Disease Epidemiology Collaboration (CKD-EPI) equation refit without adjustment for race. BUN/Creatinine Ratio 11.8 LAB CHEMISTRY METHOD 11/04/2024 1:26 PM EDT [facility] Calcium 9.3 8.5 - 10.5 mg/dL LAB CHEMISTRY METHOD 11/04/2024 1:26 PM T [facility] Blood Venous blood specimen / Unknown Venipuncture / Unknown 11/04/2024 8:55 AM EDT 11/04/2024 8:55 AM EDT us Dorota NAIK LAB BLOOD ORDERABLES Final Result [facility] [address] [place] [address], from Last 3 Months or Most Recently Relevant to Health Maintenance Insurance [employer] MEDICARE ADVANTAGE Care Teams Naval Gunfire Liaison Officer Relationship Specialty Start Date End Date Austin Valles MD [address] [place] [address] Dr Aletha [place] PCP - General 11/07/22
--- OUTSIDE RECORDS SUMMARY | 2025-06-10 11:20 | XMS_ITS | Clinical Summary ---
Author Organization [facility] Address [address] [place] [address] Care Team Providers Care Sleep Lab Technologist Name Role Phone Unavailable Primary Care Provider [...]
== END 2025-06-10 10:38 | disposition home or self-care (01) ==
LOC: HO.HCS 09:41
PROVIDERS: PCP Family Medicine; Visit Provider Internal Medicine
DX: I48.19 Other persistent atrial fibrillation (principal); I49.3 Ventricular premature depolarization; I25.10 Atherosclerotic heart disease of native coronary artery without angina pectoris; I10 Essential (primary) hypertension; E11.8 Type 2 diabetes mellitus with unspecified complications
CPT/HCPCS: 93010; 99214; G2211

== ENCOUNTER → 2025-06-10 09:40 | Outpatient (BNVA) | payer MEDICARE, SELFPAY | PROVIDERS: PCP Family Medicine; Visit Provider Internal Medicine | DX: I25.10 Atherosclerotic heart disease of native coronary artery without angina pectoris (principal); I49.3 Ventricular premature depolarization; I48.19 Other persistent atrial fibrillation; E11.8 Type 2 diabetes mellitus with unspecified complications; I10 Essential (primary) hypertension | CPT/HCPCS: 93005; 99212 ==

== ENCOUNTER 2025-07-27 09:45 | Outpatient (REF) | payer MEDICARE, SELFPAY ==
[2025-07-27 11:40] LABS: MANUAL DIFF FLAG NO
[2025-07-27 11:52] LABS: Hematocrit 46.7 % (42.0-52.0); Hemoglobin 15.5 g/dl (14.0-18.0); Imm Gran Abs Auto 0.02 X10*3/uL (0.00-0.03); Imm Gran Pct Auto 0.3 % (0.0-0.4); Lymphocytes Absolute Auto 1.4 X10*3/uL (1.2-4.9); Mean Corpuscular HGB Conc 33.2 g/dl (31.0-36.0); Mean Corpuscular Hemoglobin 27.8 pg (27.0-33.0); Mean Corpuscular Volume 83.7 fL (80.0-98.0); NRBC Abs Auto 0.000 X10*3/uL (0.0-0.012); NRBC Pct Auto 0.0 /100WBC (0.0-0.2); Platelet Count 246 X10*3/uL (160-400); Red Blood Count 5.58 X10*6/uL (4.60-5.80); White Blood Count 7.8 X10*3/uL (4.8-10.8)
[2025-07-27 12:41] LABS: Alanine Aminotransferase 15 U/L (0-40); Albumin Level 4.2 g/dL (3.5-5.0); Alkaline Phosphatase 58 U/L (39-117); Anion Gap 10 (12-20); Aspartate Amino Transferase 29 U/L (5-37); Blood Urea Nitrogen 11 mg/dL (9-16); Calcium 9.2 mg/dL (8.4-10.2); Carbon Dioxide 29 mmol/L (22-29); Chloride 102 mmol/L (96-108); Cholesterol 147 mg/dL (<200); Estimated Glomerular Filt Rate > 60; HDL Cholesterol 53 mg/dL (>40); Potassium 4.0 mmol/L (3.3-5.1); Sodium 137 mmol/L (135-145); Total Protein 6.8 g/dL (6.5-8.0); Triglycerides 107 mg/dL (<150)
[2025-07-27 14:51] LABS: Appearance Urine Clear; Glucose Urine UA 500 mg/dL (Negative); PH 6.0 (5.0-9.0); Specific Gravity - Urine 1.020 (1.005-1.025); UMIC TRIGGER UACC YES
[2025-07-27 15:21] LABS: Microalbum/Creatinine Ratio Ur 371.5 ug/mg cr (<30)
== END 2025-07-27 09:46 | disposition home or self-care (01) ==
LOC: HO.WFDLDS 09:45
PROVIDERS: Visit Provider Family Medicine
DX: Z00.00 Encounter for general adult medical examination without abnormal findings (principal); Z12.5 Encounter for screening for malignant neoplasm of prostate; I10 Essential (primary) hypertension; E11.9 Type 2 diabetes mellitus without complications
CPT/HCPCS: 36415; 80053; 80061; 81001; 82043; 82570; 84153; 84443; 85025

== ENCOUNTER 2025-07-31 11:12 | Outpatient (AMB) | payer MEDICARE, SELFPAY ==
--- NOTE | 2025-07-31 12:06 | A.OFFPC_ITS ---
Vital Signs 07/31/25 12:20 Height 5 ft 8 in Weight 177 lb BMI 26.9 BP 114/62 Blood Pressure Location Rt brachial Position Sitting Respiration 13 Pulse 65 Pulse Source Pulse Oximeter Temp 98.1 F Temp Source Temporal Artery Scan Pulse Oximetry (%) 95 Oxygen Delivery Method Room Air Intake Visit Reasons: CPE with f/u labs and health maint. 30 mins Intake Note: Rahul presents in the office today for his annual physical and lab review. Patients insurance will not be covering the One Touch diabetic supplies. Needs new Rx for either Accucheck or True/Travidia. Needs new meter and lancets. Dot Etcher Apprentice Required: No Allergies No Known Allergies Allergy (Verified 07/31/25 12:07) Medication List - Last Reconciled 07/31/25 by Austin Valles MD blood sugar diagnostic As directed blood sugar diagnostic (OneTouch Ultra Test strips) Once a day As directed, 90 days calcium carbonate (Calcium 500) 500 mg PO DAILY CPAP (CPAP Machine/Device) DX: G47.33, q.h.s. As directed, 999 days/lifetime dapagliflozin propanediol (Farxiga) 5 mg PO QAM 90 days ferrous sulfate 325 mg PO DAILY 30 days garlic 1,000 mg PO DAILY lancets One Touch Delica Plus 30g lancets; DX: E11.9, test blood sugar once a day, 90 days metformin 850 mg PO TIDWMEAL 90 days [id number] 872-30-431-300 mcg (Centrum Silver Ultra Men's) 1 tab PO DAILY omega 3-nnk-clz-fish oil 1,200 (144-216) mg (Fish Oil) caps PO pantoprazole 20 mg PO BID rivaroxaban (Xarelto) 20 mg PO DAILY rosuvastatin 40 mg PO DAILY valsartan-hydrochlorothiazide 320-12.5 mg 1 tab PO DAILY Tobacco use date assessed: 07/31/25 Fall risk assessment: No Falls in past year Last assessed Fall Risk: 07/31/25 Dental Screening Dental Screen Date: 04/24/25 HPI CPE with f/u labs and health maint. 30 mins HPI Details 75 y/o male presents for a CPE with f/u labs and health maint. Labs drawn 07/27/25. Triglycerides 107. TC 147. LDL 73. HDL 53. PSA 2.33. PFSH Medical History (Updated 07/31/25 @ 12:36 by Santy Poe) Screening for prostate cancer Screening for colon cancer Positive colorectal cancer screening using Cologuard test Carpal tunnel syndrome of right wrist Carpal tunnel syndrome of left wrist Abnormal myocardial perfusion study Bilateral hand numbness Wrist pain Obstructive sleep apnea Adult general medical exam Encounter for general adult medical examination without abnormal findings Atherosclerotic cardiovascular disease Sleep apnea Esophageal dysphagia Essential hypertension Diabetes type 2, controlled Type 2 diabetes mellitus HTN (hypertension) CHACHA on CPAP Hypercalcemia Hematuria Hyperlipidemia, unspecified Essential hypertension Type 2 diabetes mellitus with unspecified complications Persistent atrial fibrillation Surgical History History of parathyroidectomy Hx of carpal tunnel repair Hx of colonoscopy History of esophagogastroduodenoscopy (EGD) History of left knee replacement History of right knee joint replacement Family History Father No problems noted. Mother Cancer CVD (cardiovascular disease) CHF (congestive heart failure) Brother Bladder cancer Brother Bladder cancer Brother History of heart valve replacement Daughter No problems noted. Son No problems noted. 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 1. Little interest or pleasure in doing things: not at all 2. Feeling down, depressed, or hopeless: not at all 3. Trouble falling or staying asleep, or sleeping too much: not at all 4. Feeling tired or having little energy: not at all 5. Poor appetite or overeating: not at all 6. Feeling bad about yourself - or that you are a failure or have let yourself or your family down: not at all 7. Trouble concentrating on things, such as reading the newspaper or watching television: not at all 8. Moving or speaking so slowly that other people could have noticed. Or the opposite - being so fidgety or restless that you have been moving around a lot more than usual: not at all 9. Thoughts that you would be better off or of hurting yourself in some way: not at all Total score: 0 Depression Screening Interpretation: Negative Depression Screening Done: Yes 89823 - PHQ-9 Billing: Yes Source: Developed by Drs. Shashi Vera, Paulette Washington, Tato Fuchs and colleagues, with an educational aurelio from [employer]. Thrive Questionnaire Date Thrive assessed: 07/31/25 I am a: Patient What is your living situation today?: I have a steady place to live Within the past 12 months, did the food you bought not last and you didn't have the money to get more?: Often true Within the past 12 months, did you worry whether your food would run out before you got money to buy more?: Never true Do you have trouble paying for medicines?: No Do you have trouble getting transportation to medical appointments?: No Do you have trouble paying your heating and electricity bill?: No Do you have trouble taking care of your child, family member or friend?: No Do you have trouble with day-to-day activities such as bathing, preparing meals, shopping, managing finances, etc.?: No Are you currently unemployed and looking for a job?: No Are you interested in more education?: No Please select the resources that you would like help with: None Currently or been in a relationship where the following occur: No concerns reported THRIVE Score: 1 AUDIT C Alcohol Use Questionnaire (AUDIT-C) 1. How often do you have a drink containing alcohol?: Monthly or less 2. How many drinks containing alcohol do you have on a typical day when you are drinking?: 1 or 2 3. How often do you have six or more drinks on one occasion?: Never Total Score: 1 ABHINAV-7 AMB Questionnaire ABHINAV-7 Date ABHINAV - 7 assessed: 07/31/25 Feeling nervous, anxious, or on edge: 0 = Not at all Not being able to stop or control worryin = Not at all Worrying too much about different things: 0 = Not at all Trouble relaxin = Not at all Being so restless that it is hard to sit still: 0 = Not at all Becoming easily annoyed or irritable: 0 = Not at all Feeling afraid as if something awful might happen: 0 = Not at all Total ABHINAV-7 score (0-4 normal; 5-9 mild; 10-14 moderate; 15-21 severe): 0 Source: Developed by Drs. Shashi Vera, Paulette Washington, Tato Fuchs and colleagues, with an educational aurelio from [employer]. ABHINAV-7 Assessment Billing ABHINAV-7 Assessment Tool: ABHINAV-7 Assessment 70597 Review of Systems Const Denies chills, Denies fatigue, Denies fever(s), Denies headache(s) and Denies weakness Eyes Denies change in vision ENT Denies dizziness, Denies headache(s), Denies hearing loss, Denies nasal congestion, Denies sinus pain, Denies sinus pressure and Denies sore throat Card Denies chest pain, Denies lightheadedness, Denies dyspnea and Denies other (palpitations) Resp Denies cough, Denies dyspnea and Denies wheezing GI Denies abdominal pain, Denies melena, Denies hematochezia, Denies change in bowel habits, Denies dyspepsia and Denies nausea Denies hematuria and Denies dysuria Musc Denies abnormal gait, Denies myalgias, Denies arthralgias, Denies numbness and Denies tingling Skin/Breast Denies rash, Denies unusual bruising and Denies wounds Neuro Denies abnormal gait, Denies dizziness, Denies headache(s), Denies memory loss, Denies numbness, Denies Sensory deficit (Neuro), Denies tingling and Denies w eakness Psych Denies anxiety, Denies depression and Denies memory loss Endo Denies cold intolerance, Denies fatigue, Denies heat intolerance, Denies p olydipsia and Denies polyuria Royer/Lymph Denies easy bleeding and Denies easy bruising Aller/Immun Denies wheezing Physical exam (Primary Care) Vital Signs: Last Vital Signs Temp 98.1 F 07/31/25 12:20 Pulse 65 07/31/25 12:20 Resp 13 07/31/25 12:20 BP 114/62 07/31/25 12:20 Pulse Ox 95 07/31/25 12:20 Oxygen Delivery Method Room Air 07/31/25 12:20 BMI result Body Mass Index 26.9 Tobacco/Smoking Status: Tobacco use Status Tobacco use date assessed 07/31/25 07/31/25 12:18 Patient Tobacco Use Status Never used Tobacco 07/31/25 12:09 e-Cigarette/Vaping Use Never Used 07/31/25 12:09 PHQ-9: PHQ-9 Score PHQ-9: Total score 0 07/31/25 12:27 Depression Screening Interpretation: Negative Thrive Assessment: Date of Thrive Assessment Date Thrive assessed 10/02/24 07/31/25 12:09 Currently or been in a relationship where the following occur: No concerns reported Const General: no acute distress, well developed, alert and awake Nutritional Appearance: well nourished Orientation/consciousness: patient oriented x3 HENMT Head: Yes normocephalic and Yes atraumatic Ears: hearing grossly normal bilaterally and TM's normal bilaterally General nose exam: Normal external nose present and Normal nares present Mouth: Normal oral and palatal mucosa present and moist mucous membranes Teeth and gingiva: dentition normal Throat: Yes posterior oropharynx normal Eyes General: appearance normal, both eyes and all related structures Pupils: Equal, round and reactive pupils present and Pupil accommodation reflex normal EOM: EOMs intact bilaterally Neck Neck: Yes normal visual inspection, Yes no lymphadenopathy and Yes trachea midline Thyroid: Thyroid normal Carotids: no bruits Lymphatic: no lymphadenopathy noted Chest Chest palpation & inspection: normal inspection of the chest Resp Effort & Inspection: normal respiratory effort Auscultation: clear to auscultation bilaterally Cardio Rate: regular rate Rhythm: regular rhythm Heart sounds: S1 normal heart sound present, S2 normal heart sound present, no gallops, no murmurs and no rubs Bruits: no abdominal aortic bruits and no carotid bruits GI Palpation (GI): No Abdominal aortic bruit present, Soft to palpation, nontender, No hepatosplenomegaly present and No Rebound tenderness present Auscultation: normal bowel sounds General: Yes no CVA tenderness Back/Spine/Pelvis Back: no CVA tenderness Cervical Spine: cervical ROM normal and No Cervical spine tenderness Thoracic/Lumbar Spine: thoraco-lumbar ROM normal, No pain with thoraco-lumbar ROM, No thoracic spinal tenderness and No lumbar spinal tenderness Skin Lesions: no lesions Rashes: no rashes Trauma: no lacerations or abrasions Wounds: no wounds Nails: normal Neuro General: patient oriented x3 Cranial nerves: Yes Equal, round and reactive pupils present Cognition (Neuro): normal cognition Gait exam (Neuro): Normal gait present Motor exam (neuro): 5/5 motor strength present throughout Sensory Exam: No Sensory deficit (Neuro) Deep tendon reflexes (DTR's): Right patellar reflex intensity grade: 2+ and Left patellar reflex intensity grade: 2+ Extrem General: Yes normal to inspection and No edema Psych Appearance: grossly normal Affect: normal affect Attitude: cooperative Thought process: Normal thought process present Results AMB Hemoglobin A1c AMB Hemoglobin A1c 6.0 % Last Edit by Ne Stanton CMA on 07/31/25 12:25 Results Reviewed Results Reviewed: Laboratory Last Values Hgb A1c (Clinic) 6.0 % (4.0-6.0) 07/31/25 12:24 Coding Level of Care Code Est Pt Level 4 (22094) Diagnoses Diabetes type 2, controlled E11.9 Essential hypertension I10 Atherosclerotic cardiovascular disease I25.10 Persistent atrial fibrillation I48.19 Hyperlipidemia, unspecified E78.5 Screening for colon cancer Z12.11 Screening for prostate cancer Z12.5 Adult general medical examination Z00.00 Additional Codes ABHINAV-7 Assessment Billing - ABHINAV-7 Assessment Tool: ABHINAV-7 Assessment 14179 ([id number]) PHQ-9 - 90179 - PHQ-9 Billing: Yes ([id number]) Assessment & Plan Assessment & Plan (1) Diabetes type 2, controlled: Code(s): E11.9 - Type 2 diabetes mellitus without complications Category: Medical Plan: A1c shows good control. Goal is less than 7.0% Continue current medication (2) Essential hypertension: Code(s): I10 - Essential (primary) hypertension Category: Medical Plan: Blood pressure is controlled. Goal is less than 130/80 Continue current medications (3) Atherosclerotic cardiovascular disease: Code(s): I25.10 - Atherosclerotic heart disease of [place] coronary artery without angina pectoris Category: Medical Plan: Stable Followed by Dr. Mckay Continue blood pressure control, blood sugar control and lipid control (4) Persistent atrial fibrillation: Code(s): I48.19 - Other persistent atrial fibrillation Category: Medical Plan: As above, followed by Dr. Mckay He is on Xarelto Rate is well controlled Follow-up with Cardiology as recommended (5) Hyperlipidemia, unspecified: Code(s): E78.5 - Hyperlipidemia, unspecified Category: Medical Plan: LDL cholesterol is slightly above goal Continue current medications Work on a diet lower in saturated fats and cholesterol (6) Screening for colon cancer: Code(s): Z12.11 - Encounter for screening for malignant neoplasm of colon Category: Medical Plan: Patient had a positive Cologuard test mid 2022. Was referred to Gastroenterology. He had a colonoscopy at the end of 2022 and follow-up at the beginning of 2023. No significant pathology. Recommended colonoscopy in 10 years if health allows. Up-to-date (7) Screening for prostate cancer: Code(s): Z12.5 - Encounter for screening for malignant neoplasm of prostate Category: Medical Plan: PSA is within normal range Will continue annual screening (8) Adult general medical examination: Code(s): Z00.00 - Encounter for general adult medical examination without abnormal findings Category: Medical Plan: 75-year-old male presents for extended exam Encouraged healthy diet with active lifestyle and plenty of exercise Orders: Orders AMB Hemoglobin A1c Today E11.9 - Type 2 diabetes mellitus without complications Referrals Cologuard Test Z12.11 - Encounter for screening for malignant neoplasm of colon, Z12.12 - Encounter for screening for malignant neoplasm of rectum
[2025-07-31 12:20] VITALS: BP 114/62; PULSE 65; RESP 13; TEMP 36.7; O2SAT 95; BMI 26.9
== END 2025-07-31 12:46 | disposition home or self-care (01) ==
LOC: HO.HMCFM 11:13
PROVIDERS: PCP Family Medicine; Visit Provider Family Medicine
DX: E11.9 Type 2 diabetes mellitus without complications (principal); I10 Essential (primary) hypertension; I25.10 Atherosclerotic heart disease of native coronary artery without angina pectoris; I48.19 Other persistent atrial fibrillation; E78.5 Hyperlipidemia, unspecified; Z12.11 Encounter for screening for malignant neoplasm of colon; Z12.5 Encounter for screening for malignant neoplasm of prostate; Z00.00 Encounter for general adult medical examination without abnormal findings

== ENCOUNTER → 2025-07-31 11:12 | Outpatient (BNVA) | payer MEDICARE, SELFPAY | PROVIDERS: PCP Family Medicine; Visit Provider Family Medicine | DX: Z00.00 Encounter for general adult medical examination without abnormal findings (principal); Z12.11 Encounter for screening for malignant neoplasm of colon; Z12.5 Encounter for screening for malignant neoplasm of prostate; E11.9 Type 2 diabetes mellitus without complications; I10 Essential (primary) hypertension; I25.10 Atherosclerotic heart disease of native coronary artery without angina pectoris; I48.19 Other persistent atrial fibrillation; E78.5 Hyperlipidemia, unspecified | CPT/HCPCS: 83036; 96127; 99212 ==